=== PATIENT | female | born 1955 | race Caucasian/White ===

== ENCOUNTER 2016-09-12 11:04 | Inpatient (IN) | payer MEDICARE, MEDICAID ==
[~2016-09-12] VITALS: Ht 165.1 cm; Wt 72.6 kg
[~2016-09-12 11:04] MED LIST: CITA10TA68 PO; METF500T4 PO; OMEP20 PO; QUET200T PO
[2016-09-12 14:46] VITALS: BP 130/80
[2016-09-12] MEDS ORDERED: ZOLPIDEM TARTRATE 10 MG TABLET PO PRN (15:00)
[2016-09-12] MEDS: LORazepam 2 MG TABLET PO PRN ×2 (16:14→21:07)
[2016-09-12 16:42] VITALS: BP 121/76
[2016-09-12] MEDS ORDERED: INFLUENZA VIRUS VACCINE QVS 2016-17 (3YR+)/PF 60 MCG/0.5 ML SYRINGE IM ONE (16:45)
[2016-09-12] MEDS ORDERED: GLUCAGON,HUMAN RECOMBINANT 1 MG VIAL IM PRN (16:45)
[2016-09-12] MEDS ORDERED: PNEUMOCOCCAL VACCINE POLYVALENT 0.5 ML VIAL [PPSV23] IM ONE (16:45)
[2016-09-12 17:01] LABS: GLUCOSE,POINT OF CARE 139 MG/DL (70-110)
[2016-09-12] MEDS: MetFORMIN HCL 500 MG TABLET PO SCH (17:13)
[2016-09-12] MEDS: QUEtiapine FUMARATE 200 MG TABLET PO SCH (20:53)
[2016-09-12] MEDS: INSULIN ASPART 100 UNITS/ML SQ PRN (21:04)
[2016-09-12 21:06] LABS: GLUCOSE,POINT OF CARE 163 MG/DL (70-110)
[2016-09-12] MEDS: IBUPROFEN 600 MG TABLET PO PRN (21:08)
[2016-09-13 00:28] VITALS: BP 142/78
[2016-09-13 05:44] VITALS: BP 117/65
[2016-09-13] MEDS: IBUPROFEN 600 MG TABLET PO PRN (05:46)
[2016-09-13 06:06] LABS: GLUCOSE COMMENT 1 Received Meds; GLUCOSE,POINT OF CARE 160 MG/DL (70-110)
[2016-09-13] MEDS: LORazepam 2 MG TABLET PO PRN ×3 (06:37→21:33)
[2016-09-13] MEDS: INSULIN ASPART 100 UNITS/ML SQ PRN (06:51)
[2016-09-13] MEDS: MetFORMIN HCL 500 MG TABLET PO SCH ×2 (07:04→16:34)
[2016-09-13 08:26] VITALS: BP 102/65
[2016-09-13] MEDS ORDERED: DiphenhydrAMINE HCL 50 MG/ML VIAL IM ONE (08:45)
[2016-09-13] MEDS ORDERED: HALOPERIDOL LACTATE 5 MG/ML VIAL IM ONE (08:45)
[2016-09-13] MEDS ORDERED: LORazepam 2 MG/ML VIAL IM ONE (08:45)
[2016-09-13] MEDS: CITALOPRAM HYDROBROMIDE 10 MG TABLET PO SCH (09:29)
[2016-09-13 16:04] VITALS: BP 122/83
[2016-09-13 17:01] LABS: GLUCOSE,POINT OF CARE 165 MG/DL (70-110)
[2016-09-13] MEDS: HALOPERIDOL 5 MG TABLET PO PRN (17:50)
[2016-09-13] MEDS ORDERED: ALBUTEROL SULFATE HFA 90 MCG/PUFF 8 GM INHALER IH PRN (19:45)
[2016-09-13] MEDS ORDERED: LOPERAMIDE HCL 2 MG CAPSULE PO PRN (19:45)
[2016-09-13] MEDS ORDERED: CloNIDine HCL 0.1 MG TABLET PO PRN (19:45)
[2016-09-13] MEDS ORDERED: ONDANSETRON HCL 4 MG TABLET PO PRN (19:45)
[2016-09-13] MEDS ORDERED: PETROLATUM,WHITE 71 GM JELLY TP PRN (19:45)
[2016-09-13] MEDS ORDERED: BACITRACIN 28.4 GM OINTMENT TP PRN (19:45)
[2016-09-13] MEDS ORDERED: BENZOCAINE/MENTHOL LOZENGE MM PRN (19:45)
[2016-09-13] MEDS ORDERED: MAGNESIUM HYDROXIDE SUSPENSION 30 ML UDCUP PO PRN (19:45)
[2016-09-13] MEDS: QUEtiapine FUMARATE 200 MG TABLET PO SCH (20:15)
[2016-09-13 20:26] LABS: GLUCOSE,POINT OF CARE 157 MG/DL (70-110)
[2016-09-14 02:15] VITALS: BP 104/84
[2016-09-14] MEDS: LORazepam 2 MG TABLET PO PRN ×4 (02:20→16:00)
[2016-09-14] MEDS: MAG HYDROX/AL HYDROX/SIMETH ES 30 ML SUSPENSION UDCUP PO PRN (02:20)
[2016-09-14 03:57] VITALS: BP 120/73
[2016-09-14] MEDS: TraMADol HCL 50 MG TABLET PO PRN ×2 (04:02→12:37)
[2016-09-14] MEDS: HALOPERIDOL 5 MG TABLET PO PRN (04:35)
[2016-09-14 06:15] LABS: GLUCOSE,POINT OF CARE 140 MG/DL (70-110)
[2016-09-14] MEDS: MetFORMIN HCL 500 MG TABLET PO SCH ×2 (06:15→17:11)
[2016-09-14 08:10] LABS: HEMOGLOBIN A1C 6.1 % (4.5-6.2)
[2016-09-14 08:12] LABS: BASOPHILS # (AUTO) 0.06 K/uL (0.00-0.20); BASOPHILS % (AUTO) 0.9 % (0.0-2.0); EOSINOPHILS # (AUTO) 0.11 K/uL (0.00-0.70); EOSINOPHILS % (AUTO) 1.43 % (1.0-6.0); HEMATOCRIT 34.7 % (36-46); HEMOGLOBIN 11.8 g/dL (12.0-16.0); LYMPHOCYTES # (AUTO) 2.8 K/uL (1.0-4.8); LYMPHOCYTES % (AUTO) 37.9 % (22.0-44.0); MEAN CORPUSCULAR HEMOGLOBIN 29.7 pg (26.0-34.0); MEAN CORPUSCULAR VOLUME 87 fL (80-100); MONOCYTES # (AUTO) 0.5 K/uL (0.1-1.0); MONOCYTES % (AUTO) 6.9 % (2.0-9.0); NEUTROPHILS # (AUTO) 3.9 K/uL (1.8-7.7); NEUTROPHILS % (AUTO) 52.8 % (40.0-70.0); PLATELET COUNT (AUTO) 355 K/uL (150-450); RED BLOOD CELL COUNT(AUTO) 3.98 MIL/uL (4.00-5.20); RED CELL DISTRIBUTION WIDTH 13.9 % (11.5-14.5); WHITE BLOOD COUNT (AUTO) 7.4 K/uL (4.5-11.0)
[2016-09-14] MEDS: CITALOPRAM HYDROBROMIDE 10 MG TABLET PO SCH (08:34)
[2016-09-14 08:42] VITALS: BP 130/90
[2016-09-14] MEDS: IBUPROFEN 600 MG TABLET PO PRN (08:42)
[2016-09-14 08:44] LABS: ALANINE AMINOTRANSFERASE 21 U/L (12-78); ALBUMIN 3.3 g/dL (3.4-5.0); ANION GAP 7 mmol/L (8-16); ASPARTATE AMINOTRANSFERASE 10 U/L (15-37); BILIRUBIN,TOTAL 0.1 mg/dL (0.1-1.0); CALCIUM, TOTAL 8.4 mg/dL (8.8-10.5); CARBON DIOXIDE 27 mmol/L (22-29); CHLORIDE 103 mmol/L (98-107); CHOL/HDL RATIO 2.7 (3.9-5.7); CREATININE 0.83 mg/dL (0.60-1.30); GLOMERULAR FILTR. RATE CALC > 60 mL/min (>60); POTASSIUM 4.4 mmol/L (3.5-5.1); SODIUM SERUM 137 mmol/L (136-145); THYROID STIMULATING HORMONE 2.67 uIU/mL (0.36-3.74); UREA NITROGEN, BLOOD 21 mg/dL (7-18)
[2016-09-14 11:31] LABS: GLUCOSE,POINT OF CARE 150 MG/DL (70-110)
[2016-09-14 12:37] VITALS: BP 126/80
[2016-09-14 17:15] LABS: GLUCOSE,POINT OF CARE 108 MG/DL (70-110)
[2016-09-14] MEDS: QUEtiapine FUMARATE 200 MG TABLET PO SCH (20:19)
[2016-09-14 20:41] LABS: GLUCOSE,POINT OF CARE 149 MG/DL (70-110)
[2016-09-15] VITALS (8 sets, daily range): BP systolic 107–141; BP diastolic 61–91
[2016-09-15] MEDS: LORazepam 2 MG TABLET PO PRN ×4 (03:11→16:42)
[2016-09-15] MEDS: MAG HYDROX/AL HYDROX/SIMETH ES 30 ML SUSPENSION UDCUP PO PRN (03:11)
[2016-09-15] MEDS: TraMADol HCL 50 MG TABLET PO PRN ×2 (04:50→20:45)
[2016-09-15] MEDS: MetFORMIN HCL 500 MG TABLET PO SCH ×2 (06:32→16:26)
[2016-09-15 06:36] LABS: GLUCOSE,POINT OF CARE 124 MG/DL (70-110)
[2016-09-15] MEDS: CITALOPRAM HYDROBROMIDE 10 MG TABLET PO SCH (09:02)
[2016-09-15 16:30] LABS: GLUCOSE,POINT OF CARE 130 MG/DL (70-110)
[2016-09-15] MEDS: IBUPROFEN 600 MG TABLET PO PRN (16:42)
[2016-09-15] MEDS: QUEtiapine FUMARATE 200 MG TABLET PO SCH (20:30)
[2016-09-15 20:51] LABS: GLUCOSE,POINT OF CARE 120 MG/DL (70-110)
[2016-09-16 03:18] VITALS: BP 128/72
[2016-09-16] MEDS: LORazepam 2 MG TABLET PO PRN ×4 (03:20→16:45)
[2016-09-16] MEDS: MetFORMIN HCL 500 MG TABLET PO SCH ×2 (06:36→16:18)
[2016-09-16] MEDS ORDERED: INFLUENZA VIRUS VACCINE QVS 2016-17 (3YR+)/PF 60 MCG/0.5 ML SYRINGE IM ONE (06:45)
[2016-09-16 06:51] LABS: GLUCOSE,POINT OF CARE 153 MG/DL (70-110)
[2016-09-16] MEDS: NICOTINE 21 MG/24 HOUR PATCH TD SCH (08:34)
[2016-09-16] MEDS: CITALOPRAM HYDROBROMIDE 10 MG TABLET PO SCH (08:34)
[2016-09-16 09:40] VITALS: BP 125/78
[2016-09-16] MEDS: TraMADol HCL 50 MG TABLET PO PRN ×2 (10:14→17:40)
[2016-09-16 11:20] LABS: GLUCOSE,POINT OF CARE 124 MG/DL (70-110)
[2016-09-16] MEDS: MAG HYDROX/AL HYDROX/SIMETH ES 30 ML SUSPENSION UDCUP PO PRN (13:58)
[2016-09-16] MEDS: IBUPROFEN 600 MG TABLET PO PRN (14:13)
[2016-09-16 16:19] VITALS: BP 132/80
[2016-09-16 16:21] LABS: GLUCOSE,POINT OF CARE 99 MG/DL (70-110)
[2016-09-16 17:40] VITALS: BP 133/89
[2016-09-16 20:06] LABS: GLUCOSE,POINT OF CARE 104 MG/DL (70-110)
[2016-09-16] MEDS: QUEtiapine FUMARATE 200 MG TABLET PO SCH (20:16)
[2016-09-17 00:35] VITALS: BP 135/61
[2016-09-17] MEDS: TraMADol HCL 50 MG TABLET PO PRN ×3 (00:36→17:17)
[2016-09-17] MEDS: ACETAMINOPHEN 325 MG TABLET PO PRN (02:42)
[2016-09-17] MEDS: LORazepam 2 MG TABLET PO PRN ×3 (04:12→14:07)
[2016-09-17 05:57] LABS: GLUCOSE,POINT OF CARE 106 MG/DL (70-110)
[2016-09-17] MEDS: MetFORMIN HCL 500 MG TABLET PO SCH ×2 (06:55→17:00)
[2016-09-17] MEDS: NICOTINE 21 MG/24 HOUR PATCH TD SCH (09:16)
[2016-09-17] MEDS: CITALOPRAM HYDROBROMIDE 10 MG TABLET PO SCH (09:16)
[2016-09-17] MEDS: MAG HYDROX/AL HYDROX/SIMETH ES 30 ML SUSPENSION UDCUP PO PRN (09:44)
[2016-09-17 10:20] VITALS: BP 131/72
[2016-09-17 11:31] LABS: GLUCOSE,POINT OF CARE 126 MG/DL (70-110)
[2016-09-17] MEDS: IBUPROFEN 600 MG TABLET PO PRN (13:01)
[2016-09-17 13:02] VITALS: BP 129/68
[2016-09-17 14:14] VITALS: BP 132/63
[2016-09-17 16:02] VITALS: BP 130/82
[2016-09-17] MEDS: QUEtiapine FUMARATE 200 MG TABLET PO SCH (21:28)
[2016-09-18 01:20] VITALS: BP 113/79
[2016-09-18] MEDS: TraMADol HCL 50 MG TABLET PO PRN ×2 (01:25→16:19)
[2016-09-18] MEDS: LORazepam 2 MG TABLET PO PRN ×4 (01:26→18:53)
[2016-09-18 04:59] VITALS: BP 116/72
[2016-09-18] MEDS: MAG HYDROX/AL HYDROX/SIMETH ES 30 ML SUSPENSION UDCUP PO PRN (05:04)
[2016-09-18] MEDS: IBUPROFEN 600 MG TABLET PO PRN (05:05)
[2016-09-18 06:26] LABS: GLUCOSE,POINT OF CARE 121 MG/DL (70-110)
[2016-09-18] MEDS: MetFORMIN HCL 500 MG TABLET PO SCH ×2 (06:31→16:42)
[2016-09-18] MEDS: CITALOPRAM HYDROBROMIDE 10 MG TABLET PO SCH (08:18)
[2016-09-18] MEDS: NICOTINE 21 MG/24 HOUR PATCH TD SCH (08:19)
[2016-09-18 11:11] LABS: GLUCOSE,POINT OF CARE 102 MG/DL (70-110)
[2016-09-18 16:10] VITALS: BP 11/68
[2016-09-18 16:10] LABS: GLUCOSE,POINT OF CARE 125 MG/DL (70-110)
[2016-09-18 16:11] VITALS: BP 117/68
[2016-09-18 20:11] LABS: GLUCOSE,POINT OF CARE 115 MG/DL (70-110)
[2016-09-18] MEDS: QUEtiapine FUMARATE 200 MG TABLET PO SCH (20:32)
[2016-09-19 03:20] VITALS: BP 109/68
[2016-09-19] MEDS: IBUPROFEN 600 MG TABLET PO PRN (03:23)
[2016-09-19] MEDS: TraMADol HCL 50 MG TABLET PO PRN ×2 (04:38→12:56)
[2016-09-19] MEDS: LORazepam 2 MG TABLET PO PRN ×3 (05:06→15:58)
[2016-09-19] MEDS: MetFORMIN HCL 500 MG TABLET PO SCH ×2 (06:29→16:43)
[2016-09-19 06:32] LABS: GLUCOSE,POINT OF CARE 132 MG/DL (70-110)
[2016-09-19] MEDS: NICOTINE 21 MG/24 HOUR PATCH TD SCH ×2 (09:00→09:23)
[2016-09-19] MEDS: CITALOPRAM HYDROBROMIDE 10 MG TABLET PO SCH (09:19)
[2016-09-19] MEDS: HALOPERIDOL 5 MG TABLET PO PRN (10:48)
[2016-09-19 16:13] VITALS: BP 124/84
[2016-09-19] MEDS: QUEtiapine FUMARATE 200 MG TABLET PO SCH (20:38)
[2016-09-19 20:50] LABS: GLUCOSE,POINT OF CARE 121 MG/DL (70-110)
[2016-09-20 03:07] VITALS: BP 119/75
[2016-09-20] MEDS: ACETAMINOPHEN 325 MG TABLET PO PRN (03:10)
[2016-09-20] MEDS: LORazepam 2 MG TABLET PO PRN ×3 (03:10→15:09)
[2016-09-20 05:10] VITALS: BP 121/74
[2016-09-20] MEDS: TraMADol HCL 50 MG TABLET PO PRN (05:28)
[2016-09-20 06:26] LABS: GLUCOSE,POINT OF CARE 119 MG/DL (70-110)
[2016-09-20] MEDS: MetFORMIN HCL 500 MG TABLET PO SCH ×2 (06:33→16:50)
[2016-09-20] MEDS: CITALOPRAM HYDROBROMIDE 10 MG TABLET PO SCH (10:04)
[2016-09-20] MEDS: NICOTINE 21 MG/24 HOUR PATCH TD SCH (10:04)
[2016-09-20 11:36] LABS: GLUCOSE,POINT OF CARE 150 MG/DL (70-110)
[2016-09-20 16:20] LABS: GLUCOSE,POINT OF CARE 144 MG/DL (70-110)
[2016-09-20 16:21] VITALS: BP 126/75
[2016-09-20] MEDS: QUEtiapine FUMARATE 200 MG TABLET PO SCH (20:37)
[2016-09-21 04:55] VITALS: BP 109/68
[2016-09-21] MEDS: LORazepam 2 MG TABLET PO PRN (04:57)
[2016-09-21 06:51] LABS: GLUCOSE,POINT OF CARE 125 MG/DL (70-110)
[2016-09-21] MEDS: MetFORMIN HCL 500 MG TABLET PO SCH (06:52)
[2016-11-28] MEDS ORDERED: FERR-89 PO (11:37)
== END 2016-09-21 07:15 | disposition home or self-care (01) | DRG 885 ==
LOC: B2X 15:11
PROVIDERS: ADMIT Psychiatry & Neurology Psychiatry; ATTEND Psychiatry & Neurology Psychiatry
DX: F25.9 Schizoaffective disorder, unspecified (principal); E11.65 Type 2 diabetes mellitus with hyperglycemia; F17.200 Nicotine dependence, unspecified, uncomplicated; F22 Delusional disorders; G47.00 Insomnia, unspecified; G89.4 Chronic pain syndrome; I10 Essential (primary) hypertension; K21.9 Gastro-esophageal reflux disease without esophagitis; Z79.84 Long term (current) use of oral hypoglycemic drugs; Z71.6 Tobacco abuse counseling; Z98.890 Other specified postprocedural states; Z56.0 Unemployment, unspecified; Z88.1 Allergy status to other antibiotic agents; Z88.2 Allergy status to sulfonamides; Z79.899 Other long term (current) drug therapy; Z28.21 Immunization not carried out because of patient refusal
CPT/HCPCS: 82306; 82962; 83036; 84443; 90471; J1200; J1630; J2060

== ENCOUNTER 2016-11-09 01:56 | Inpatient (IN) | payer MEDICARE, MEDICAID ==
[~2016-11-09] VITALS: Ht 167.6 cm; Wt 72.5 kg
[~2016-11-09 01:56] MED LIST changes: -OMEP20 PO
[2016-11-09 02:56] VITALS: BP 158/78
[2016-11-09] MEDS ORDERED: ZOLPIDEM TARTRATE 10 MG TABLET PO PRN (03:00)
[2016-11-09] MEDS ORDERED: -PHARMACY VACCINE NOTE- MISC ONE ×2 (04:00)
[2016-11-09 06:38] LABS: BASOPHILS % (AUTO) 0.8 % (0.0-2.0); EOSINOPHILS % (AUTO) 2.5 % (1.0-6.0); HEMATOCRIT 35.4 % (36-46); HEMOGLOBIN 11.8 g/dL (12.0-16.0); LYMPHOCYTES # (AUTO) 2.4 K/uL (1.0-4.8); LYMPHOCYTES % (AUTO) 41.8 % (22.0-44.0); MEAN CORPUSCULAR HEMOGLOBIN 28.8 pg (26.0-34.0); MEAN CORPUSCULAR HGB CONC 33.4 G/dL (31.0-37.0); MEAN CORPUSCULAR VOLUME 86 fL (80-100); MONOCYTES # (AUTO) 0.4 K/uL (0.1-1.0); MONOCYTES % (AUTO) 6.8 % (2.0-9.0); NEUTROPHILS # (AUTO) 2.8 K/uL (1.8-7.7); NEUTROPHILS % (AUTO) 48.1 % (40.0-70.0); PLATELET COUNT (AUTO) 305 K/uL (150-450); RED BLOOD CELL COUNT(AUTO) 4.11 MIL/uL (4.00-5.20); RED CELL DISTRIBUTION WIDTH 13.9 % (11.5-14.5); WHITE BLOOD COUNT (AUTO) 5.8 K/uL (4.5-11.0)
[2016-11-09 06:44] LABS: ALANINE AMINOTRANSFERASE 15 U/L (12-78); ALBUMIN 3.2 g/dL (3.4-5.0); ANION GAP 7 mmol/L (8-16); ASPARTATE AMINOTRANSFERASE 11 U/L (15-37); BILIRUBIN,TOTAL 0.1 mg/dL (0.1-1.0); CALCIUM, TOTAL 7.9 mg/dL (8.8-10.5); CARBON DIOXIDE 28 mmol/L (22-29); CHLORIDE 106 mmol/L (98-107); CREATININE 0.92 mg/dL (0.60-1.30); GLOMERULAR FILTR. RATE CALC > 60 mL/min (>60); POTASSIUM 4.5 mmol/L (3.5-5.1); SODIUM SERUM 141 mmol/L (136-145); TOTAL PROTEIN, SERUM 6.1 g/dL (6.4-8.2); UREA NITROGEN, BLOOD 14 mg/dL (7-18)
[2016-11-09] MEDS: LORazepam 2 MG TABLET PO PRN ×3 (07:44→18:12)
[2016-11-09] MEDS: HALOPERIDOL 5 MG TABLET PO PRN ×2 (09:14→13:15)
[2016-11-09] MEDS ORDERED: IBUPROFEN 400 MG TABLET PO PRN (10:30)
[2016-11-09] MEDS ORDERED: ACETAMINOPHEN 325 MG TABLET PO PRN (10:30)
[2016-11-09] MEDS: FERROUS SULFATE 325 MG EC TABLET PO SCH ×2 (10:55→16:50)
[2016-11-09] MEDS: TraMADol HCL 50 MG TABLET PO PRN ×2 (10:55→17:18)
[2016-11-09 10:56] VITALS: BP 132/84
[2016-11-09] MEDS ORDERED: LORazepam 1 MG TABLET PO ONE ×2 (14:45→22:12)
[2016-11-09 16:14] VITALS: BP 140/80
[2016-11-09] MEDS: MetFORMIN HCL 500 MG TABLET PO SCH (16:51)
[2016-11-09 17:12] VITALS: BP 142/91
[2016-11-09] MEDS: QUEtiapine FUMARATE 200 MG TABLET PO SCH (20:21)
[2016-11-09] MEDS ORDERED: QUEtiapine FUMARATE 200 MG TABLET PO SCH (21:00)
[2016-11-10] MEDS ORDERED: -PHARMACY VACCINE NOTE- MISC ONE ×2 (02:45)
[2016-11-10 05:00] VITALS: BP 148/87
[2016-11-10] MEDS: TraMADol HCL 50 MG TABLET PO PRN ×3 (05:04→17:46)
[2016-11-10] MEDS: MetFORMIN HCL 500 MG TABLET PO SCH ×2 (07:02→17:47)
[2016-11-10] MEDS: FERROUS SULFATE 325 MG EC TABLET PO SCH ×3 (07:02→16:14)
[2016-11-10 08:00] VITALS: BP 161/96
[2016-11-10] MEDS: LORazepam 1 MG TABLET PO SCH ×2 (08:16→16:13)
[2016-11-10] MEDS: HALOPERIDOL 5 MG TABLET PO PRN ×2 (08:16→16:13)
[2016-11-10] MEDS ORDERED: CITALOPRAM HYDROBROMIDE 10 MG TABLET PO SCH ×2 (09:00)
[2016-11-10 11:04] VITALS: BP 146/87
[2016-11-10 12:04] VITALS: BP 134/78
[2016-11-10] MEDS: CARISOPRODOL 350 MG TABLET PO SCH ×2 (13:12→16:13)
[2016-11-10 17:06] VITALS: BP 165/97
[2016-11-10 17:50] VITALS: BP 150/90
[2016-11-10] MEDS: QUEtiapine FUMARATE 200 MG TABLET PO SCH (21:06)
[2016-11-10] MEDS ORDERED: CloNIDine HCL 0.1 MG TABLET PO PRN (22:45)
[2016-11-11] MEDS: AmLODIPine BESYLATE 5 MG TABLET PO SCH ×2 (00:33→08:12)
[2016-11-11 05:26] VITALS: BP 147/97
[2016-11-11] MEDS: TraMADol HCL 50 MG TABLET PO PRN ×3 (06:51→21:25)
[2016-11-11] MEDS: HALOPERIDOL 5 MG TABLET PO PRN ×2 (07:01→16:20)
[2016-11-11] MEDS: FERROUS SULFATE 325 MG EC TABLET PO SCH ×4 (07:30→16:31)
[2016-11-11] MEDS: MetFORMIN HCL 500 MG TABLET PO SCH ×2 (07:37→16:31)
[2016-11-11 08:00] VITALS: BP 150/90
[2016-11-11] MEDS: CITALOPRAM HYDROBROMIDE 20 MG TABLET PO SCH (08:12)
[2016-11-11] MEDS: CARISOPRODOL 350 MG TABLET PO SCH ×3 (08:12→16:20)
[2016-11-11 08:23] LABS: CHOL/HDL RATIO 3.1 (3.9-5.7); THYROID STIMULATING HORMONE 1.75 uIU/mL (0.36-3.74)
[2016-11-11 08:48] LABS: HEMOGLOBIN A1C 6.7 % (4.5-6.2)
[2016-11-11] MEDS ORDERED: LORazepam 1 MG TABLET PO SCH (09:00)
[2016-11-11 12:41] VITALS: BP 134/98
[2016-11-11] MEDS: ACETAMINOPHEN 325 MG TABLET PO PRN (12:41)
[2016-11-11 16:09] VITALS: BP 124/74
[2016-11-11] MEDS: QUEtiapine FUMARATE 200 MG TABLET PO SCH (20:07)
[2016-11-11 21:18] VITALS: BP 130/88
[2016-11-12 05:48] VITALS: BP 124/75
[2016-11-12] MEDS: TraMADol HCL 50 MG TABLET PO PRN ×2 (05:50→12:02)
[2016-11-12] MEDS: MetFORMIN HCL 500 MG TABLET PO SCH (06:30)
[2016-11-12] MEDS: FERROUS SULFATE 325 MG EC TABLET PO SCH ×2 (06:31→12:02)
[2016-11-12 08:00] VITALS: BP 147/80
[2016-11-12] MEDS: AmLODIPine BESYLATE 5 MG TABLET PO SCH (08:14)
[2016-11-12] MEDS: CARISOPRODOL 350 MG TABLET PO SCH ×2 (08:15→12:02)
[2016-11-12] MEDS: CITALOPRAM HYDROBROMIDE 20 MG TABLET PO SCH (08:15)
[2016-11-12] MEDS: HALOPERIDOL 5 MG TABLET PO PRN (09:03)
[2016-11-12] MEDS: ACETAMINOPHEN 325 MG TABLET PO PRN (10:55)
[2016-11-12] MEDS ORDERED: FERR-89 PO (11:16)
[2016-11-12] MEDS ORDERED: CARI350 PO (11:16)
[2016-11-12] MEDS ORDERED: AMLO-511 PO (11:16)
[2016-11-28] MEDS ORDERED: FERR-89 PO (11:37)
== END 2016-11-12 13:45 | disposition home or self-care (01) | DRG 885 ==
LOC: 3EX 02:15
PROVIDERS: ADMIT Psychiatry & Neurology Psychiatry; ATTEND Psychiatry & Neurology Psychiatry
DX: F25.1 Schizoaffective disorder, depressive type (principal); R45.851 Suicidal ideations; F17.210 Nicotine dependence, cigarettes, uncomplicated; F41.9 Anxiety disorder, unspecified; E11.9 Type 2 diabetes mellitus without complications; F10.10 Alcohol abuse, uncomplicated; G89.4 Chronic pain syndrome; I10 Essential (primary) hypertension; K21.9 Gastro-esophageal reflux disease without esophagitis; Z79.899 Other long term (current) drug therapy; Z88.2 Allergy status to sulfonamides; Z59.9 Problem related to housing and economic circumstances, unspecified; Z91.5 Personal history of self-harm; Z71.6 Tobacco abuse counseling; Z98.890 Other specified postprocedural states
CPT/HCPCS: 83036; 84443

== ENCOUNTER 2016-11-15 02:22 | Inpatient (IN) | payer MEDICARE, MEDICAID ==
[~2016-11-15] VITALS: Ht 167.6 cm; Wt 74.4 kg
[~2016-11-15 02:22] MED LIST changes: +AMLO-511 PO; +CARI350 PO; +FERS325 PO
[2016-11-15] MEDS ORDERED: ZOLPIDEM TARTRATE 10 MG TABLET PO PRN (04:00)
[2016-11-15] MEDS ORDERED: QUEtiapine FUMARATE 100 MG TABLET PO PRN (04:00)
[2016-11-15 04:38] VITALS: BP 142/68
[2016-11-15] MEDS: LORazepam 1 MG TABLET PO PRN ×3 (05:11→14:54)
[2016-11-15] MEDS: CITALOPRAM HYDROBROMIDE 20 MG TABLET PO SCH (08:56)
[2016-11-15] MEDS ORDERED: LORazepam 1 MG TABLET PO PRN (12:00)
[2016-11-15] MEDS: QUEtiapine FUMARATE 300 MG TABLET PO SCH (20:39)
[2016-11-15 20:40] VITALS: BP 145/94
[2016-11-16 05:44] VITALS: BP 122/83
[2016-11-16] MEDS: TraMADol HCL 50 MG TABLET PO PRN (05:46)
[2016-11-16] MEDS: LORazepam 1 MG TABLET PO PRN ×3 (06:48→20:08)
[2016-11-16 08:08] VITALS: BP 119/73
[2016-11-16] MEDS: CEPHALEXIN MONOHYDRATE 500 MG CAPSULE PO SCH ×3 (08:10→17:45)
[2016-11-16] MEDS: CITALOPRAM HYDROBROMIDE 20 MG TABLET PO SCH (08:10)
[2016-11-16] MEDS ORDERED: PETROLATUM,WHITE 71 GM JELLY TP PRN (09:30)
[2016-11-16] MEDS ORDERED: LOPERAMIDE HCL 2 MG CAPSULE PO PRN (09:30)
[2016-11-16] MEDS ORDERED: CloNIDine HCL 0.1 MG TABLET PO PRN (09:30)
[2016-11-16] MEDS ORDERED: BACITRACIN 28.4 GM OINTMENT TP PRN (09:30)
[2016-11-16] MEDS ORDERED: IBUPROFEN 600 MG TABLET PO PRN (09:30)
[2016-11-16] MEDS ORDERED: BENZOCAINE/MENTHOL LOZENGE MM PRN (09:30)
[2016-11-16] MEDS ORDERED: MAGNESIUM HYDROXIDE SUSPENSION 30 ML UDCUP PO PRN (09:30)
[2016-11-16] MEDS ORDERED: ALBUTEROL SULFATE HFA 90 MCG/PUFF 8 GM INHALER IH PRN (09:30)
[2016-11-16] MEDS: CARISOPRODOL 350 MG TABLET PO SCH ×2 (09:45→17:45)
[2016-11-16 10:28] VITALS: BP 122/76
[2016-11-16] MEDS: ACETAMINOPHEN 325 MG TABLET PO PRN (10:28)
[2016-11-16 16:05] VITALS: BP 121/78
[2016-11-16] MEDS: MUPIROCIN CALCIUM 2% 22 GM OINTMENT NASAL SCH (17:45)
[2016-11-16] MEDS: MetFORMIN HCL 500 MG TABLET PO SCH (17:45)
[2016-11-16] MEDS: QUEtiapine FUMARATE 300 MG TABLET PO SCH (20:10)
[2016-11-17 02:02] VITALS: BP 125/74
[2016-11-17] MEDS: TraMADol HCL 50 MG TABLET PO PRN ×3 (02:03→19:11)
[2016-11-17] MEDS: MAG HYDROX/AL HYDROX/SIMETH ES 30 ML SUSPENSION UDCUP PO PRN (02:15)
[2016-11-17] MEDS: ACETAMINOPHEN 325 MG TABLET PO PRN (04:42)
[2016-11-17] MEDS: ONDANSETRON HCL 4 MG TABLET PO PRN (05:38)
[2016-11-17] MEDS: CEPHALEXIN MONOHYDRATE 500 MG CAPSULE PO SCH ×3 (08:03→16:49)
[2016-11-17] MEDS: CITALOPRAM HYDROBROMIDE 20 MG TABLET PO SCH (08:03)
[2016-11-17] MEDS: CARISOPRODOL 350 MG TABLET PO SCH ×2 (08:03→16:48)
[2016-11-17] MEDS: LORazepam 1 MG TABLET PO PRN ×2 (08:03→12:10)
[2016-11-17] MEDS: CHOLECALCIFEROL (VIT D3) 1,000 UNITS TABLET PO SCH (08:03)
[2016-11-17] MEDS: MUPIROCIN CALCIUM 2% 22 GM OINTMENT NASAL SCH ×2 (08:03→16:49)
[2016-11-17] MEDS: MetFORMIN HCL 500 MG TABLET PO SCH ×2 (08:03→16:49)
[2016-11-17 12:10] VITALS: BP 129/78
[2016-11-17] MEDS ORDERED: CITA20TA9 PO (14:26)
[2016-11-17 16:16] VITALS: BP 134/85
[2016-11-17] MEDS: QUEtiapine FUMARATE 300 MG TABLET PO SCH (20:06)
[2016-11-18 02:30] VITALS: BP 110/68
[2016-11-18] MEDS: ACETAMINOPHEN 325 MG TABLET PO PRN (02:32)
[2016-11-18] MEDS: TROLAMINE SALICYLATE/ALOE VERA 10% 85 GM CREAM TP PRN (05:14)
[2016-11-18] MEDS: LORazepam 1 MG TABLET PO PRN ×2 (05:15→12:48)
[2016-11-18] MEDS: TraMADol HCL 50 MG TABLET PO PRN (06:04)
[2016-11-18] MEDS: MetFORMIN HCL 500 MG TABLET PO SCH ×2 (07:08→16:21)
[2016-11-18 08:03] VITALS: BP 106/79
[2016-11-18] MEDS: CEPHALEXIN MONOHYDRATE 500 MG CAPSULE PO SCH ×3 (08:55→16:19)
[2016-11-18] MEDS: MUPIROCIN CALCIUM 2% 22 GM OINTMENT NASAL SCH ×2 (08:55→16:19)
[2016-11-18] MEDS: CITALOPRAM HYDROBROMIDE 20 MG TABLET PO SCH (08:55)
[2016-11-18] MEDS: CARISOPRODOL 350 MG TABLET PO SCH ×2 (08:56→16:21)
[2016-11-18] MEDS: CHOLECALCIFEROL (VIT D3) 1,000 UNITS TABLET PO SCH (08:56)
[2016-11-18 16:50] VITALS: BP 139/64
[2016-11-18] MEDS: ONDANSETRON HCL 4 MG TABLET PO PRN (18:26)
[2016-11-18] MEDS: MAG HYDROX/AL HYDROX/SIMETH ES 30 ML SUSPENSION UDCUP PO PRN (18:26)
[2016-11-18] MEDS: QUEtiapine FUMARATE 300 MG TABLET PO SCH (20:59)
[2016-11-19] MEDS: TraMADol HCL 50 MG TABLET PO PRN ×3 (02:29→20:00)
[2016-11-19] MEDS: TROLAMINE SALICYLATE/ALOE VERA 10% 85 GM CREAM TP PRN ×2 (02:29→08:42)
[2016-11-19 02:32] VITALS: BP 102/76
[2016-11-19] MEDS: LORazepam 1 MG TABLET PO PRN ×2 (06:16→17:00)
[2016-11-19] MEDS: MetFORMIN HCL 500 MG TABLET PO SCH ×2 (06:50→17:34)
[2016-11-19] MEDS: CHOLECALCIFEROL (VIT D3) 1,000 UNITS TABLET PO SCH (08:41)
[2016-11-19] MEDS: CARISOPRODOL 350 MG TABLET PO SCH ×2 (08:41→16:19)
[2016-11-19] MEDS: CEPHALEXIN MONOHYDRATE 500 MG CAPSULE PO SCH ×3 (08:42→16:19)
[2016-11-19] MEDS: MUPIROCIN CALCIUM 2% 22 GM OINTMENT NASAL SCH ×2 (08:42→16:19)
[2016-11-19] MEDS: CITALOPRAM HYDROBROMIDE 20 MG TABLET PO SCH (08:42)
[2016-11-19 09:00] VITALS: BP 144/70
[2016-11-19 13:07] VITALS: BP 133/76
[2016-11-19 16:53] VITALS: BP 142/75
[2016-11-19 20:03] VITALS: BP 135/71
[2016-11-19] MEDS: QUEtiapine FUMARATE 300 MG TABLET PO SCH (20:22)
[2016-11-20 04:50] VITALS: BP 116/75
[2016-11-20] MEDS: TROLAMINE SALICYLATE/ALOE VERA 10% 85 GM CREAM TP PRN (04:51)
[2016-11-20] MEDS: TraMADol HCL 50 MG TABLET PO PRN ×2 (04:51→12:47)
[2016-11-20 05:52] VITALS: BP 106/75
[2016-11-20] MEDS: LORazepam 1 MG TABLET PO PRN ×2 (06:03→12:03)
[2016-11-20] MEDS: MetFORMIN HCL 500 MG TABLET PO SCH (07:22)
[2016-11-20] MEDS: CARISOPRODOL 350 MG TABLET PO SCH (08:16)
[2016-11-20] MEDS: CITALOPRAM HYDROBROMIDE 20 MG TABLET PO SCH (08:16)
[2016-11-20] MEDS: CEPHALEXIN MONOHYDRATE 500 MG CAPSULE PO SCH ×2 (08:17→12:47)
[2016-11-20] MEDS: CHOLECALCIFEROL (VIT D3) 1,000 UNITS TABLET PO SCH (08:17)
[2016-11-20] MEDS: MUPIROCIN CALCIUM 2% 22 GM OINTMENT NASAL SCH (08:22)
[2016-11-20] MEDS ORDERED: CARI350 PO (12:57)
[2016-11-20] MEDS ORDERED: CEPH500 PO (13:02)
[2016-11-20] MEDS ORDERED: VITAD1000 PO (13:03)
[2016-11-20] MEDS ORDERED: MUPI1OIN4 NS (13:04)
== END 2016-11-20 14:55 | disposition home or self-care (01) | DRG 885 ==
LOC: B2X 04:07 → EDSTATUS 04:30 → 3EX 11-16 16:59
DX: F25.1 Schizoaffective disorder, depressive type (principal); R45.851 Suicidal ideations; F15.90 Other stimulant use, unspecified, uncomplicated; F12.90 Cannabis use, unspecified, uncomplicated; I10 Essential (primary) hypertension; K21.9 Gastro-esophageal reflux disease without esophagitis; G89.29 Other chronic pain; J44.9 Chronic obstructive pulmonary disease, unspecified; E55.9 Vitamin D deficiency, unspecified; K59.00 Constipation, unspecified; F31.9 Bipolar disorder, unspecified; G47.00 Insomnia, unspecified; M19.90 Unspecified osteoarthritis, unspecified site; E11.65 Type 2 diabetes mellitus with hyperglycemia; M41.9 Scoliosis, unspecified; F17.200 Nicotine dependence, unspecified, uncomplicated; Z71.6 Tobacco abuse counseling; Z88.1 Allergy status to other antibiotic agents; Z59.0 Homelessness; Z79.899 Other long term (current) drug therapy; Z22.322 Carrier or suspected carrier of Methicillin resistant Staphylococcus aureus; Z71.51 Drug abuse counseling and surveillance of drug abuser
CPT/HCPCS: 87081; Q0162

== ENCOUNTER 2016-11-23 15:42 | Inpatient (IN) | payer MEDICARE, MEDICAID ==
[~2016-11-23] VITALS: Ht 165.1 cm; Wt 74.0 kg
[~2016-11-23 15:42] MED LIST changes: -AMLO-511 PO; +CEPH500 PO; -CITA10TA68 PO; +CITA20TA9 PO; -FERS325 PO; +MUPI1OIN4 NS; +VITAD1000 PO
[2016-11-23 16:02] LABS: GLUCOSE,POINT OF CARE 230 MG/DL (70-110)
[2016-11-23] MEDS ORDERED: TRAM50TA4 PO (16:18)
[2016-11-23] MEDS ORDERED: HYDR-3965 PO (16:18)
[2016-11-23 16:23] LABS: BASOPHILS % (AUTO) 0.6 % (0.0-2.0); EOSINOPHILS % (AUTO) 2.5 % (1.0-6.0); HEMATOCRIT 34.9 % (36-46); HEMOGLOBIN 11.6 g/dL (12.0-16.0); LYMPHOCYTES # (AUTO) 2.6 K/uL (1.0-4.8); LYMPHOCYTES % (AUTO) 39.7 % (22.0-44.0); MEAN CORPUSCULAR HEMOGLOBIN 28.6 pg (26.0-34.0); MEAN CORPUSCULAR HGB CONC 33.2 G/dL (31.0-37.0); MEAN CORPUSCULAR VOLUME 86 fL (80-100); MONOCYTES # (AUTO) 0.4 K/uL (0.1-1.0); MONOCYTES % (AUTO) 5.5 % (2.0-9.0); NEUTROPHILS # (AUTO) 3.4 K/uL (1.8-7.7); NEUTROPHILS % (AUTO) 51.7 % (40.0-70.0); PLATELET COUNT (AUTO) 288 K/uL (150-450); RED BLOOD CELL COUNT(AUTO) 4.05 MIL/uL (4.00-5.20); RED CELL DISTRIBUTION WIDTH 13.8 % (11.5-14.5); WHITE BLOOD COUNT (AUTO) 6.6 K/uL (4.5-11.0)
[2016-11-23 16:32] LABS: ANION GAP 10 mmol/L (8-16); CALCIUM, TOTAL 8.9 mg/dL (8.8-10.5); CARBON DIOXIDE 26 mmol/L (22-29); CHLORIDE 100 mmol/L (98-107); CREATININE 0.97 mg/dL (0.60-1.30); GLOMERULAR FILTR. RATE CALC 59 mL/min (>60); POTASSIUM 3.9 mmol/L (3.5-5.1); SODIUM SERUM 136 mmol/L (136-145); UREA NITROGEN, BLOOD 11 mg/dL (7-18)
[2016-11-23 16:37] LABS: ALANINE AMINOTRANSFERASE 21 U/L (12-78); ALBUMIN 3.8 g/dL (3.4-5.0); ASPARTATE AMINOTRANSFERASE 13 U/L (15-37); BILIRUBIN,TOTAL 0.1 mg/dL (0.1-1.0); TOTAL PROTEIN, SERUM 7.5 g/dL (6.4-8.2)
[2016-11-23] MEDS ORDERED: LORazepam 2 MG TABLET PO ONE (17:30)
[2016-11-23] MEDS ORDERED: ZOLPIDEM TARTRATE 10 MG TABLET PO PRN (18:00)
[2016-11-23] MEDS ORDERED: HALOPERIDOL 5 MG TABLET PO PRN (18:00)
[2016-11-23] MEDS ORDERED: KETOROLAC TROMETHAMINE 60 MG/2 ML VIAL IM ONE (18:30)
[2016-11-23 18:56] LABS: GLUCOSE,POINT OF CARE 84 MG/DL (70-110)
[2016-11-23] MEDS ORDERED: BENZOCAINE/MENTHOL LOZENGES [6 LOZENGES/PACKET] PO PRN (20:00)
[2016-11-23] MEDS ORDERED: MAGNESIUM HYDROXIDE SUSPENSION 30 ML UDCUP PO PRN (20:00)
[2016-11-23] MEDS ORDERED: CloNIDine HCL 0.1 MG TABLET PO PRN (20:00)
[2016-11-23] MEDS ORDERED: LOPERAMIDE HCL 2 MG CAPSULE PO PRN (20:00)
[2016-11-23] MEDS ORDERED: ALBUTEROL SULFATE HFA 90 MCG/PUFF 8 GM INHALER IH PRN (20:00)
[2016-11-23] MEDS ORDERED: IBUPROFEN 600 MG TABLET PO PRN (20:00)
[2016-11-23] MEDS ORDERED: PETROLATUM,WHITE 71 GM JELLY TP PRN (20:00)
[2016-11-23] MEDS ORDERED: ONDANSETRON HCL 4 MG TABLET PO PRN (20:00)
[2016-11-23] MEDS ORDERED: MAG HYDROX/AL HYDROX/SIMETH ES 30 ML SUSPENSION UDCUP PO PRN (20:00)
[2016-11-23] MEDS ORDERED: QUEtiapine FUMARATE 300 MG TABLET PO SCH (21:00)
[2016-11-23 21:04] VITALS: BP 134/73
[2016-11-24 04:20] VITALS: BP 139/87
[2016-11-24] MEDS: ACETAMINOPHEN 325 MG TABLET PO PRN (04:24)
[2016-11-24] MEDS: TROLAMINE SALICYLATE/ALOE VERA 10% 85 GM CREAM TP PRN (04:24)
[2016-11-24 04:30] VITALS: BP 139/87
[2016-11-24] MEDS: LORazepam 2 MG TABLET PO PRN ×2 (04:53→10:10)
[2016-11-24] MEDS: TraMADol HCL 50 MG TABLET PO PRN (05:27)
[2016-11-24] MEDS: MetFORMIN HCL 500 MG TABLET PO SCH ×2 (06:31→16:45)
[2016-11-24] MEDS: CITALOPRAM HYDROBROMIDE 20 MG TABLET PO SCH (10:08)
[2016-11-24] MEDS: CARISOPRODOL 350 MG TABLET PO SCH ×2 (10:10→16:46)
[2016-11-24] MEDS: CHOLECALCIFEROL (VIT D3) 1,000 UNITS TABLET PO SCH (10:10)
[2016-11-24] MEDS ORDERED: DEXTROSE 50%-WATER 25 GM/50 ML SYRINGE IVP PRN (10:30)
[2016-11-24] MEDS ORDERED: INSULIN ASPART 100 UNITS/ML SQ PRN (10:30)
[2016-11-24 16:50] VITALS: BP 129/75
[2016-11-24] MEDS: QUEtiapine FUMARATE 200 MG TABLET PO SCH (20:19)
[2016-11-25 03:29] VITALS: BP 107/70
[2016-11-25] MEDS: TROLAMINE SALICYLATE/ALOE VERA 10% 85 GM CREAM TP PRN (03:31)
[2016-11-25] MEDS: TraMADol HCL 50 MG TABLET PO PRN ×2 (03:31→09:04)
[2016-11-25 05:37] LABS: GLUCOSE,POINT OF CARE 165 MG/DL (70-110)
[2016-11-25] MEDS: ACETAMINOPHEN 325 MG TABLET PO PRN ×3 (06:06→12:29)
[2016-11-25] MEDS: MetFORMIN HCL 500 MG TABLET PO SCH ×2 (06:44→16:38)
[2016-11-25] MEDS: LORazepam 2 MG TABLET PO PRN ×2 (07:04→15:23)
[2016-11-25] MEDS: CITALOPRAM HYDROBROMIDE 20 MG TABLET PO SCH (08:22)
[2016-11-25] MEDS: CHOLECALCIFEROL (VIT D3) 1,000 UNITS TABLET PO SCH (08:22)
[2016-11-25] MEDS: CARISOPRODOL 350 MG TABLET PO SCH ×2 (08:22→16:13)
[2016-11-25 09:05] VITALS: BP 113/66
[2016-11-25 16:26] VITALS: BP 132/72
[2016-11-25] MEDS: QUEtiapine FUMARATE 200 MG TABLET PO SCH (20:31)
[2016-11-26 03:26] VITALS: BP 122/75
[2016-11-26] MEDS: TraMADol HCL 50 MG TABLET PO PRN ×2 (03:29→12:14)
[2016-11-26] MEDS: TROLAMINE SALICYLATE/ALOE VERA 10% 85 GM CREAM TP PRN (03:33)
[2016-11-26 05:37] LABS: GLUCOSE,POINT OF CARE 112 MG/DL (70-110)
[2016-11-26] MEDS: MetFORMIN HCL 500 MG TABLET PO SCH ×2 (06:31→16:29)
[2016-11-26] MEDS: FERROUS SULFATE 325 MG EC TABLET PO SCH ×2 (06:32→16:29)
[2016-11-26] MEDS: LORazepam 2 MG TABLET PO PRN ×2 (06:38→13:05)
[2016-11-26] MEDS: CHOLECALCIFEROL (VIT D3) 1,000 UNITS TABLET PO SCH (08:10)
[2016-11-26] MEDS: CARISOPRODOL 350 MG TABLET PO SCH ×2 (08:10→16:29)
[2016-11-26] MEDS: CITALOPRAM HYDROBROMIDE 20 MG TABLET PO SCH (08:10)
[2016-11-26 09:50] LABS: APPEARANCE,URINE CLEAR (CLEAR); GLUCOSE, URINE (UA) NEGATIVE (NEGATIVE); KETONES,URINE NEGATIVE (NEGATIVE); LEUKOCYTE ESTERASE ,URINE TRACE (NEGATIVE); OCCULT BLOOD,URINE NEGATIVE (NEGATIVE); PROTEIN,URINE NEGATIVE (NEGATIVE)
[2016-11-26 09:58] LABS: ADD UA MICROSCOPIC YES
[2016-11-26 10:33] LABS: RBC,URINE 0-2 /HPF (0-2); SQUAMOUS EPITHELIAL CELL,UR Rare /LPF (None Seen); WBC,URINE 0-2 /HPF (0-5)
[2016-11-26 12:14] VITALS: BP 134/88
[2016-11-26 17:41] VITALS: BP 119/79
[2016-11-26] MEDS: QUEtiapine FUMARATE 200 MG TABLET PO SCH (20:54)
[2016-11-27 05:17] LABS: GLUCOSE,POINT OF CARE 122 MG/DL (70-110)
[2016-11-27 05:35] VITALS: BP 100/70
[2016-11-27] MEDS: TraMADol HCL 50 MG TABLET PO PRN ×2 (05:37→12:10)
[2016-11-27] MEDS: TROLAMINE SALICYLATE/ALOE VERA 10% 85 GM CREAM TP PRN (05:37)
[2016-11-27] MEDS: LORazepam 2 MG TABLET PO PRN ×3 (05:37→15:34)
[2016-11-27] MEDS: MetFORMIN HCL 500 MG TABLET PO SCH ×2 (06:44→16:51)
[2016-11-27] MEDS: FERROUS SULFATE 325 MG EC TABLET PO SCH ×2 (06:44→16:51)
[2016-11-27] MEDS: CHOLECALCIFEROL (VIT D3) 1,000 UNITS TABLET PO SCH (09:29)
[2016-11-27] MEDS: CITALOPRAM HYDROBROMIDE 20 MG TABLET PO SCH (09:29)
[2016-11-27] MEDS: CARISOPRODOL 350 MG TABLET PO SCH ×2 (09:30→16:51)
[2016-11-27 11:46] LABS: GLUCOSE,POINT OF CARE 95 MG/DL (70-110)
[2016-11-27 12:10] VITALS: BP 131/77
[2016-11-27 17:12] LABS: GLUCOSE,POINT OF CARE 122 MG/DL (70-110)
[2016-11-27] MEDS ORDERED: QUET300T2 PO (18:35)
[2016-11-27 19:07] VITALS: BP 124/78
[2016-11-27] MEDS: CIPROFLOXACIN HCL 250 MG TABLET PO SCH (19:23)
[2016-11-27] MEDS: QUEtiapine FUMARATE 200 MG TABLET PO SCH (20:44)
[2016-11-28] MEDS: LORazepam 2 MG TABLET PO PRN ×3 (02:41→12:44)
[2016-11-28] MEDS: TraMADol HCL 50 MG TABLET PO PRN ×2 (02:42→10:20)
[2016-11-28] MEDS: TROLAMINE SALICYLATE/ALOE VERA 10% 85 GM CREAM TP PRN (04:49)
[2016-11-28 06:12] LABS: GLUCOSE,POINT OF CARE 107 MG/DL (70-110)
[2016-11-28] MEDS: FERROUS SULFATE 325 MG EC TABLET PO SCH (06:48)
[2016-11-28] MEDS: MetFORMIN HCL 500 MG TABLET PO SCH (06:48)
[2016-11-28] MEDS: CITALOPRAM HYDROBROMIDE 20 MG TABLET PO SCH (08:13)
[2016-11-28] MEDS: CHOLECALCIFEROL (VIT D3) 1,000 UNITS TABLET PO SCH (08:14)
[2016-11-28] MEDS: CARISOPRODOL 350 MG TABLET PO SCH (08:14)
[2016-11-28] MEDS: CIPROFLOXACIN HCL 250 MG TABLET PO SCH (08:14)
[2016-11-28 08:30] VITALS: BP 105/74
[2016-11-28] MEDS ORDERED: FERS325 PO (11:37)
[2016-11-28] MEDS ORDERED: QUET200T PO (11:37)
[2016-11-28] MEDS ORDERED: CIP250 PO (11:38)
[2016-11-28 11:52] LABS: GLUCOSE,POINT OF CARE 95 MG/DL (70-110)
== END 2016-11-28 14:05 | disposition home or self-care (01) | DRG 885 ==
LOC: EMS 15:43 → 3EX 18:22
DX: F25.1 Schizoaffective disorder, depressive type (principal); R45.851 Suicidal ideations; N39.0 Urinary tract infection, site not specified; F17.210 Nicotine dependence, cigarettes, uncomplicated; Z71.6 Tobacco abuse counseling; G89.29 Other chronic pain; G47.00 Insomnia, unspecified; E55.9 Vitamin D deficiency, unspecified; E11.65 Type 2 diabetes mellitus with hyperglycemia; D64.9 Anemia, unspecified; J44.9 Chronic obstructive pulmonary disease, unspecified; M79.7 Fibromyalgia; F19.90 Other psychoactive substance use, unspecified, uncomplicated; M41.9 Scoliosis, unspecified; M19.90 Unspecified osteoarthritis, unspecified site; K21.9 Gastro-esophageal reflux disease without esophagitis; Z79.899 Other long term (current) drug therapy; Z91.5 Personal history of self-harm; Z88.2 Allergy status to sulfonamides; Z63.8 Other specified problems related to primary support group; Z98.890 Other specified postprocedural states
CPT/HCPCS: 82962; 87081; 96372; 99285; 99406; G0480; J1885; Q0162

== ENCOUNTER 2016-12-05 14:08 | Inpatient (IN) | payer MEDICARE, MEDICAID ==
[~2016-12-05] VITALS: Ht 165.1 cm; Wt 75.7 kg
[~2016-12-05 14:08] MED LIST changes: -CEPH500 PO; +CIP250 PO; +FERS325 PO; -MUPI1OIN4 NS
[2016-12-05] MEDS ORDERED: ONDA4 PO (15:31)
[2016-12-05] MEDS ORDERED: [UNRECOGNIZED DRUG - CODE] PO (15:31)
[2016-12-05] MEDS ORDERED: HYDR-3980 PO (15:31)
[2016-12-05] MEDS ORDERED: [UNRECOGNIZED DRUG - CODE] PO (15:31)
[2016-12-05] MEDS ORDERED: TRAM50TA4 PO (15:31)
[2016-12-05] MEDS ORDERED: LORA1TAB3 PO (15:31)
[2016-12-05] MEDS ORDERED: ZOLPIDEM TARTRATE 10 MG TABLET PO PRN (15:45)
[2016-12-05] MEDS ORDERED: HALOPERIDOL 5 MG TABLET PO PRN (15:45)
[2016-12-05 15:46] LABS: GLUCOSE,POINT OF CARE 90 MG/DL (70-110)
[2016-12-05 16:05] LABS: BASOPHILS % (AUTO) 0.5 % (0.0-2.0); EOSINOPHILS % (AUTO) 1.4 % (1.0-6.0); HEMATOCRIT 34.4 % (36-46); HEMOGLOBIN 11.4 g/dL (12.0-16.0); LYMPHOCYTES # (AUTO) 4.3 K/uL (1.0-4.8); LYMPHOCYTES % (AUTO) 49.7 % (22.0-44.0); MEAN CORPUSCULAR HEMOGLOBIN 28.7 pg (26.0-34.0); MEAN CORPUSCULAR HGB CONC 33.2 G/dL (31.0-37.0); MEAN CORPUSCULAR VOLUME 87 fL (80-100); MONOCYTES # (AUTO) 0.5 K/uL (0.1-1.0); MONOCYTES % (AUTO) 5.5 % (2.0-9.0); NEUTROPHILS # (AUTO) 3.7 K/uL (1.8-7.7); NEUTROPHILS % (AUTO) 42.9 % (40.0-70.0); PLATELET COUNT (AUTO) 300 K/uL (150-450); RED BLOOD CELL COUNT(AUTO) 3.98 MIL/uL (4.00-5.20); RED CELL DISTRIBUTION WIDTH 13.9 % (11.5-14.5); WHITE BLOOD COUNT (AUTO) 8.7 K/uL (4.5-11.0)
[2016-12-05 16:18] LABS: ANION GAP 7 mmol/L (8-16); CALCIUM, TOTAL 8.5 mg/dL (8.8-10.5); CARBON DIOXIDE 27 mmol/L (22-29); CHLORIDE 100 mmol/L (98-107); CREATININE 0.86 mg/dL (0.60-1.30); GLOMERULAR FILTR. RATE CALC > 60 mL/min (>60); POTASSIUM 3.9 mmol/L (3.5-5.1); SODIUM SERUM 134 mmol/L (136-145); UREA NITROGEN, BLOOD 15 mg/dL (7-18)
[2016-12-05 16:25] LABS: ALANINE AMINOTRANSFERASE 22 U/L (12-78); ALBUMIN 3.5 g/dL (3.4-5.0); ASPARTATE AMINOTRANSFERASE 13 U/L (15-37); BILIRUBIN,TOTAL 0.3 mg/dL (0.1-1.0); TOTAL PROTEIN, SERUM 6.8 g/dL (6.4-8.2)
[2016-12-05 18:01] LABS: GLUCOSE,POINT OF CARE 118 MG/DL (70-110)
[2016-12-05] MEDS: LORazepam 2 MG TABLET PO PRN (18:02)
[2016-12-05 18:05] VITALS: BP 129/79
[2016-12-05] MEDS ORDERED: PNEUMOCOCCAL VACCINE POLYVALENT 0.5 ML VIAL [PPSV23] IM ONE (18:30)
[2016-12-05] MEDS: NICOTINE 21 MG/24 HOUR PATCH TD SCH (19:47)
[2016-12-05] MEDS: QUEtiapine FUMARATE 300 MG TABLET PO SCH (20:32)
[2016-12-06] MEDS: MetFORMIN HCL 500 MG TABLET PO SCH ×2 (06:08→16:31)
[2016-12-06 06:16] VITALS: BP 140/77
[2016-12-06] MEDS: TraMADol HCL 50 MG TABLET PO PRN ×2 (06:35→14:09)
[2016-12-06 08:22] VITALS: BP 105/70
[2016-12-06] MEDS: NICOTINE 21 MG/24 HOUR PATCH TD SCH (08:51)
[2016-12-06] MEDS: LORazepam 2 MG TABLET PO PRN ×2 (08:51→14:34)
[2016-12-06] MEDS ORDERED: ACETAMINOPHEN 325 MG TABLET PO PRN (09:00)
[2016-12-06] MEDS ORDERED: PETROLATUM,WHITE 71 GM JELLY TP PRN (09:00)
[2016-12-06] MEDS ORDERED: IBUPROFEN 600 MG TABLET PO PRN (09:00)
[2016-12-06] MEDS ORDERED: BENZOCAINE/MENTHOL LOZENGE MM PRN (09:00)
[2016-12-06] MEDS ORDERED: ONDANSETRON HCL 4 MG TABLET PO PRN (09:00)
[2016-12-06] MEDS ORDERED: CloNIDine HCL 0.1 MG TABLET PO PRN (09:00)
[2016-12-06] MEDS ORDERED: MAG HYDROX/AL HYDROX/SIMETH ES 30 ML SUSPENSION UDCUP PO PRN (09:00)
[2016-12-06] MEDS ORDERED: LOPERAMIDE HCL 2 MG CAPSULE PO PRN (09:00)
[2016-12-06] MEDS ORDERED: ALBUTEROL SULFATE HFA 90 MCG/PUFF 8 GM INHALER IH PRN (09:00)
[2016-12-06] MEDS ORDERED: MAGNESIUM HYDROXIDE SUSPENSION 30 ML UDCUP PO PRN (09:00)
[2016-12-06] MEDS ORDERED: BACITRACIN 28.4 GM OINTMENT TP PRN (09:00)
[2016-12-06] MEDS: CARISOPRODOL 350 MG TABLET PO SCH ×2 (09:12→16:31)
[2016-12-06] MEDS: CHOLECALCIFEROL (VIT D3) 1,000 UNITS TABLET PO SCH (09:12)
[2016-12-06] MEDS ORDERED: LORazepam 2 MG/ML VIAL IM ONE (14:45)
[2016-12-06] MEDS ORDERED: DiphenhydrAMINE HCL 50 MG/ML VIAL IM ONE (14:45)
[2016-12-06] MEDS ORDERED: HALOPERIDOL LACTATE 5 MG/ML VIAL IM ONE (14:45)
[2016-12-06 16:07] VITALS: BP 112/84
[2016-12-06] MEDS: QUEtiapine FUMARATE 300 MG TABLET PO SCH (20:38)
[2016-12-06] MEDS ORDERED: QUEtiapine FUMARATE 300 MG TABLET PO SCH (21:00)
[2016-12-07 06:10] VITALS: BP 122/89
[2016-12-07] MEDS: TraMADol HCL 50 MG TABLET PO PRN (06:20)
[2016-12-07] MEDS: LORazepam 2 MG TABLET PO PRN ×2 (06:20→14:40)
[2016-12-07] MEDS: MetFORMIN HCL 500 MG TABLET PO SCH ×2 (06:21→16:33)
[2016-12-07 08:23] VITALS: BP 117/68
[2016-12-07] MEDS: CHOLECALCIFEROL (VIT D3) 1,000 UNITS TABLET PO SCH (08:56)
[2016-12-07] MEDS: CARISOPRODOL 350 MG TABLET PO SCH ×2 (08:56→16:33)
[2016-12-07] MEDS: CITALOPRAM HYDROBROMIDE 20 MG TABLET PO SCH (08:56)
[2016-12-07] MEDS: NICOTINE 21 MG/24 HOUR PATCH TD SCH (08:58)
[2016-12-07] MEDS ORDERED: DiphenhydrAMINE HCL 50 MG/ML VIAL ONE (10:14)
[2016-12-07] MEDS ORDERED: LORazepam 2 MG/ML VIAL ONE (10:14)
[2016-12-07] MEDS ORDERED: HALOPERIDOL LACTATE 5 MG/ML VIAL ONE (10:14)
[2016-12-07] MEDS ORDERED: LORazepam 2 MG/ML VIAL IM ONE (10:15)
[2016-12-07] MEDS ORDERED: DiphenhydrAMINE HCL 50 MG/ML VIAL IM ONE (10:15)
[2016-12-07] MEDS ORDERED: HALOPERIDOL LACTATE 5 MG/ML VIAL IM ONE (10:15)
[2016-12-07 16:12] VITALS: BP 136/84
[2016-12-07] MEDS: QUEtiapine FUMARATE 300 MG TABLET PO SCH (20:37)
[2016-12-08] VITALS (7 sets, daily range): BP systolic 115–134; BP diastolic 65–89
[2016-12-08] MEDS: TraMADol HCL 50 MG TABLET PO PRN ×3 (05:16→20:22)
[2016-12-08] MEDS: LORazepam 2 MG TABLET PO PRN ×4 (05:16→16:50)
[2016-12-08] MEDS: MetFORMIN HCL 500 MG TABLET PO SCH ×2 (06:50→16:24)
[2016-12-08] MEDS: NICOTINE 21 MG/24 HOUR PATCH TD SCH (08:24)
[2016-12-08] MEDS: CITALOPRAM HYDROBROMIDE 20 MG TABLET PO SCH (08:24)
[2016-12-08] MEDS: CHOLECALCIFEROL (VIT D3) 1,000 UNITS TABLET PO SCH (08:24)
[2016-12-08] MEDS: CARISOPRODOL 350 MG TABLET PO SCH ×2 (08:24→16:24)
[2016-12-08] MEDS ORDERED: HydrOXYzine PAMOATE 25 MG CAPSULE PO ONE (17:30)
[2016-12-08] MEDS: ChlorproMAZINE HCL 50 MG TABLET PO PRN (17:46)
[2016-12-08] MEDS: QUEtiapine FUMARATE 300 MG TABLET PO SCH (20:22)
[2016-12-09 02:24] VITALS: BP 128/73
[2016-12-09] MEDS: TraMADol HCL 50 MG TABLET PO PRN ×3 (02:24→17:37)
[2016-12-09] MEDS: LORazepam 2 MG TABLET PO PRN ×2 (06:01→10:25)
[2016-12-09] MEDS: MetFORMIN HCL 500 MG TABLET PO SCH ×2 (06:09→16:23)
[2016-12-09] MEDS ORDERED: DiphenhydrAMINE HCL 25 MG CAPSULE PO PRN (06:45)
[2016-12-09] MEDS: ChlorproMAZINE HCL 50 MG TABLET PO PRN (07:25)
[2016-12-09 08:05] VITALS: BP 107/72
[2016-12-09] MEDS: CHOLECALCIFEROL (VIT D3) 1,000 UNITS TABLET PO SCH (08:38)
[2016-12-09] MEDS: CITALOPRAM HYDROBROMIDE 20 MG TABLET PO SCH (08:38)
[2016-12-09] MEDS: CARISOPRODOL 350 MG TABLET PO SCH ×2 (08:38→16:23)
[2016-12-09] MEDS: NICOTINE 21 MG/24 HOUR PATCH TD SCH (09:00)
[2016-12-09 10:29] VITALS: BP 114/68
[2016-12-09 16:00] VITALS: BP 115/78
[2016-12-09 17:37] VITALS: BP 117/75
[2016-12-09] MEDS ORDERED: QUEtiapine FUMARATE 200 MG TABLET PO SCH ×2 (21:00)
[2016-12-10 02:39] VITALS: BP 118/71
[2016-12-10] MEDS: LORazepam 2 MG TABLET PO PRN ×2 (03:08→10:01)
[2016-12-10 04:15] VITALS: BP 114/70
[2016-12-10] MEDS: TraMADol HCL 50 MG TABLET PO PRN (04:17)
[2016-12-10] MEDS: MetFORMIN HCL 500 MG TABLET PO SCH (06:59)
[2016-12-10 08:13] VITALS: BP 125/75
[2016-12-10] MEDS: CHOLECALCIFEROL (VIT D3) 1,000 UNITS TABLET PO SCH (08:36)
[2016-12-10] MEDS: CARISOPRODOL 350 MG TABLET PO SCH (08:36)
[2016-12-10] MEDS: CITALOPRAM HYDROBROMIDE 20 MG TABLET PO SCH (08:36)
[2016-12-10] MEDS: NICOTINE 21 MG/24 HOUR PATCH TD SCH (08:37)
[2016-12-10] MEDS ORDERED: DICLOFENAC SODIUM 1% 100 GM GEL [2GM] TP SCH (09:45)
[2016-12-10] MEDS ORDERED: QUET200T PO (12:12)
== END 2016-12-10 13:15 | disposition home or self-care (01) | DRG 885 ==
LOC: EMS 14:08 → B2X 16:07
DX: F25.0 Schizoaffective disorder, bipolar type (principal); R45.851 Suicidal ideations; E55.9 Vitamin D deficiency, unspecified; E11.65 Type 2 diabetes mellitus with hyperglycemia; M54.5 Low back pain; F17.210 Nicotine dependence, cigarettes, uncomplicated; F41.9 Anxiety disorder, unspecified; F60.3 Borderline personality disorder; G47.00 Insomnia, unspecified; J44.9 Chronic obstructive pulmonary disease, unspecified; K21.9 Gastro-esophageal reflux disease without esophagitis; M19.90 Unspecified osteoarthritis, unspecified site; M79.7 Fibromyalgia; Z87.440 Personal history of urinary (tract) infections; Z79.84 Long term (current) use of oral hypoglycemic drugs; Z79.1 Long term (current) use of non-steroidal anti-inflammatories (NSAID); Z79.891 Long term (current) use of opiate analgesic; Z79.51 Long term (current) use of inhaled steroids; Z90.721 Acquired absence of ovaries, unilateral; Z71.6 Tobacco abuse counseling; Z79.899 Other long term (current) drug therapy; Z59.9 Problem related to housing and economic circumstances, unspecified; Z98.890 Other specified postprocedural states; Z88.2 Allergy status to sulfonamides; Z28.21 Immunization not carried out because of patient refusal
CPT/HCPCS: 82962; 87081; 99285; G0480; J1200; J1630; J2060

== ENCOUNTER 2016-12-15 10:03 | Emergency (ER) | payer MEDICARE, OTHER ==
[~2016-12-15] VITALS: Ht 165.1 cm; Wt 73.0 kg
[~2016-12-15 10:03] MED LIST changes: -CARI350 PO; -CIP250 PO; -FERS325 PO
[2016-12-15] MEDS ORDERED: CLON1 PO (11:00)
[2016-12-15 11:02] LABS: GLUCOSE,POINT OF CARE 140 MG/DL (70-110)
[2016-12-15 11:50] LABS: BASOPHILS % (AUTO) 0.6 % (0.0-2.0); EOSINOPHILS % (AUTO) 1.3 % (1.0-6.0); HEMOGLOBIN 12.8 g/dL (12.0-16.0); LYMPHOCYTES # (AUTO) 2.1 K/uL (1.0-4.8); LYMPHOCYTES % (AUTO) 30.9 % (22.0-44.0); MEAN CORPUSCULAR HEMOGLOBIN 28.2 pg (26.0-34.0); MEAN CORPUSCULAR HGB CONC 32.8 G/dL (31.0-37.0); MEAN CORPUSCULAR VOLUME 86 fL (80-100); MONOCYTES # (AUTO) 0.4 K/uL (0.1-1.0); MONOCYTES % (AUTO) 5.3 % (2.0-9.0); NEUTROPHILS # (AUTO) 4.2 K/uL (1.8-7.7); NEUTROPHILS % (AUTO) 61.9 % (40.0-70.0); PLATELET COUNT (AUTO) 312 K/uL (150-450); RED BLOOD CELL COUNT(AUTO) 4.53 MIL/uL (4.00-5.20); RED CELL DISTRIBUTION WIDTH 13.7 % (11.5-14.5); WHITE BLOOD COUNT (AUTO) 6.8 K/uL (4.5-11.0)
[2016-12-15 12:13] LABS: ANION GAP 12 mmol/L (8-16); CALCIUM, TOTAL 9.1 mg/dL (8.8-10.5); CARBON DIOXIDE 26 mmol/L (22-29); CHLORIDE 101 mmol/L (98-107); CREATININE 0.97 mg/dL (0.60-1.30); GLOMERULAR FILTR. RATE CALC 59 mL/min (>60); POTASSIUM 4.1 mmol/L (3.5-5.1); SODIUM SERUM 139 mmol/L (136-145); UREA NITROGEN, BLOOD 8 mg/dL (7-18)
[2016-12-15 12:20] LABS: ALANINE AMINOTRANSFERASE 21 U/L (12-78); ALBUMIN 3.9 g/dL (3.4-5.0); ASPARTATE AMINOTRANSFERASE 15 U/L (15-37); BILIRUBIN,TOTAL 0.1 mg/dL (0.1-1.0); TOTAL PROTEIN, SERUM 7.9 g/dL (6.4-8.2)
[2016-12-15] MEDS ORDERED: HALOPERIDOL 5 MG TABLET PO ONE (12:30)
[2016-12-15] MEDS ORDERED: KETOROLAC TROMETHAMINE 60 MG/2 ML VIAL IM ONE (12:30)
[2016-12-15] MEDS ORDERED: ClonazePAM 1 MG TABLET PO ONE (12:30)
[2016-12-15 14:17] VITALS: BP 126/82
== END 2016-12-15 14:23 | disposition home or self-care (01) ==
LOC: EMS 10:05
DX: R45.851 Suicidal ideations (principal); F31.9 Bipolar disorder, unspecified; G89.29 Other chronic pain; M54.5 Low back pain; F41.9 Anxiety disorder, unspecified; F17.210 Nicotine dependence, cigarettes, uncomplicated; F32.9 Major depressive disorder, single episode, unspecified; Z88.2 Allergy status to sulfonamides
CPT/HCPCS: 36415; 80053; 80307; 82962; 85025; 96372; 99284; G0480; J1885

== ENCOUNTER 2016-12-19 20:12 | Inpatient (IN) | payer MEDICARE, MEDICAID ==
[~2016-12-19] VITALS: Ht 165.1 cm; Wt 74.3 kg
[~2016-12-19 20:12] MED LIST changes: +CLON1 PO; -METF500T4 PO; -VITAD1000 PO
[2016-12-19] MEDS ORDERED: HALOPERIDOL LACTATE 5 MG/ML VIAL IM ONE ×2 (20:30)
[2016-12-19] MEDS ORDERED: DiphenhydrAMINE HCL 50 MG/ML VIAL IM ONE ×2 (20:30)
[2016-12-19] MEDS ORDERED: LORazepam 2 MG/ML VIAL IM ONE ×2 (20:30)
[2016-12-19 22:20] LABS: BASOPHILS % (AUTO) 0.3 % (0.0-2.0); EOSINOPHILS % (AUTO) 1.6 % (1.0-6.0); HEMATOCRIT 37.2 % (36-46); LYMPHOCYTES % (AUTO) 31.7 % (22.0-44.0); MEAN CORPUSCULAR HEMOGLOBIN 27.8 pg (26.0-34.0); MEAN CORPUSCULAR HGB CONC 32.4 G/dL (31.0-37.0); MEAN CORPUSCULAR VOLUME 86 fL (80-100); MONOCYTES # (AUTO) 0.6 K/uL (0.1-1.0); MONOCYTES % (AUTO) 6.5 % (2.0-9.0); NEUTROPHILS # (AUTO) 5.7 K/uL (1.8-7.7); NEUTROPHILS % (AUTO) 59.9 % (40.0-70.0); PLATELET COUNT (AUTO) 330 K/uL (150-450); RED BLOOD CELL COUNT(AUTO) 4.32 MIL/uL (4.00-5.20); RED CELL DISTRIBUTION WIDTH 13.9 % (11.5-14.5); WHITE BLOOD COUNT (AUTO) 9.6 K/uL (4.5-11.0)
[2016-12-19 22:30] LABS: ANION GAP 12 mmol/L (8-16); CARBON DIOXIDE 24 mmol/L (22-29); CHLORIDE 105 mmol/L (98-107); CREATININE 0.89 mg/dL (0.60-1.30); GLOMERULAR FILTR. RATE CALC > 60 mL/min (>60); POTASSIUM 4.2 mmol/L (3.5-5.1); SODIUM SERUM 141 mmol/L (136-145); UREA NITROGEN, BLOOD 10 mg/dL (7-18)
[2016-12-19] MEDS ORDERED: ZOLPIDEM TARTRATE 10 MG TABLET PO PRN (22:30)
[2016-12-19] MEDS ORDERED: HALOPERIDOL 5 MG TABLET PO PRN (22:30)
[2016-12-19 22:36] LABS: ALANINE AMINOTRANSFERASE 27 U/L (12-78); ALBUMIN 3.7 g/dL (3.4-5.0); ASPARTATE AMINOTRANSFERASE 12 U/L (15-37); BILIRUBIN,TOTAL 0.2 mg/dL (0.1-1.0); TOTAL PROTEIN, SERUM 7.3 g/dL (6.4-8.2)
[2016-12-20] MEDS: LORazepam 2 MG TABLET PO PRN ×3 (00:14→20:56)
[2016-12-20 00:45] VITALS: BP 128/62
[2016-12-20] MEDS ORDERED: CloNIDine HCL 0.1 MG TABLET PO PRN (08:15)
[2016-12-20] MEDS ORDERED: BACITRACIN 28.4 GM OINTMENT TP PRN (08:15)
[2016-12-20] MEDS ORDERED: ACETAMINOPHEN 325 MG TABLET PO PRN (08:15)
[2016-12-20] MEDS ORDERED: LOPERAMIDE HCL 2 MG CAPSULE PO PRN (08:15)
[2016-12-20] MEDS ORDERED: DEXTROSE 50%-WATER 25 GM/50 ML SYRINGE IVP PRN (08:15)
[2016-12-20] MEDS ORDERED: DICLOFENAC SODIUM 1% 100 GM GEL [2GM] TP PRN (08:15)
[2016-12-20] MEDS ORDERED: ONDANSETRON HCL 4 MG TABLET PO PRN (08:15)
[2016-12-20] MEDS ORDERED: PETROLATUM,WHITE 71 GM JELLY TP PRN (08:15)
[2016-12-20] MEDS ORDERED: IBUPROFEN 600 MG TABLET PO PRN (08:15)
[2016-12-20] MEDS ORDERED: ALBUTEROL SULFATE HFA 90 MCG/PUFF 8 GM INHALER IH PRN (08:15)
[2016-12-20] MEDS ORDERED: MAGNESIUM HYDROXIDE SUSPENSION 30 ML UDCUP PO PRN (08:15)
[2016-12-20] MEDS ORDERED: BENZOCAINE/MENTHOL LOZENGE [8 LOZENGES/PACKET] MM PRN (08:30)
[2016-12-20] MEDS: DOCUSATE SODIUM 100 MG CAPSULE PO SCH (09:00)
[2016-12-20] MEDS: CHOLECALCIFEROL (VIT D3) 1,000 UNITS TABLET PO SCH (09:00)
[2016-12-20] MEDS ORDERED: CITALOPRAM HYDROBROMIDE 20 MG TABLET PO SCH (09:00)
[2016-12-20] MEDS ORDERED: ClonazePAM 1 MG TABLET PO SCH (09:00)
[2016-12-20] MEDS: CARISOPRODOL 350 MG TABLET PO SCH ×2 (09:00→16:03)
[2016-12-20] MEDS: OMEPRAZOLE 20 MG CAPSULE PO SCH (09:03)
[2016-12-20] MEDS: INSULIN ASPART 100 UNITS/ML SQ PRN ×3 (11:23→22:36)
[2016-12-20 12:08] LABS: GLUCOSE,POINT OF CARE 112 MG/DL (70-110)
[2016-12-20] MEDS: MetFORMIN HCL 500 MG TABLET PO SCH (16:53)
[2016-12-20 19:39] LABS: GLUCOSE COMMENT 1 FASTING; GLUCOSE,POINT OF CARE 180 MG/DL (70-110)
[2016-12-20] MEDS: DIVALPROEX SODIUM 500 MG DR TABLET PO SCH (20:56)
[2016-12-20] MEDS: QUEtiapine FUMARATE 200 MG TABLET PO SCH (20:56)
[2016-12-20 22:27] LABS: GLUCOSE COMMENT 1 FASTING; GLUCOSE,POINT OF CARE 183 MG/DL (70-110)
[2016-12-21] MEDS: TraMADol HCL 50 MG TABLET PO PRN (05:28)
[2016-12-21 05:32] VITALS: BP 100/69
[2016-12-21] MEDS: LORazepam 2 MG TABLET PO PRN ×3 (06:01→17:04)
[2016-12-21 06:35] LABS: BASOPHILS # (AUTO) 0.04 K/uL (0.00-0.20); BASOPHILS % (AUTO) 0.6 % (0.0-2.0); EOSINOPHILS % (AUTO) 2.64 % (1.0-6.0); HEMATOCRIT 37.5 % (36-46); HEMOGLOBIN 12.4 g/dL (12.0-16.0); LYMPHOCYTES # (AUTO) 3.8 K/uL (1.0-4.8); MEAN CORPUSCULAR HEMOGLOBIN 28.9 pg (26.0-34.0); MEAN CORPUSCULAR VOLUME 88 fL (80-100); MONOCYTES # (AUTO) 0.5 K/uL (0.1-1.0); MONOCYTES % (AUTO) 6.1 % (2.0-9.0); NEUTROPHILS # (AUTO) 3.2 K/uL (1.8-7.7); NEUTROPHILS % (AUTO) 41.6 % (40.0-70.0); PLATELET COUNT (AUTO) 315 K/uL (150-450); RED BLOOD CELL COUNT(AUTO) 4.29 MIL/uL (4.00-5.20); RED CELL DISTRIBUTION WIDTH 13.7 % (11.5-14.5); WHITE BLOOD COUNT (AUTO) 7.7 K/uL (4.5-11.0)
[2016-12-21 06:43] LABS: ALANINE AMINOTRANSFERASE 24 U/L (12-78); ALBUMIN 3.4 g/dL (3.4-5.0); ANION GAP 10 mmol/L (8-16); ASPARTATE AMINOTRANSFERASE 10 U/L (15-37); BILIRUBIN,TOTAL 0.2 mg/dL (0.1-1.0); CALCIUM, TOTAL 8.8 mg/dL (8.8-10.5); CARBON DIOXIDE 26 mmol/L (22-29); CHLORIDE 104 mmol/L (98-107); CHOL/HDL RATIO 2.6 (3.9-5.7); CREATININE 0.88 mg/dL (0.60-1.30); GLOMERULAR FILTR. RATE CALC > 60 mL/min (>60); POTASSIUM 4.3 mmol/L (3.5-5.1); SODIUM SERUM 140 mmol/L (136-145); TOTAL PROTEIN, SERUM 6.6 g/dL (6.4-8.2); UREA NITROGEN, BLOOD 20 mg/dL (7-18)
[2016-12-21] MEDS: MetFORMIN HCL 500 MG TABLET PO SCH ×2 (06:55→17:05)
[2016-12-21] MEDS: INSULIN ASPART 100 UNITS/ML SQ PRN ×2 (06:55→11:51)
[2016-12-21 07:04] LABS: GLUCOSE,POINT OF CARE 132 MG/DL (70-110)
[2016-12-21 08:04] VITALS: BP 96/67
[2016-12-21] MEDS: CARISOPRODOL 350 MG TABLET PO SCH ×2 (09:10→16:07)
[2016-12-21] MEDS: OMEPRAZOLE 20 MG CAPSULE PO SCH (09:10)
[2016-12-21] MEDS: DIVALPROEX SODIUM 500 MG DR TABLET PO SCH ×2 (09:10→20:05)
[2016-12-21] MEDS: DOCUSATE SODIUM 100 MG CAPSULE PO SCH (09:10)
[2016-12-21] MEDS: CHOLECALCIFEROL (VIT D3) 1,000 UNITS TABLET PO SCH (09:12)
[2016-12-21 13:53] LABS: GLUCOSE,POINT OF CARE 137 MG/DL (70-110)
[2016-12-21 16:12] LABS: GLUCOSE COMMENT 1 Received Meds; GLUCOSE,POINT OF CARE 97 MG/DL (70-110)
[2016-12-21 16:34] VITALS: BP 125/69
[2016-12-21] MEDS: QUEtiapine FUMARATE 200 MG TABLET PO SCH (20:05)
[2016-12-22] MEDS: MAG HYDROX/AL HYDROX/SIMETH ES 30 ML SUSPENSION UDCUP PO PRN (00:14)
[2016-12-22 04:22] VITALS: BP 109/75
[2016-12-22] MEDS: TraMADol HCL 50 MG TABLET PO PRN ×3 (04:22→19:31)
[2016-12-22 04:32] LABS: GLUCOSE,POINT OF CARE 122 MG/DL (70-110)
[2016-12-22] MEDS: LORazepam 2 MG TABLET PO PRN ×3 (05:17→12:21)
[2016-12-22] MEDS: MetFORMIN HCL 500 MG TABLET PO SCH ×2 (06:32→17:00)
[2016-12-22 08:09] VITALS: BP 99/79
[2016-12-22] MEDS: CHOLECALCIFEROL (VIT D3) 1,000 UNITS TABLET PO SCH (08:15)
[2016-12-22] MEDS: OMEPRAZOLE 20 MG CAPSULE PO SCH (08:15)
[2016-12-22] MEDS: DOCUSATE SODIUM 100 MG CAPSULE PO SCH (08:15)
[2016-12-22] MEDS: CARISOPRODOL 350 MG TABLET PO SCH ×2 (08:15→16:35)
[2016-12-22] MEDS: DIVALPROEX SODIUM 500 MG DR TABLET PO SCH ×2 (08:15→20:23)
[2016-12-22 11:47] LABS: GLUCOSE COMMENT 1 Juice/Food/D50 Given; GLUCOSE,POINT OF CARE 81 MG/DL (70-110)
[2016-12-22] MEDS: ChlorproMAZINE HCL 50 MG TABLET PO PRN (12:42)
[2016-12-22 16:42] LABS: GLUCOSE,POINT OF CARE 121 MG/DL (70-110)
[2016-12-22 19:30] VITALS: BP 121/69
[2016-12-22] MEDS: QUEtiapine FUMARATE 200 MG TABLET PO SCH (20:23)
[2016-12-22 20:29] VITALS: BP 120/79
[2016-12-23] MEDS: MAG HYDROX/AL HYDROX/SIMETH ES 30 ML SUSPENSION UDCUP PO PRN (02:46)
[2016-12-23 05:37] LABS: GLUCOSE,POINT OF CARE 113 MG/DL (70-110)
[2016-12-23] MEDS: MetFORMIN HCL 500 MG TABLET PO SCH ×2 (06:32→16:34)
[2016-12-23] MEDS: CARISOPRODOL 350 MG TABLET PO SCH ×2 (07:55→16:18)
[2016-12-23] MEDS: CHOLECALCIFEROL (VIT D3) 1,000 UNITS TABLET PO SCH (07:55)
[2016-12-23] MEDS: DOCUSATE SODIUM 100 MG CAPSULE PO SCH (07:55)
[2016-12-23] MEDS: DIVALPROEX SODIUM 500 MG DR TABLET PO SCH ×3 (07:56→21:00)
[2016-12-23] MEDS: ChlorproMAZINE HCL 50 MG TABLET PO PRN (07:56)
[2016-12-23 08:19] VITALS: BP 146/91
[2016-12-23] MEDS: OMEPRAZOLE 20 MG CAPSULE PO SCH (10:00)
[2016-12-23 11:12] LABS: GLUCOSE,POINT OF CARE 121 MG/DL (70-110)
[2016-12-23] MEDS: LORazepam 2 MG TABLET PO PRN ×2 (12:25→16:34)
[2016-12-23] MEDS: TraMADol HCL 50 MG TABLET PO PRN ×2 (12:56→19:23)
[2016-12-23 16:06] VITALS: BP 107/74
[2016-12-23 16:32] LABS: GLUCOSE,POINT OF CARE 122 MG/DL (70-110)
[2016-12-23 19:22] VITALS: BP 129/84
[2016-12-23] MEDS: QUEtiapine FUMARATE 200 MG TABLET PO SCH (21:01)
[2016-12-23 21:52] LABS: GLUCOSE,POINT OF CARE 124 MG/DL (70-110)
[2016-12-24] MEDS: LORazepam 2 MG TABLET PO PRN ×2 (05:00→10:24)
[2016-12-24] MEDS: MetFORMIN HCL 500 MG TABLET PO SCH ×2 (06:45→16:01)
[2016-12-24 07:12] LABS: GLUCOSE,POINT OF CARE 127 MG/DL (70-110)
[2016-12-24 08:00] VITALS: BP 97/76
[2016-12-24] MEDS: CHOLECALCIFEROL (VIT D3) 1,000 UNITS TABLET PO SCH (08:11)
[2016-12-24] MEDS: DIVALPROEX SODIUM 500 MG DR TABLET PO SCH ×2 (08:11→20:02)
[2016-12-24] MEDS: CARISOPRODOL 350 MG TABLET PO SCH ×2 (08:11→16:01)
[2016-12-24] MEDS: DOCUSATE SODIUM 100 MG CAPSULE PO SCH (08:11)
[2016-12-24] MEDS: OMEPRAZOLE 20 MG CAPSULE PO SCH (08:11)
[2016-12-24] MEDS: TraMADol HCL 50 MG TABLET PO PRN (09:35)
[2016-12-24] MEDS: LORazepam 1 MG TABLET PO PRN (16:40)
[2016-12-24 16:49] VITALS: BP 110/64
[2016-12-24 17:42] LABS: GLUCOSE,POINT OF CARE 127 MG/DL (70-110)
[2016-12-24] MEDS ORDERED: DICLOFENAC SODIUM 1% 100 GM GEL [2GM] TP PRN (19:15)
[2016-12-24] MEDS: QUEtiapine FUMARATE 200 MG TABLET PO SCH (20:02)
[2016-12-24 21:22] LABS: GLUCOSE,POINT OF CARE 172 MG/DL (70-110)
[2016-12-25 06:36] LABS: GLUCOSE,POINT OF CARE 123 MG/DL (70-110)
[2016-12-25] MEDS: MetFORMIN HCL 500 MG TABLET PO SCH ×2 (06:38→16:04)
[2016-12-25] MEDS: LORazepam 1 MG TABLET PO PRN ×2 (08:16→13:53)
[2016-12-25] MEDS: CHOLECALCIFEROL (VIT D3) 1,000 UNITS TABLET PO SCH (08:16)
[2016-12-25] MEDS: DIVALPROEX SODIUM 500 MG DR TABLET PO SCH ×2 (08:16→20:26)
[2016-12-25] MEDS: OMEPRAZOLE 20 MG CAPSULE PO SCH (08:16)
[2016-12-25] MEDS: DOCUSATE SODIUM 100 MG CAPSULE PO SCH (08:16)
[2016-12-25] MEDS: CARISOPRODOL 350 MG TABLET PO SCH ×2 (08:16→16:04)
[2016-12-25] MEDS: ChlorproMAZINE HCL 50 MG TABLET PO PRN ×2 (08:17→13:53)
[2016-12-25] MEDS: TraMADol HCL 50 MG TABLET PO PRN ×2 (08:18→16:37)
[2016-12-25 08:30] VITALS: BP 95/63
[2016-12-25 11:52] LABS: GLUCOSE,POINT OF CARE 100 MG/DL (70-110)
[2016-12-25 16:35] VITALS: BP 112/69
[2016-12-25 16:57] LABS: GLUCOSE,POINT OF CARE 111 MG/DL (70-110)
[2016-12-25] MEDS: QUEtiapine FUMARATE 200 MG TABLET PO SCH (20:27)
[2016-12-26 01:15] VITALS: BP 102/73
[2016-12-26] MEDS: LORazepam 1 MG TABLET PO PRN ×3 (01:19→18:41)
[2016-12-26] MEDS: TraMADol HCL 50 MG TABLET PO PRN ×3 (01:20→18:41)
[2016-12-26] MEDS: ChlorproMAZINE HCL 50 MG TABLET PO PRN (02:12)
[2016-12-26 06:32] LABS: GLUCOSE,POINT OF CARE 109 MG/DL (70-110)
[2016-12-26] MEDS: INSULIN ASPART 100 UNITS/ML SQ PRN ×2 (06:54→11:51)
[2016-12-26] MEDS: MetFORMIN HCL 500 MG TABLET PO SCH ×2 (06:55→16:51)
[2016-12-26] MEDS: DIVALPROEX SODIUM 500 MG DR TABLET PO SCH ×2 (08:57→21:29)
[2016-12-26] MEDS: OMEPRAZOLE 20 MG CAPSULE PO SCH (08:57)
[2016-12-26] MEDS: CARISOPRODOL 350 MG TABLET PO SCH ×2 (08:57→16:51)
[2016-12-26] MEDS: CHOLECALCIFEROL (VIT D3) 1,000 UNITS TABLET PO SCH (08:57)
[2016-12-26] MEDS: DOCUSATE SODIUM 100 MG CAPSULE PO SCH (09:00)
[2016-12-26 10:14] VITALS: BP 101/72
[2016-12-26 11:37] LABS: GLUCOSE,POINT OF CARE 145 MG/DL (70-110)
[2016-12-26 16:53] VITALS: BP 125/72
[2016-12-26 19:41] VITALS: BP 121/63
[2016-12-26] MEDS: QUEtiapine FUMARATE 200 MG TABLET PO SCH (21:29)
[2016-12-27] MEDS: LORazepam 1 MG TABLET PO PRN ×2 (02:13→08:21)
[2016-12-27 06:35] VITALS: BP 120/71
[2016-12-27] MEDS: TraMADol HCL 50 MG TABLET PO PRN (06:35)
[2016-12-27] MEDS: MetFORMIN HCL 500 MG TABLET PO SCH (06:36)
[2016-12-27 08:15] VITALS: BP 101/57
[2016-12-27] MEDS: DOCUSATE SODIUM 100 MG CAPSULE PO SCH (08:21)
[2016-12-27] MEDS: OMEPRAZOLE 20 MG CAPSULE PO SCH (08:21)
[2016-12-27] MEDS: CHOLECALCIFEROL (VIT D3) 1,000 UNITS TABLET PO SCH (08:21)
[2016-12-27] MEDS: CARISOPRODOL 350 MG TABLET PO SCH (08:21)
[2016-12-27] MEDS: DIVALPROEX SODIUM 500 MG DR TABLET PO SCH (08:22)
[2016-12-27] MEDS ORDERED: DIVA500T35 PO ×2 (09:31)
[2016-12-27] MEDS ORDERED: CARI350 PO (09:42)
[2016-12-27] MEDS ORDERED: OMEP20 PO (09:42)
[2016-12-27] MEDS ORDERED: METF500T4 PO (09:42)
[2016-12-27] MEDS ORDERED: VITAD1000 PO (09:42)
[2016-12-27] MEDS ORDERED: DSS100 PO (09:42)
== END 2016-12-27 14:14 | disposition home or self-care (01) | DRG 885 ==
LOC: EMS 20:15 → 3EC 22:54
PROC: [UNRECOGNIZED PROCEDURE] (principal; 2016-12-20)
DX: F25.0 Schizoaffective disorder, bipolar type (principal); R45.851 Suicidal ideations; J44.9 Chronic obstructive pulmonary disease, unspecified; M19.90 Unspecified osteoarthritis, unspecified site; E55.9 Vitamin D deficiency, unspecified; K21.9 Gastro-esophageal reflux disease without esophagitis; Z53.29 Procedure and treatment not carried out because of patient's decision for other reasons; G47.00 Insomnia, unspecified; I10 Essential (primary) hypertension; E78.5 Hyperlipidemia, unspecified; E11.65 Type 2 diabetes mellitus with hyperglycemia; M54.5 Low back pain; G89.29 Other chronic pain; M79.7 Fibromyalgia; Z88.2 Allergy status to sulfonamides; Z79.899 Other long term (current) drug therapy; Z59.9 Problem related to housing and economic circumstances, unspecified; F17.210 Nicotine dependence, cigarettes, uncomplicated; Z90.721 Acquired absence of ovaries, unilateral; Z56.0 Unemployment, unspecified; Z59.0 Homelessness
CPT/HCPCS: 82962; 87081; 96372; 99285; G0480; J1200; J1630; J2060; Q0162

== ENCOUNTER 2017-01-03 14:16 | Emergency (ER) | payer MEDICARE, OTHER ==
[~2017-01-03] VITALS: Ht 167.6 cm; Wt 76.0 kg
[~2017-01-03 14:16] MED LIST changes: +CARI350 PO; -CITA20TA9 PO; -CLON1 PO; +DIVA500T35 PO; +DSS100 PO; +METF500T4 PO; +OMEP20 PO; +VITAD1000 PO
[2017-01-03 14:32] LABS: GLUCOSE,POINT OF CARE 106 MG/DL (70-110)
[2017-01-03] MEDS: ONDANSETRON HCL 4 MG/2 ML VIAL IVP ONE (15:15)
[2017-01-03] MEDS: SODIUM CHLORIDE 0.9% 1,000 ML IV ONE (15:16)
[2017-01-03 16:09] VITALS: BP 113/75
== END 2017-01-03 16:23 | disposition home or self-care (01) ==
LOC: EMS 14:18
DX: R11.0 Nausea (principal); F25.9 Schizoaffective disorder, unspecified; F17.210 Nicotine dependence, cigarettes, uncomplicated; F41.9 Anxiety disorder, unspecified; F32.9 Major depressive disorder, single episode, unspecified; Z88.2 Allergy status to sulfonamides; Z71.6 Tobacco abuse counseling
CPT/HCPCS: 82962; 96361; 96374; 99284; 99406; J2405; J7030

== ENCOUNTER 2017-01-07 11:39 | Emergency (ER) | payer MEDICARE, OTHER ==
[~2017-01-07] VITALS: Ht 167.6 cm; Wt 75.0 kg
[~2017-01-07 11:39] MED LIST changes: -DIVA500T35 PO
[2017-01-07 11:57] LABS: GLUCOSE,POINT OF CARE 110 MG/DL (70-110)
[2017-01-07 14:12] VITALS: BP 139/89
[2017-01-07] MEDS ORDERED: KETOROLAC TROMETHAMINE 30 MG/ML VIAL IM ONE (14:30)
== END 2017-01-07 15:02 | disposition home or self-care (01) ==
LOC: EMS 11:40
DX: M79.7 Fibromyalgia (principal); F17.210 Nicotine dependence, cigarettes, uncomplicated; Z88.1 Allergy status to other antibiotic agents
CPT/HCPCS: 82962; 96372; 99283; J1885

== ENCOUNTER 2017-01-27 17:28 | Inpatient (IN) | payer MEDICARE, MEDICAID ==
[~2017-01-27] VITALS: Ht 167.6 cm; Wt 73.6 kg
[2017-01-27] MEDS ORDERED: CLON1 PO (18:18)
[2017-01-27] MEDS ORDERED: CITA20TA9 PO (18:18)
[2017-01-27] MEDS ORDERED: HYDR-305 PO (18:18)
[2017-01-27] MEDS ORDERED: KETOROLAC TROMETHAMINE 60 MG/2 ML VIAL IM ONE (19:30)
[2017-01-27 19:42] LABS: GLUCOSE,POINT OF CARE 126 MG/DL (70-110)
[2017-01-27 20:02] LABS: BASOPHILS % (AUTO) 1.1 % (0.0-2.0); EOSINOPHILS # (AUTO) 0.27 K/uL (0.00-0.70); EOSINOPHILS % (AUTO) 3.05 % (1.0-6.0); HEMOGLOBIN 11.8 g/dL (12.0-16.0); LYMPHOCYTES # (AUTO) 4.3 K/uL (1.0-4.8); LYMPHOCYTES % (AUTO) 49.1 % (22.0-44.0); MEAN CORPUSCULAR HEMOGLOBIN 29.1 pg (26.0-34.0); MEAN CORPUSCULAR HGB CONC 33.7 G/dL (31.0-37.0); MEAN CORPUSCULAR VOLUME 86 fL (80-100); MONOCYTES # (AUTO) 0.5 K/uL (0.1-1.0); MONOCYTES % (AUTO) 5.7 % (2.0-9.0); NEUTROPHILS # (AUTO) 3.6 K/uL (1.8-7.7); PLATELET COUNT (AUTO) 274 K/uL (150-450); RED BLOOD CELL COUNT(AUTO) 4.04 MIL/uL (4.00-5.20); WHITE BLOOD COUNT (AUTO) 8.8 K/uL (4.5-11.0)
[2017-01-27] MEDS ORDERED: HALOPERIDOL 5 MG TABLET PO PRN (20:15)
[2017-01-27] MEDS ORDERED: ZOLPIDEM TARTRATE 10 MG TABLET PO PRN (20:15)
[2017-01-27 20:21] LABS: ALANINE AMINOTRANSFERASE 19 U/L (12-78); ALBUMIN 3.8 g/dL (3.4-5.0); ANION GAP 9 mmol/L (8-16); ASPARTATE AMINOTRANSFERASE 10 U/L (15-37); BILIRUBIN,TOTAL 0.1 mg/dL (0.1-1.0); CALCIUM, TOTAL 8.6 mg/dL (8.8-10.5); CARBON DIOXIDE 29 mmol/L (22-29); CHLORIDE 100 mmol/L (98-107); CREATININE 1.38 mg/dL (0.60-1.30); GLOMERULAR FILTR. RATE CALC 39 mL/min (>60); POTASSIUM 3.8 mmol/L (3.5-5.1); SODIUM SERUM 138 mmol/L (136-145); TOTAL PROTEIN, SERUM 7.1 g/dL (6.4-8.2); UREA NITROGEN, BLOOD 12 mg/dL (7-18)
[2017-01-27] MEDS ORDERED: LORazepam 2 MG/ML VIAL IM ONE (20:30)
[2017-01-27] MEDS ORDERED: DiphenhydrAMINE HCL 50 MG/ML VIAL IM ONE (20:30)
[2017-01-27] MEDS ORDERED: HALOPERIDOL LACTATE 5 MG/ML VIAL IM ONE (20:30)
[2017-01-27 21:56] VITALS: BP 136/79
[2017-01-27] MEDS ORDERED: DEXTROSE 50%-WATER 25 GM/50 ML SYRINGE IVP PRN (22:00)
[2017-01-27] MEDS: LORazepam 2 MG TABLET PO PRN (22:15)
[2017-01-28] MEDS: LORazepam 2 MG TABLET PO PRN ×3 (05:47→18:35)
[2017-01-28] MEDS: MetFORMIN HCL 500 MG TABLET PO SCH ×2 (06:37→18:31)
[2017-01-28] MEDS ORDERED: PETROLATUM,WHITE 71 GM JELLY TP PRN (09:00)
[2017-01-28] MEDS ORDERED: LOPERAMIDE HCL 2 MG CAPSULE PO PRN (09:00)
[2017-01-28] MEDS ORDERED: MAGNESIUM HYDROXIDE SUSPENSION 30 ML UDCUP PO PRN (09:00)
[2017-01-28] MEDS ORDERED: ONDANSETRON HCL 4 MG TABLET PO PRN (09:00)
[2017-01-28] MEDS ORDERED: ALBUTEROL SULFATE HFA 90 MCG/PUFF 8 GM INHALER IH PRN (09:00)
[2017-01-28] MEDS: DOCUSATE SODIUM 100 MG CAPSULE PO SCH ×2 (09:00→10:01)
[2017-01-28] MEDS ORDERED: BACITRACIN 28.4 GM OINTMENT TP PRN (09:00)
[2017-01-28] MEDS ORDERED: ACETAMINOPHEN 325 MG TABLET PO PRN (09:00)
[2017-01-28] MEDS ORDERED: CloNIDine HCL 0.1 MG TABLET PO PRN (09:00)
[2017-01-28] MEDS ORDERED: BENZOCAINE/MENTHOL LOZENGE [8 LOZENGES/PACKET] MM PRN (09:30)
[2017-01-28] MEDS: CARISOPRODOL 350 MG TABLET PO SCH ×2 (10:01→17:54)
[2017-01-28] MEDS: OMEPRAZOLE 20 MG CAPSULE PO SCH (10:01)
[2017-01-28] MEDS: CHOLECALCIFEROL (VIT D3) 1,000 UNITS TABLET PO SCH (10:02)
[2017-01-28 10:59] VITALS: BP 134/76
[2017-01-28 11:42] LABS: GLUCOSE,POINT OF CARE 123 MG/DL (70-110)
[2017-01-28 11:42] LABS: GLUCOSE,POINT OF CARE 134 MG/DL (70-110)
[2017-01-28 17:09] VITALS: BP 120/71
[2017-01-28 17:18] LABS: GLUCOSE,POINT OF CARE 113 MG/DL (70-110)
[2017-01-28] MEDS: QUEtiapine FUMARATE 200 MG TABLET PO SCH (21:48)
[2017-01-28 21:57] LABS: GLUCOSE,POINT OF CARE 109 MG/DL (70-110)
[2017-01-29 05:27] LABS: GLUCOSE COMMENT 1 Received Meds; GLUCOSE,POINT OF CARE 121 MG/DL (70-110)
[2017-01-29] MEDS: INSULIN ASPART 100 UNITS/ML SQ PRN (06:39)
[2017-01-29] MEDS: MetFORMIN HCL 500 MG TABLET PO SCH ×2 (06:58→17:15)
[2017-01-29 08:30] VITALS: BP 151/98
[2017-01-29] MEDS: CHOLECALCIFEROL (VIT D3) 1,000 UNITS TABLET PO SCH (08:49)
[2017-01-29] MEDS: CARISOPRODOL 350 MG TABLET PO SCH ×2 (08:49→17:15)
[2017-01-29] MEDS: OMEPRAZOLE 20 MG CAPSULE PO SCH (08:49)
[2017-01-29] MEDS: CITALOPRAM HYDROBROMIDE 20 MG TABLET PO SCH (08:49)
[2017-01-29] MEDS: LORazepam 2 MG TABLET PO PRN ×2 (08:51→16:50)
[2017-01-29] MEDS: DOCUSATE SODIUM 100 MG CAPSULE PO SCH (09:00)
[2017-01-29] MEDS: MAG HYDROX/AL HYDROX/SIMETH ES 30 ML SUSPENSION UDCUP PO PRN (09:04)
[2017-01-29 11:32] LABS: GLUCOSE,POINT OF CARE 132 MG/DL (70-110)
[2017-01-29 15:48] VITALS: BP 127/80
[2017-01-29] MEDS: TraMADol HCL 50 MG TABLET PO PRN (15:49)
[2017-01-29 16:45] VITALS: BP 124/78
[2017-01-29 17:17] LABS: GLUCOSE,POINT OF CARE 135 MG/DL (70-110)
[2017-01-29] MEDS: QUEtiapine FUMARATE 200 MG TABLET PO SCH (21:15)
[2017-01-30 05:37] LABS: GLUCOSE,POINT OF CARE 99 MG/DL (70-110)
[2017-01-30] MEDS: TraMADol HCL 50 MG TABLET PO PRN ×2 (06:32→18:54)
[2017-01-30 06:35] VITALS: BP 127/89
[2017-01-30] MEDS: MetFORMIN HCL 500 MG TABLET PO SCH ×2 (06:40→16:54)
[2017-01-30] MEDS: FERROUS SULFATE 325 MG EC TABLET PO SCH ×2 (06:40→16:54)
[2017-01-30] MEDS: LORazepam 2 MG TABLET PO PRN ×2 (07:03→18:53)
[2017-01-30 08:41] VITALS: BP 128/71
[2017-01-30] MEDS: CITALOPRAM HYDROBROMIDE 20 MG TABLET PO SCH (09:10)
[2017-01-30] MEDS: OMEPRAZOLE 20 MG CAPSULE PO SCH (09:10)
[2017-01-30] MEDS: CARISOPRODOL 350 MG TABLET PO SCH ×2 (09:10→16:54)
[2017-01-30] MEDS: CHOLECALCIFEROL (VIT D3) 1,000 UNITS TABLET PO SCH (09:10)
[2017-01-30] MEDS: DOCUSATE SODIUM 100 MG CAPSULE PO SCH (09:11)
[2017-01-30 11:37] LABS: GLUCOSE,POINT OF CARE 127 MG/DL (70-110)
[2017-01-30] MEDS: INSULIN ASPART 100 UNITS/ML SQ PRN (11:42)
[2017-01-30] MEDS: MAG HYDROX/AL HYDROX/SIMETH ES 30 ML SUSPENSION UDCUP PO PRN (19:22)
[2017-01-30] MEDS: QUEtiapine FUMARATE 200 MG TABLET PO SCH (21:19)
[2017-01-30 22:24] VITALS: BP 124/78
[2017-01-31 05:27] LABS: GLUCOSE,POINT OF CARE 109 MG/DL (70-110)
[2017-01-31] MEDS: MetFORMIN HCL 500 MG TABLET PO SCH ×2 (06:42→16:25)
[2017-01-31] MEDS: FERROUS SULFATE 325 MG EC TABLET PO SCH ×2 (06:42→16:25)
[2017-01-31] MEDS: CITALOPRAM HYDROBROMIDE 20 MG TABLET PO SCH (08:58)
[2017-01-31] MEDS: OMEPRAZOLE 20 MG CAPSULE PO SCH (08:58)
[2017-01-31] MEDS: CARISOPRODOL 350 MG TABLET PO SCH ×2 (08:59→16:25)
[2017-01-31] MEDS: CHOLECALCIFEROL (VIT D3) 1,000 UNITS TABLET PO SCH (08:59)
[2017-01-31] MEDS: DOCUSATE SODIUM 100 MG CAPSULE PO SCH (09:00)
[2017-01-31] MEDS: LORazepam 2 MG TABLET PO PRN ×2 (09:01→14:45)
[2017-01-31 10:34] VITALS: BP 114/73
[2017-01-31] MEDS ORDERED: METHYL SALICYLATE/MENTHOL 120 GM CREAM TP PRN (11:00)
[2017-01-31] MEDS: MAG HYDROX/AL HYDROX/SIMETH ES 30 ML SUSPENSION UDCUP PO PRN (14:13)
[2017-01-31 16:30] VITALS: BP 125/83
[2017-01-31 16:31] LABS: GLUCOSE COMMENT 1 FASTING; GLUCOSE,POINT OF CARE 122 MG/DL (70-110)
[2017-01-31] MEDS: QUEtiapine FUMARATE 200 MG TABLET PO SCH (21:48)
[2017-02-01] MEDS: LORazepam 2 MG TABLET PO PRN ×2 (01:33→06:25)
[2017-02-01 05:13] VITALS: BP 123/80
[2017-02-01 05:22] LABS: GLUCOSE,POINT OF CARE 123 MG/DL (70-110)
[2017-02-01] MEDS: TraMADol HCL 50 MG TABLET PO PRN (06:03)
[2017-02-01] MEDS: MetFORMIN HCL 500 MG TABLET PO SCH (06:46)
[2017-02-01] MEDS: FERROUS SULFATE 325 MG EC TABLET PO SCH (06:46)
[2017-02-01] MEDS: CITALOPRAM HYDROBROMIDE 20 MG TABLET PO SCH (08:02)
[2017-02-01] MEDS: CARISOPRODOL 350 MG TABLET PO SCH (08:02)
[2017-02-01] MEDS: OMEPRAZOLE 20 MG CAPSULE PO SCH (08:02)
[2017-02-01] MEDS: DOCUSATE SODIUM 100 MG CAPSULE PO SCH (08:02)
[2017-02-01] MEDS: CHOLECALCIFEROL (VIT D3) 1,000 UNITS TABLET PO SCH (08:02)
[2017-02-01] MEDS: MAG HYDROX/AL HYDROX/SIMETH ES 30 ML SUSPENSION UDCUP PO PRN (08:08)
[2017-02-01 08:21] VITALS: BP 124/70
[2017-02-01] MEDS ORDERED: VITAD1000 PO (11:28)
[2017-02-01] MEDS ORDERED: DSS100 PO (11:29)
[2017-02-01] MEDS ORDERED: OMEP20 PO (11:29)
[2017-02-01] MEDS ORDERED: FERR-89 PO (11:29)
== END 2017-02-01 11:45 | disposition home or self-care (01) | DRG 885 ==
LOC: EMS 17:30 → 3EI 20:15
DX: F25.0 Schizoaffective disorder, bipolar type (principal); N17.9 Acute kidney failure, unspecified; R45.851 Suicidal ideations; I10 Essential (primary) hypertension; K21.9 Gastro-esophageal reflux disease without esophagitis; E11.65 Type 2 diabetes mellitus with hyperglycemia; E55.9 Vitamin D deficiency, unspecified; E78.5 Hyperlipidemia, unspecified; G89.29 Other chronic pain; M54.9 Dorsalgia, unspecified; G47.00 Insomnia, unspecified; J44.9 Chronic obstructive pulmonary disease, unspecified; F17.200 Nicotine dependence, unspecified, uncomplicated; D64.9 Anemia, unspecified; K59.00 Constipation, unspecified; E11.9 Type 2 diabetes mellitus without complications; F22 Delusional disorders; F41.9 Anxiety disorder, unspecified; Z59.9 Problem related to housing and economic circumstances, unspecified; Z79.899 Other long term (current) drug therapy; Z88.2 Allergy status to sulfonamides; Z91.5 Personal history of self-harm
CPT/HCPCS: 82962; 87081; 96372; 99285; G0480; J1885; Q0162

== ENCOUNTER 2017-02-08 13:47 | Inpatient (IN) | payer MEDICARE, MEDICAID ==
[~2017-02-08] VITALS: Ht 167.6 cm; Wt 74.1 kg
[~2017-02-08 13:47] MED LIST changes: +CITA20TA9 PO; +FERR-89 PO
[2017-02-08 15:40] VITALS: BP 133/75
[2017-02-08] MEDS ORDERED: ZOLPIDEM TARTRATE 10 MG TABLET PO PRN (15:45)
[2017-02-08 16:09] VITALS: BP 133/85
[2017-02-08] MEDS: LORazepam 2 MG TABLET PO PRN (16:13)
[2017-02-08] MEDS ORDERED: PNEUMOCOCCAL VACCINE POLYVALENT 0.5 ML VIAL [PPSV23] IM ONE (16:15)
[2017-02-08 16:57] LABS: GLUCOSE,POINT OF CARE 156 MG/DL (70-110)
[2017-02-08] MEDS: HALOPERIDOL 5 MG TABLET PO PRN (17:56)
[2017-02-08 20:58] VITALS: BP 107/70
[2017-02-08] MEDS ORDERED: NICOTINE POLACRILEX 2 MG LOZENGE PO PRN (22:00)
[2017-02-08] MEDS ORDERED: GLUCAGON,HUMAN RECOMBINANT 1 MG VIAL IM PRN (22:15)
[2017-02-09 05:03] VITALS: BP 127/82
[2017-02-09] MEDS: LORazepam 2 MG TABLET PO PRN ×3 (05:26→15:55)
[2017-02-09 07:02] LABS: GLUCOSE,POINT OF CARE 129 MG/DL (70-110)
[2017-02-09] MEDS ORDERED: LOPERAMIDE HCL 2 MG CAPSULE PO PRN (09:00)
[2017-02-09] MEDS ORDERED: ALBUTEROL SULFATE HFA 90 MCG/PUFF 8 GM INHALER IH PRN (09:00)
[2017-02-09] MEDS ORDERED: MAGNESIUM HYDROXIDE SUSPENSION 30 ML UDCUP PO PRN (09:00)
[2017-02-09] MEDS: OMEPRAZOLE 20 MG CAPSULE PO SCH (09:00)
[2017-02-09] MEDS ORDERED: CloNIDine HCL 0.1 MG TABLET PO PRN (09:00)
[2017-02-09] MEDS ORDERED: BENZOCAINE/MENTHOL LOZENGE MM PRN (09:00)
[2017-02-09] MEDS ORDERED: IBUPROFEN 600 MG TABLET PO PRN (09:00)
[2017-02-09] MEDS ORDERED: PETROLATUM,WHITE 71 GM JELLY TP PRN (09:00)
[2017-02-09] MEDS ORDERED: BACITRACIN 28.4 GM OINTMENT TP PRN (09:00)
[2017-02-09] MEDS ORDERED: ACETAMINOPHEN 325 MG TABLET PO PRN (09:00)
[2017-02-09] MEDS: DOCUSATE SODIUM 100 MG CAPSULE PO SCH (09:09)
[2017-02-09] MEDS: CARISOPRODOL 350 MG TABLET PO SCH ×2 (09:09→16:35)
[2017-02-09] MEDS: MULTIVITAMINS WITH MINERALS, THERAPEUTIC TABLET PO SCH (09:09)
[2017-02-09] MEDS: CHOLECALCIFEROL (VIT D3) 1,000 UNITS TABLET PO SCH (09:09)
[2017-02-09 09:40] VITALS: BP 128/68
[2017-02-09] MEDS: CITALOPRAM HYDROBROMIDE 20 MG TABLET PO SCH (10:19)
[2017-02-09 11:27] LABS: GLUCOSE,POINT OF CARE 238 MG/DL (70-110)
[2017-02-09 11:37] LABS: GLUCOSE,POINT OF CARE 147 MG/DL (70-110)
[2017-02-09] MEDS ORDERED: NICOTINE POLACRILEX 4 MG LOZENGE PO PRN (13:30)
[2017-02-09 16:07] VITALS: BP 124/85
[2017-02-09] MEDS: MetFORMIN HCL 500 MG TABLET PO SCH (16:35)
[2017-02-09 16:38] LABS: GLUCOSE,POINT OF CARE 116 MG/DL (70-110)
[2017-02-09 20:33] LABS: GLUCOSE,POINT OF CARE 127 MG/DL (70-110)
[2017-02-09] MEDS: QUEtiapine FUMARATE 200 MG TABLET PO SCH (20:41)
[2017-02-10] MEDS: MetFORMIN HCL 500 MG TABLET PO SCH ×2 (07:05→17:09)
[2017-02-10] MEDS: CHOLECALCIFEROL (VIT D3) 1,000 UNITS TABLET PO SCH (08:04)
[2017-02-10] MEDS: DOCUSATE SODIUM 100 MG CAPSULE PO SCH (08:04)
[2017-02-10] MEDS: MULTIVITAMINS WITH MINERALS, THERAPEUTIC TABLET PO SCH (08:04)
[2017-02-10] MEDS: CARISOPRODOL 350 MG TABLET PO SCH ×2 (08:05→16:15)
[2017-02-10] MEDS: CITALOPRAM HYDROBROMIDE 20 MG TABLET PO SCH (08:05)
[2017-02-10] MEDS: OMEPRAZOLE 20 MG CAPSULE PO SCH (08:05)
[2017-02-10] MEDS: LORazepam 2 MG TABLET PO PRN ×2 (08:05→16:15)
[2017-02-10 08:06] VITALS: BP 120/85
[2017-02-10] MEDS: MAG HYDROX/AL HYDROX/SIMETH ES 30 ML SUSPENSION UDCUP PO PRN (08:21)
[2017-02-10] MEDS: ONDANSETRON HCL 4 MG TABLET PO PRN (08:52)
[2017-02-10 10:42] LABS: APPEARANCE,URINE CLOUDY (CLEAR); GLUCOSE, URINE (UA) NEGATIVE (NEGATIVE); KETONES,URINE NEGATIVE (NEGATIVE); LEUKOCYTE ESTERASE ,URINE MODERATE (NEGATIVE); OCCULT BLOOD,URINE NEGATIVE (NEGATIVE); PROTEIN,URINE NEGATIVE (NEGATIVE)
[2017-02-10 10:47] LABS: ADD UA MICROSCOPIC YES
[2017-02-10 10:54] LABS: SQUAMOUS EPITHELIAL CELL,UR Many /LPF (None Seen)
[2017-02-10 10:55] LABS: RBC,URINE 0-2 /HPF (0-2)
[2017-02-10 11:28] LABS: GLUCOSE,POINT OF CARE 132 MG/DL (70-110)
[2017-02-10] MEDS ORDERED: NICOTINE POLACRILEX 4 MG LOZENGE PO PRN (16:00)
[2017-02-10] MEDS ORDERED: METHYL SALICYLATE/MENTHOL 120 GM CREAM TP PRN (17:45)
[2017-02-10 19:43] LABS: GLUCOSE,POINT OF CARE 138 MG/DL (70-110)
[2017-02-10] MEDS: QUEtiapine FUMARATE 200 MG TABLET PO SCH (20:57)
[2017-02-10] MEDS: INSULIN ASPART 100 UNITS/ML SQ PRN (21:06)
[2017-02-10 21:22] LABS: GLUCOSE,POINT OF CARE 143 MG/DL (70-110)
[2017-02-11 05:08] VITALS: BP 115/80
[2017-02-11] MEDS: LORazepam 2 MG TABLET PO PRN ×2 (05:08→14:53)
[2017-02-11] MEDS: TraMADol HCL 50 MG TABLET PO PRN (05:13)
[2017-02-11] MEDS: MAG HYDROX/AL HYDROX/SIMETH ES 30 ML SUSPENSION UDCUP PO PRN (05:55)
[2017-02-11] MEDS: MetFORMIN HCL 500 MG TABLET PO SCH ×2 (05:58→16:41)
[2017-02-11 06:37] LABS: GLUCOSE,POINT OF CARE 150 MG/DL (70-110)
[2017-02-11] MEDS: INSULIN ASPART 100 UNITS/ML SQ PRN (07:07)
[2017-02-11] MEDS: CHOLECALCIFEROL (VIT D3) 1,000 UNITS TABLET PO SCH (09:44)
[2017-02-11] MEDS: OMEPRAZOLE 20 MG CAPSULE PO SCH (09:44)
[2017-02-11] MEDS: DOCUSATE SODIUM 100 MG CAPSULE PO SCH (09:44)
[2017-02-11] MEDS: MULTIVITAMINS WITH MINERALS, THERAPEUTIC TABLET PO SCH (09:44)
[2017-02-11] MEDS: CITALOPRAM HYDROBROMIDE 20 MG TABLET PO SCH (09:45)
[2017-02-11] MEDS: CARISOPRODOL 350 MG TABLET PO SCH ×2 (09:45→16:41)
[2017-02-11 11:22] LABS: GLUCOSE,POINT OF CARE 112 MG/DL (70-110)
[2017-02-11 16:12] VITALS: BP 125/82
[2017-02-11 16:36] LABS: GLUCOSE,POINT OF CARE 160 MG/DL (70-110)
[2017-02-11 20:37] LABS: GLUCOSE,POINT OF CARE 142 MG/DL (70-110)
[2017-02-11] MEDS: QUEtiapine FUMARATE 200 MG TABLET PO SCH (20:50)
[2017-02-11] MEDS ORDERED: CIPROFLOXACIN HCL 500 MG TABLET PO SCH (22:00)
[2017-02-12 01:20] VITALS: BP 111/74
[2017-02-12] MEDS: TraMADol HCL 50 MG TABLET PO PRN ×2 (01:22→09:51)
[2017-02-12] MEDS: LORazepam 2 MG TABLET PO PRN ×3 (02:06→14:19)
[2017-02-12] MEDS: MetFORMIN HCL 500 MG TABLET PO SCH ×2 (06:53→16:36)
[2017-02-12 07:02] LABS: GLUCOSE,POINT OF CARE 125 MG/DL (70-110)
[2017-02-12] MEDS: CITALOPRAM HYDROBROMIDE 20 MG TABLET PO SCH (08:01)
[2017-02-12] MEDS: CHOLECALCIFEROL (VIT D3) 1,000 UNITS TABLET PO SCH (08:01)
[2017-02-12] MEDS: CARISOPRODOL 350 MG TABLET PO SCH ×2 (08:01→16:37)
[2017-02-12] MEDS: OMEPRAZOLE 20 MG CAPSULE PO SCH (08:01)
[2017-02-12] MEDS: MULTIVITAMINS WITH MINERALS, THERAPEUTIC TABLET PO SCH (08:01)
[2017-02-12] MEDS: DOCUSATE SODIUM 100 MG CAPSULE PO SCH (08:01)
[2017-02-12 08:06] VITALS: BP 117/81
[2017-02-12 08:24] LABS: BASOPHILS % (AUTO) 0.4 % (0.0-2.0); EOSINOPHILS % (AUTO) 2.7 % (1.0-6.0); HEMATOCRIT 35.9 % (36-46); HEMOGLOBIN 12.2 g/dL (12.0-16.0); LYMPHOCYTES % (AUTO) 39.6 % (22.0-44.0); MEAN CORPUSCULAR HEMOGLOBIN 29.5 pg (26.0-34.0); MEAN CORPUSCULAR VOLUME 87 fL (80-100); MONOCYTES # (AUTO) 0.4 K/uL (0.1-1.0); MONOCYTES % (AUTO) 5.5 % (2.0-9.0); NEUTROPHILS # (AUTO) 3.9 K/uL (1.8-7.7); NEUTROPHILS % (AUTO) 51.8 % (40.0-70.0); PLATELET COUNT (AUTO) 275 K/uL (150-450); RED BLOOD CELL COUNT(AUTO) 4.14 MIL/uL (4.00-5.20); RED CELL DISTRIBUTION WIDTH 14.1 % (11.5-14.5); WHITE BLOOD COUNT (AUTO) 7.6 K/uL (4.5-11.0)
[2017-02-12 08:38] LABS: ALANINE AMINOTRANSFERASE 19 U/L (12-78); ALBUMIN 3.4 g/dL (3.4-5.0); ANION GAP 8 mmol/L (8-16); ASPARTATE AMINOTRANSFERASE 9 U/L (15-37); BILIRUBIN,TOTAL 0.2 mg/dL (0.1-1.0); CALCIUM, TOTAL 8.8 mg/dL (8.8-10.5); CARBON DIOXIDE 28 mmol/L (22-29); CHLORIDE 103 mmol/L (98-107); CREATININE 0.87 mg/dL (0.60-1.30); GLOMERULAR FILTR. RATE CALC > 60 mL/min (>60); POTASSIUM 4.4 mmol/L (3.5-5.1); SODIUM SERUM 139 mmol/L (136-145); TOTAL PROTEIN, SERUM 6.4 g/dL (6.4-8.2); UREA NITROGEN, BLOOD 22 mg/dL (7-18)
[2017-02-12] MEDS: CIPROFLOXACIN HCL 250 MG TABLET PO SCH ×2 (09:00→16:36)
[2017-02-12] MEDS: MAG HYDROX/AL HYDROX/SIMETH ES 30 ML SUSPENSION UDCUP PO PRN (10:57)
[2017-02-12 11:17] LABS: GLUCOSE,POINT OF CARE 158 MG/DL (70-110)
[2017-02-12] MEDS: NICOTINE POLACRILEX 2 MG LOZENGE PO PRN ×2 (13:50→17:56)
[2017-02-12 16:07] VITALS: BP 117/68
[2017-02-12 16:36] LABS: GLUCOSE,POINT OF CARE 107 MG/DL (70-110)
[2017-02-12 20:27] LABS: GLUCOSE,POINT OF CARE 109 MG/DL (70-110)
[2017-02-12] MEDS: QUEtiapine FUMARATE 200 MG TABLET PO SCH (20:34)
[2017-02-13] MEDS: MAG HYDROX/AL HYDROX/SIMETH ES 30 ML SUSPENSION UDCUP PO PRN ×2 (04:00→10:43)
[2017-02-13] MEDS: MetFORMIN HCL 500 MG TABLET PO SCH ×2 (07:11→16:23)
[2017-02-13 08:25] VITALS: BP 100/72
[2017-02-13] MEDS: CARISOPRODOL 350 MG TABLET PO SCH ×2 (08:44→16:23)
[2017-02-13] MEDS: CHOLECALCIFEROL (VIT D3) 1,000 UNITS TABLET PO SCH (08:44)
[2017-02-13] MEDS: CITALOPRAM HYDROBROMIDE 20 MG TABLET PO SCH (08:44)
[2017-02-13] MEDS: OMEPRAZOLE 20 MG CAPSULE PO SCH (08:44)
[2017-02-13] MEDS: MULTIVITAMINS WITH MINERALS, THERAPEUTIC TABLET PO SCH (08:44)
[2017-02-13] MEDS: DOCUSATE SODIUM 100 MG CAPSULE PO SCH (08:44)
[2017-02-13 08:45] VITALS: BP 114/90
[2017-02-13] MEDS: LORazepam 2 MG TABLET PO PRN ×2 (08:47→12:53)
[2017-02-13] MEDS: CIPROFLOXACIN HCL 250 MG TABLET PO SCH ×2 (09:52→16:23)
[2017-02-13 11:23] LABS: GLUCOSE,POINT OF CARE 109 MG/DL (70-110)
[2017-02-13 12:54] VITALS: BP 118/84
[2017-02-13] MEDS: TraMADol HCL 50 MG TABLET PO PRN (12:54)
[2017-02-13] MEDS: HALOPERIDOL 5 MG TABLET PO PRN (13:32)
[2017-02-13] MEDS: ONDANSETRON HCL 4 MG TABLET PO PRN (14:14)
[2017-02-13] MEDS: NICOTINE POLACRILEX 2 MG LOZENGE PO PRN (14:44)
[2017-02-13 16:42] LABS: GLUCOSE,POINT OF CARE 160 MG/DL (70-110)
[2017-02-13] MEDS: QUEtiapine FUMARATE 200 MG TABLET PO SCH (20:12)
[2017-02-14 01:04] VITALS: BP 110/76
[2017-02-14] MEDS: LORazepam 2 MG TABLET PO PRN ×3 (01:06→12:51)
[2017-02-14] MEDS: TraMADol HCL 50 MG TABLET PO PRN ×2 (06:07→14:31)
[2017-02-14] MEDS: MetFORMIN HCL 500 MG TABLET PO SCH ×2 (06:08→16:34)
[2017-02-14 06:37] LABS: GLUCOSE,POINT OF CARE 130 MG/DL (70-110)
[2017-02-14 08:12] VITALS: BP 111/81
[2017-02-14] MEDS: CITALOPRAM HYDROBROMIDE 20 MG TABLET PO SCH (08:16)
[2017-02-14] MEDS: CARISOPRODOL 350 MG TABLET PO SCH ×2 (08:16→16:34)
[2017-02-14] MEDS: OMEPRAZOLE 20 MG CAPSULE PO SCH (08:16)
[2017-02-14] MEDS: MULTIVITAMINS WITH MINERALS, THERAPEUTIC TABLET PO SCH (08:16)
[2017-02-14] MEDS: DOCUSATE SODIUM 100 MG CAPSULE PO SCH (08:16)
[2017-02-14] MEDS: CHOLECALCIFEROL (VIT D3) 1,000 UNITS TABLET PO SCH (08:16)
[2017-02-14] MEDS: CIPROFLOXACIN HCL 250 MG TABLET PO SCH ×2 (08:16→16:34)
[2017-02-14] MEDS: NICOTINE POLACRILEX 2 MG LOZENGE PO PRN (08:18)
[2017-02-14 11:17] LABS: GLUCOSE,POINT OF CARE 120 MG/DL (70-110)
[2017-02-14 14:30] VITALS: BP 116/80
[2017-02-14] MEDS: HALOPERIDOL 5 MG TABLET PO PRN (14:30)
[2017-02-14 16:04] VITALS: BP 122/74
[2017-02-14 16:22] LABS: GLUCOSE,POINT OF CARE 125 MG/DL (70-110)
[2017-02-14 20:37] LABS: GLUCOSE,POINT OF CARE 115 MG/DL (70-110)
[2017-02-14] MEDS: QUEtiapine FUMARATE 200 MG TABLET PO SCH (20:44)
[2017-02-15 05:47] VITALS: BP 111/69
[2017-02-15] MEDS: NICOTINE POLACRILEX 2 MG LOZENGE PO PRN (06:53)
[2017-02-15] MEDS: LORazepam 2 MG TABLET PO PRN (06:53)
[2017-02-15] MEDS: MetFORMIN HCL 500 MG TABLET PO SCH (06:53)
[2017-02-15 07:12] LABS: GLUCOSE,POINT OF CARE 125 MG/DL (70-110)
[2017-02-15 08:10] VITALS: BP 114/70
[2017-02-15] MEDS: DOCUSATE SODIUM 100 MG CAPSULE PO SCH (08:12)
[2017-02-15] MEDS: OMEPRAZOLE 20 MG CAPSULE PO SCH (08:12)
[2017-02-15] MEDS: CARISOPRODOL 350 MG TABLET PO SCH (08:12)
[2017-02-15] MEDS: CHOLECALCIFEROL (VIT D3) 1,000 UNITS TABLET PO SCH (08:12)
[2017-02-15] MEDS: CITALOPRAM HYDROBROMIDE 20 MG TABLET PO SCH (08:12)
[2017-02-15] MEDS: MULTIVITAMINS WITH MINERALS, THERAPEUTIC TABLET PO SCH (08:12)
[2017-02-15] MEDS: TraMADol HCL 50 MG TABLET PO PRN (09:04)
[2017-02-15] MEDS: HALOPERIDOL 5 MG TABLET PO PRN (09:29)
[2017-02-15 11:17] LABS: GLUCOSE,POINT OF CARE 111 MG/DL (70-110)
== END 2017-02-15 13:35 | disposition home or self-care (01) | DRG 885 ==
LOC: B2X 15:44
PROVIDERS: ADMIT Psychiatry & Neurology Psychiatry
PROC: 3E0234Z Introduction of Serum, Toxoid and Vaccine into Muscle, Percutaneous Approach (ICD-10-PCS; principal; 2017-02-08)
DX: F25.0 Schizoaffective disorder, bipolar type (principal); R45.851 Suicidal ideations; N39.0 Urinary tract infection, site not specified; F11.90 Opioid use, unspecified, uncomplicated; E11.65 Type 2 diabetes mellitus with hyperglycemia; I10 Essential (primary) hypertension; J44.9 Chronic obstructive pulmonary disease, unspecified; G89.29 Other chronic pain; M54.5 Low back pain; K21.9 Gastro-esophageal reflux disease without esophagitis; F17.210 Nicotine dependence, cigarettes, uncomplicated; F41.9 Anxiety disorder, unspecified; Z88.2 Allergy status to sulfonamides; Z79.899 Other long term (current) drug therapy; Z79.84 Long term (current) use of oral hypoglycemic drugs; Z28.21 Immunization not carried out because of patient refusal; Z59.0 Homelessness; Z71.6 Tobacco abuse counseling; Z71.41 Alcohol abuse counseling and surveillance of alcoholic; Z72.89 Other problems related to lifestyle
CPT/HCPCS: 80307; 82962; 87081; 87086; Q0162

== ENCOUNTER 2017-04-05 16:29 | Emergency (ER) | payer MEDICARE, OTHER ==
[~2017-04-05] VITALS: Ht 165.1 cm; Wt 73.6 kg
[~2017-04-05 16:29] MED LIST changes: -CARI350 PO; -FERR-89 PO; -VITAD1000 PO
[2017-04-05 16:43] VITALS: BP 104/62
== END 2017-04-05 17:00 | disposition left against medical advice (07) ==
LOC: EMS 16:31
DX: T42.8X1A Poisoning by antiparkinsonism drugs and other central muscle-tone depressants, accidental (unintentional), initial encounter (principal); F41.9 Anxiety disorder, unspecified; F31.9 Bipolar disorder, unspecified; E11.9 Type 2 diabetes mellitus without complications; F20.9 Schizophrenia, unspecified; F17.210 Nicotine dependence, cigarettes, uncomplicated; Y92.89 Other specified places as the place of occurrence of the external cause
CPT/HCPCS: 99282; 99283

== ENCOUNTER 2017-05-21 09:33 | Emergency (ER) | payer MEDICARE, OTHER ==
[~2017-05-21] VITALS: Ht 167.6 cm; Wt 75.0 kg
[~2017-05-21 09:33] MED LIST changes: +CARI350T PO; -CITA20TA9 PO; +CITA40TA14 PO; +DIVA250T4 PO; -DSS100 PO; -OMEP20 PO
[2017-05-21 09:47] LABS: GLUCOSE,POINT OF CARE 192 MG/DL (70-110)
[2017-05-21] MEDS ORDERED: DiphenhydrAMINE HCL 50 MG/ML VIAL IM ONE (11:30)
[2017-05-21] MEDS ORDERED: KETOROLAC TROMETHAMINE 30 MG/ML VIAL IM ONE (11:30)
[2017-05-21 12:00] VITALS: BP 127/89
== END 2017-05-21 12:15 | disposition home or self-care (01) ==
LOC: EMS 09:35
DX: F14.10 Cocaine abuse, uncomplicated (principal); F15.10 Other stimulant abuse, uncomplicated; F31.9 Bipolar disorder, unspecified; F41.9 Anxiety disorder, unspecified; E11.9 Type 2 diabetes mellitus without complications; F20.9 Schizophrenia, unspecified; Z88.1 Allergy status to other antibiotic agents; Z87.891 Personal history of nicotine dependence
CPT/HCPCS: 82962; 96372; 99284; J1200; J1885; J3230

== ENCOUNTER 2017-05-22 10:06 | Inpatient (IN) | payer MEDICARE, MEDICAID ==
[~2017-05-22] VITALS: Ht 167.6 cm; Wt 74.5 kg
[2017-05-22] MEDS ORDERED: ZOLPIDEM TARTRATE 10 MG TABLET PO PRN (10:30)
[2017-05-22 10:40] VITALS: BP 103/63
[2017-05-22 11:14] VITALS: BP 99/60
[2017-05-22] MEDS: LORazepam 2 MG TABLET PO PRN ×2 (11:40→16:22)
[2017-05-22 11:43] LABS: GLUCOSE,POINT OF CARE 146 MG/DL (70-110)
[2017-05-22] MEDS: DIVALPROEX SODIUM 500 MG DR TABLET PO SCH (16:21)
[2017-05-22 16:24] VITALS: BP 110/62
[2017-05-22] MEDS ORDERED: PNEUMOCOCCAL VACCINE POLYVALENT 0.5 ML VIAL [PPSV23] IM ONE (16:30)
[2017-05-22] MEDS ORDERED: INFLUENZA VIRUS VACCINE QVS 2017-18 (3YR+)/PF 60 MCG/0.5 ML SYRINGE IM ONE (16:30)
[2017-05-22] MEDS ORDERED: ALBUTEROL SULFATE HFA 90 MCG/PUFF 8 GM INHALER IH PRN (18:00)
[2017-05-22] MEDS ORDERED: MAGNESIUM HYDROXIDE SUSPENSION 30 ML UDCUP PO PRN (18:00)
[2017-05-22] MEDS ORDERED: LOPERAMIDE HCL 2 MG CAPSULE PO PRN (18:00)
[2017-05-22] MEDS ORDERED: BACITRACIN 28.4 GM OINTMENT TP PRN (18:00)
[2017-05-22] MEDS ORDERED: IBUPROFEN 600 MG TABLET PO PRN (18:00)
[2017-05-22] MEDS ORDERED: MAG HYDROX/AL HYDROX/SIMETH ES 30 ML SUSPENSION UDCUP PO PRN (18:00)
[2017-05-22] MEDS ORDERED: PETROLATUM,WHITE 71 GM JELLY TP PRN (18:00)
[2017-05-22] MEDS ORDERED: ONDANSETRON HCL 4 MG TABLET PO PRN (18:00)
[2017-05-22] MEDS ORDERED: CloNIDine HCL 0.1 MG TABLET PO PRN (18:00)
[2017-05-22] MEDS ORDERED: BENZOCAINE/MENTHOL LOZENGE [8 LOZENGES/PACKET] MM PRN (18:00)
[2017-05-22] MEDS ORDERED: ACETAMINOPHEN 325 MG TABLET PO PRN (18:00)
[2017-05-22] MEDS: QUEtiapine FUMARATE 200 MG TABLET PO SCH (20:37)
[2017-05-23 03:15] VITALS: BP 105/76
[2017-05-23] MEDS: LORazepam 2 MG TABLET PO PRN ×2 (03:27→08:43)
[2017-05-23 08:23] LABS: BASOPHILS % (AUTO) 0.5 % (0.0-2.0); EOSINOPHILS % (AUTO) 2.5 % (1.0-6.0); HEMATOCRIT 34.3 % (36-46); HEMOGLOBIN 11.6 g/dL (12.0-16.0); LYMPHOCYTES # (AUTO) 2.3 K/uL (1.0-4.8); LYMPHOCYTES % (AUTO) 42.7 % (22.0-44.0); MEAN CORPUSCULAR HEMOGLOBIN 29.9 pg (26.0-34.0); MEAN CORPUSCULAR HGB CONC 33.9 G/dL (31.0-37.0); MEAN CORPUSCULAR VOLUME 88 fL (80-100); MONOCYTES # (AUTO) 0.3 K/uL (0.1-1.0); MONOCYTES % (AUTO) 5.9 % (2.0-9.0); NEUTROPHILS # (AUTO) 2.6 K/uL (1.8-7.7); NEUTROPHILS % (AUTO) 48.4 % (40.0-70.0); PLATELET COUNT (AUTO) 274 K/uL (150-450); RED BLOOD CELL COUNT(AUTO) 3.89 MIL/uL (4.00-5.20); WHITE BLOOD COUNT (AUTO) 5.3 K/uL (4.5-11.0)
[2017-05-23] MEDS: OMEPRAZOLE 20 MG CAPSULE PO SCH (08:32)
[2017-05-23] MEDS: DOCUSATE SODIUM 100 MG CAPSULE PO SCH (08:32)
[2017-05-23] MEDS: CITALOPRAM HYDROBROMIDE 20 MG TABLET PO SCH (08:32)
[2017-05-23] MEDS: DIVALPROEX SODIUM 500 MG DR TABLET PO SCH ×2 (08:32→16:25)
[2017-05-23 08:42] VITALS: BP 103/78
[2017-05-23] MEDS: TraMADol HCL 50 MG TABLET PO PRN (08:44)
[2017-05-23] MEDS: HALOPERIDOL 5 MG TABLET PO PRN ×2 (08:44→16:25)
[2017-05-23 08:56] LABS: HEMOGLOBIN A1C 7.2 % (4.5-6.2)
[2017-05-23 08:59] LABS: APPEARANCE,URINE TURBID (CLEAR); GLUCOSE, URINE (UA) NEGATIVE (NEGATIVE); KETONES,URINE TRACE mg/dL (NEGATIVE); LEUKOCYTE ESTERASE ,URINE SMALL (NEGATIVE); OCCULT BLOOD,URINE NEGATIVE (NEGATIVE); PROTEIN,URINE TRACE (NEGATIVE)
[2017-05-23] MEDS ORDERED: METHYL SALICYLATE/MENTHOL 120 GM CREAM TP PRN (09:00)
[2017-05-23] MEDS ORDERED: GLUCAGON,HUMAN RECOMBINANT 1 MG VIAL IM PRN (09:00)
[2017-05-23 09:06] LABS: ALANINE AMINOTRANSFERASE 15 U/L (12-78); ALBUMIN 3.2 g/dL (3.4-5.0); ANION GAP 6 mmol/L (8-16); ASPARTATE AMINOTRANSFERASE 9 U/L (15-37); BILIRUBIN,TOTAL 0.2 mg/dL (0.1-1.0); CALCIUM, TOTAL 8.7 mg/dL (8.8-10.5); CARBON DIOXIDE 29 mmol/L (22-29); CHLORIDE 105 mmol/L (98-107); CHOL/HDL RATIO 3.2 (3.9-5.7); CREATININE 0.91 mg/dL (0.60-1.30); GLOMERULAR FILTR. RATE CALC > 60 mL/min (>60); POTASSIUM 4.3 mmol/L (3.5-5.1); SODIUM SERUM 140 mmol/L (136-145); TOTAL PROTEIN, SERUM 6.9 g/dL (6.4-8.2); UREA NITROGEN, BLOOD 20 mg/dL (7-18); VALPROIC ACID 39 mcg/mL (50-100)
[2017-05-23 09:41] LABS: ADD UA MICROSCOPIC YES
[2017-05-23 09:42] LABS: RBC,URINE None Seen /HPF (0-2); TRANSITIONAL EPI CELLS,URINE Rare /LPF (None Seen)
[2017-05-23] MEDS: CHOLECALCIFEROL (VIT D3) 1,000 UNITS TABLET PO SCH (09:49)
[2017-05-23] MEDS: CARISOPRODOL 350 MG TABLET PO SCH ×2 (09:49→16:30)
[2017-05-23] MEDS: NICOTINE POLACRILEX 4 MG LOZENGE PO PRN (12:34)
[2017-05-23 12:35] VITALS: BP 100/74
[2017-05-23] MEDS: LORazepam 1 MG TABLET PO PRN (16:26)
[2017-05-23] MEDS: MetFORMIN HCL 500 MG TABLET PO SCH (16:36)
[2017-05-23] MEDS: QUEtiapine FUMARATE 200 MG TABLET PO SCH (20:34)
[2017-05-23] MEDS: NITROFURANTOIN/NITROFURAN MAC 100 MG CAPSULE [MACROBID] PO SCH (20:36)
[2017-05-23 23:52] LABS: GLUCOSE,POINT OF CARE 110 MG/DL (70-110)
[2017-05-23 23:52] LABS: GLUCOSE,POINT OF CARE 109 MG/DL (70-110)
[2017-05-24 06:07] LABS: GLUCOSE,POINT OF CARE 118 MG/DL (70-110)
[2017-05-24] MEDS: LEVOTHYROXINE SODIUM 50 MCG TABLET PO SCH (06:09)
[2017-05-24] MEDS: MetFORMIN HCL 500 MG TABLET PO SCH ×2 (06:09→16:22)
[2017-05-24 06:10] VITALS: BP 110/72
[2017-05-24] MEDS: TraMADol HCL 50 MG TABLET PO PRN ×2 (06:10→12:31)
[2017-05-24] MEDS: LORazepam 1 MG TABLET PO PRN ×3 (06:10→17:55)
[2017-05-24 08:34] VITALS: BP 108/77
[2017-05-24] MEDS: NITROFURANTOIN/NITROFURAN MAC 100 MG CAPSULE [MACROBID] PO SCH ×2 (08:50→16:11)
[2017-05-24] MEDS: CITALOPRAM HYDROBROMIDE 20 MG TABLET PO SCH (08:50)
[2017-05-24] MEDS: CHOLECALCIFEROL (VIT D3) 1,000 UNITS TABLET PO SCH (08:51)
[2017-05-24] MEDS: DOCUSATE SODIUM 100 MG CAPSULE PO SCH (08:51)
[2017-05-24] MEDS: CARISOPRODOL 350 MG TABLET PO SCH ×2 (08:51→16:11)
[2017-05-24] MEDS: OMEPRAZOLE 20 MG CAPSULE PO SCH (08:51)
[2017-05-24] MEDS: DIVALPROEX SODIUM 500 MG DR TABLET PO SCH ×2 (08:51→16:11)
[2017-05-24 08:57] LABS: AMYLASE 36 U/L (25-115)
[2017-05-24 12:17] LABS: GLUCOSE,POINT OF CARE 93 MG/DL (70-110)
[2017-05-24 16:16] VITALS: BP 109/73
[2017-05-24 16:27] LABS: GLUCOSE,POINT OF CARE 108 MG/DL (70-110)
[2017-05-24] MEDS: QUEtiapine FUMARATE 200 MG TABLET PO SCH (20:09)
[2017-05-24 20:33] LABS: GLUCOSE,POINT OF CARE 113 MG/DL (70-110)
[2017-05-24] MEDS: LACTULOSE 20 GM/30 ML SOLUTION UDCUP PO SCH (23:55)
[2017-05-25 05:27] VITALS: BP 110/63
[2017-05-25] MEDS: LEVOTHYROXINE SODIUM 50 MCG TABLET PO SCH (06:15)
[2017-05-25] MEDS: LORazepam 1 MG TABLET PO PRN (06:15)
[2017-05-25] MEDS: MetFORMIN HCL 500 MG TABLET PO SCH ×2 (06:51→17:07)
[2017-05-25] MEDS: INSULIN ASPART 100 UNITS/ML SQ PRN ×2 (06:52→17:08)
[2017-05-25 06:58] LABS: GLUCOSE,POINT OF CARE 162 MG/DL (70-110)
[2017-05-25 08:13] LABS: HEPATITIS Bs ANTIGEN SCREEN P Negative (Negative)
[2017-05-25 08:20] VITALS: BP 104/74
[2017-05-25] MEDS: LACTULOSE 20 GM/30 ML SOLUTION UDCUP PO SCH ×2 (09:49→16:19)
[2017-05-25] MEDS: OMEPRAZOLE 20 MG CAPSULE PO SCH (09:50)
[2017-05-25] MEDS: DIVALPROEX SODIUM 500 MG DR TABLET PO SCH ×2 (09:50→16:15)
[2017-05-25] MEDS: NITROFURANTOIN/NITROFURAN MAC 100 MG CAPSULE [MACROBID] PO SCH ×2 (09:50→16:15)
[2017-05-25] MEDS: DOCUSATE SODIUM 100 MG CAPSULE PO SCH (09:50)
[2017-05-25] MEDS: CITALOPRAM HYDROBROMIDE 20 MG TABLET PO SCH (09:50)
[2017-05-25] MEDS: CARISOPRODOL 350 MG TABLET PO SCH ×2 (09:58→16:15)
[2017-05-25] MEDS: CHOLECALCIFEROL (VIT D3) 1,000 UNITS TABLET PO SCH (09:58)
[2017-05-25 11:37] LABS: GLUCOSE,POINT OF CARE 160 MG/DL (70-110)
[2017-05-25] MEDS: PHENAZOPYRIDINE HCL 100 MG TABLET PO SCH (16:15)
[2017-05-25] MEDS: QUEtiapine FUMARATE 200 MG TABLET PO SCH (20:06)
[2017-05-25 21:03] LABS: GLUCOSE,POINT OF CARE 157 MG/DL (70-110)
[2017-05-25 21:07] LABS: GLUCOSE,POINT OF CARE 123 MG/DL (70-110)
[2017-05-26] MEDS: LACTULOSE 20 GM/30 ML SOLUTION UDCUP PO SCH ×4 (00:23→23:52)
[2017-05-26] MEDS: LEVOTHYROXINE SODIUM 50 MCG TABLET PO SCH (06:39)
[2017-05-26] MEDS: MetFORMIN HCL 500 MG TABLET PO SCH ×2 (06:39→16:22)
[2017-05-26] MEDS: TraMADol HCL 50 MG TABLET PO PRN ×2 (06:53→16:39)
[2017-05-26 08:17] VITALS: BP 98/63
[2017-05-26] MEDS: CHOLECALCIFEROL (VIT D3) 1,000 UNITS TABLET PO SCH (08:50)
[2017-05-26] MEDS: CARISOPRODOL 350 MG TABLET PO SCH ×2 (08:51→16:23)
[2017-05-26] MEDS: DIVALPROEX SODIUM 500 MG DR TABLET PO SCH ×2 (08:51→16:23)
[2017-05-26] MEDS: CITALOPRAM HYDROBROMIDE 20 MG TABLET PO SCH (08:51)
[2017-05-26] MEDS: DOCUSATE SODIUM 100 MG CAPSULE PO SCH (08:51)
[2017-05-26] MEDS: NITROFURANTOIN/NITROFURAN MAC 100 MG CAPSULE [MACROBID] PO SCH ×2 (08:51→16:23)
[2017-05-26] MEDS: OMEPRAZOLE 20 MG CAPSULE PO SCH (08:51)
[2017-05-26] MEDS: PHENAZOPYRIDINE HCL 100 MG TABLET PO SCH ×2 (08:52→16:22)
[2017-05-26] MEDS: LORazepam 1 MG TABLET PO PRN ×3 (08:57→23:51)
[2017-05-26 09:43] LABS: GLUCOSE COMMENT 1 Received Meds; GLUCOSE,POINT OF CARE 141 MG/DL (70-110)
[2017-05-26 12:27] LABS: GLUCOSE,POINT OF CARE 135 MG/DL (70-110)
[2017-05-26 16:27] VITALS: BP 122/73
[2017-05-26 17:07] LABS: GLUCOSE,POINT OF CARE 127 MG/DL (70-110)
[2017-05-26] MEDS: QUEtiapine FUMARATE 200 MG TABLET PO SCH (20:16)
[2017-05-27 06:15] VITALS: BP 108/70
[2017-05-27 06:33] LABS: GLUCOSE COMMENT 1 Received Meds; GLUCOSE,POINT OF CARE 114 MG/DL (70-110)
[2017-05-27] MEDS: LEVOTHYROXINE SODIUM 50 MCG TABLET PO SCH (06:42)
[2017-05-27] MEDS: MetFORMIN HCL 500 MG TABLET PO SCH ×2 (06:42→16:49)
[2017-05-27] MEDS: LACTULOSE 20 GM/30 ML SOLUTION UDCUP PO SCH ×3 (08:00→23:56)
[2017-05-27 08:05] LABS: BILIRUBIN,TOTAL 0.3 mg/dL (0.1-1.0); TOTAL PROTEIN, SERUM 6.6 g/dL (6.4-8.2)
[2017-05-27 08:21] LABS: BILIRUBIN,DIRECT 0.1 mg/dL (0.00-0.20)
[2017-05-27] MEDS: CARISOPRODOL 350 MG TABLET PO SCH ×2 (08:38→16:49)
[2017-05-27] MEDS: DIVALPROEX SODIUM 500 MG DR TABLET PO SCH ×2 (08:38→16:49)
[2017-05-27] MEDS: OMEPRAZOLE 20 MG CAPSULE PO SCH (08:38)
[2017-05-27] MEDS: CHOLECALCIFEROL (VIT D3) 1,000 UNITS TABLET PO SCH (08:38)
[2017-05-27] MEDS: DOCUSATE SODIUM 100 MG CAPSULE PO SCH (08:38)
[2017-05-27] MEDS: NITROFURANTOIN/NITROFURAN MAC 100 MG CAPSULE [MACROBID] PO SCH ×2 (08:38→16:49)
[2017-05-27] MEDS: PHENAZOPYRIDINE HCL 100 MG TABLET PO SCH ×2 (08:39→16:49)
[2017-05-27] MEDS: CITALOPRAM HYDROBROMIDE 20 MG TABLET PO SCH (08:39)
[2017-05-27] MEDS ORDERED: KETOROLAC TROMETHAMINE 30 MG/ML VIAL IM ONE (10:45)
[2017-05-27] MEDS: TraMADol HCL 50 MG TABLET PO PRN (11:00)
[2017-05-27] MEDS: LORazepam 1 MG TABLET PO PRN ×2 (11:28→16:49)
[2017-05-27 12:13] LABS: GLUCOSE,POINT OF CARE 119 MG/DL (70-110)
[2017-05-27 16:32] VITALS: BP 112/75
[2017-05-27 16:37] LABS: GLUCOSE,POINT OF CARE 149 MG/DL (70-110)
[2017-05-27] MEDS: QUEtiapine FUMARATE 200 MG TABLET PO SCH (20:56)
[2017-05-27 21:12] LABS: GLUCOSE,POINT OF CARE 131 MG/DL (70-110)
[2017-05-28] MEDS: TraMADol HCL 50 MG TABLET PO PRN ×2 (06:15→16:15)
[2017-05-28 06:33] LABS: GLUCOSE,POINT OF CARE 115 MG/DL (70-110)
[2017-05-28] MEDS: MetFORMIN HCL 500 MG TABLET PO SCH ×2 (06:36→16:56)
[2017-05-28] MEDS: LEVOTHYROXINE SODIUM 50 MCG TABLET PO SCH (06:36)
[2017-05-28] MEDS: CITALOPRAM HYDROBROMIDE 20 MG TABLET PO SCH (08:35)
[2017-05-28] MEDS: LORazepam 1 MG TABLET PO PRN ×3 (08:35→16:56)
[2017-05-28] MEDS: DIVALPROEX SODIUM 500 MG DR TABLET PO SCH ×2 (08:35→16:09)
[2017-05-28] MEDS: OMEPRAZOLE 20 MG CAPSULE PO SCH (08:35)
[2017-05-28] MEDS: PHENAZOPYRIDINE HCL 100 MG TABLET PO SCH (08:35)
[2017-05-28] MEDS: CARISOPRODOL 350 MG TABLET PO SCH ×2 (08:35→16:18)
[2017-05-28] MEDS: CHOLECALCIFEROL (VIT D3) 1,000 UNITS TABLET PO SCH (08:35)
[2017-05-28] MEDS: DOCUSATE SODIUM 100 MG CAPSULE PO SCH (08:36)
[2017-05-28] MEDS: LACTULOSE 20 GM/30 ML SOLUTION UDCUP PO SCH ×3 (08:36→23:53)
[2017-05-28 08:37] VITALS: BP 109/65
[2017-05-28] MEDS: NITROFURANTOIN/NITROFURAN MAC 100 MG CAPSULE [MACROBID] PO SCH ×2 (08:47→17:23)
[2017-05-28 12:08] LABS: GLUCOSE,POINT OF CARE 154 MG/DL (70-110)
[2017-05-28] MEDS: HALOPERIDOL 5 MG TABLET PO PRN ×2 (12:29→16:56)
[2017-05-28] MEDS: NICOTINE POLACRILEX 4 MG LOZENGE PO PRN (15:08)
[2017-05-28 16:13] VITALS: BP 110/78
[2017-05-28 16:28] VITALS: BP 110/78
[2017-05-28 17:15] VITALS: BP 112/76
[2017-05-28 17:27] LABS: GLUCOSE,POINT OF CARE 99 MG/DL (70-110)
[2017-05-28] MEDS: QUEtiapine FUMARATE 200 MG TABLET PO SCH (20:52)
[2017-05-29] MEDS: MetFORMIN HCL 500 MG TABLET PO SCH ×2 (06:37→16:44)
[2017-05-29] MEDS: LEVOTHYROXINE SODIUM 50 MCG TABLET PO SCH (06:38)
[2017-05-29 06:46] VITALS: BP 108/73
[2017-05-29 07:59] LABS: GLUCOSE,POINT OF CARE 107 MG/DL (70-110)
[2017-05-29] MEDS: CHOLECALCIFEROL (VIT D3) 1,000 UNITS TABLET PO SCH (08:14)
[2017-05-29] MEDS: LACTULOSE 20 GM/30 ML SOLUTION UDCUP PO SCH ×2 (08:14→16:43)
[2017-05-29] MEDS: OMEPRAZOLE 20 MG CAPSULE PO SCH (08:14)
[2017-05-29] MEDS: DOCUSATE SODIUM 100 MG CAPSULE PO SCH (08:14)
[2017-05-29] MEDS: CARISOPRODOL 350 MG TABLET PO SCH ×2 (08:14→16:44)
[2017-05-29] MEDS: CITALOPRAM HYDROBROMIDE 20 MG TABLET PO SCH (08:14)
[2017-05-29] MEDS: DIVALPROEX SODIUM 500 MG DR TABLET PO SCH ×2 (08:14→16:44)
[2017-05-29] MEDS: NITROFURANTOIN/NITROFURAN MAC 100 MG CAPSULE [MACROBID] PO SCH ×2 (08:17→16:44)
[2017-05-29 08:26] VITALS: BP 107/70
[2017-05-29] MEDS: LORazepam 1 MG TABLET PO PRN ×2 (08:45→13:49)
[2017-05-29] MEDS: HALOPERIDOL 5 MG TABLET PO PRN ×2 (08:45→14:10)
[2017-05-29 12:20] LABS: HEPATITIS C AB CONFIRM REFLEX? YES; HEPATITIS C AB CONFIRMATION Reactive (Non Reactive); HEPATITIS C AB SCREEN 8.8 s/co ratio (0.0-0.9)
[2017-05-29 12:20] LABS: HEPATITIS C AB CONFIRM REFLEX? YES; HEPATITIS C AB CONFIRMATION Reactive (Non Reactive); HEPATITIS C AB SCREEN 9.5 s/co ratio (0.0-0.9)
[2017-05-29 13:20] LABS: GLUCOSE,POINT OF CARE 104 MG/DL (70-110)
[2017-05-29] MEDS ORDERED: DSS100 PO (13:26)
[2017-05-29] MEDS ORDERED: VITAD1000 PO (13:26)
[2017-05-29] MEDS ORDERED: LEVO50 PO (13:26)
[2017-05-29] MEDS ORDERED: MACR100 PO (13:27)
[2017-05-29] MEDS: NICOTINE POLACRILEX 4 MG LOZENGE PO PRN (14:50)
[2017-05-29] MEDS: TraMADol HCL 50 MG TABLET PO PRN (14:51)
[2017-05-29 14:54] VITALS: BP 108/69
[2017-05-29 16:38] VITALS: BP 120/62
[2017-05-29] MEDS: QUEtiapine FUMARATE 200 MG TABLET PO SCH (20:27)
[2017-05-30] MEDS: LACTULOSE 20 GM/30 ML SOLUTION UDCUP PO SCH ×2 (00:08→08:18)
[2017-05-30] MEDS: MetFORMIN HCL 500 MG TABLET PO SCH (06:37)
[2017-05-30] MEDS: LEVOTHYROXINE SODIUM 50 MCG TABLET PO SCH (06:37)
[2017-05-30 06:53] VITALS: BP 123/75
[2017-05-30] MEDS: CARISOPRODOL 350 MG TABLET PO SCH (08:17)
[2017-05-30] MEDS: DOCUSATE SODIUM 100 MG CAPSULE PO SCH (08:17)
[2017-05-30] MEDS: DIVALPROEX SODIUM 500 MG DR TABLET PO SCH (08:17)
[2017-05-30] MEDS: CITALOPRAM HYDROBROMIDE 20 MG TABLET PO SCH (08:17)
[2017-05-30] MEDS: OMEPRAZOLE 20 MG CAPSULE PO SCH (08:18)
[2017-05-30] MEDS: CHOLECALCIFEROL (VIT D3) 1,000 UNITS TABLET PO SCH (08:18)
[2017-05-30] MEDS: NITROFURANTOIN/NITROFURAN MAC 100 MG CAPSULE [MACROBID] PO SCH (08:21)
[2017-05-30] MEDS: HALOPERIDOL 5 MG TABLET PO PRN (08:24)
[2017-05-30] MEDS: LORazepam 1 MG TABLET PO PRN (08:24)
[2017-05-30] MEDS: NICOTINE POLACRILEX 4 MG LOZENGE PO PRN (08:51)
[2017-05-30 08:59] LABS: GLUCOSE,POINT OF CARE 107 MG/DL (70-110)
[2017-05-30 09:06] VITALS: BP 117/68
[2017-05-30] MEDS: TraMADol HCL 50 MG TABLET PO PRN (09:06)
[2017-05-30 09:11] LABS: GLUCOSE,POINT OF CARE 123 MG/DL (70-110)
[2017-06-02 10:17] LABS: HEPATITIS C RNA QNT HCV Not Detected IU/mL
[2017-06-03 07:06] LABS: HEPATITIS C RNA QNT HCV Not Detected IU/mL
== END 2017-05-30 10:00 | disposition home or self-care (01) | DRG 885 ==
LOC: B3A 10:27 → EDSTATUS 10:31
DX: F25.0 Schizoaffective disorder, bipolar type (principal); R45.851 Suicidal ideations; E11.65 Type 2 diabetes mellitus with hyperglycemia; N39.0 Urinary tract infection, site not specified; E03.9 Hypothyroidism, unspecified; E55.9 Vitamin D deficiency, unspecified; F12.90 Cannabis use, unspecified, uncomplicated; F14.10 Cocaine abuse, uncomplicated; F15.10 Other stimulant abuse, uncomplicated; G47.00 Insomnia, unspecified; G89.29 Other chronic pain; I10 Essential (primary) hypertension; J44.9 Chronic obstructive pulmonary disease, unspecified; K21.9 Gastro-esophageal reflux disease without esophagitis; Z79.899 Other long term (current) drug therapy; Z91.5 Personal history of self-harm; M54.5 Low back pain; Z28.21 Immunization not carried out because of patient refusal; Z88.2 Allergy status to sulfonamides; Z71.51 Drug abuse counseling and surveillance of drug abuser; Z63.9 Problem related to primary support group, unspecified; Z56.0 Unemployment, unspecified; F17.200 Nicotine dependence, unspecified, uncomplicated; B19.20 Unspecified viral hepatitis C without hepatic coma
CPT/HCPCS: 80074; 82962; 83036; 84439; 84443; 86706; 86707; 86709; 86803; 86804; 87081; 87086; 87340; 87350; 87522; 87902; J1885; Q0162

== ENCOUNTER 2017-06-23 14:11 | Emergency (ER) | payer MEDICARE, OTHER ==
[~2017-06-23] VITALS: Ht 162.6 cm; Wt 64.0 kg
[~2017-06-23 14:11] MED LIST changes: -CARI350T PO; +DSS100 PO; +LEVO50 PO; +MACR100 PO; +VITAD1000 PO
[2017-06-23] MEDS ORDERED: DiphenhydrAMINE HCL 50 MG/ML VIAL IM ONE (14:30)
[2017-06-23] MEDS ORDERED: HALOPERIDOL LACTATE 5 MG/ML VIAL IM ONE (14:30)
[2017-06-23 14:31] VITALS: BP 128/86
[2017-06-23] MEDS ORDERED: ACETAMINOPHEN 500 MG TABLET PO ONE (15:00)
[2017-06-23] MEDS ORDERED: HALOPERIDOL 5 MG TABLET PO ONE (15:00)
[2017-06-23] MEDS ORDERED: DiphenhydrAMINE HCL 25 MG CAPSULE PO ONE (15:00)
[2017-06-23] MEDS ORDERED: DIVA500T35 PO (15:02)
== END 2017-06-23 15:17 | disposition home or self-care (01) ==
LOC: EMS 14:13
DX: F20.9 Schizophrenia, unspecified (principal); F31.9 Bipolar disorder, unspecified; F41.9 Anxiety disorder, unspecified; E11.9 Type 2 diabetes mellitus without complications; Z76.5 Malingerer [conscious simulation]; Z88.2 Allergy status to sulfonamides; Z87.891 Personal history of nicotine dependence
CPT/HCPCS: 99284; J1200; J1630

== ENCOUNTER 2017-06-25 20:37 | Inpatient (IN) | payer MEDICARE, MEDICAID ==
[~2017-06-25] VITALS: Ht 165.1 cm; Wt 68.9 kg
[~2017-06-25 20:37] MED LIST changes: -DIVA250T4 PO; +DIVA500T35 PO; -MACR100 PO
[2017-06-26] MEDS ORDERED: LORazepam 1 MG TABLET PO ONE (01:00)
[2017-06-26 01:33] LABS: BASOPHILS % (AUTO) 0.6 % (0.0-2.0); EOSINOPHILS % (AUTO) 1.6 % (1.0-6.0); HEMATOCRIT 36.3 % (36-46); HEMOGLOBIN 12.4 g/dL (12.0-16.0); LYMPHOCYTES % (AUTO) 44.2 % (22.0-44.0); MEAN CORPUSCULAR HEMOGLOBIN 29.4 pg (26.0-34.0); MEAN CORPUSCULAR HGB CONC 34.2 G/dL (31.0-37.0); MEAN CORPUSCULAR VOLUME 86 fL (80-100); MONOCYTES # (AUTO) 0.6 K/uL (0.1-1.0); MONOCYTES % (AUTO) 6.9 % (2.0-9.0); NEUTROPHILS # (AUTO) 4.2 K/uL (1.8-7.7); NEUTROPHILS % (AUTO) 46.7 % (40.0-70.0); PLATELET COUNT (AUTO) 286 K/uL (150-450); RED BLOOD CELL COUNT(AUTO) 4.23 MIL/uL (4.00-5.20); RED CELL DISTRIBUTION WIDTH 13.8 % (11.5-14.5)
[2017-06-26 01:41] LABS: ANION GAP 9 mmol/L (8-16); CALCIUM, TOTAL 9.2 mg/dL (8.8-10.5); CARBON DIOXIDE 26 mmol/L (22-29); CHLORIDE 101 mmol/L (98-107); CREATININE 0.91 mg/dL (0.60-1.30); GLOMERULAR FILTR. RATE CALC > 60 mL/min (>60); POTASSIUM 3.4 mmol/L (3.5-5.1); SODIUM SERUM 136 mmol/L (136-145); UREA NITROGEN, BLOOD 21 mg/dL (7-18)
[2017-06-26 01:47] LABS: ALANINE AMINOTRANSFERASE 24 U/L (12-78); ASPARTATE AMINOTRANSFERASE 16 U/L (15-37); BILIRUBIN,TOTAL 0.5 mg/dL (0.1-1.0); TOTAL PROTEIN, SERUM 7.4 g/dL (6.4-8.2)
[2017-06-26 04:23] VITALS: BP 139/89
[2017-06-26] MEDS ORDERED: POTASSIUM CHLORIDE 20 MEQ ER TABLET PO ONE (04:30)
[2017-06-26] MEDS ORDERED: INFLUENZA VIRUS VACCINE QVS 2017-18 (3YR+)/PF 60 MCG/0.5 ML SYRINGE IM ONE (04:30)
[2017-06-26] MEDS ORDERED: PNEUMOCOCCAL VACCINE POLYVALENT 0.5 ML VIAL [PPSV23] IM ONE (04:30)
[2017-06-26] MEDS ORDERED: ZOLPIDEM TARTRATE 10 MG TABLET PO PRN (04:30)
[2017-06-26 06:53] LABS: GLUCOSE,POINT OF CARE 134 MG/DL (70-110)
[2017-06-26] MEDS ORDERED: PETROLATUM,WHITE 71 GM JELLY TP PRN (07:15)
[2017-06-26] MEDS ORDERED: IBUPROFEN 600 MG TABLET PO PRN (07:15)
[2017-06-26] MEDS ORDERED: MAG HYDROX/AL HYDROX/SIMETH ES 30 ML SUSPENSION UDCUP PO PRN (07:15)
[2017-06-26] MEDS ORDERED: BACITRACIN 28.4 GM OINTMENT TP PRN (07:15)
[2017-06-26] MEDS ORDERED: ONDANSETRON HCL 4 MG TABLET PO PRN (07:15)
[2017-06-26] MEDS ORDERED: LOPERAMIDE HCL 2 MG CAPSULE PO PRN (07:15)
[2017-06-26] MEDS ORDERED: CloNIDine HCL 0.1 MG TABLET PO PRN (07:15)
[2017-06-26] MEDS ORDERED: BENZOCAINE/MENTHOL LOZENGE MM PRN (07:15)
[2017-06-26] MEDS ORDERED: ALBUTEROL SULFATE HFA 90 MCG/PUFF 8 GM INHALER IH PRN (07:15)
[2017-06-26 08:18] VITALS: BP 118/68
[2017-06-26] MEDS: OMEPRAZOLE 20 MG CAPSULE PO SCH (09:04)
[2017-06-26] MEDS: LORazepam 2 MG TABLET PO PRN (09:04)
[2017-06-26] MEDS: DOCUSATE SODIUM 100 MG CAPSULE PO SCH (09:04)
[2017-06-26] MEDS: CHOLECALCIFEROL (VIT D3) 1,000 UNITS TABLET PO SCH (09:04)
[2017-06-26] MEDS: MetFORMIN HCL 500 MG TABLET PO SCH (16:23)
[2017-06-26] MEDS: DIVALPROEX SODIUM 500 MG DR TABLET PO SCH (20:30)
[2017-06-26] MEDS: QUEtiapine FUMARATE 200 MG TABLET PO SCH (20:31)
[2017-06-27] MEDS: LEVOTHYROXINE SODIUM 50 MCG TABLET PO SCH (06:03)
[2017-06-27 06:18] LABS: GLUCOSE,POINT OF CARE 143 MG/DL (70-110)
[2017-06-27] MEDS: MetFORMIN HCL 500 MG TABLET PO SCH ×2 (06:49→16:46)
[2017-06-27 08:10] VITALS: BP 103/61
[2017-06-27 08:57] LABS: APPEARANCE,URINE CLEAR (CLEAR); GLUCOSE, URINE (UA) NEGATIVE (NEGATIVE); KETONES,URINE NEGATIVE (NEGATIVE); LEUKOCYTE ESTERASE ,URINE NEGATIVE (NEGATIVE); OCCULT BLOOD,URINE NEGATIVE (NEGATIVE); PH,URINE 7.5 (5.0-8.0); PROTEIN,URINE TRACE (NEGATIVE)
[2017-06-27] MEDS: LORazepam 2 MG TABLET PO PRN ×4 (09:03→17:12)
[2017-06-27] MEDS: OMEPRAZOLE 20 MG CAPSULE PO SCH (09:03)
[2017-06-27] MEDS: CITALOPRAM HYDROBROMIDE 20 MG TABLET PO SCH (09:03)
[2017-06-27] MEDS: CHOLECALCIFEROL (VIT D3) 1,000 UNITS TABLET PO SCH (09:03)
[2017-06-27] MEDS: DIVALPROEX SODIUM 500 MG DR TABLET PO SCH ×2 (09:03→20:46)
[2017-06-27] MEDS: DOCUSATE SODIUM 100 MG CAPSULE PO SCH (09:03)
[2017-06-27 09:08] LABS: RBC,URINE None Seen /HPF (0-2); SQUAMOUS EPITHELIAL CELL,UR Rare /LPF (None Seen); TRIPLE PHOSPHATE CRYSTAL,UR Moderate /LPF (None Seen); WBC,URINE None Seen /HPF (0-5)
[2017-06-27] MEDS: LIDOCAINE HCL 5% TRANSDERMAL PATCH TD SCH (12:15)
[2017-06-27] MEDS: TraMADol HCL 50 MG TABLET PO PRN (12:34)
[2017-06-27] MEDS: HALOPERIDOL 5 MG TABLET PO PRN (12:35)
[2017-06-27 12:38] VITALS: BP 118/69
[2017-06-27] MEDS: ACETAMINOPHEN 325 MG TABLET PO PRN (16:46)
[2017-06-27] MEDS: QUEtiapine FUMARATE 200 MG TABLET PO SCH (20:46)
[2017-06-27] MEDS ORDERED: -LIDODERM PATCH NOTE- MISC SCH ×2 (21:00)
[2017-06-28] MEDS: LEVOTHYROXINE SODIUM 50 MCG TABLET PO SCH (06:30)
[2017-06-28] MEDS: MetFORMIN HCL 500 MG TABLET PO SCH ×2 (07:00→16:58)
[2017-06-28 08:26] VITALS: BP 100/70
[2017-06-28] MEDS: DIVALPROEX SODIUM 500 MG DR TABLET PO SCH ×2 (08:54→20:47)
[2017-06-28] MEDS: CITALOPRAM HYDROBROMIDE 20 MG TABLET PO SCH (08:54)
[2017-06-28] MEDS: OMEPRAZOLE 20 MG CAPSULE PO SCH (08:54)
[2017-06-28] MEDS: CHOLECALCIFEROL (VIT D3) 1,000 UNITS TABLET PO SCH (08:54)
[2017-06-28] MEDS: LORazepam 2 MG TABLET PO PRN (08:54)
[2017-06-28] MEDS: DOCUSATE SODIUM 100 MG CAPSULE PO SCH (08:54)
[2017-06-28] MEDS: LIDOCAINE HCL 5% TRANSDERMAL PATCH TD SCH ×2 (08:55→10:21)
[2017-06-28] MEDS: QUEtiapine FUMARATE 200 MG TABLET PO SCH (20:47)
[2017-06-29] MEDS: TraMADol HCL 50 MG TABLET PO PRN (06:17)
[2017-06-29] MEDS: LEVOTHYROXINE SODIUM 50 MCG TABLET PO SCH (06:30)
[2017-06-29] MEDS: MetFORMIN HCL 500 MG TABLET PO SCH ×2 (07:00→16:40)
[2017-06-29 08:50] LABS: ALANINE AMINOTRANSFERASE 20 U/L (12-78); ALBUMIN 3.4 g/dL (3.4-5.0); ANION GAP 10 mmol/L (8-16); ASPARTATE AMINOTRANSFERASE 8 U/L (15-37); BILIRUBIN,TOTAL 0.3 mg/dL (0.1-1.0); CALCIUM, TOTAL 8.8 mg/dL (8.8-10.5); CARBON DIOXIDE 25 mmol/L (22-29); CHLORIDE 103 mmol/L (98-107); CHOL/HDL RATIO 3.1 (3.9-5.7); CREATININE 0.81 mg/dL (0.60-1.30); GLOMERULAR FILTR. RATE CALC > 60 mL/min (>60); POTASSIUM 4.2 mmol/L (3.5-5.1); SODIUM SERUM 138 mmol/L (136-145); TOTAL PROTEIN, SERUM 7.1 g/dL (6.4-8.2); UREA NITROGEN, BLOOD 26 mg/dL (7-18)
[2017-06-29 08:54] VITALS: BP 108/64
[2017-06-29] MEDS: LIDOCAINE HCL 5% TRANSDERMAL PATCH TD SCH (09:00)
[2017-06-29] MEDS: OMEPRAZOLE 20 MG CAPSULE PO SCH (09:40)
[2017-06-29] MEDS: DOCUSATE SODIUM 100 MG CAPSULE PO SCH (09:40)
[2017-06-29] MEDS: CHOLECALCIFEROL (VIT D3) 1,000 UNITS TABLET PO SCH (09:41)
[2017-06-29] MEDS: DIVALPROEX SODIUM 500 MG DR TABLET PO SCH ×2 (09:41→20:17)
[2017-06-29] MEDS: CITALOPRAM HYDROBROMIDE 20 MG TABLET PO SCH (09:41)
[2017-06-29] MEDS: NICOTINE POLACRILEX 2 MG LOZENGE PO PRN (12:05)
[2017-06-29 12:14] LABS: GLUCOSE,POINT OF CARE 144 MG/DL (70-110)
[2017-06-29 16:41] VITALS: BP 134/68
[2017-06-29] MEDS: CARISOPRODOL 350 MG TABLET PO SCH (16:41)
[2017-06-29] MEDS: QUEtiapine FUMARATE 200 MG TABLET PO SCH (20:17)
[2017-06-30] MEDS: LEVOTHYROXINE SODIUM 50 MCG TABLET PO SCH (06:25)
[2017-06-30] MEDS: MetFORMIN HCL 500 MG TABLET PO SCH ×2 (06:25→16:34)
[2017-06-30] MEDS: LORazepam 2 MG TABLET PO PRN ×2 (07:05→07:17)
[2017-06-30 07:15] VITALS: BP 109/75
[2017-06-30 07:43] LABS: GLUCOSE,POINT OF CARE 117 MG/DL (70-110)
[2017-06-30 08:51] VITALS: BP 111/73
[2017-06-30] MEDS: DOCUSATE SODIUM 100 MG CAPSULE PO SCH (10:09)
[2017-06-30] MEDS: NICOTINE POLACRILEX 2 MG LOZENGE PO PRN (10:10)
[2017-06-30] MEDS: DIVALPROEX SODIUM 500 MG DR TABLET PO SCH ×2 (10:10→20:51)
[2017-06-30] MEDS: OMEPRAZOLE 20 MG CAPSULE PO SCH (10:10)
[2017-06-30] MEDS: CHOLECALCIFEROL (VIT D3) 1,000 UNITS TABLET PO SCH (10:10)
[2017-06-30] MEDS: CITALOPRAM HYDROBROMIDE 20 MG TABLET PO SCH (10:10)
[2017-06-30] MEDS: CARISOPRODOL 350 MG TABLET PO SCH ×2 (10:10→16:34)
[2017-06-30 16:14] VITALS: BP 109/67
[2017-06-30] MEDS: QUEtiapine FUMARATE 200 MG TABLET PO SCH (20:51)
[2017-07-01 05:07] VITALS: BP 114/78
[2017-07-01] MEDS: ACETAMINOPHEN 325 MG TABLET PO PRN (05:18)
[2017-07-01 07:04] LABS: GLUCOSE,POINT OF CARE 122 MG/DL (70-110)
[2017-07-01] MEDS: LEVOTHYROXINE SODIUM 50 MCG TABLET PO SCH (07:07)
[2017-07-01] MEDS: LORazepam 2 MG TABLET PO PRN ×2 (07:07→11:04)
[2017-07-01] MEDS: MetFORMIN HCL 500 MG TABLET PO SCH ×2 (07:07→16:34)
[2017-07-01] MEDS: CARISOPRODOL 350 MG TABLET PO SCH ×2 (08:36→16:34)
[2017-07-01] MEDS: DIVALPROEX SODIUM 500 MG DR TABLET PO SCH ×2 (08:37→20:27)
[2017-07-01] MEDS: CHOLECALCIFEROL (VIT D3) 1,000 UNITS TABLET PO SCH (08:37)
[2017-07-01] MEDS: NICOTINE POLACRILEX 2 MG LOZENGE PO PRN (08:37)
[2017-07-01] MEDS: OMEPRAZOLE 20 MG CAPSULE PO SCH (08:37)
[2017-07-01] MEDS: DOCUSATE SODIUM 100 MG CAPSULE PO SCH (08:37)
[2017-07-01] MEDS: CITALOPRAM HYDROBROMIDE 20 MG TABLET PO SCH (08:37)
[2017-07-01] MEDS ORDERED: TraMADol HCL 50 MG TABLET PO PRN (09:00)
[2017-07-01 09:59] VITALS: BP 119/76
[2017-07-01] MEDS ORDERED: KETOROLAC TROMETHAMINE 30 MG/ML VIAL IM ONE (10:45)
[2017-07-01] MEDS: HALOPERIDOL 5 MG TABLET PO PRN (11:04)
[2017-07-01 16:30] VITALS: BP 138/73
[2017-07-01] MEDS: QUEtiapine FUMARATE 200 MG TABLET PO SCH (20:27)
[2017-07-02 06:27] LABS: GLUCOSE,POINT OF CARE 112 MG/DL (70-110)
[2017-07-02] MEDS: ACETAMINOPHEN 325 MG TABLET PO PRN (06:27)
[2017-07-02 06:33] VITALS: BP 103/66
[2017-07-02] MEDS: LEVOTHYROXINE SODIUM 50 MCG TABLET PO SCH (06:48)
[2017-07-02] MEDS: MetFORMIN HCL 500 MG TABLET PO SCH ×2 (06:48→16:32)
[2017-07-02 08:29] VITALS: BP 124/71
[2017-07-02] MEDS: NICOTINE POLACRILEX 2 MG LOZENGE PO PRN (08:50)
[2017-07-02] MEDS: CITALOPRAM HYDROBROMIDE 20 MG TABLET PO SCH (08:50)
[2017-07-02] MEDS: OMEPRAZOLE 20 MG CAPSULE PO SCH (08:51)
[2017-07-02] MEDS: CARISOPRODOL 350 MG TABLET PO SCH ×2 (08:51→16:33)
[2017-07-02] MEDS: DIVALPROEX SODIUM 500 MG DR TABLET PO SCH ×2 (08:51→20:40)
[2017-07-02] MEDS: CHOLECALCIFEROL (VIT D3) 1,000 UNITS TABLET PO SCH (08:51)
[2017-07-02] MEDS: DOCUSATE SODIUM 100 MG CAPSULE PO SCH (08:51)
[2017-07-02 16:18] VITALS: BP 99/65
[2017-07-02] MEDS: LORazepam 2 MG TABLET PO PRN (18:15)
[2017-07-02] MEDS: HALOPERIDOL 5 MG TABLET PO PRN (18:16)
[2017-07-02] MEDS: QUEtiapine FUMARATE 200 MG TABLET PO SCH (20:40)
[2017-07-03 06:17] LABS: GLUCOSE,POINT OF CARE 132 MG/DL (70-110)
[2017-07-03 06:19] VITALS: BP 105/60
[2017-07-03] MEDS: MetFORMIN HCL 500 MG TABLET PO SCH ×2 (06:27→16:37)
[2017-07-03] MEDS: LEVOTHYROXINE SODIUM 50 MCG TABLET PO SCH (06:28)
[2017-07-03] MEDS: LORazepam 2 MG TABLET PO PRN ×2 (06:49→14:40)
[2017-07-03] MEDS: DIVALPROEX SODIUM 500 MG DR TABLET PO SCH ×2 (09:03→20:46)
[2017-07-03] MEDS: DOCUSATE SODIUM 100 MG CAPSULE PO SCH (09:03)
[2017-07-03] MEDS: CHOLECALCIFEROL (VIT D3) 1,000 UNITS TABLET PO SCH (09:03)
[2017-07-03] MEDS: HALOPERIDOL 5 MG TABLET PO PRN ×2 (09:04→14:40)
[2017-07-03] MEDS: CITALOPRAM HYDROBROMIDE 20 MG TABLET PO SCH (09:04)
[2017-07-03] MEDS: CARISOPRODOL 350 MG TABLET PO SCH ×2 (09:04→16:37)
[2017-07-03] MEDS: OMEPRAZOLE 20 MG CAPSULE PO SCH (09:04)
[2017-07-03] MEDS: NICOTINE POLACRILEX 2 MG LOZENGE PO PRN (09:06)
[2017-07-03 09:22] VITALS: BP 107/64
[2017-07-03 17:17] LABS: GLUCOSE,POINT OF CARE 145 MG/DL (70-110)
[2017-07-03 17:30] VITALS: BP 99/64
[2017-07-03] MEDS: QUEtiapine FUMARATE 200 MG TABLET PO SCH (20:46)
[2017-07-04 06:23] LABS: GLUCOSE,POINT OF CARE 132 MG/DL (70-110)
[2017-07-04 06:26] VITALS: BP 115/62
[2017-07-04] MEDS: MetFORMIN HCL 500 MG TABLET PO SCH ×2 (06:33→16:59)
[2017-07-04] MEDS: LEVOTHYROXINE SODIUM 50 MCG TABLET PO SCH (06:33)
[2017-07-04] MEDS: LORazepam 2 MG TABLET PO PRN ×2 (07:49→13:40)
[2017-07-04] MEDS: NICOTINE POLACRILEX 2 MG LOZENGE PO PRN ×2 (07:50→14:23)
[2017-07-04] MEDS: DOCUSATE SODIUM 100 MG CAPSULE PO SCH (08:06)
[2017-07-04] MEDS: DIVALPROEX SODIUM 500 MG DR TABLET PO SCH ×2 (08:06→20:33)
[2017-07-04] MEDS: OMEPRAZOLE 20 MG CAPSULE PO SCH (08:07)
[2017-07-04] MEDS: CARISOPRODOL 350 MG TABLET PO SCH ×2 (08:07→16:30)
[2017-07-04] MEDS: CHOLECALCIFEROL (VIT D3) 1,000 UNITS TABLET PO SCH (08:07)
[2017-07-04] MEDS: CITALOPRAM HYDROBROMIDE 20 MG TABLET PO SCH (08:07)
[2017-07-04 08:22] VITALS: BP 113/68
[2017-07-04 08:26] LABS: BASOPHILS # (AUTO) 0.03 K/uL (0.00-0.20); BASOPHILS % (AUTO) 0.4 % (0.0-2.0); EOSINOPHILS # (AUTO) 0.17 K/uL (0.00-0.70); EOSINOPHILS % (AUTO) 2.59 % (1.0-6.0); HEMATOCRIT 39.3 % (36-46); HEMOGLOBIN 12.6 g/dL (12.0-16.0); LYMPHOCYTES # (AUTO) 2.6 K/uL (1.0-4.8); LYMPHOCYTES % (AUTO) 39.3 % (22.0-44.0); MEAN CORPUSCULAR HEMOGLOBIN 28.5 pg (26.0-34.0); MEAN CORPUSCULAR VOLUME 89 fL (80-100); MONOCYTES # (AUTO) 0.4 K/uL (0.1-1.0); MONOCYTES % (AUTO) 5.4 % (2.0-9.0); NEUTROPHILS # (AUTO) 3.5 K/uL (1.8-7.7); NEUTROPHILS % (AUTO) 52.3 % (40.0-70.0); PLATELET COUNT (AUTO) 290 K/uL (150-450); RED BLOOD CELL COUNT(AUTO) 4.42 MIL/uL (4.00-5.20); RED CELL DISTRIBUTION WIDTH 13.4 % (11.5-14.5); WHITE BLOOD COUNT (AUTO) 6.7 K/uL (4.5-11.0)
[2017-07-04] MEDS: HALOPERIDOL 5 MG TABLET PO PRN (08:49)
[2017-07-04 08:51] LABS: ANION GAP 7 mmol/L (8-16); CALCIUM, TOTAL 8.9 mg/dL (8.8-10.5); CARBON DIOXIDE 27 mmol/L (22-29); CHLORIDE 101 mmol/L (98-107); CREATININE 0.89 mg/dL (0.60-1.30); GLOMERULAR FILTR. RATE CALC > 60 mL/min (>60); PHOSPHORUS 3.2 mg/dL (2.5-4.9); POTASSIUM 4.7 mmol/L (3.5-5.1); SODIUM SERUM 135 mmol/L (136-145); UREA NITROGEN, BLOOD 25 mg/dL (7-18)
[2017-07-04] MEDS: TraMADol HCL 50 MG TABLET PO PRN (08:59)
[2017-07-04] MEDS ORDERED: CARI350 PO (13:14)
[2017-07-04] MEDS: MAGNESIUM HYDROXIDE SUSPENSION 30 ML UDCUP PO PRN (13:39)
[2017-07-04 16:00] VITALS: BP 110/80
[2017-07-04 17:12] LABS: GLUCOSE,POINT OF CARE 125 MG/DL (70-110)
[2017-07-04] MEDS: QUEtiapine FUMARATE 200 MG TABLET PO SCH (20:33)
[2017-07-05] MEDS: MetFORMIN HCL 500 MG TABLET PO SCH (06:57)
[2017-07-05] MEDS: LEVOTHYROXINE SODIUM 50 MCG TABLET PO SCH (06:57)
[2017-07-05] MEDS: MAGNESIUM HYDROXIDE SUSPENSION 30 ML UDCUP PO PRN (06:59)
[2017-07-05 07:03] LABS: GLUCOSE,POINT OF CARE 125 MG/DL (70-110)
[2017-07-05 07:20] VITALS: BP 115/85
[2017-07-05 08:15] VITALS: BP 112/68
[2017-07-05] MEDS: OMEPRAZOLE 20 MG CAPSULE PO SCH (08:30)
[2017-07-05] MEDS: CARISOPRODOL 350 MG TABLET PO SCH (08:31)
[2017-07-05] MEDS: DOCUSATE SODIUM 100 MG CAPSULE PO SCH (08:31)
[2017-07-05] MEDS: DIVALPROEX SODIUM 500 MG DR TABLET PO SCH (08:31)
[2017-07-05] MEDS: LORazepam 2 MG TABLET PO PRN (08:31)
[2017-07-05] MEDS: CHOLECALCIFEROL (VIT D3) 1,000 UNITS TABLET PO SCH (08:31)
[2017-07-05] MEDS: CITALOPRAM HYDROBROMIDE 20 MG TABLET PO SCH (08:31)
[2017-07-05] MEDS: NICOTINE POLACRILEX 2 MG LOZENGE PO PRN (08:33)
[2017-07-05 09:44] VITALS: BP 120/73
[2017-07-05] MEDS: TraMADol HCL 50 MG TABLET PO PRN (09:44)
== END 2017-07-05 10:05 | disposition home or self-care (01) | DRG 885 ==
LOC: EMS 21:00 → B2X 06-26 03:01 → B2S 06-26 04:29
PROC: 3E0234Z Introduction of Serum, Toxoid and Vaccine into Muscle, Percutaneous Approach (ICD-10-PCS; principal; 2017-06-26)
PROC: 3E0234Z Introduction of Serum, Toxoid and Vaccine into Muscle, Percutaneous Approach (ICD-10-PCS; 2017-06-26)
DX: F25.0 Schizoaffective disorder, bipolar type (principal); E11.65 Type 2 diabetes mellitus with hyperglycemia; E11.40 Type 2 diabetes mellitus with diabetic neuropathy, unspecified; R45.851 Suicidal ideations; F14.20 Cocaine dependence, uncomplicated; Z91.19 Patient's noncompliance with other medical treatment and regimen; E03.9 Hypothyroidism, unspecified; E87.6 Hypokalemia; F17.200 Nicotine dependence, unspecified, uncomplicated; Z71.6 Tobacco abuse counseling; G47.00 Insomnia, unspecified; G89.29 Other chronic pain; I10 Essential (primary) hypertension; J44.9 Chronic obstructive pulmonary disease, unspecified; K21.9 Gastro-esophageal reflux disease without esophagitis; M79.7 Fibromyalgia; Z79.899 Other long term (current) drug therapy; Z91.5 Personal history of self-harm; Z88.2 Allergy status to sulfonamides; M54.5 Low back pain; Z23 Encounter for immunization
CPT/HCPCS: 82962; 83735; 84100; 87081; 99285; G0480; J1885

== ENCOUNTER 2017-07-15 11:15 | Emergency (ER) | payer MEDICARE, OTHER ==
[~2017-07-15] VITALS: Ht 165.1 cm; Wt 81.8 kg
[~2017-07-15 11:15] MED LIST changes: +CARI350 PO
[2017-07-15 11:18] VITALS: BP 142/85
[2017-07-15 11:27] LABS: GLUCOSE,POINT OF CARE 110 MG/DL (70-110)
[2017-07-15] MEDS ORDERED: METOCLOPRAMIDE HCL 10 MG TABLET PO ONE (12:00)
[2017-07-15 12:08] LABS: BASOPHILS % (AUTO) 0.8 % (0.0-2.0); EOSINOPHILS % (AUTO) 2.2 % (1.0-6.0); HEMATOCRIT 31.9 % (36-46); HEMOGLOBIN 10.9 g/dL (12.0-16.0); LYMPHOCYTES # (AUTO) 2.3 K/uL (1.0-4.8); LYMPHOCYTES % (AUTO) 39.3 % (22.0-44.0); MEAN CORPUSCULAR HEMOGLOBIN 30.1 pg (26.0-34.0); MEAN CORPUSCULAR HGB CONC 34.3 G/dL (31.0-37.0); MEAN CORPUSCULAR VOLUME 88 fL (80-100); MONOCYTES # (AUTO) 0.4 K/uL (0.1-1.0); MONOCYTES % (AUTO) 6.6 % (2.0-9.0); NEUTROPHILS % (AUTO) 51.1 % (40.0-70.0); PLATELET COUNT (AUTO) 312 K/uL (150-450); RED BLOOD CELL COUNT(AUTO) 3.63 MIL/uL (4.00-5.20); RED CELL DISTRIBUTION WIDTH 14.2 % (11.5-14.5); WHITE BLOOD COUNT (AUTO) 5.8 K/uL (4.5-11.0)
[2017-07-15] MEDS ORDERED: DiphenhydrAMINE HCL 50 MG CAPSULE PO ONE (12:15)
[2017-07-15] MEDS ORDERED: LORazepam 2 MG TABLET PO ONE (12:15)
[2017-07-15] MEDS ORDERED: HALOPERIDOL 5 MG TABLET PO ONE (12:15)
[2017-07-15 12:17] LABS: ANION GAP 8 mmol/L (8-16); CALCIUM, TOTAL 8.4 mg/dL (8.8-10.5); CARBON DIOXIDE 27 mmol/L (22-29); CHLORIDE 104 mmol/L (98-107); CREATININE 0.92 mg/dL (0.60-1.30); GLOMERULAR FILTR. RATE CALC > 60 mL/min (>60); SODIUM SERUM 139 mmol/L (136-145); UREA NITROGEN, BLOOD 18 mg/dL (7-18)
[2017-07-15 12:25] LABS: ALANINE AMINOTRANSFERASE 30 U/L (12-78); ALBUMIN 3.3 g/dL (3.4-5.0); ASPARTATE AMINOTRANSFERASE 14 U/L (15-37); BILIRUBIN,TOTAL 0.1 mg/dL (0.1-1.0); TOTAL PROTEIN, SERUM 6.5 g/dL (6.4-8.2)
[2017-07-15] MEDS ORDERED: KETOROLAC TROMETHAMINE 60 MG/2 ML VIAL IM ONE (13:30)
[2017-07-15] MEDS ORDERED: DONNATAL/LIDOCAINE/MAALOX 55 ML BOTTLE PO ONE (13:45)
== END 2017-07-15 14:01 | disposition home or self-care (01) ==
LOC: EMS 11:18
DX: F20.9 Schizophrenia, unspecified (principal); E11.9 Type 2 diabetes mellitus without complications; F31.9 Bipolar disorder, unspecified; Z88.1 Allergy status to other antibiotic agents; Z87.891 Personal history of nicotine dependence
CPT/HCPCS: 82962; 96372; 99284; G0480; J1885

== ENCOUNTER 2017-07-19 11:08 | Emergency (ER) | payer MEDICARE, OTHER ==
[~2017-07-19] VITALS: Ht 165.1 cm; Wt 72.7 kg
[2017-07-19 11:48] LABS: BASOPHILS % (AUTO) 0.3 % (0.0-2.0); EOSINOPHILS % (AUTO) 1.7 % (1.0-6.0); HEMATOCRIT 32.7 % (36-46); HEMOGLOBIN 11.2 g/dL (12.0-16.0); LYMPHOCYTES # (AUTO) 2.4 K/uL (1.0-4.8); LYMPHOCYTES % (AUTO) 30.1 % (22.0-44.0); MEAN CORPUSCULAR HEMOGLOBIN 29.9 pg (26.0-34.0); MEAN CORPUSCULAR HGB CONC 34.3 G/dL (31.0-37.0); MEAN CORPUSCULAR VOLUME 87 fL (80-100); MONOCYTES # (AUTO) 0.5 K/uL (0.1-1.0); MONOCYTES % (AUTO) 5.8 % (2.0-9.0); NEUTROPHILS % (AUTO) 62.1 % (40.0-70.0); PLATELET COUNT (AUTO) 321 K/uL (150-450); RED BLOOD CELL COUNT(AUTO) 3.75 MIL/uL (4.00-5.20)
[2017-07-19 12:02] LABS: ANION GAP 9 mmol/L (8-16); CALCIUM, TOTAL 8.7 mg/dL (8.8-10.5); CARBON DIOXIDE 26 mmol/L (22-29); CHLORIDE 101 mmol/L (98-107); CREATININE 0.81 mg/dL (0.60-1.30); GLOMERULAR FILTR. RATE CALC > 60 mL/min (>60); POTASSIUM 4.4 mmol/L (3.5-5.1); SODIUM SERUM 136 mmol/L (136-145); UREA NITROGEN, BLOOD 19 mg/dL (7-18)
[2017-07-19 12:07] LABS: ALANINE AMINOTRANSFERASE 31 U/L (12-78); ALBUMIN 3.5 g/dL (3.4-5.0); ASPARTATE AMINOTRANSFERASE 16 U/L (15-37); BILIRUBIN,TOTAL 0.1 mg/dL (0.1-1.0)
[2017-07-19 12:16] VITALS: BP 141/114
[2017-07-19 12:49] LABS: VALPROIC ACID < 3 mcg/mL (50-100)
[2017-07-19] MEDS ORDERED: LORazepam 1 MG TABLET PO ONE (14:00)
[2017-07-19] MEDS ORDERED: HALOPERIDOL 5 MG TABLET PO ONE (14:00)
[2017-07-19] MEDS ORDERED: KETOROLAC TROMETHAMINE 30 MG/ML VIAL IM ONE (14:45)
== END 2017-07-19 15:28 | disposition home or self-care (01) ==
LOC: EMS 11:09
DX: F41.9 Anxiety disorder, unspecified (principal); F20.9 Schizophrenia, unspecified; F31.9 Bipolar disorder, unspecified; E11.9 Type 2 diabetes mellitus without complications; Z76.0 Encounter for issue of repeat prescription; Z87.891 Personal history of nicotine dependence; Z88.2 Allergy status to sulfonamides
CPT/HCPCS: 36415; 80053; 80164; 80307; 85025; 96372; 99284; G0480; J1885

== ENCOUNTER 2017-08-01 10:01 | Emergency (ER) | payer MEDICARE, OTHER ==
[~2017-08-01] VITALS: Ht 165.1 cm; Wt 75.5 kg
[2017-08-01] MEDS ORDERED: ONDA4 PO (10:05)
[2017-08-01] MEDS ORDERED: HYDR-309 PO (10:05)
[2017-08-01 10:13] LABS: GLUCOSE,POINT OF CARE 111 MG/DL (70-110)
[2017-08-01] MEDS ORDERED: ASPIRIN 81 MG CHEWABLE TABLET PO ONE (10:15)
[2017-08-01 10:43] LABS: BASOPHILS % (AUTO) 0.7 % (0.0-2.0); EOSINOPHILS % (AUTO) 1.8 % (1.0-6.0); HEMATOCRIT 33.7 % (36-46); HEMOGLOBIN 11.5 g/dL (12.0-16.0); LYMPHOCYTES # (AUTO) 3.2 K/uL (1.0-4.8); MEAN CORPUSCULAR HEMOGLOBIN 30.1 pg (26.0-34.0); MEAN CORPUSCULAR HGB CONC 34.1 G/dL (31.0-37.0); MEAN CORPUSCULAR VOLUME 88 fL (80-100); MONOCYTES # (AUTO) 0.4 K/uL (0.1-1.0); MONOCYTES % (AUTO) 5.2 % (2.0-9.0); NEUTROPHILS # (AUTO) 3.8 K/uL (1.8-7.7); NEUTROPHILS % (AUTO) 50.3 % (40.0-70.0); PLATELET COUNT (AUTO) 293 K/uL (150-450); RED BLOOD CELL COUNT(AUTO) 3.82 MIL/uL (4.00-5.20); RED CELL DISTRIBUTION WIDTH 14.1 % (11.5-14.5); WHITE BLOOD COUNT (AUTO) 7.5 K/uL (4.5-11.0)
[2017-08-01] MEDS ORDERED: DONNATAL/LIDOCAINE/MAALOX 55 ML BOTTLE PO ONE (10:45)
[2017-08-01] MEDS ORDERED: ONDANSETRON HCL 4 MG/2 ML VIAL IVP ONE (10:45)
[2017-08-01 10:57] LABS: ANION GAP 12 mmol/L (8-16); CALCIUM, TOTAL 9.2 mg/dL (8.8-10.5); CARBON DIOXIDE 27 mmol/L (22-29); CHLORIDE 99 mmol/L (98-107); CREATININE 0.97 mg/dL (0.60-1.30); GLOMERULAR FILTR. RATE CALC 59 mL/min (>60); POTASSIUM 4.3 mmol/L (3.5-5.1); SODIUM SERUM 138 mmol/L (136-145); UREA NITROGEN, BLOOD 17 mg/dL (7-18)
[2017-08-01] MEDS ORDERED: LORazepam 1 MG TABLET PO ONE (11:00)
[2017-08-01 11:17] LABS: B-TYPE NATRIURETIC PEPTIDE 13 pg/mL (0-100)
[2017-08-01 11:21] LABS: ALANINE AMINOTRANSFERASE 18 U/L (12-78); ALBUMIN 3.5 g/dL (3.4-5.0); ASPARTATE AMINOTRANSFERASE 12 U/L (15-37); BILIRUBIN,TOTAL 0.2 mg/dL (0.1-1.0); CREATINE KINASE MB 2.2 ng/mL (0-5); CREATINE KINASE, TOTAL 120 U/L (26-192); TOTAL PROTEIN, SERUM 7.2 g/dL (6.4-8.2)
[2017-08-01 11:44] LABS: GLUCOSE, URINE (UA) NEGATIVE (NEGATIVE); KETONES,URINE TRACE mg/dL (NEGATIVE); LEUKOCYTE ESTERASE ,URINE NEGATIVE (NEGATIVE); OCCULT BLOOD,URINE NEGATIVE (NEGATIVE); PH,URINE 7.5 (5.0-8.0); PROTEIN,URINE NEGATIVE (NEGATIVE)
[2017-08-01 11:45] LABS: ADD UA MICROSCOPIC NO; APPEARANCE,URINE CLEAR (CLEAR)
[2017-08-01 12:29] VITALS: BP 101/65
== END 2017-08-01 12:30 | disposition home or self-care (01) ==
LOC: EMS 10:03
DX: K21.9 Gastro-esophageal reflux disease without esophagitis (principal); R07.9 Chest pain, unspecified; F14.10 Cocaine abuse, uncomplicated; Z88.2 Allergy status to sulfonamides; Z87.891 Personal history of nicotine dependence
CPT/HCPCS: 36415; 71010; 80053; 81003; 82550; 82553; 82962; 83690; 83880; 84484; 85025; 93005; 96374; 99285; 99406; J2405

== ENCOUNTER 2017-08-02 11:24 | Inpatient (IN) | payer MEDICARE, MEDICAID ==
[~2017-08-02] VITALS: Ht 165.1 cm; Wt 76.2 kg
[~2017-08-02 11:24] MED LIST changes: -CITA40TA14 PO; +HYDR-309 PO; +ONDA4 PO
[2017-08-02 11:50] LABS: BASOPHILS # (AUTO) 0.05 K/uL (0.00-0.20); BASOPHILS % (AUTO) 0.5 % (0.0-2.0); EOSINOPHILS # (AUTO) 0.17 K/uL (0.00-0.70); EOSINOPHILS % (AUTO) 1.81 % (1.0-6.0); HEMATOCRIT 35.6 % (36-46); HEMOGLOBIN 11.7 g/dL (12.0-16.0); LYMPHOCYTES # (AUTO) 2.8 K/uL (1.0-4.8); LYMPHOCYTES % (AUTO) 29.4 % (22.0-44.0); MEAN CORPUSCULAR HEMOGLOBIN 29.6 pg (26.0-34.0); MEAN CORPUSCULAR VOLUME 90 fL (80-100); MONOCYTES # (AUTO) 0.5 K/uL (0.1-1.0); MONOCYTES % (AUTO) 5.1 % (2.0-9.0); NEUTROPHILS # (AUTO) 5.9 K/uL (1.8-7.7); NEUTROPHILS % (AUTO) 63.2 % (40.0-70.0); PLATELET COUNT (AUTO) 298 K/uL (150-450); RED BLOOD CELL COUNT(AUTO) 3.97 MIL/uL (4.00-5.20); RED CELL DISTRIBUTION WIDTH 14.5 % (11.5-14.5); WHITE BLOOD COUNT (AUTO) 9.4 K/uL (4.5-11.0)
[2017-08-02 12:06] LABS: GLUCOSE, URINE (UA) NEGATIVE (NEGATIVE); KETONES,URINE TRACE mg/dL (NEGATIVE); LEUKOCYTE ESTERASE ,URINE NEGATIVE (NEGATIVE); OCCULT BLOOD,URINE NEGATIVE (NEGATIVE); PROTEIN,URINE NEGATIVE (NEGATIVE)
[2017-08-02 12:07] LABS: ANION GAP 8 mmol/L (8-16); CARBON DIOXIDE 29 mmol/L (22-29); CHLORIDE 100 mmol/L (98-107); CREATININE 1.09 mg/dL (0.60-1.30); GLOMERULAR FILTR. RATE CALC 51 mL/min (>60); POTASSIUM 4.5 mmol/L (3.5-5.1); SODIUM SERUM 137 mmol/L (136-145); UREA NITROGEN, BLOOD 17 mg/dL (7-18)
[2017-08-02 12:10] LABS: ADD UA MICROSCOPIC NO; APPEARANCE,URINE HAZY (CLEAR)
[2017-08-02 12:13] LABS: ALANINE AMINOTRANSFERASE 19 U/L (12-78); ALBUMIN 3.7 g/dL (3.4-5.0); ASPARTATE AMINOTRANSFERASE 18 U/L (15-37); BILIRUBIN,TOTAL 0.1 mg/dL (0.1-1.0); TOTAL PROTEIN, SERUM 7.4 g/dL (6.4-8.2); VALPROIC ACID 42 mcg/mL (50-100)
[2017-08-02 12:38] LABS: THYROID STIMULATING HORMONE 3.09 uIU/mL (0.36-3.74)
[2017-08-02] MEDS ORDERED: LORazepam 2 MG TABLET PO ONE (14:15)
[2017-08-02] MEDS ORDERED: HALOPERIDOL 5 MG TABLET PO ONE (14:30)
[2017-08-02] MEDS ORDERED: ZOLPIDEM TARTRATE 10 MG TABLET PO PRN (14:45)
[2017-08-02] MEDS ORDERED: HALOPERIDOL 5 MG TABLET PO PRN (14:45)
[2017-08-02 18:07] VITALS: BP 146/84
[2017-08-02] MEDS ORDERED: INFLUENZA VIRUS VACCINE QVS 2017-18 (3YR+)/PF 60 MCG/0.5 ML SYRINGE IM ONE (18:30)
[2017-08-02] MEDS ORDERED: PNEUMOCOCCAL VACCINE POLYVALENT 0.5 ML VIAL [PPSV23] IM ONE (18:30)
[2017-08-02 20:27] LABS: GLUCOSE,POINT OF CARE 120 MG/DL (70-110)
[2017-08-02] MEDS: QUEtiapine FUMARATE 200 MG TABLET PO SCH (20:34)
[2017-08-02] MEDS: DIVALPROEX SODIUM 500 MG DR TABLET PO SCH (20:34)
[2017-08-03 06:25] VITALS: BP 110/63
[2017-08-03] MEDS ORDERED: CloNIDine HCL 0.1 MG TABLET PO PRN (08:00)
[2017-08-03] MEDS ORDERED: ALBUTEROL SULFATE HFA 90 MCG/PUFF 8 GM INHALER IH PRN (08:00)
[2017-08-03] MEDS ORDERED: TraMADol HCL 50 MG TABLET PO PRN (08:00)
[2017-08-03] MEDS ORDERED: BACITRACIN 28.4 GM OINTMENT TP PRN (08:00)
[2017-08-03] MEDS ORDERED: IBUPROFEN 600 MG TABLET PO PRN (08:00)
[2017-08-03] MEDS ORDERED: LOPERAMIDE HCL 2 MG CAPSULE PO PRN (08:00)
[2017-08-03] MEDS ORDERED: BENZOCAINE/MENTHOL LOZENGE MM PRN (08:00)
[2017-08-03] MEDS ORDERED: DEXTROSE 50%-WATER 25 GM/50 ML SYRINGE IVP PRN (08:00)
[2017-08-03] MEDS ORDERED: INSULIN ASPART 100 UNITS/ML SQ PRN (08:00)
[2017-08-03] MEDS ORDERED: PETROLATUM,WHITE 71 GM JELLY TP PRN (08:00)
[2017-08-03] MEDS ORDERED: MAGNESIUM HYDROXIDE SUSPENSION 30 ML UDCUP PO PRN (08:00)
[2017-08-03] MEDS ORDERED: ONDANSETRON HCL 4 MG TABLET PO PRN (08:00)
[2017-08-03] MEDS: OMEPRAZOLE 20 MG CAPSULE PO SCH (08:55)
[2017-08-03] MEDS: CHOLECALCIFEROL (VIT D3) 1,000 UNITS TABLET PO SCH (08:56)
[2017-08-03] MEDS: CARISOPRODOL 350 MG TABLET PO SCH ×2 (08:56→16:58)
[2017-08-03] MEDS: DIVALPROEX SODIUM 500 MG DR TABLET PO SCH ×2 (08:56→20:30)
[2017-08-03] MEDS: DOCUSATE SODIUM 100 MG CAPSULE PO SCH (08:57)
[2017-08-03] MEDS ORDERED: CITALOPRAM HYDROBROMIDE 20 MG TABLET PO SCH (09:00)
[2017-08-03] MEDS: LORazepam 2 MG TABLET PO PRN ×2 (09:01→14:30)
[2017-08-03 10:06] VITALS: BP 116/75
[2017-08-03 11:23] LABS: GLUCOSE,POINT OF CARE 106 MG/DL (70-110)
[2017-08-03] MEDS: MetFORMIN HCL 500 MG TABLET PO SCH (16:58)
[2017-08-03 17:37] LABS: GLUCOSE,POINT OF CARE 157 MG/DL (70-110)
[2017-08-03] MEDS: QUEtiapine FUMARATE 200 MG TABLET PO SCH (20:30)
[2017-08-03 21:07] LABS: GLUCOSE,POINT OF CARE 110 MG/DL (70-110)
[2017-08-04] MEDS: ACETAMINOPHEN 325 MG TABLET PO PRN (06:32)
[2017-08-04] MEDS: LEVOTHYROXINE SODIUM 25 MCG TABLET PO SCH (06:32)
[2017-08-04 06:47] LABS: GLUCOSE COMMENT 1 Received Meds; GLUCOSE,POINT OF CARE 115 MG/DL (70-110)
[2017-08-04] MEDS: LORazepam 2 MG TABLET PO PRN ×2 (06:47→12:55)
[2017-08-04] MEDS: MetFORMIN HCL 500 MG TABLET PO SCH ×2 (06:59→17:10)
[2017-08-04 08:45] VITALS: BP_SYST 130; BP_SYST 133; BP_DIAS 63; BP_DIAS 82
[2017-08-04] MEDS: CARISOPRODOL 350 MG TABLET PO SCH ×2 (09:11→17:10)
[2017-08-04] MEDS: DIVALPROEX SODIUM 500 MG DR TABLET PO SCH ×2 (09:11→20:35)
[2017-08-04] MEDS: DOCUSATE SODIUM 100 MG CAPSULE PO SCH (09:11)
[2017-08-04] MEDS: CHOLECALCIFEROL (VIT D3) 1,000 UNITS TABLET PO SCH (09:11)
[2017-08-04] MEDS: OMEPRAZOLE 20 MG CAPSULE PO SCH (09:11)
[2017-08-04 11:52] LABS: GLUCOSE,POINT OF CARE 101 MG/DL (70-110)
[2017-08-04] MEDS: NICOTINE POLACRILEX 2 MG LOZENGE PO PRN (14:01)
[2017-08-04 16:12] VITALS: BP 126/75
[2017-08-04 17:52] LABS: GLUCOSE,POINT OF CARE 136 MG/DL (70-110)
[2017-08-04] MEDS: QUEtiapine FUMARATE 200 MG TABLET PO SCH (20:35)
[2017-08-04] MEDS: MAG HYDROX/AL HYDROX/SIMETH ES 30 ML SUSPENSION UDCUP PO PRN (20:43)
[2017-08-04 21:07] LABS: GLUCOSE,POINT OF CARE 119 MG/DL (70-110)
[2017-08-05] MEDS: LORazepam 2 MG TABLET PO PRN ×2 (00:50→05:05)
[2017-08-05 00:57] VITALS: BP 116/70
[2017-08-05 04:21] VITALS: BP 121/76
[2017-08-05] MEDS: NICOTINE POLACRILEX 2 MG LOZENGE PO PRN (05:06)
[2017-08-05] MEDS ORDERED: GLUCAGON,HUMAN RECOMBINANT 1 MG VIAL IM PRN (05:30)
[2017-08-05] MEDS ORDERED: INSULIN ASPART 100 UNITS/ML SQ PRN (05:30)
[2017-08-05 06:14] LABS: GLUCOSE,POINT OF CARE 120 MG/DL (70-110)
[2017-08-05] MEDS: LEVOTHYROXINE SODIUM 25 MCG TABLET PO SCH (06:52)
[2017-08-05] MEDS: MetFORMIN HCL 500 MG TABLET PO SCH ×2 (06:52→16:57)
[2017-08-05] MEDS: DOCUSATE SODIUM 100 MG CAPSULE PO SCH (09:54)
[2017-08-05] MEDS: CHOLECALCIFEROL (VIT D3) 1,000 UNITS TABLET PO SCH (09:54)
[2017-08-05] MEDS: CARISOPRODOL 350 MG TABLET PO SCH ×2 (09:54→16:57)
[2017-08-05] MEDS: OMEPRAZOLE 20 MG CAPSULE PO SCH (09:54)
[2017-08-05] MEDS: DIVALPROEX SODIUM 500 MG DR TABLET PO SCH ×2 (09:54→20:37)
[2017-08-05 10:15] VITALS: BP 110/77
[2017-08-05] MEDS ORDERED: KETOROLAC TROMETHAMINE 30 MG/ML VIAL IM ONE (10:15)
[2017-08-05 11:27] LABS: GLUCOSE,POINT OF CARE 98 MG/DL (70-110)
[2017-08-05 16:56] VITALS: BP 113/62
[2017-08-05 17:03] LABS: GLUCOSE,POINT OF CARE 132 MG/DL (70-110)
[2017-08-05] MEDS: QUEtiapine FUMARATE 200 MG TABLET PO SCH (20:37)
[2017-08-05 20:38] LABS: GLUCOSE,POINT OF CARE 132 MG/DL (70-110)
[2017-08-06 02:57] VITALS: BP 107/82
[2017-08-06] MEDS: LORazepam 2 MG TABLET PO PRN ×3 (02:58→14:14)
[2017-08-06] MEDS: ACETAMINOPHEN 325 MG TABLET PO PRN (03:08)
[2017-08-06 06:13] LABS: GLUCOSE,POINT OF CARE 124 MG/DL (70-110)
[2017-08-06] MEDS: MetFORMIN HCL 500 MG TABLET PO SCH ×2 (06:56→16:36)
[2017-08-06] MEDS: LEVOTHYROXINE SODIUM 25 MCG TABLET PO SCH (06:56)
[2017-08-06 08:00] VITALS: BP 110/69
[2017-08-06] MEDS: DOCUSATE SODIUM 100 MG CAPSULE PO SCH (08:09)
[2017-08-06] MEDS: CHOLECALCIFEROL (VIT D3) 1,000 UNITS TABLET PO SCH (08:09)
[2017-08-06] MEDS: DIVALPROEX SODIUM 500 MG DR TABLET PO SCH ×2 (08:09→20:34)
[2017-08-06] MEDS: OMEPRAZOLE 20 MG CAPSULE PO SCH (08:10)
[2017-08-06] MEDS: CARISOPRODOL 350 MG TABLET PO SCH ×2 (08:10→16:36)
[2017-08-06] MEDS: NICOTINE POLACRILEX 2 MG LOZENGE PO PRN ×3 (09:47→17:02)
[2017-08-06] MEDS ORDERED: TraMADol HCL 50 MG TABLET PO PRN (10:15)
[2017-08-06 11:12] LABS: GLUCOSE,POINT OF CARE 142 MG/DL (70-110)
[2017-08-06 16:09] VITALS: BP 135/80
[2017-08-06 16:23] LABS: GLUCOSE,POINT OF CARE 130 MG/DL (70-110)
[2017-08-06 20:32] LABS: GLUCOSE,POINT OF CARE 119 MG/DL (70-110)
[2017-08-06] MEDS: QUEtiapine FUMARATE 200 MG TABLET PO SCH (20:34)
[2017-08-07 01:38] VITALS: BP 146/71
[2017-08-07] MEDS: LORazepam 2 MG TABLET PO PRN ×3 (01:40→13:47)
[2017-08-07] MEDS: NICOTINE POLACRILEX 2 MG LOZENGE PO PRN ×4 (01:40→14:55)
[2017-08-07 06:49] LABS: GLUCOSE,POINT OF CARE 139 MG/DL (70-110)
[2017-08-07 06:52] VITALS: BP 138/70
[2017-08-07] MEDS: LEVOTHYROXINE SODIUM 25 MCG TABLET PO SCH (06:53)
[2017-08-07] MEDS: MetFORMIN HCL 500 MG TABLET PO SCH ×2 (07:03→16:41)
[2017-08-07] MEDS: CARISOPRODOL 350 MG TABLET PO SCH ×2 (08:08→16:41)
[2017-08-07] MEDS: DOCUSATE SODIUM 100 MG CAPSULE PO SCH (08:08)
[2017-08-07] MEDS: DIVALPROEX SODIUM 500 MG DR TABLET PO SCH ×2 (08:09→20:37)
[2017-08-07] MEDS: CHOLECALCIFEROL (VIT D3) 1,000 UNITS TABLET PO SCH (08:09)
[2017-08-07] MEDS: OMEPRAZOLE 20 MG CAPSULE PO SCH (08:09)
[2017-08-07 08:28] VITALS: BP 124/91
[2017-08-07] MEDS ORDERED: KETOROLAC TROMETHAMINE 30 MG/ML VIAL IM ONE (10:45)
[2017-08-07] MEDS ORDERED: KETOROLAC TROMETHAMINE 10 MG TABLET PO PRN (10:45)
[2017-08-07 11:12] LABS: GLUCOSE,POINT OF CARE 97 MG/DL (70-110)
[2017-08-07 16:09] VITALS: BP 129/79
[2017-08-07 16:48] LABS: GLUCOSE,POINT OF CARE 110 MG/DL (70-110)
[2017-08-07] MEDS: MAG HYDROX/AL HYDROX/SIMETH ES 30 ML SUSPENSION UDCUP PO PRN (16:58)
[2017-08-07 20:17] LABS: GLUCOSE,POINT OF CARE 95 MG/DL (70-110)
[2017-08-07] MEDS: QUEtiapine FUMARATE 200 MG TABLET PO SCH (20:37)
[2017-08-08] MEDS: NICOTINE POLACRILEX 2 MG LOZENGE PO PRN ×3 (06:27→15:53)
[2017-08-08] MEDS: LEVOTHYROXINE SODIUM 25 MCG TABLET PO SCH (06:44)
[2017-08-08] MEDS: MetFORMIN HCL 500 MG TABLET PO SCH ×2 (06:44→17:03)
[2017-08-08] MEDS: CARISOPRODOL 350 MG TABLET PO SCH ×2 (08:11→16:06)
[2017-08-08] MEDS: DOCUSATE SODIUM 100 MG CAPSULE PO SCH (08:11)
[2017-08-08] MEDS: OMEPRAZOLE 20 MG CAPSULE PO SCH (08:11)
[2017-08-08] MEDS: CHOLECALCIFEROL (VIT D3) 1,000 UNITS TABLET PO SCH (08:11)
[2017-08-08] MEDS: DIVALPROEX SODIUM 500 MG DR TABLET PO SCH ×2 (08:11→20:22)
[2017-08-08] MEDS: LORazepam 2 MG TABLET PO PRN ×3 (08:12→17:59)
[2017-08-08 08:16] VITALS: BP_SYST 101; BP_SYST 120; BP_DIAS 78
[2017-08-08 11:17] LABS: GLUCOSE,POINT OF CARE 137 MG/DL (70-110)
[2017-08-08] MEDS: KETOROLAC TROMETHAMINE 10 MG TABLET PO SCH ×2 (12:14→17:56)
[2017-08-08 16:08] VITALS: BP 134/80
[2017-08-08 16:52] LABS: GLUCOSE,POINT OF CARE 151 MG/DL (70-110)
[2017-08-08] MEDS: QUEtiapine FUMARATE 200 MG TABLET PO SCH (20:22)
[2017-08-08 20:52] LABS: GLUCOSE,POINT OF CARE 118 MG/DL (70-110)
[2017-08-09] MEDS: KETOROLAC TROMETHAMINE 10 MG TABLET PO SCH ×2 (00:09→05:26)
[2017-08-09] MEDS ORDERED: LEVO50 PO (00:16)
[2017-08-09] MEDS ORDERED: CARI350 PO (00:16)
[2017-08-09] MEDS ORDERED: DSS100 PO (00:16)
[2017-08-09] MEDS ORDERED: OMEP20 PO (00:16)
[2017-08-09] MEDS ORDERED: VITAD1000 PO (00:16)
[2017-08-09] MEDS ORDERED: METF500T PO (00:16)
[2017-08-09] MEDS ORDERED: KETO10TA2 PO (00:16)
[2017-08-09] MEDS ORDERED: DIVA500T35 PO ×2 (00:26)
[2017-08-09 00:53] VITALS: BP 118/72
[2017-08-09 05:20] VITALS: BP 128/80
[2017-08-09] MEDS: LEVOTHYROXINE SODIUM 25 MCG TABLET PO SCH (06:30)
[2017-08-09] MEDS: MetFORMIN HCL 500 MG TABLET PO SCH (06:44)
== END 2017-08-09 08:05 | disposition home or self-care (01) | DRG 885 ==
LOC: EMS 11:26 → B2X 15:27
DX: F25.0 Schizoaffective disorder, bipolar type (principal); E11.65 Type 2 diabetes mellitus with hyperglycemia; R45.851 Suicidal ideations; F14.20 Cocaine dependence, uncomplicated; Z91.19 Patient's noncompliance with other medical treatment and regimen; Z59.0 Homelessness; E03.9 Hypothyroidism, unspecified; F41.9 Anxiety disorder, unspecified; G47.00 Insomnia, unspecified; G89.29 Other chronic pain; I10 Essential (primary) hypertension; J44.9 Chronic obstructive pulmonary disease, unspecified; K21.9 Gastro-esophageal reflux disease without esophagitis; M19.90 Unspecified osteoarthritis, unspecified site; M79.7 Fibromyalgia; F17.210 Nicotine dependence, cigarettes, uncomplicated; F15.90 Other stimulant use, unspecified, uncomplicated; Z71.6 Tobacco abuse counseling; Z88.2 Allergy status to sulfonamides; Z79.899 Other long term (current) drug therapy
CPT/HCPCS: 82962; 83036; 84443; 87081; 99285; G0480; J1885

== ENCOUNTER 2017-08-14 16:55 | Inpatient (IN) | payer MEDICAID, MEDICARE ==
[~2017-08-14] VITALS: Ht 167.6 cm; Wt 78.5 kg
[~2017-08-14 16:55] MED LIST changes: -HYDR-309 PO; +KETO10TA2 PO; +OMEP20 PO; -ONDA4 PO
[2017-08-14 20:03] VITALS: BP 130/69
[2017-08-14] MEDS: LORazepam 2 MG TABLET PO PRN (20:31)
[2017-08-14 20:56] VITALS: BP 120/75
[2017-08-14] MEDS ORDERED: INSULIN ASPART 100 UNITS/ML SQ PRN (21:30)
[2017-08-14] MEDS ORDERED: GLUCAGON,HUMAN RECOMBINANT 1 MG VIAL IM PRN (21:30)
[2017-08-14 21:32] LABS: GLUCOMETER DEV NAME(LOC) BV3S 2; GLUCOSE,POINT OF CARE 106 MG/DL (70-110)
[2017-08-15 04:19] VITALS: BP 118/78
[2017-08-15] MEDS: LEVOTHYROXINE SODIUM 50 MCG TABLET PO SCH (06:44)
[2017-08-15] MEDS: MetFORMIN HCL 500 MG TABLET PO SCH ×2 (07:07→16:25)
[2017-08-15] MEDS: CHOLECALCIFEROL (VIT D3) 1,000 UNITS TABLET PO SCH (08:05)
[2017-08-15] MEDS: OMEPRAZOLE 20 MG CAPSULE PO SCH (08:05)
[2017-08-15] MEDS: DOCUSATE SODIUM 100 MG CAPSULE PO SCH (08:05)
[2017-08-15] MEDS: DIVALPROEX SODIUM 500 MG DR TABLET PO SCH ×2 (08:56→20:10)
[2017-08-15 09:03] LABS: BASOPHILS % (AUTO) 0.5 % (0.0-2.0); EOSINOPHILS % (AUTO) 2.5 % (1.0-6.0); HEMATOCRIT 32.2 % (36-46); HEMOGLOBIN 11.1 g/dL (12.0-16.0); LYMPHOCYTES # (AUTO) 2.3 K/uL (1.0-4.8); LYMPHOCYTES % (AUTO) 41.6 % (22.0-44.0); MEAN CORPUSCULAR HEMOGLOBIN 30.4 pg (26.0-34.0); MEAN CORPUSCULAR HGB CONC 34.4 G/dL (31.0-37.0); MEAN CORPUSCULAR VOLUME 88 fL (80-100); MONOCYTES # (AUTO) 0.4 K/uL (0.1-1.0); MONOCYTES % (AUTO) 7.3 % (2.0-9.0); NEUTROPHILS # (AUTO) 2.6 K/uL (1.8-7.7); NEUTROPHILS % (AUTO) 48.1 % (40.0-70.0); PLATELET COUNT (AUTO) 252 K/uL (150-450); RED BLOOD CELL COUNT(AUTO) 3.64 MIL/uL (4.00-5.20); RED CELL DISTRIBUTION WIDTH 13.7 % (11.5-14.5)
[2017-08-15 09:09] LABS: HEMOGLOBIN A1C 6.6 % (4.5-6.2)
[2017-08-15] MEDS ORDERED: NICOTINE POLACRILEX 2 MG LOZENGE PO PRN (09:30)
[2017-08-15] MEDS ORDERED: NICOTINE POLACRILEX 4 MG LOZENGE PO PRN (09:45)
[2017-08-15] MEDS: CITALOPRAM HYDROBROMIDE 20 MG TABLET PO SCH (10:04)
[2017-08-15 10:43] LABS: AMPHET/METH SCREEN,URINE NEGATIVE (NEGATIVE); BARBITURATE SCREEN, URINE NEGATIVE (NEGATIVE); BENZODIAZEPINES SCREEN,URINE NEGATIVE (NEGATIVE); CANNABINOID SCREEN,URINE POSITIVE (NEGATIVE); COCAINE SCREEN,URINE NEGATIVE (NEGATIVE); METHADONE SCREEN, URINE NEGATIVE (NEGATIVE); OPIATE SCREEN,URINE POSITIVE (NEGATIVE)
[2017-08-15 10:45] LABS: PHENCYCLIDINE SCREEN,URINE NEGATIVE (NEGATIVE)
[2017-08-15 10:53] LABS: APPEARANCE,URINE CLEAR (CLEAR); BILIRUBIN,URINE NEGATIVE (NEGATIVE); GLUCOSE, URINE (UA) NEGATIVE (NEGATIVE); KETONES,URINE NEGATIVE (NEGATIVE); LEUKOCYTE ESTERASE ,URINE NEGATIVE (NEGATIVE); NITRATE,URINE NEGATIVE (NEGATIVE); OCCULT BLOOD,URINE NEGATIVE (NEGATIVE); PROTEIN,URINE NEGATIVE (NEGATIVE); UROBILINOGEN,URINE 0.2 mg/dL (<=1.0)
[2017-08-15 12:07] LABS: GLUCOMETER DEV NAME(LOC) BV3S 2; GLUCOSE,POINT OF CARE 132 MG/DL (70-110)
[2017-08-15 12:12] LABS: ALANINE AMINOTRANSFERASE 19 U/L (12-78); ALKALINE PHOSPHATASE 89 U/L (46-116); ANION GAP 2 mmol/L (8-16); ASPARTATE AMINOTRANSFERASE 11 U/L (15-37); BILIRUBIN,TOTAL 0.2 mg/dL (0.1-1.0); CALCIUM, TOTAL 8.1 mg/dL (8.8-10.5); CARBON DIOXIDE 31 mmol/L (22-29); CHLORIDE 105 mmol/L (98-107); CHOL/HDL RATIO 2.6 (3.9-5.7); CHOLESTEROL 162 mg/dL (131-200); FREE T4 (FREE THYROXINE) 0.67 ng/dL (0.76-1.46); GLOMERULAR FILTR. RATE CALC > 60 mL/min (>60); GLUCOSE,RANDOM 112 mg/dL (70-110); HDL CHOLESTEROL 62 mg/dL (40-60); LDL CHOL (CALC.) 90 mg/dL (0-130); POTASSIUM 4.2 mmol/L (3.5-5.1); SODIUM SERUM 138 mmol/L (136-145); THYROID STIMULATING HORMONE 2.35 uIU/mL (0.36-3.74); TOTAL PROTEIN, SERUM 6.3 g/dL (6.4-8.2); TRIGLYCERIDES 51 mg/dL (15-150); UREA NITROGEN, BLOOD 16 mg/dL (7-18)
[2017-08-15] MEDS: LORazepam 2 MG TABLET PO PRN ×2 (14:13→20:19)
[2017-08-15 16:14] VITALS: BP 132/64
[2017-08-15 20:03] LABS: GLUCOMETER DEV NAME(LOC) BV3S 2; GLUCOSE,POINT OF CARE 112 MG/DL (70-110)
[2017-08-15] MEDS: QUEtiapine FUMARATE 200 MG TABLET PO SCH (20:09)
[2017-08-15] MEDS: ZOLPIDEM TARTRATE 10 MG TABLET PO PRN (20:19)
[2017-08-15] MEDS ORDERED: ALBUTEROL SULFATE HFA 90 MCG/PUFF 8 GM INHALER IH PRN (21:00)
[2017-08-15] MEDS ORDERED: ONDANSETRON HCL 4 MG TABLET PO PRN (21:00)
[2017-08-15] MEDS ORDERED: MAGNESIUM HYDROXIDE SUSPENSION 30 ML UDCUP PO PRN (21:00)
[2017-08-15] MEDS ORDERED: BACITRACIN 28.4 GM OINTMENT TP PRN (21:00)
[2017-08-15] MEDS ORDERED: CloNIDine HCL 0.1 MG TABLET PO PRN (21:00)
[2017-08-15] MEDS ORDERED: ACETAMINOPHEN 325 MG TABLET PO PRN (21:00)
[2017-08-15] MEDS ORDERED: BENZOCAINE/MENTHOL LOZENGE MM PRN (21:00)
[2017-08-15] MEDS: METHYL SALICYLATE/MENTHOL 120 GM CREAM TP SCH (21:00)
[2017-08-15] MEDS ORDERED: LOPERAMIDE HCL 2 MG CAPSULE PO PRN (21:00)
[2017-08-15] MEDS ORDERED: MAG HYDROX/AL HYDROX/SIMETH ES 30 ML SUSPENSION UDCUP PO PRN (21:00)
[2017-08-15] MEDS ORDERED: PETROLATUM,WHITE 71 GM JELLY TP PRN (21:00)
[2017-08-15] MEDS: TraMADol HCL 50 MG TABLET PO PRN (21:19)
[2017-08-16] MEDS: MetFORMIN HCL 500 MG TABLET PO SCH ×2 (06:22→16:56)
[2017-08-16] MEDS: LEVOTHYROXINE SODIUM 50 MCG TABLET PO SCH (06:22)
[2017-08-16 06:51] VITALS: BP 128/66
[2017-08-16] MEDS: TraMADol HCL 50 MG TABLET PO PRN (06:54)
[2017-08-16] MEDS: DOCUSATE SODIUM 100 MG CAPSULE PO SCH (08:59)
[2017-08-16] MEDS: METHYL SALICYLATE/MENTHOL 120 GM CREAM TP SCH ×4 (09:00→21:18)
[2017-08-16] MEDS: OMEPRAZOLE 20 MG CAPSULE PO SCH (09:00)
[2017-08-16] MEDS ORDERED: OMEPRAZOLE 20 MG CAPSULE PO SCH (09:00)
[2017-08-16] MEDS: DIVALPROEX SODIUM 500 MG DR TABLET PO SCH ×2 (09:00→20:11)
[2017-08-16] MEDS ORDERED: DOCUSATE SODIUM 100 MG CAPSULE PO SCH (09:00)
[2017-08-16] MEDS: CITALOPRAM HYDROBROMIDE 20 MG TABLET PO SCH (09:00)
[2017-08-16] MEDS: CHOLECALCIFEROL (VIT D3) 1,000 UNITS TABLET PO SCH (09:00)
[2017-08-16 10:28] VITALS: BP 121/77
[2017-08-16] MEDS: LORazepam 2 MG TABLET PO PRN (12:44)
[2017-08-16] MEDS: HALOPERIDOL 5 MG TABLET PO PRN (12:53)
[2017-08-16 16:46] VITALS: BP 124/83
[2017-08-16 16:53] LABS: GLUCOMETER DEV NAME(LOC) BV3S 2; GLUCOSE,POINT OF CARE 155 MG/DL (70-110)
[2017-08-16] MEDS: CARISOPRODOL 350 MG TABLET PO SCH (16:56)
[2017-08-16] MEDS: QUEtiapine FUMARATE 200 MG TABLET PO SCH (20:11)
[2017-08-17 05:30] VITALS: BP 121/86
[2017-08-17] MEDS: LEVOTHYROXINE SODIUM 50 MCG TABLET PO SCH (06:18)
[2017-08-17] MEDS: LORazepam 2 MG TABLET PO PRN ×3 (06:18→16:21)
[2017-08-17] MEDS: MetFORMIN HCL 500 MG TABLET PO SCH ×2 (06:19→16:21)
[2017-08-17] MEDS: TraMADol HCL 50 MG TABLET PO PRN (07:02)
[2017-08-17] MEDS: DOCUSATE SODIUM 100 MG CAPSULE PO SCH (08:22)
[2017-08-17] MEDS: CITALOPRAM HYDROBROMIDE 20 MG TABLET PO SCH (08:22)
[2017-08-17] MEDS: CHOLECALCIFEROL (VIT D3) 1,000 UNITS TABLET PO SCH (08:22)
[2017-08-17] MEDS: OMEPRAZOLE 20 MG CAPSULE PO SCH (08:22)
[2017-08-17] MEDS: HALOPERIDOL 5 MG TABLET PO PRN ×2 (08:22→16:21)
[2017-08-17] MEDS: DIVALPROEX SODIUM 500 MG DR TABLET PO SCH ×2 (08:22→20:21)
[2017-08-17] MEDS: CARISOPRODOL 350 MG TABLET PO SCH ×2 (08:27→16:21)
[2017-08-17 08:41] VITALS: BP 119/60
[2017-08-17 09:22] LABS: HEMATOCRIT 39.3 % (36-46); HEMOGLOBIN 12.9 g/dL (12.0-16.0); MEAN CORPUSCULAR HEMOGLOBIN 29.2 pg (26.0-34.0); MEAN CORPUSCULAR HGB CONC 32.7 G/dL (31.0-37.0); MEAN CORPUSCULAR VOLUME 89 fL (80-100); PLATELET COUNT (AUTO) 300 K/uL (150-450); RED CELL DISTRIBUTION WIDTH 13.5 % (11.5-14.5)
[2017-08-17 09:36] LABS: CALCIUM, TOTAL 9.2 mg/dL (8.8-10.5); CHOL/HDL RATIO 2.9 (3.9-5.7); CREATININE 0.97 mg/dL (0.60-1.30); MAGNESIUM 1.3 mg/dL (1.80-2.40); PHOSPHORUS 4.1 mg/dL (2.5-4.9); POTASSIUM 4.6 mmol/L (3.5-5.1); THYROID STIMULATING HORMONE 0.82 uIU/mL (0.36-3.74)
[2017-08-17 10:27] LABS: BAND NEUTROPHILS % (MANUAL) 3 % (1-5); EOSINOPHILS % (MANUAL) 2 % (1-6); LYMPHOCYTES % (MANUAL) 31 % (22-44); MONOCYTES % (MANUAL) 1 % (2-9); SEGMENTED NEUTROPHILS % 63 % (40-70)
[2017-08-17] MEDS: METHYL SALICYLATE/MENTHOL 120 GM CREAM TP SCH ×4 (10:32→20:21)
[2017-08-17 16:32] LABS: GLUCOMETER DEV NAME(LOC) BV3S 2; GLUCOSE,POINT OF CARE 123 MG/DL (70-110)
[2017-08-17] MEDS: QUEtiapine FUMARATE 200 MG TABLET PO SCH (20:21)
[2017-08-18 01:58] VITALS: BP 119/78
[2017-08-18] MEDS: TraMADol HCL 50 MG TABLET PO PRN ×3 (02:04→16:29)
[2017-08-18] MEDS: LORazepam 2 MG TABLET PO PRN ×3 (02:04→16:30)
[2017-08-18] MEDS: LEVOTHYROXINE SODIUM 50 MCG TABLET PO SCH (06:31)
[2017-08-18] MEDS: MetFORMIN HCL 500 MG TABLET PO SCH ×2 (06:32→16:29)
[2017-08-18 06:42] LABS: GLUCOMETER DEV NAME(LOC) BV3S 2; GLUCOSE,POINT OF CARE 105 MG/DL (70-110)
[2017-08-18] MEDS: DOCUSATE SODIUM 100 MG CAPSULE PO SCH (08:08)
[2017-08-18] MEDS: CARISOPRODOL 350 MG TABLET PO SCH ×2 (08:08→16:30)
[2017-08-18] MEDS: DIVALPROEX SODIUM 500 MG DR TABLET PO SCH ×2 (08:08→20:10)
[2017-08-18] MEDS: MAGNESIUM OXIDE 400 MG TABLET PO SCH ×2 (08:09→16:30)
[2017-08-18] MEDS: CITALOPRAM HYDROBROMIDE 20 MG TABLET PO SCH (08:09)
[2017-08-18] MEDS: METHYL SALICYLATE/MENTHOL 120 GM CREAM TP SCH ×4 (08:09→20:15)
[2017-08-18] MEDS: CHOLECALCIFEROL (VIT D3) 1,000 UNITS TABLET PO SCH (08:09)
[2017-08-18] MEDS: OMEPRAZOLE 20 MG CAPSULE PO SCH (08:09)
[2017-08-18] MEDS: HALOPERIDOL 5 MG TABLET PO PRN (16:30)
[2017-08-18 16:53] LABS: GLUCOMETER DEV NAME(LOC) BV3S 2; GLUCOSE,POINT OF CARE 146 MG/DL (70-110)
[2017-08-18 17:56] VITALS: BP 112/76
[2017-08-18] MEDS: QUEtiapine FUMARATE 200 MG TABLET PO SCH (20:10)
[2017-08-18] MEDS: ZOLPIDEM TARTRATE 10 MG TABLET PO PRN (20:10)
[2017-08-19] MEDS: LEVOTHYROXINE SODIUM 50 MCG TABLET PO SCH (06:13)
[2017-08-19] MEDS: MetFORMIN HCL 500 MG TABLET PO SCH ×2 (06:14→16:45)
[2017-08-19] MEDS: TraMADol HCL 50 MG TABLET PO PRN ×3 (06:25→20:50)
[2017-08-19 06:47] LABS: GLUCOMETER DEV NAME(LOC) BV3S 2; GLUCOSE,POINT OF CARE 118 MG/DL (70-110)
[2017-08-19] MEDS: MAGNESIUM OXIDE 400 MG TABLET PO SCH ×2 (08:12→16:44)
[2017-08-19] MEDS: CHOLECALCIFEROL (VIT D3) 1,000 UNITS TABLET PO SCH (08:12)
[2017-08-19] MEDS: CITALOPRAM HYDROBROMIDE 20 MG TABLET PO SCH (08:12)
[2017-08-19] MEDS: HALOPERIDOL 5 MG TABLET PO PRN ×2 (08:12→16:44)
[2017-08-19] MEDS: CARISOPRODOL 350 MG TABLET PO SCH ×2 (08:13→16:45)
[2017-08-19] MEDS: METHYL SALICYLATE/MENTHOL 120 GM CREAM TP SCH ×4 (08:13→20:06)
[2017-08-19] MEDS: DOCUSATE SODIUM 100 MG CAPSULE PO SCH (08:13)
[2017-08-19] MEDS: OMEPRAZOLE 20 MG CAPSULE PO SCH (08:13)
[2017-08-19] MEDS: LORazepam 2 MG TABLET PO PRN ×2 (08:13→16:45)
[2017-08-19] MEDS: DIVALPROEX SODIUM 500 MG DR TABLET PO SCH ×2 (08:13→20:06)
[2017-08-19 08:56] VITALS: BP 100/65
[2017-08-19 16:26] VITALS: BP 126/80
[2017-08-19 16:58] LABS: GLUCOMETER DEV NAME(LOC) BV3S 2; GLUCOSE,POINT OF CARE 141 MG/DL (70-110)
[2017-08-19] MEDS: QUEtiapine FUMARATE 200 MG TABLET PO SCH (20:06)
[2017-08-20] MEDS: LORazepam 2 MG TABLET PO PRN ×2 (00:11→16:19)
[2017-08-20] MEDS: TraMADol HCL 50 MG TABLET PO PRN (00:12)
[2017-08-20 01:10] VITALS: BP 119/67
[2017-08-20] MEDS: LEVOTHYROXINE SODIUM 50 MCG TABLET PO SCH (06:48)
[2017-08-20] MEDS: MetFORMIN HCL 500 MG TABLET PO SCH ×2 (07:06→17:02)
[2017-08-20] MEDS: DOCUSATE SODIUM 100 MG CAPSULE PO SCH (10:15)
[2017-08-20] MEDS: OMEPRAZOLE 20 MG CAPSULE PO SCH (10:15)
[2017-08-20] MEDS: CHOLECALCIFEROL (VIT D3) 1,000 UNITS TABLET PO SCH (10:15)
[2017-08-20] MEDS: DIVALPROEX SODIUM 500 MG DR TABLET PO SCH ×2 (10:15→21:17)
[2017-08-20] MEDS: CITALOPRAM HYDROBROMIDE 20 MG TABLET PO SCH (10:15)
[2017-08-20] MEDS: MAGNESIUM OXIDE 400 MG TABLET PO SCH ×2 (10:15→17:02)
[2017-08-20] MEDS: CARISOPRODOL 350 MG TABLET PO SCH ×2 (10:16→17:02)
[2017-08-20] MEDS: METHYL SALICYLATE/MENTHOL 120 GM CREAM TP SCH ×4 (10:23→21:17)
[2017-08-20 10:24] VITALS: BP 112/74
[2017-08-20] MEDS ORDERED: KETOROLAC TROMETHAMINE 30 MG/ML VIAL IM ONE (12:00)
[2017-08-20 16:00] VITALS: BP 104/68
[2017-08-20] MEDS: HALOPERIDOL 5 MG TABLET PO PRN (16:19)
[2017-08-20 16:47] LABS: GLUCOMETER DEV NAME(LOC) BV3S 2; GLUCOSE,POINT OF CARE 132 MG/DL (70-110)
[2017-08-20] MEDS: QUEtiapine FUMARATE 200 MG TABLET PO SCH (21:17)
[2017-08-21] MEDS: LEVOTHYROXINE SODIUM 50 MCG TABLET PO SCH (06:06)
[2017-08-21] MEDS: HALOPERIDOL 5 MG TABLET PO PRN ×2 (06:22→10:41)
[2017-08-21] MEDS: LORazepam 2 MG TABLET PO PRN ×2 (06:22→10:41)
[2017-08-21] MEDS: MetFORMIN HCL 500 MG TABLET PO SCH (06:43)
[2017-08-21 06:52] VITALS: BP 124/72
[2017-08-21] MEDS: CHOLECALCIFEROL (VIT D3) 1,000 UNITS TABLET PO SCH (07:55)
[2017-08-21] MEDS: CITALOPRAM HYDROBROMIDE 20 MG TABLET PO SCH (07:55)
[2017-08-21] MEDS: TraMADol HCL 50 MG TABLET PO PRN (07:55)
[2017-08-21] MEDS: DIVALPROEX SODIUM 500 MG DR TABLET PO SCH (07:55)
[2017-08-21] MEDS: MAGNESIUM OXIDE 400 MG TABLET PO SCH (07:55)
[2017-08-21] MEDS: CARISOPRODOL 350 MG TABLET PO SCH (07:55)
[2017-08-21] MEDS: DOCUSATE SODIUM 100 MG CAPSULE PO SCH (07:55)
[2017-08-21] MEDS: OMEPRAZOLE 20 MG CAPSULE PO SCH (07:55)
[2017-08-21 08:27] LABS: MAGNESIUM 1.7 mg/dL (1.80-2.40)
[2017-08-21 08:33] VITALS: BP 123/78
[2017-08-21] MEDS: METHYL SALICYLATE/MENTHOL 120 GM CREAM TP SCH ×2 (08:33→12:26)
[2017-08-21] MEDS ORDERED: NICOTINE POLACRILEX 4 MG LOZENGE PO PRN (09:30)
[2017-08-21] MEDS ORDERED: CITA20TA9 PO ×2 (12:14→12:20)
[2017-08-22 00:33] LABS: GLUCOMETER DEV NAME(LOC) BV3S 2; GLUCOSE,POINT OF CARE 116 MG/DL (70-110)
== END 2017-08-21 17:46 | disposition home or self-care (01) | DRG 885 ==
LOC: B3A 19:05
DX: F25.0 Schizoaffective disorder, bipolar type (principal); R45.851 Suicidal ideations; E11.65 Type 2 diabetes mellitus with hyperglycemia; F14.20 Cocaine dependence, uncomplicated; F19.20 Other psychoactive substance dependence, uncomplicated; E83.42 Hypomagnesemia; I10 Essential (primary) hypertension; J44.9 Chronic obstructive pulmonary disease, unspecified; E03.9 Hypothyroidism, unspecified; K21.9 Gastro-esophageal reflux disease without esophagitis; G47.00 Insomnia, unspecified; M79.7 Fibromyalgia; K59.00 Constipation, unspecified; F10.10 Alcohol abuse, uncomplicated; M54.5 Low back pain; F12.90 Cannabis use, unspecified, uncomplicated; F17.210 Nicotine dependence, cigarettes, uncomplicated; B19.20 Unspecified viral hepatitis C without hepatic coma; Z79.899 Other long term (current) drug therapy; Z88.2 Allergy status to sulfonamides
CPT/HCPCS: 80307; 82652; 82962; 83036; 83735; 84100; 84439; 84443; 85007; 87081; J1885; J3535

== ENCOUNTER 2017-10-04 15:35 | Inpatient (IN) | payer MEDICARE ==
[~2017-10-04] VITALS: Ht 165.1 cm; Wt 77.5 kg
[~2017-10-04 15:35] MED LIST changes: -CARI350 PO; +CITA20TA9 PO; -DSS100 PO; -KETO10TA2 PO; -OMEP20 PO; -VITAD1000 PO
[2017-10-04 17:38] LABS: GLUCOSE,POINT OF CARE 120 MG/DL (70-110)
[2017-10-04 17:58] LABS: ANION GAP 8 mmol/L (8-16); CALCIUM, TOTAL 8.8 mg/dL (8.8-10.5); CARBON DIOXIDE 27 mmol/L (22-29); CHLORIDE 103 mmol/L (98-107); CREATININE 0.82 mg/dL (0.60-1.30); GLOMERULAR FILTR. RATE CALC > 60 mL/min (>60); GLUCOSE,RANDOM 122 mg/dL (70-110); POTASSIUM 4.6 mmol/L (3.5-5.1); SODIUM SERUM 138 mmol/L (136-145); UREA NITROGEN, BLOOD 24 mg/dL (7-18)
[2017-10-04 18:04] LABS: ALANINE AMINOTRANSFERASE 19 U/L (12-78); ALBUMIN 3.1 g/dL (3.4-5.0); ALKALINE PHOSPHATASE 109 U/L (46-116); ASPARTATE AMINOTRANSFERASE 12 U/L (15-37); TOTAL PROTEIN, SERUM 6.3 g/dL (6.4-8.2)
[2017-10-04 18:25] LABS: BILIRUBIN,TOTAL 0.1 mg/dL (0.1-1.0)
[2017-10-04 18:28] LABS: BASOPHILS % (AUTO) 0.9 % (0.0-2.0); EOSINOPHILS % (AUTO) 1.8 % (1.0-6.0); HEMATOCRIT 34.5 % (36-46); HEMOGLOBIN 11.6 g/dL (12.0-16.0); LYMPHOCYTES # (AUTO) 3.3 K/uL (1.0-4.8); LYMPHOCYTES % (AUTO) 44.1 % (22.0-44.0); MEAN CORPUSCULAR HEMOGLOBIN 28.9 pg (26.0-34.0); MEAN CORPUSCULAR HGB CONC 33.6 G/dL (31.0-37.0); MEAN CORPUSCULAR VOLUME 86 fL (80-100); MONOCYTES # (AUTO) 0.6 K/uL (0.1-1.0); MONOCYTES % (AUTO) 7.9 % (2.0-9.0); NEUTROPHILS # (AUTO) 3.4 K/uL (1.8-7.7); NEUTROPHILS % (AUTO) 45.3 % (40.0-70.0); PLATELET COUNT (AUTO) 234 K/uL (150-450)
[2017-10-04 18:55] LABS: AMPHET/METH SCREEN,URINE NEGATIVE (NEGATIVE); BARBITURATE SCREEN, URINE NEGATIVE (NEGATIVE); BENZODIAZEPINES SCREEN,URINE NEGATIVE (NEGATIVE); CANNABINOID SCREEN,URINE NEGATIVE (NEGATIVE); COCAINE SCREEN,URINE NEGATIVE (NEGATIVE); METHADONE SCREEN, URINE NEGATIVE (NEGATIVE); OPIATE SCREEN,URINE NEGATIVE (NEGATIVE)
[2017-10-04 18:57] LABS: PHENCYCLIDINE SCREEN,URINE NEGATIVE (NEGATIVE)
[2017-10-04] MEDS ORDERED: DiphenhydrAMINE HCL 25 MG CAPSULE PO ONE (19:30)
[2017-10-04] MEDS ORDERED: LORazepam 2 MG TABLET PO ONE (19:30)
[2017-10-04] MEDS ORDERED: HALOPERIDOL 5 MG TABLET PO ONE (19:30)
[2017-10-04] MEDS ORDERED: HALOPERIDOL 5 MG TABLET PO PRN (20:00)
[2017-10-04] MEDS ORDERED: ZOLPIDEM TARTRATE 10 MG TABLET PO PRN (20:00)
[2017-10-04 21:25] VITALS: BP 103/66
[2017-10-04 21:37] LABS: GLUCOMETER DEV NAME(LOC) BV2S; GLUCOSE,POINT OF CARE 127 MG/DL (70-110)
[2017-10-04] MEDS ORDERED: INFLUENZA VIRUS VACCINE QVS 2017-18 (3YR+)/PF 60 MCG/0.5 ML SYRINGE IM ONE (21:45)
[2017-10-04] MEDS ORDERED: ALBUTEROL SULFATE HFA 90 MCG/PUFF 8 GM INHALER IH PRN (22:00)
[2017-10-04] MEDS ORDERED: GLUCAGON,HUMAN RECOMBINANT 1 MG VIAL IM PRN (22:15)
[2017-10-04] MEDS ORDERED: CloNIDine HCL 0.1 MG TABLET PO PRN (22:15)
[2017-10-05] MEDS: LEVOTHYROXINE SODIUM 50 MCG TABLET PO SCH (06:20)
[2017-10-05] MEDS: OMEPRAZOLE 20 MG CAPSULE PO SCH (06:20)
[2017-10-05] MEDS: MetFORMIN HCL 500 MG TABLET PO SCH ×2 (06:20→16:36)
[2017-10-05 06:34] LABS: GLUCOMETER DEV NAME(LOC) BV2S; GLUCOSE,POINT OF CARE 116 MG/DL (70-110)
[2017-10-05 06:37] VITALS: BP 124/76
[2017-10-05 08:25] VITALS: BP 127/76
[2017-10-05] MEDS: DOCUSATE SODIUM 100 MG CAPSULE PO SCH (08:26)
[2017-10-05] MEDS: LORazepam 2 MG TABLET PO PRN ×2 (08:29→14:09)
[2017-10-05 08:42] LABS: CHOL/HDL RATIO 2.9 (3.9-5.7)
[2017-10-05] MEDS: CARISOPRODOL 350 MG TABLET PO SCH ×2 (09:07→16:36)
[2017-10-05 11:12] LABS: GLUCOMETER DEV NAME(LOC) BV2S; GLUCOSE,POINT OF CARE 107 MG/DL (70-110)
[2017-10-05 16:15] VITALS: BP 148/87
[2017-10-05 16:23] LABS: GLUCOMETER DEV NAME(LOC) BV2S; GLUCOSE,POINT OF CARE 143 MG/DL (70-110)
[2017-10-05 20:33] LABS: GLUCOMETER DEV NAME(LOC) BV2S; GLUCOSE,POINT OF CARE 135 MG/DL (70-110)
[2017-10-05] MEDS: DIVALPROEX SODIUM 500 MG DR TABLET PO SCH (20:34)
[2017-10-05] MEDS: QUEtiapine FUMARATE 200 MG TABLET PO SCH (20:34)
[2017-10-06 00:29] VITALS: BP 95/60
[2017-10-06 05:46] VITALS: BP 100/68
[2017-10-06] MEDS: TraMADol HCL 50 MG TABLET PO PRN ×2 (06:27→22:39)
[2017-10-06 06:28] LABS: GLUCOMETER DEV NAME(LOC) BV2S; GLUCOSE,POINT OF CARE 135 MG/DL (70-110)
[2017-10-06] MEDS: MetFORMIN HCL 500 MG TABLET PO SCH ×2 (06:28→16:43)
[2017-10-06] MEDS: OMEPRAZOLE 20 MG CAPSULE PO SCH (06:28)
[2017-10-06] MEDS: LEVOTHYROXINE SODIUM 50 MCG TABLET PO SCH (06:28)
[2017-10-06] MEDS: LORazepam 2 MG TABLET PO PRN ×3 (06:28→19:21)
[2017-10-06] MEDS: CITALOPRAM HYDROBROMIDE 20 MG TABLET PO SCH (08:24)
[2017-10-06] MEDS: CARISOPRODOL 350 MG TABLET PO SCH ×2 (08:24→16:43)
[2017-10-06] MEDS: DOCUSATE SODIUM 100 MG CAPSULE PO SCH (08:24)
[2017-10-06] MEDS: DIVALPROEX SODIUM 500 MG DR TABLET PO SCH ×2 (08:24→20:19)
[2017-10-06 11:13] LABS: GLUCOMETER DEV NAME(LOC) BV2S; GLUCOSE,POINT OF CARE 99 MG/DL (70-110)
[2017-10-06 16:12] VITALS: BP 105/65
[2017-10-06 16:53] LABS: GLUCOMETER DEV NAME(LOC) BV2S; GLUCOSE,POINT OF CARE 137 MG/DL (70-110)
[2017-10-06] MEDS: MAGNESIUM HYDROXIDE SUSPENSION 30 ML UDCUP PO PRN (19:21)
[2017-10-06] MEDS: QUEtiapine FUMARATE 200 MG TABLET PO SCH (20:20)
[2017-10-06] MEDS: ONDANSETRON HCL 4 MG TABLET PO PRN (21:15)
[2017-10-06 22:39] VITALS: BP 103/67
[2017-10-07 02:07] LABS: GLUCOMETER DEV NAME(LOC) BV2S; GLUCOSE,POINT OF CARE 111 MG/DL (70-110)
[2017-10-07] MEDS: LEVOTHYROXINE SODIUM 50 MCG TABLET PO SCH (06:16)
[2017-10-07] MEDS: OMEPRAZOLE 20 MG CAPSULE PO SCH (06:16)
[2017-10-07 06:23] LABS: GLUCOMETER DEV NAME(LOC) BV2S; GLUCOSE,POINT OF CARE 133 MG/DL (70-110)
[2017-10-07] MEDS: MetFORMIN HCL 500 MG TABLET PO SCH ×2 (06:27→16:36)
[2017-10-07 07:15] VITALS: BP 105/65
[2017-10-07 09:05] VITALS: BP 111/61
[2017-10-07] MEDS: DIVALPROEX SODIUM 500 MG DR TABLET PO SCH ×2 (09:09→20:40)
[2017-10-07] MEDS: DOCUSATE SODIUM 100 MG CAPSULE PO SCH (09:09)
[2017-10-07] MEDS: CARISOPRODOL 350 MG TABLET PO SCH ×2 (09:09→16:36)
[2017-10-07] MEDS: CITALOPRAM HYDROBROMIDE 20 MG TABLET PO SCH (09:11)
[2017-10-07] MEDS: LORazepam 2 MG TABLET PO PRN ×2 (09:18→22:13)
[2017-10-07 11:08] LABS: GLUCOMETER DEV NAME(LOC) BV2S; GLUCOSE,POINT OF CARE 94 MG/DL (70-110)
[2017-10-07 13:37] VITALS: BP 112/64
[2017-10-07] MEDS: TraMADol HCL 50 MG TABLET PO PRN ×2 (13:37→22:26)
[2017-10-07 16:06] VITALS: BP 108/75
[2017-10-07 17:58] LABS: GLUCOMETER DEV NAME(LOC) BV2S; GLUCOSE,POINT OF CARE 131 MG/DL (70-110)
[2017-10-07 20:28] LABS: GLUCOMETER DEV NAME(LOC) BV2S; GLUCOSE,POINT OF CARE 130 MG/DL (70-110)
[2017-10-07] MEDS: QUEtiapine FUMARATE 200 MG TABLET PO SCH (20:40)
[2017-10-07 22:11] VITALS: BP 115/73
[2017-10-08 04:34] VITALS: BP 109/63
[2017-10-08] MEDS: ONDANSETRON HCL 4 MG TABLET PO PRN (04:39)
[2017-10-08] MEDS: LORazepam 2 MG TABLET PO PRN ×3 (04:39→19:03)
[2017-10-08] MEDS: OMEPRAZOLE 20 MG CAPSULE PO SCH (06:14)
[2017-10-08] MEDS: LEVOTHYROXINE SODIUM 50 MCG TABLET PO SCH (06:15)
[2017-10-08 06:32] LABS: GLUCOMETER DEV NAME(LOC) BV2S; GLUCOSE,POINT OF CARE 111 MG/DL (70-110)
[2017-10-08] MEDS: MetFORMIN HCL 500 MG TABLET PO SCH ×2 (07:21→16:44)
[2017-10-08 08:55] VITALS: BP 113/73
[2017-10-08] MEDS: CARISOPRODOL 350 MG TABLET PO SCH ×2 (08:59→16:44)
[2017-10-08] MEDS: CITALOPRAM HYDROBROMIDE 20 MG TABLET PO SCH (08:59)
[2017-10-08] MEDS: DOCUSATE SODIUM 100 MG CAPSULE PO SCH (08:59)
[2017-10-08] MEDS: DIVALPROEX SODIUM 500 MG DR TABLET PO SCH ×2 (08:59→20:35)
[2017-10-08 11:12] LABS: GLUCOMETER DEV NAME(LOC) BV2S; GLUCOSE,POINT OF CARE 122 MG/DL (70-110)
[2017-10-08 16:12] VITALS: BP 105/73
[2017-10-08 16:23] LABS: GLUCOMETER DEV NAME(LOC) BV2S; GLUCOSE,POINT OF CARE 155 MG/DL (70-110)
[2017-10-08 19:03] VITALS: BP 119/82
[2017-10-08] MEDS: QUEtiapine FUMARATE 200 MG TABLET PO SCH (20:36)
[2017-10-08 20:38] LABS: GLUCOMETER DEV NAME(LOC) BV2S; GLUCOSE,POINT OF CARE 115 MG/DL (70-110)
[2017-10-09 00:26] VITALS: BP 119/71
[2017-10-09] MEDS: LORazepam 2 MG TABLET PO PRN (00:39)
[2017-10-09 06:23] LABS: GLUCOMETER DEV NAME(LOC) BV2S; GLUCOSE,POINT OF CARE 112 MG/DL (70-110)
[2017-10-09] MEDS: MetFORMIN HCL 500 MG TABLET PO SCH ×2 (07:11→17:32)
[2017-10-09] MEDS: LEVOTHYROXINE SODIUM 50 MCG TABLET PO SCH (07:11)
[2017-10-09] MEDS: OMEPRAZOLE 20 MG CAPSULE PO SCH (07:11)
[2017-10-09] MEDS: CITALOPRAM HYDROBROMIDE 20 MG TABLET PO SCH (08:56)
[2017-10-09] MEDS: DIVALPROEX SODIUM 500 MG DR TABLET PO SCH ×2 (08:56→20:43)
[2017-10-09] MEDS: CARISOPRODOL 350 MG TABLET PO SCH ×2 (08:56→17:32)
[2017-10-09] MEDS: DOCUSATE SODIUM 100 MG CAPSULE PO SCH (08:57)
[2017-10-09 11:12] LABS: GLUCOMETER DEV NAME(LOC) BV2S; GLUCOSE,POINT OF CARE 110 MG/DL (70-110)
[2017-10-09 16:13] VITALS: BP 106/62
[2017-10-09 17:18] LABS: GLUCOMETER DEV NAME(LOC) BV2S; GLUCOSE,POINT OF CARE 108 MG/DL (70-110)
[2017-10-09] MEDS: QUEtiapine FUMARATE 200 MG TABLET PO SCH (20:43)
[2017-10-09 21:48] LABS: GLUCOMETER DEV NAME(LOC) BV2S; GLUCOSE,POINT OF CARE 102 MG/DL (70-110)
[2017-10-10 06:19] VITALS: BP 106/63
[2017-10-10 06:30] LABS: GLUCOMETER DEV NAME(LOC) BV2S; GLUCOSE,POINT OF CARE 116 MG/DL (70-110)
[2017-10-10] MEDS: MetFORMIN HCL 500 MG TABLET PO SCH ×2 (07:03→16:34)
[2017-10-10] MEDS: LEVOTHYROXINE SODIUM 50 MCG TABLET PO SCH (07:03)
[2017-10-10] MEDS: OMEPRAZOLE 20 MG CAPSULE PO SCH (07:03)
[2017-10-10 09:05] VITALS: BP 110/73
[2017-10-10] MEDS: DOCUSATE SODIUM 100 MG CAPSULE PO SCH (09:07)
[2017-10-10] MEDS: CITALOPRAM HYDROBROMIDE 20 MG TABLET PO SCH (09:07)
[2017-10-10] MEDS: DIVALPROEX SODIUM 500 MG DR TABLET PO SCH ×2 (09:07→20:35)
[2017-10-10] MEDS: CARISOPRODOL 350 MG TABLET PO SCH ×2 (09:07→16:34)
[2017-10-10 11:07] LABS: GLUCOMETER DEV NAME(LOC) BV2S; GLUCOSE,POINT OF CARE 120 MG/DL (70-110)
[2017-10-10 16:07] VITALS: BP 104/64
[2017-10-10 16:23] LABS: GLUCOMETER DEV NAME(LOC) BV2S; GLUCOSE,POINT OF CARE 131 MG/DL (70-110)
[2017-10-10] MEDS: LORazepam 2 MG TABLET PO PRN (19:01)
[2017-10-10 19:06] VITALS: BP 132/81
[2017-10-10 20:33] LABS: GLUCOMETER DEV NAME(LOC) BV2S; GLUCOSE,POINT OF CARE 153 MG/DL (70-110)
[2017-10-10] MEDS: QUEtiapine FUMARATE 200 MG TABLET PO SCH (20:35)
[2017-10-11] MEDS: OMEPRAZOLE 20 MG CAPSULE PO SCH (06:07)
[2017-10-11] MEDS: LEVOTHYROXINE SODIUM 50 MCG TABLET PO SCH (06:07)
[2017-10-11] MEDS: MetFORMIN HCL 500 MG TABLET PO SCH ×2 (07:10→17:10)
[2017-10-11 07:13] LABS: GLUCOMETER DEV NAME(LOC) BV2S; GLUCOSE,POINT OF CARE 162 MG/DL (70-110)
[2017-10-11 08:55] VITALS: BP 113/75
[2017-10-11] MEDS: CITALOPRAM HYDROBROMIDE 20 MG TABLET PO SCH (08:58)
[2017-10-11] MEDS: DOCUSATE SODIUM 100 MG CAPSULE PO SCH (08:58)
[2017-10-11] MEDS: DIVALPROEX SODIUM 500 MG DR TABLET PO SCH ×2 (08:58→20:15)
[2017-10-11] MEDS: CARISOPRODOL 350 MG TABLET PO SCH ×2 (08:58→16:16)
[2017-10-11 11:12] LABS: GLUCOMETER DEV NAME(LOC) BV2S; GLUCOSE,POINT OF CARE 81 MG/DL (70-110)
[2017-10-11] MEDS: MAGNESIUM HYDROXIDE SUSPENSION 30 ML UDCUP PO PRN (13:06)
[2017-10-11] MEDS: LORazepam 2 MG TABLET PO PRN (13:06)
[2017-10-11 16:58] LABS: GLUCOMETER DEV NAME(LOC) BV2S; GLUCOSE,POINT OF CARE 133 MG/DL (70-110)
[2017-10-11 17:19] VITALS: BP 110/67
[2017-10-11] MEDS: QUEtiapine FUMARATE 200 MG TABLET PO SCH (20:18)
[2017-10-11 21:07] LABS: GLUCOMETER DEV NAME(LOC) BV2S; GLUCOSE,POINT OF CARE 106 MG/DL (70-110)
[2017-10-12 01:44] VITALS: BP 115/74
[2017-10-12] MEDS: LORazepam 2 MG TABLET PO PRN ×2 (02:49→10:39)
[2017-10-12] MEDS: OMEPRAZOLE 20 MG CAPSULE PO SCH (06:35)
[2017-10-12] MEDS: LEVOTHYROXINE SODIUM 50 MCG TABLET PO SCH (06:35)
[2017-10-12] MEDS: TraMADol HCL 50 MG TABLET PO PRN (06:46)
[2017-10-12] MEDS: INSULIN ASPART 100 UNITS/ML SQ PRN (06:51)
[2017-10-12 07:07] LABS: GLUCOMETER DEV NAME(LOC) BV2S; GLUCOSE,POINT OF CARE 153 MG/DL (70-110)
[2017-10-12] MEDS: MetFORMIN HCL 500 MG TABLET PO SCH ×2 (07:10→16:59)
[2017-10-12 08:14] VITALS: BP 108/74
[2017-10-12] MEDS: DIVALPROEX SODIUM 500 MG DR TABLET PO SCH ×2 (08:27→20:28)
[2017-10-12] MEDS: DOCUSATE SODIUM 100 MG CAPSULE PO SCH (08:27)
[2017-10-12] MEDS: MULTIVITAMINS WITH IRON TABLET PO SCH (08:27)
[2017-10-12] MEDS: CARISOPRODOL 350 MG TABLET PO SCH ×2 (08:27→16:59)
[2017-10-12] MEDS: CITALOPRAM HYDROBROMIDE 20 MG TABLET PO SCH (08:28)
[2017-10-12 11:37] LABS: GLUCOMETER DEV NAME(LOC) BV2S; GLUCOSE,POINT OF CARE 131 MG/DL (70-110)
[2017-10-12 16:16] VITALS: BP 101/61
[2017-10-12 17:33] LABS: GLUCOMETER DEV NAME(LOC) BV2S; GLUCOSE,POINT OF CARE 131 MG/DL (70-110)
[2017-10-12] MEDS: QUEtiapine FUMARATE 200 MG TABLET PO SCH (20:29)
[2017-10-12 20:47] LABS: GLUCOMETER DEV NAME(LOC) BV2S; GLUCOSE,POINT OF CARE 121 MG/DL (70-110)
[2017-10-13] MEDS: LEVOTHYROXINE SODIUM 50 MCG TABLET PO SCH (06:40)
[2017-10-13] MEDS: OMEPRAZOLE 20 MG CAPSULE PO SCH (06:40)
[2017-10-13] MEDS: MetFORMIN HCL 500 MG TABLET PO SCH ×2 (06:40→16:45)
[2017-10-13 06:47] VITALS: BP 117/82
[2017-10-13 06:48] LABS: GLUCOMETER DEV NAME(LOC) BV2S; GLUCOSE,POINT OF CARE 121 MG/DL (70-110)
[2017-10-13 08:20] VITALS: BP 125/79
[2017-10-13] MEDS: MULTIVITAMINS WITH IRON TABLET PO SCH (08:22)
[2017-10-13] MEDS: CITALOPRAM HYDROBROMIDE 20 MG TABLET PO SCH (08:22)
[2017-10-13] MEDS: CARISOPRODOL 350 MG TABLET PO SCH ×2 (08:22→16:48)
[2017-10-13] MEDS: DIVALPROEX SODIUM 500 MG DR TABLET PO SCH ×2 (08:22→20:22)
[2017-10-13] MEDS: DOCUSATE SODIUM 100 MG CAPSULE PO SCH (08:22)
[2017-10-13] MEDS: MAGNESIUM HYDROXIDE SUSPENSION 30 ML UDCUP PO PRN (08:33)
[2017-10-13] MEDS: LORazepam 2 MG TABLET PO PRN ×2 (08:34→18:44)
[2017-10-13 11:23] LABS: GLUCOMETER DEV NAME(LOC) BV2S; GLUCOSE,POINT OF CARE 113 MG/DL (70-110)
[2017-10-13 16:18] VITALS: BP 114/81
[2017-10-13] MEDS: INSULIN ASPART 100 UNITS/ML SQ PRN (17:05)
[2017-10-13 17:13] LABS: GLUCOMETER DEV NAME(LOC) BV2S; GLUCOSE,POINT OF CARE 156 MG/DL (70-110)
[2017-10-13] MEDS: QUEtiapine FUMARATE 200 MG TABLET PO SCH (20:22)
[2017-10-13 20:58] LABS: GLUCOMETER DEV NAME(LOC) BV2S; GLUCOSE,POINT OF CARE 132 MG/DL (70-110)
[2017-10-14 02:00] VITALS: BP 108/74
[2017-10-14 06:22] LABS: GLUCOMETER DEV NAME(LOC) BV2S; GLUCOSE,POINT OF CARE 119 MG/DL (70-110)
[2017-10-14] MEDS: LEVOTHYROXINE SODIUM 50 MCG TABLET PO SCH ×2 (06:30→07:09)
[2017-10-14] MEDS: OMEPRAZOLE 20 MG CAPSULE PO SCH ×2 (06:30→07:08)
[2017-10-14] MEDS: MetFORMIN HCL 500 MG TABLET PO SCH (07:06)
[2017-10-14] MEDS: DIVALPROEX SODIUM 500 MG DR TABLET PO SCH (08:06)
[2017-10-14] MEDS: DOCUSATE SODIUM 100 MG CAPSULE PO SCH (08:06)
[2017-10-14] MEDS: CITALOPRAM HYDROBROMIDE 20 MG TABLET PO SCH (08:07)
[2017-10-14] MEDS: CARISOPRODOL 350 MG TABLET PO SCH (08:07)
[2017-10-14] MEDS: MULTIVITAMINS WITH IRON TABLET PO SCH (08:07)
[2017-10-14] MEDS: LORazepam 2 MG TABLET PO PRN (08:08)
[2017-10-14 08:11] VITALS: BP 100/53
[2017-10-14] MEDS: TraMADol HCL 50 MG TABLET PO PRN (09:02)
[2017-10-14] MEDS ORDERED: DIVA500T35 PO (10:49)
[2017-10-14] MEDS ORDERED: DOCU100C33 PO (10:51)
[2017-10-14] MEDS ORDERED: OMEP20 PO (10:51)
== END 2017-10-14 11:25 | disposition home or self-care (01) | DRG 885 ==
LOC: EMS 15:37 → B2X 20:22
PROVIDERS: ADMIT Psychiatry & Neurology Psychiatry
DX: F25.0 Schizoaffective disorder, bipolar type (principal); E11.65 Type 2 diabetes mellitus with hyperglycemia; R45.851 Suicidal ideations; B18.2 Chronic viral hepatitis C; E03.9 Hypothyroidism, unspecified; E55.9 Vitamin D deficiency, unspecified; F41.0 Panic disorder [episodic paroxysmal anxiety]; G47.00 Insomnia, unspecified; G89.29 Other chronic pain; I10 Essential (primary) hypertension; J44.9 Chronic obstructive pulmonary disease, unspecified; K21.9 Gastro-esophageal reflux disease without esophagitis; M19.90 Unspecified osteoarthritis, unspecified site; M79.7 Fibromyalgia; M54.5 Low back pain; F19.90 Other psychoactive substance use, unspecified, uncomplicated; Z59.0 Homelessness; Z79.899 Other long term (current) drug therapy; Z87.891 Personal history of nicotine dependence; Z88.2 Allergy status to sulfonamides; Z79.84 Long term (current) use of oral hypoglycemic drugs
CPT/HCPCS: 82962; 90471; 99285; G0480; Q0162

== ENCOUNTER 2017-10-18 10:12 | Inpatient (IN) | payer MEDICARE ==
[~2017-10-18] VITALS: Ht 167.6 cm; Wt 75.7 kg
[~2017-10-18 10:12] MED LIST changes: +DOCU100C33 PO; +OMEP20 PO
[2017-10-18 10:23] LABS: GLUCOSE,POINT OF CARE 122 MG/DL (70-110)
[2017-10-18 11:21] LABS: BASOPHILS % (AUTO) 0.8 % (0.0-2.0); HEMATOCRIT 34.7 % (36-46); HEMOGLOBIN 11.7 g/dL (12.0-16.0); LYMPHOCYTES # (AUTO) 2.6 K/uL (1.0-4.8); LYMPHOCYTES % (AUTO) 40.6 % (22.0-44.0); MEAN CORPUSCULAR HEMOGLOBIN 29.1 pg (26.0-34.0); MEAN CORPUSCULAR HGB CONC 33.7 G/dL (31.0-37.0); MEAN CORPUSCULAR VOLUME 86 fL (80-100); MONOCYTES # (AUTO) 0.4 K/uL (0.1-1.0); MONOCYTES % (AUTO) 6.7 % (2.0-9.0); NEUTROPHILS # (AUTO) 3.1 K/uL (1.8-7.7); NEUTROPHILS % (AUTO) 48.9 % (40.0-70.0); PLATELET COUNT (AUTO) 232 K/uL (150-450); RED BLOOD CELL COUNT(AUTO) 4.02 MIL/uL (4.00-5.20); RED CELL DISTRIBUTION WIDTH 14.1 % (11.5-14.5)
[2017-10-18 11:22] LABS: AMPHET/METH SCREEN,URINE NEGATIVE (NEGATIVE); BARBITURATE SCREEN, URINE NEGATIVE (NEGATIVE); BENZODIAZEPINES SCREEN,URINE NEGATIVE (NEGATIVE); CANNABINOID SCREEN,URINE NEGATIVE (NEGATIVE); COCAINE SCREEN,URINE POSITIVE (NEGATIVE); METHADONE SCREEN, URINE NEGATIVE (NEGATIVE); OPIATE SCREEN,URINE NEGATIVE (NEGATIVE)
[2017-10-18 11:26] LABS: PHENCYCLIDINE SCREEN,URINE NEGATIVE (NEGATIVE)
[2017-10-18 11:34] LABS: ANION GAP 9 mmol/L (8-16); CALCIUM, TOTAL 8.6 mg/dL (8.8-10.5); CARBON DIOXIDE 27 mmol/L (22-29); CHLORIDE 103 mmol/L (98-107); CREATININE 0.89 mg/dL (0.60-1.30); GLOMERULAR FILTR. RATE CALC > 60 mL/min (>60); GLUCOSE,RANDOM 94 mg/dL (70-110); POTASSIUM 4.5 mmol/L (3.5-5.1); SODIUM SERUM 139 mmol/L (136-145); UREA NITROGEN, BLOOD 22 mg/dL (7-18)
[2017-10-18 11:39] LABS: ALANINE AMINOTRANSFERASE 21 U/L (12-78); ALBUMIN 3.1 g/dL (3.4-5.0); ALKALINE PHOSPHATASE 107 U/L (46-116); ASPARTATE AMINOTRANSFERASE 14 U/L (15-37); BILIRUBIN,TOTAL 0.2 mg/dL (0.1-1.0); TOTAL PROTEIN, SERUM 6.7 g/dL (6.4-8.2)
[2017-10-18] MEDS ORDERED: DiphenhydrAMINE HCL 50 MG/ML VIAL IM ONE (13:15)
[2017-10-18] MEDS ORDERED: LORazepam 2 MG/ML VIAL IM ONE (13:15)
[2017-10-18] MEDS ORDERED: HALOPERIDOL LACTATE 5 MG/ML VIAL IM ONE (13:15)
[2017-10-18] MEDS ORDERED: ZOLPIDEM TARTRATE 10 MG TABLET PO PRN (13:30)
[2017-10-18 16:13] LABS: GLUCOMETER DEV NAME(LOC) BV2S; GLUCOSE,POINT OF CARE 112 MG/DL (70-110)
[2017-10-18 16:20] VITALS: BP 124/85
[2017-10-18] MEDS ORDERED: GLUCAGON,HUMAN RECOMBINANT 1 MG VIAL IM PRN (17:15)
[2017-10-18] MEDS: QUEtiapine FUMARATE 200 MG TABLET PO SCH (20:36)
[2017-10-18] MEDS: DIVALPROEX SODIUM 500 MG DR TABLET PO SCH (20:36)
[2017-10-18 20:52] LABS: GLUCOMETER DEV NAME(LOC) BV2S; GLUCOSE,POINT OF CARE 126 MG/DL (70-110)
[2017-10-19] MEDS: OMEPRAZOLE 20 MG CAPSULE PO SCH (06:41)
[2017-10-19] MEDS: MetFORMIN HCL 500 MG TABLET PO SCH ×2 (06:41→16:40)
[2017-10-19] MEDS: LORazepam 2 MG TABLET PO PRN ×2 (06:41→12:08)
[2017-10-19] MEDS: LEVOTHYROXINE SODIUM 50 MCG TABLET PO SCH (06:41)
[2017-10-19 06:58] LABS: GLUCOMETER DEV NAME(LOC) BV2S; GLUCOSE,POINT OF CARE 103 MG/DL (70-110)
[2017-10-19] MEDS ORDERED: BENZOCAINE/MENTHOL LOZENGE MM PRN (08:00)
[2017-10-19] MEDS ORDERED: IBUPROFEN 600 MG TABLET PO PRN (08:00)
[2017-10-19] MEDS ORDERED: MAG HYDROX/AL HYDROX/SIMETH ES 30 ML SUSPENSION UDCUP PO PRN (08:00)
[2017-10-19] MEDS ORDERED: ONDANSETRON HCL 4 MG TABLET PO PRN (08:00)
[2017-10-19] MEDS ORDERED: MAGNESIUM HYDROXIDE SUSPENSION 30 ML UDCUP PO PRN (08:00)
[2017-10-19] MEDS ORDERED: ALBUTEROL SULFATE HFA 90 MCG/PUFF 8 GM INHALER IH PRN (08:00)
[2017-10-19] MEDS ORDERED: BACITRACIN 28.4 GM OINTMENT TP PRN (08:00)
[2017-10-19] MEDS ORDERED: LOPERAMIDE HCL 2 MG CAPSULE PO PRN (08:00)
[2017-10-19] MEDS ORDERED: CloNIDine HCL 0.1 MG TABLET PO PRN (08:00)
[2017-10-19] MEDS ORDERED: ACETAMINOPHEN 325 MG TABLET PO PRN (08:00)
[2017-10-19] MEDS ORDERED: PETROLATUM,WHITE 71 GM JELLY TP PRN (08:00)
[2017-10-19 08:30] VITALS: BP 100/60
[2017-10-19 09:05] VITALS: BP 111/75
[2017-10-19] MEDS: CARISOPRODOL 350 MG TABLET PO SCH ×2 (09:06→16:40)
[2017-10-19] MEDS: CITALOPRAM HYDROBROMIDE 20 MG TABLET PO SCH (09:06)
[2017-10-19] MEDS: DOCUSATE SODIUM 100 MG CAPSULE PO SCH (09:06)
[2017-10-19] MEDS: DIVALPROEX SODIUM 500 MG DR TABLET PO SCH ×2 (09:06→20:37)
[2017-10-19 11:12] LABS: GLUCOMETER DEV NAME(LOC) BV2S; GLUCOSE,POINT OF CARE 158 MG/DL (70-110)
[2017-10-19 16:15] VITALS: BP 101/62
[2017-10-19 17:23] LABS: GLUCOMETER DEV NAME(LOC) BV2S; GLUCOSE,POINT OF CARE 110 MG/DL (70-110)
[2017-10-19] MEDS: QUEtiapine FUMARATE 200 MG TABLET PO SCH (20:37)
[2017-10-19 20:38] LABS: GLUCOMETER DEV NAME(LOC) BV2S; GLUCOSE,POINT OF CARE 120 MG/DL (70-110)
[2017-10-20 01:13] VITALS: BP 106/66
[2017-10-20 06:33] LABS: GLUCOMETER DEV NAME(LOC) BV2S; GLUCOSE,POINT OF CARE 98 MG/DL (70-110)
[2017-10-20] MEDS: LEVOTHYROXINE SODIUM 50 MCG TABLET PO SCH (06:44)
[2017-10-20] MEDS: MetFORMIN HCL 500 MG TABLET PO SCH ×2 (06:44→16:50)
[2017-10-20] MEDS: OMEPRAZOLE 20 MG CAPSULE PO SCH (06:44)
[2017-10-20] MEDS: DOCUSATE SODIUM 100 MG CAPSULE PO SCH (08:26)
[2017-10-20] MEDS: CITALOPRAM HYDROBROMIDE 20 MG TABLET PO SCH (08:27)
[2017-10-20] MEDS: CARISOPRODOL 350 MG TABLET PO SCH ×2 (08:27→16:04)
[2017-10-20] MEDS: DIVALPROEX SODIUM 500 MG DR TABLET PO SCH ×2 (08:27→20:38)
[2017-10-20 08:39] LABS: BASOPHILS % (AUTO) 0.7 % (0.0-2.0); EOSINOPHILS % (AUTO) 4.1 % (1.0-6.0); HEMATOCRIT 35.9 % (36-46); HEMOGLOBIN 12.2 g/dL (12.0-16.0); LYMPHOCYTES # (AUTO) 2.3 K/uL (1.0-4.8); LYMPHOCYTES % (AUTO) 49.9 % (22.0-44.0); MEAN CORPUSCULAR VOLUME 85 fL (80-100); MONOCYTES # (AUTO) 0.3 K/uL (0.1-1.0); MONOCYTES % (AUTO) 6.2 % (2.0-9.0); NEUTROPHILS # (AUTO) 1.8 K/uL (1.8-7.7); NEUTROPHILS % (AUTO) 39.1 % (40.0-70.0); PLATELET COUNT (AUTO) 238 K/uL (150-450); RED BLOOD CELL COUNT(AUTO) 4.21 MIL/uL (4.00-5.20)
[2017-10-20 08:54] LABS: ALANINE AMINOTRANSFERASE 19 U/L (12-78); ALBUMIN 3.1 g/dL (3.4-5.0); ALKALINE PHOSPHATASE 84 U/L (46-116); ANION GAP 7 mmol/L (8-16); ASPARTATE AMINOTRANSFERASE 10 U/L (15-37); BILIRUBIN,TOTAL 0.1 mg/dL (0.1-1.0); CALCIUM, TOTAL 8.9 mg/dL (8.8-10.5); CARBON DIOXIDE 29 mmol/L (22-29); CHLORIDE 103 mmol/L (98-107); CHOL/HDL RATIO 2.5 (3.9-5.7); CHOLESTEROL 178 mg/dL (131-200); CREATININE 0.72 mg/dL (0.60-1.30); FREE T4 (FREE THYROXINE) 0.66 ng/dL (0.76-1.46); GLOMERULAR FILTR. RATE CALC > 60 mL/min (>60); GLUCOSE,RANDOM 104 mg/dL (70-110); HDL CHOLESTEROL 71 mg/dL (40-60); LDL CHOL (CALC.) 98 mg/dL (0-130); POTASSIUM 4.5 mmol/L (3.5-5.1); SODIUM SERUM 139 mmol/L (136-145); THYROID STIMULATING HORMONE 2.06 uIU/mL (0.36-3.74); TOTAL PROTEIN, SERUM 6.7 g/dL (6.4-8.2); TRIGLYCERIDES 43 mg/dL (15-150); UREA NITROGEN, BLOOD 23 mg/dL (7-18)
[2017-10-20 09:08] LABS: HEMOGLOBIN A1C 6.8 % (4.5-6.2)
[2017-10-20] MEDS: LORazepam 2 MG TABLET PO PRN ×2 (11:05→16:04)
[2017-10-20 11:12] LABS: GLUCOMETER DEV NAME(LOC) BV2S; GLUCOSE,POINT OF CARE 102 MG/DL (70-110)
[2017-10-20 16:00] VITALS: BP 122/77
[2017-10-20] MEDS: MUPIROCIN CALCIUM 2% 22 GM OINTMENT NASAL SCH (16:50)
[2017-10-20] MEDS: QUEtiapine FUMARATE 200 MG TABLET PO SCH (20:38)
[2017-10-20 21:23] LABS: GLUCOMETER DEV NAME(LOC) BV2S; GLUCOSE,POINT OF CARE 142 MG/DL (70-110)
[2017-10-20 21:23] LABS: GLUCOMETER DEV NAME(LOC) BV2S; GLUCOSE,POINT OF CARE 106 MG/DL (70-110)
[2017-10-21 04:29] VITALS: BP 110/74
[2017-10-21] MEDS: LORazepam 2 MG TABLET PO PRN ×3 (05:02→17:26)
[2017-10-21] MEDS: MetFORMIN HCL 500 MG TABLET PO SCH ×2 (06:17→16:34)
[2017-10-21] MEDS: OMEPRAZOLE 20 MG CAPSULE PO SCH (06:17)
[2017-10-21] MEDS: LEVOTHYROXINE SODIUM 50 MCG TABLET PO SCH (06:17)
[2017-10-21 06:18] LABS: GLUCOMETER DEV NAME(LOC) BV2S; GLUCOSE,POINT OF CARE 130 MG/DL (70-110)
[2017-10-21] MEDS: CITALOPRAM HYDROBROMIDE 20 MG TABLET PO SCH (08:07)
[2017-10-21] MEDS: DOCUSATE SODIUM 100 MG CAPSULE PO SCH (08:07)
[2017-10-21] MEDS: DIVALPROEX SODIUM 500 MG DR TABLET PO SCH ×2 (08:07→20:32)
[2017-10-21] MEDS: CARISOPRODOL 350 MG TABLET PO SCH ×2 (08:07→16:34)
[2017-10-21] MEDS: MUPIROCIN CALCIUM 2% 22 GM OINTMENT NASAL SCH ×2 (08:08→16:34)
[2017-10-21 08:30] VITALS: BP 133/90
[2017-10-21] MEDS: HALOPERIDOL 5 MG TABLET PO PRN ×2 (09:03→15:01)
[2017-10-21 11:07] LABS: GLUCOMETER DEV NAME(LOC) BV2S; GLUCOSE,POINT OF CARE 124 MG/DL (70-110)
[2017-10-21 13:53] VITALS: BP 118/80
[2017-10-21 16:11] VITALS: BP 103/60
[2017-10-21 16:33] LABS: GLUCOMETER DEV NAME(LOC) BV2S; GLUCOSE,POINT OF CARE 141 MG/DL (70-110)
[2017-10-21 20:17] LABS: GLUCOMETER DEV NAME(LOC) BV2S; GLUCOSE,POINT OF CARE 119 MG/DL (70-110)
[2017-10-21] MEDS: QUEtiapine FUMARATE 200 MG TABLET PO SCH (20:31)
[2017-10-22 01:04] VITALS: BP 117/68
[2017-10-22] MEDS: LORazepam 2 MG TABLET PO PRN ×3 (01:09→12:09)
[2017-10-22 06:34] LABS: GLUCOMETER DEV NAME(LOC) BV2S; GLUCOSE,POINT OF CARE 144 MG/DL (70-110)
[2017-10-22] MEDS: LEVOTHYROXINE SODIUM 50 MCG TABLET PO SCH (06:34)
[2017-10-22] MEDS: OMEPRAZOLE 20 MG CAPSULE PO SCH (06:34)
[2017-10-22] MEDS: INSULIN ASPART 100 UNITS/ML SQ PRN (06:36)
[2017-10-22] MEDS: MetFORMIN HCL 500 MG TABLET PO SCH ×2 (07:07→16:32)
[2017-10-22 07:21] VITALS: BP 138/85
[2017-10-22 08:03] VITALS: BP 141/87
[2017-10-22] MEDS: DIVALPROEX SODIUM 500 MG DR TABLET PO SCH ×2 (08:05→20:33)
[2017-10-22] MEDS: MUPIROCIN CALCIUM 2% 22 GM OINTMENT NASAL SCH ×2 (08:06→16:32)
[2017-10-22] MEDS: CITALOPRAM HYDROBROMIDE 20 MG TABLET PO SCH (08:06)
[2017-10-22] MEDS: DOCUSATE SODIUM 100 MG CAPSULE PO SCH (08:06)
[2017-10-22] MEDS: CARISOPRODOL 350 MG TABLET PO SCH ×2 (08:06→16:32)
[2017-10-22] MEDS: HALOPERIDOL 5 MG TABLET PO PRN (10:54)
[2017-10-22 11:12] LABS: GLUCOMETER DEV NAME(LOC) BV2S; GLUCOSE,POINT OF CARE 111 MG/DL (70-110)
[2017-10-22 14:31] VITALS: BP 118/78
[2017-10-22] MEDS: TraMADol HCL 50 MG TABLET PO PRN (14:31)
[2017-10-22 16:04] VITALS: BP 117/68
[2017-10-22 20:32] LABS: GLUCOMETER DEV NAME(LOC) BV2S; GLUCOSE,POINT OF CARE 155 MG/DL (70-110)
[2017-10-22] MEDS: QUEtiapine FUMARATE 200 MG TABLET PO SCH (20:33)
[2017-10-23 06:22] LABS: GLUCOMETER DEV NAME(LOC) BV2S; GLUCOSE,POINT OF CARE 130 MG/DL (70-110)
[2017-10-23] MEDS: OMEPRAZOLE 20 MG CAPSULE PO SCH (06:44)
[2017-10-23] MEDS: MetFORMIN HCL 500 MG TABLET PO SCH ×2 (06:44→16:32)
[2017-10-23] MEDS: LEVOTHYROXINE SODIUM 50 MCG TABLET PO SCH (06:44)
[2017-10-23] MEDS: LORazepam 2 MG TABLET PO PRN ×2 (06:55→14:38)
[2017-10-23 07:00] VITALS: BP 104/57
[2017-10-23] MEDS: DOCUSATE SODIUM 100 MG CAPSULE PO SCH (08:17)
[2017-10-23] MEDS: DIVALPROEX SODIUM 500 MG DR TABLET PO SCH ×2 (08:17→20:31)
[2017-10-23] MEDS: MUPIROCIN CALCIUM 2% 22 GM OINTMENT NASAL SCH ×2 (08:17→16:32)
[2017-10-23] MEDS: CARISOPRODOL 350 MG TABLET PO SCH ×2 (08:17→16:32)
[2017-10-23] MEDS: CITALOPRAM HYDROBROMIDE 20 MG TABLET PO SCH (08:17)
[2017-10-23 08:55] VITALS: BP 107/72
[2017-10-23 10:11] VITALS: BP 114/70
[2017-10-23] MEDS: TraMADol HCL 50 MG TABLET PO PRN (10:11)
[2017-10-23 15:12] LABS: GLUCOMETER DEV NAME(LOC) BV2S; GLUCOSE,POINT OF CARE 105 MG/DL (70-110)
[2017-10-23 16:05] VITALS: BP 127/75
[2017-10-23 16:32] LABS: GLUCOMETER DEV NAME(LOC) BV2S; GLUCOSE,POINT OF CARE 119 MG/DL (70-110)
[2017-10-23] MEDS: HALOPERIDOL 5 MG TABLET PO PRN (16:49)
[2017-10-23 20:22] LABS: GLUCOMETER DEV NAME(LOC) BV2S; GLUCOSE,POINT OF CARE 149 MG/DL (70-110)
[2017-10-23] MEDS: QUEtiapine FUMARATE 200 MG TABLET PO SCH (20:31)
[2017-10-24 06:22] VITALS: BP 106/70
[2017-10-24 06:32] LABS: GLUCOMETER DEV NAME(LOC) BV2S; GLUCOSE,POINT OF CARE 130 MG/DL (70-110)
[2017-10-24] MEDS: TraMADol HCL 50 MG TABLET PO PRN (06:38)
[2017-10-24] MEDS: OMEPRAZOLE 20 MG CAPSULE PO SCH (06:38)
[2017-10-24] MEDS: MetFORMIN HCL 500 MG TABLET PO SCH ×2 (06:38→16:36)
[2017-10-24] MEDS: LEVOTHYROXINE SODIUM 50 MCG TABLET PO SCH (06:38)
[2017-10-24] MEDS: LORazepam 2 MG TABLET PO PRN ×2 (06:48→13:47)
[2017-10-24] MEDS: CITALOPRAM HYDROBROMIDE 20 MG TABLET PO SCH (09:07)
[2017-10-24] MEDS: DOCUSATE SODIUM 100 MG CAPSULE PO SCH (09:07)
[2017-10-24] MEDS: DIVALPROEX SODIUM 500 MG DR TABLET PO SCH ×2 (09:07→20:29)
[2017-10-24] MEDS: CARISOPRODOL 350 MG TABLET PO SCH ×2 (09:07→16:36)
[2017-10-24] MEDS: MUPIROCIN CALCIUM 2% 22 GM OINTMENT NASAL SCH ×2 (09:08→16:36)
[2017-10-24 09:22] VITALS: BP 117/72
[2017-10-24 11:07] LABS: GLUCOMETER DEV NAME(LOC) BV2S; GLUCOSE,POINT OF CARE 121 MG/DL (70-110)
[2017-10-24] MEDS: HALOPERIDOL 5 MG TABLET PO PRN (15:07)
[2017-10-24 16:07] VITALS: BP 109/73
[2017-10-24 16:27] LABS: GLUCOMETER DEV NAME(LOC) BV2S; GLUCOSE,POINT OF CARE 139 MG/DL (70-110)
[2017-10-24 20:22] LABS: GLUCOMETER DEV NAME(LOC) BV2S; GLUCOSE,POINT OF CARE 114 MG/DL (70-110)
[2017-10-24] MEDS: QUEtiapine FUMARATE 200 MG TABLET PO SCH (20:29)
[2017-10-25 05:02] VITALS: BP 112/72
[2017-10-25] MEDS: LORazepam 2 MG TABLET PO PRN ×3 (05:13→18:59)
[2017-10-25] MEDS: LEVOTHYROXINE SODIUM 50 MCG TABLET PO SCH (06:59)
[2017-10-25] MEDS: OMEPRAZOLE 20 MG CAPSULE PO SCH (07:00)
[2017-10-25] MEDS: MetFORMIN HCL 500 MG TABLET PO SCH ×2 (07:19→16:41)
[2017-10-25 08:20] VITALS: BP 110/71
[2017-10-25] MEDS: DIVALPROEX SODIUM 500 MG DR TABLET PO SCH ×2 (08:22→20:45)
[2017-10-25] MEDS: CARISOPRODOL 350 MG TABLET PO SCH ×2 (08:22→16:41)
[2017-10-25] MEDS: CITALOPRAM HYDROBROMIDE 20 MG TABLET PO SCH (08:22)
[2017-10-25] MEDS: MUPIROCIN CALCIUM 2% 22 GM OINTMENT NASAL SCH ×2 (08:22→16:41)
[2017-10-25] MEDS: DOCUSATE SODIUM 100 MG CAPSULE PO SCH (08:22)
[2017-10-25] MEDS: HALOPERIDOL 5 MG TABLET PO PRN ×2 (08:57→16:03)
[2017-10-25 11:17] LABS: GLUCOMETER DEV NAME(LOC) BV2S; GLUCOSE,POINT OF CARE 138 MG/DL (70-110)
[2017-10-25 16:21] LABS: GLUCOMETER DEV NAME(LOC) BV2S; GLUCOSE,POINT OF CARE 103 MG/DL (70-110)
[2017-10-25 16:25] VITALS: BP 104/67
[2017-10-25 19:00] VITALS: BP 111/79
[2017-10-25 20:27] LABS: GLUCOMETER DEV NAME(LOC) BV2S; GLUCOSE,POINT OF CARE 115 MG/DL (70-110)
[2017-10-25] MEDS: QUEtiapine FUMARATE 200 MG TABLET PO SCH (20:45)
[2017-10-26] MEDS: LEVOTHYROXINE SODIUM 50 MCG TABLET PO SCH (06:40)
[2017-10-26] MEDS: LORazepam 2 MG TABLET PO PRN ×2 (06:40→14:06)
[2017-10-26] MEDS: MetFORMIN HCL 500 MG TABLET PO SCH ×2 (06:41→17:05)
[2017-10-26] MEDS: OMEPRAZOLE 20 MG CAPSULE PO SCH (06:41)
[2017-10-26 06:47] LABS: GLUCOMETER DEV NAME(LOC) BV2S; GLUCOSE,POINT OF CARE 120 MG/DL (70-110)
[2017-10-26] MEDS: CITALOPRAM HYDROBROMIDE 20 MG TABLET PO SCH (08:13)
[2017-10-26] MEDS: DIVALPROEX SODIUM 500 MG DR TABLET PO SCH ×2 (08:13→20:49)
[2017-10-26] MEDS: DOCUSATE SODIUM 100 MG CAPSULE PO SCH (08:13)
[2017-10-26] MEDS: CARISOPRODOL 350 MG TABLET PO SCH ×2 (08:13→17:05)
[2017-10-26 08:28] VITALS: BP 104/63
[2017-10-26] MEDS: HALOPERIDOL 5 MG TABLET PO PRN ×2 (08:36→14:58)
[2017-10-26] MEDS: INSULIN ASPART 100 UNITS/ML SQ PRN (11:07)
[2017-10-26 16:09] VITALS: BP 122/86
[2017-10-26 16:10] LABS: GLUCOMETER DEV NAME(LOC) BV2S; GLUCOSE,POINT OF CARE 178 MG/DL (70-110)
[2017-10-26 16:21] LABS: GLUCOMETER DEV NAME(LOC) BV2S; GLUCOSE,POINT OF CARE 125 MG/DL (70-110)
[2017-10-26] MEDS: QUEtiapine FUMARATE 200 MG TABLET PO SCH (20:48)
[2017-10-26 21:07] LABS: GLUCOMETER DEV NAME(LOC) BV2S; GLUCOSE,POINT OF CARE 128 MG/DL (70-110)
[2017-10-27 01:13] VITALS: BP 111/80
[2017-10-27 06:13] LABS: GLUCOMETER DEV NAME(LOC) BV2S; GLUCOSE,POINT OF CARE 118 MG/DL (70-110)
[2017-10-27] MEDS: MetFORMIN HCL 500 MG TABLET PO SCH (06:52)
[2017-10-27] MEDS: LEVOTHYROXINE SODIUM 50 MCG TABLET PO SCH (06:52)
[2017-10-27] MEDS: OMEPRAZOLE 20 MG CAPSULE PO SCH (06:52)
[2017-10-27 08:15] VITALS: BP 112/68
[2017-10-27] MEDS: CARISOPRODOL 350 MG TABLET PO SCH (08:17)
[2017-10-27] MEDS: DIVALPROEX SODIUM 500 MG DR TABLET PO SCH (08:17)
[2017-10-27] MEDS: DOCUSATE SODIUM 100 MG CAPSULE PO SCH (08:17)
[2017-10-27] MEDS: CITALOPRAM HYDROBROMIDE 20 MG TABLET PO SCH (08:17)
[2017-10-27] MEDS: LORazepam 2 MG TABLET PO PRN (08:22)
[2017-10-27] MEDS: HALOPERIDOL 5 MG TABLET PO PRN (09:23)
[2017-10-27 11:12] LABS: GLUCOMETER DEV NAME(LOC) BV2S; GLUCOSE,POINT OF CARE 156 MG/DL (70-110)
[2017-10-27] MEDS ORDERED: NICOTINE POLACRILEX 4 MG LOZENGE PO PRN (11:15)
[2017-10-27] MEDS ORDERED: DSS100 PO (14:18)
[2017-10-27] MEDS ORDERED: DIVA500T35 PO (14:18)
[2017-10-27] MEDS ORDERED: LEVO50 PO (14:18)
[2017-10-27] MEDS ORDERED: CITA20TA9 PO (14:18)
[2017-10-27] MEDS ORDERED: OMEP20 PO (14:18)
[2017-10-27] MEDS ORDERED: METF500T4 PO (14:18)
[2017-10-27] MEDS ORDERED: QUET200T PO (14:18)
== END 2017-10-27 14:50 | disposition home or self-care (01) | DRG 885 ==
LOC: EMS 10:14 → B2X 13:56
DX: F25.0 Schizoaffective disorder, bipolar type (principal); R45.851 Suicidal ideations; E11.65 Type 2 diabetes mellitus with hyperglycemia; B18.2 Chronic viral hepatitis C; E03.9 Hypothyroidism, unspecified; E55.9 Vitamin D deficiency, unspecified; F14.10 Cocaine abuse, uncomplicated; F41.9 Anxiety disorder, unspecified; G47.00 Insomnia, unspecified; G89.29 Other chronic pain; I10 Essential (primary) hypertension; J44.9 Chronic obstructive pulmonary disease, unspecified; K21.9 Gastro-esophageal reflux disease without esophagitis; M79.7 Fibromyalgia; Z59.0 Homelessness; Z87.891 Personal history of nicotine dependence; Z91.14 Patient's other noncompliance with medication regimen
CPT/HCPCS: 82962; 83036; 84439; 84443; 87081; 96372; 99285; G0480; J1200; J1630; J2060

== ENCOUNTER 2017-10-31 01:14 | Inpatient (IN) | payer MEDICARE ==
[~2017-10-31] VITALS: Ht 167.6 cm; Wt 73.4 kg
[~2017-10-31 01:14] MED LIST changes: -DOCU100C33 PO; +DSS100 PO
[2017-10-31] MEDS ORDERED: ONDA4TAB10 PO (02:07)
[2017-10-31 02:12] LABS: GLUCOSE,POINT OF CARE 124 MG/DL (70-110)
[2017-10-31 02:27] LABS: AMPHET/METH SCREEN,URINE POSITIVE (NEGATIVE); BARBITURATE SCREEN, URINE NEGATIVE (NEGATIVE); BENZODIAZEPINES SCREEN,URINE NEGATIVE (NEGATIVE); CANNABINOID SCREEN,URINE NEGATIVE (NEGATIVE); COCAINE SCREEN,URINE POSITIVE (NEGATIVE); METHADONE SCREEN, URINE NEGATIVE (NEGATIVE); OPIATE SCREEN,URINE NEGATIVE (NEGATIVE)
[2017-10-31 02:29] LABS: PHENCYCLIDINE SCREEN,URINE NEGATIVE (NEGATIVE)
[2017-10-31] MEDS ORDERED: HALOPERIDOL LACTATE 5 MG/ML VIAL IM ONE (02:30)
[2017-10-31] MEDS ORDERED: ZOLPIDEM TARTRATE 10 MG TABLET PO PRN (02:30)
[2017-10-31] MEDS ORDERED: LORazepam 2 MG/ML VIAL IM ONE (02:30)
[2017-10-31] MEDS ORDERED: DiphenhydrAMINE HCL 50 MG/ML VIAL IM ONE (02:30)
[2017-10-31 02:50] LABS: BASOPHILS % (AUTO) 1.2 % (0.0-2.0); EOSINOPHILS % (AUTO) 1.2 % (1.0-6.0); HEMATOCRIT 36.7 % (36-46); HEMOGLOBIN 12.7 g/dL (12.0-16.0); LYMPHOCYTES % (AUTO) 40.6 % (22.0-44.0); MEAN CORPUSCULAR HEMOGLOBIN 28.8 pg (26.0-34.0); MEAN CORPUSCULAR HGB CONC 34.5 G/dL (31.0-37.0); MEAN CORPUSCULAR VOLUME 84 fL (80-100); MONOCYTES # (AUTO) 0.9 K/uL (0.1-1.0); MONOCYTES % (AUTO) 9.4 % (2.0-9.0); NEUTROPHILS # (AUTO) 4.7 K/uL (1.8-7.7); NEUTROPHILS % (AUTO) 47.6 % (40.0-70.0); PLATELET COUNT (AUTO) 280 K/uL (150-450); RED BLOOD CELL COUNT(AUTO) 4.39 MIL/uL (4.00-5.20); RED CELL DISTRIBUTION WIDTH 14.3 % (11.5-14.5)
[2017-10-31 02:59] LABS: ANION GAP 14 mmol/L (8-16); CALCIUM, TOTAL 9.2 mg/dL (8.8-10.5); CARBON DIOXIDE 21 mmol/L (22-29); CHLORIDE 103 mmol/L (98-107); CREATININE 0.87 mg/dL (0.60-1.30); GLOMERULAR FILTR. RATE CALC > 60 mL/min (>60); GLUCOSE,RANDOM 115 mg/dL (70-110); POTASSIUM 3.7 mmol/L (3.5-5.1); SODIUM SERUM 138 mmol/L (136-145); UREA NITROGEN, BLOOD 25 mg/dL (7-18)
[2017-10-31 03:05] LABS: ALANINE AMINOTRANSFERASE 22 U/L (12-78); ALBUMIN 3.7 g/dL (3.4-5.0); ALKALINE PHOSPHATASE 98 U/L (46-116); ASPARTATE AMINOTRANSFERASE 16 U/L (15-37); BILIRUBIN,TOTAL 0.4 mg/dL (0.1-1.0); TOTAL PROTEIN, SERUM 7.4 g/dL (6.4-8.2)
[2017-10-31 03:08] LABS: APPEARANCE,URINE CLOUDY (CLEAR); GLUCOSE, URINE (UA) NEGATIVE (NEGATIVE); KETONES,URINE 15 mg/dL (NEGATIVE); LEUKOCYTE ESTERASE ,URINE LARGE (NEGATIVE); NITRATE,URINE NEGATIVE (NEGATIVE); OCCULT BLOOD,URINE TRACE (NEGATIVE); PROTEIN,URINE NEGATIVE (NEGATIVE)
[2017-10-31 03:09] LABS: BILIRUBIN,URINE PRELIM. POSITIVE (NEGATIVE)
[2017-10-31] MEDS ORDERED: KETOROLAC TROMETHAMINE 60 MG/2 ML VIAL IM ONE (03:15)
[2017-10-31 04:00] VITALS: BP 114/72
[2017-10-31 04:03] LABS: BACTERIA,URINE Few /HPF (None Seen); SQUAMOUS EPITHELIAL CELL,UR Few /LPF (None Seen)
[2017-10-31] MEDS: LORazepam 2 MG TABLET PO PRN ×3 (04:07→16:11)
[2017-10-31] MEDS ORDERED: PNEUMOCOCCAL VACCINE POLYVALENT 0.5 ML VIAL [PPSV23] IM ONE (05:00)
[2017-10-31] MEDS: HALOPERIDOL 5 MG TABLET PO PRN ×2 (05:29→11:14)
[2017-10-31] MEDS ORDERED: MAG HYDROX/AL HYDROX/SIMETH ES 30 ML SUSPENSION UDCUP PO PRN (06:15)
[2017-10-31] MEDS ORDERED: TraMADol HCL 50 MG TABLET PO PRN (06:15)
[2017-10-31] MEDS ORDERED: CloNIDine HCL 0.1 MG TABLET PO PRN (06:15)
[2017-10-31] MEDS ORDERED: DEXTROSE 50%-WATER 25 GM/50 ML SYRINGE IVP PRN (06:15)
[2017-10-31] MEDS ORDERED: PETROLATUM,WHITE 71 GM JELLY TP PRN (06:15)
[2017-10-31] MEDS ORDERED: INSULIN ASPART 100 UNITS/ML SQ PRN ×2 (06:15→06:45)
[2017-10-31] MEDS ORDERED: NICOTINE POLACRILEX 2 MG LOZENGE PO PRN (06:15)
[2017-10-31] MEDS ORDERED: ALBUTEROL SULFATE HFA 90 MCG/PUFF 8 GM INHALER IH PRN (06:15)
[2017-10-31] MEDS ORDERED: IBUPROFEN 600 MG TABLET PO PRN (06:15)
[2017-10-31] MEDS ORDERED: LOPERAMIDE HCL 2 MG CAPSULE PO PRN (06:15)
[2017-10-31] MEDS ORDERED: ACETAMINOPHEN 325 MG TABLET PO PRN (06:15)
[2017-10-31] MEDS ORDERED: BACITRACIN 28.4 GM OINTMENT TP PRN (06:15)
[2017-10-31] MEDS ORDERED: BENZOCAINE/MENTHOL LOZENGE MM PRN (06:15)
[2017-10-31] MEDS ORDERED: ONDANSETRON HCL 4 MG TABLET PO PRN (06:15)
[2017-10-31] MEDS ORDERED: MAGNESIUM HYDROXIDE SUSPENSION 30 ML UDCUP PO PRN (06:15)
[2017-10-31] MEDS ORDERED: GLUCAGON,HUMAN RECOMBINANT 1 MG VIAL IM PRN (06:45)
[2017-10-31 06:52] LABS: GLUCOMETER DEV NAME(LOC) BV2N3; GLUCOSE,POINT OF CARE 154 MG/DL (70-110)
[2017-10-31] MEDS: LEVOTHYROXINE SODIUM 50 MCG TABLET PO SCH (06:59)
[2017-10-31] MEDS: MetFORMIN HCL 500 MG TABLET PO SCH ×2 (07:00→17:00)
[2017-10-31] MEDS: NITROFURANTOIN/NITROFURAN MAC 100 MG CAPSULE [MACROBID] PO SCH ×2 (08:09→17:00)
[2017-10-31] MEDS: DOCUSATE SODIUM 100 MG CAPSULE PO SCH (08:10)
[2017-10-31] MEDS: OMEPRAZOLE 20 MG CAPSULE PO SCH (08:10)
[2017-10-31] MEDS: CARISOPRODOL 350 MG TABLET PO SCH ×2 (08:10→16:11)
[2017-10-31 08:14] VITALS: BP 113/86
[2017-10-31] MEDS: CITALOPRAM HYDROBROMIDE 20 MG TABLET PO SCH (11:14)
[2017-10-31] MEDS: DIVALPROEX SODIUM 500 MG DR TABLET PO SCH ×3 (11:14→20:35)
[2017-10-31 16:07] LABS: GLUCOMETER DEV NAME(LOC) BV2N3; GLUCOSE,POINT OF CARE 140 MG/DL (70-110)
[2017-10-31 16:20] VITALS: BP 111/69
[2017-10-31] MEDS: QUEtiapine FUMARATE 200 MG TABLET PO SCH (20:33)
[2017-11-01] MEDS: MetFORMIN HCL 500 MG TABLET PO SCH ×2 (06:29→16:26)
[2017-11-01] MEDS: LEVOTHYROXINE SODIUM 50 MCG TABLET PO SCH (06:29)
[2017-11-01] MEDS: LORazepam 2 MG TABLET PO PRN ×3 (06:29→16:26)
[2017-11-01 06:33] LABS: GLUCOMETER DEV NAME(LOC) BV2N3; GLUCOSE,POINT OF CARE 121 MG/DL (70-110)
[2017-11-01 08:25] VITALS: BP_SYST 108; BP_SYST 120; BP_DIAS 75; BP_DIAS 77
[2017-11-01] MEDS: DIVALPROEX SODIUM 500 MG DR TABLET PO SCH ×3 (09:01→20:31)
[2017-11-01] MEDS: NITROFURANTOIN/NITROFURAN MAC 100 MG CAPSULE [MACROBID] PO SCH ×2 (09:01→16:03)
[2017-11-01] MEDS: DOCUSATE SODIUM 100 MG CAPSULE PO SCH (09:01)
[2017-11-01] MEDS: CITALOPRAM HYDROBROMIDE 20 MG TABLET PO SCH (09:01)
[2017-11-01] MEDS: OMEPRAZOLE 20 MG CAPSULE PO SCH (09:01)
[2017-11-01] MEDS: CARISOPRODOL 350 MG TABLET PO SCH ×2 (09:01→16:03)
[2017-11-01 10:57] LABS: GLUCOMETER DEV NAME(LOC) BV2N3; GLUCOSE,POINT OF CARE 129 MG/DL (70-110)
[2017-11-01] MEDS: HALOPERIDOL 5 MG TABLET PO PRN (12:34)
[2017-11-01] MEDS: NICOTINE POLACRILEX 2 MG LOZENGE PO PRN (13:16)
[2017-11-01 14:06] VITALS: BP 116/74
[2017-11-01 16:01] VITALS: BP 126/74
[2017-11-01 16:37] LABS: GLUCOMETER DEV NAME(LOC) BV2N3; GLUCOSE,POINT OF CARE 182 MG/DL (70-110)
[2017-11-01] MEDS: QUEtiapine FUMARATE 200 MG TABLET PO SCH (20:31)
[2017-11-01] MEDS: ACYCLOVIR 200 MG CAPSULE PO SCH (21:37)
[2017-11-01] MEDS: ACYCLOVIR 5% 5 GM OINTMENT TP SCH (22:15)
[2017-11-02] MEDS: ACYCLOVIR 5% 5 GM OINTMENT TP SCH ×5 (06:31→22:19)
[2017-11-02] MEDS: MetFORMIN HCL 500 MG TABLET PO SCH ×2 (06:31→16:36)
[2017-11-02] MEDS: LEVOTHYROXINE SODIUM 50 MCG TABLET PO SCH (06:31)
[2017-11-02] MEDS: LORazepam 2 MG TABLET PO PRN ×3 (06:32→17:54)
[2017-11-02 06:38] LABS: GLUCOMETER DEV NAME(LOC) BV2N3; GLUCOSE,POINT OF CARE 116 MG/DL (70-110)
[2017-11-02] MEDS: CITALOPRAM HYDROBROMIDE 20 MG TABLET PO SCH (07:57)
[2017-11-02] MEDS: OMEPRAZOLE 20 MG CAPSULE PO SCH (07:57)
[2017-11-02] MEDS: ACYCLOVIR 200 MG CAPSULE PO SCH ×3 (07:58→16:36)
[2017-11-02] MEDS: CARISOPRODOL 350 MG TABLET PO SCH ×2 (07:58→16:36)
[2017-11-02] MEDS: DIVALPROEX SODIUM 500 MG DR TABLET PO SCH ×3 (07:58→21:05)
[2017-11-02] MEDS: DOCUSATE SODIUM 100 MG CAPSULE PO SCH (07:58)
[2017-11-02] MEDS: NITROFURANTOIN/NITROFURAN MAC 100 MG CAPSULE [MACROBID] PO SCH ×2 (07:59→16:36)
[2017-11-02 08:12] VITALS: BP 109/67
[2017-11-02 11:12] LABS: GLUCOMETER DEV NAME(LOC) BV2N3; GLUCOSE,POINT OF CARE 135 MG/DL (70-110)
[2017-11-02] MEDS: NICOTINE POLACRILEX 2 MG LOZENGE PO PRN ×2 (12:17→16:38)
[2017-11-02] MEDS: HALOPERIDOL 5 MG TABLET PO PRN (12:26)
[2017-11-02 16:00] VITALS: BP 118/83
[2017-11-02 16:57] LABS: GLUCOMETER DEV NAME(LOC) BV2N3; GLUCOSE,POINT OF CARE 158 MG/DL (70-110)
[2017-11-02] MEDS: QUEtiapine FUMARATE 200 MG TABLET PO SCH (21:06)
[2017-11-03] MEDS: ACYCLOVIR 5% 5 GM OINTMENT TP SCH ×5 (06:13→22:03)
[2017-11-03] MEDS: LEVOTHYROXINE SODIUM 50 MCG TABLET PO SCH (06:46)
[2017-11-03] MEDS: MetFORMIN HCL 500 MG TABLET PO SCH ×2 (06:46→16:34)
[2017-11-03] MEDS: LORazepam 2 MG TABLET PO PRN ×3 (06:52→16:34)
[2017-11-03 06:57] LABS: GLUCOMETER DEV NAME(LOC) BV2N3; GLUCOSE,POINT OF CARE 105 MG/DL (70-110)
[2017-11-03 08:06] VITALS: BP 108/60
[2017-11-03] MEDS: CITALOPRAM HYDROBROMIDE 20 MG TABLET PO SCH (08:29)
[2017-11-03] MEDS: DIVALPROEX SODIUM 500 MG DR TABLET PO SCH ×3 (08:29→20:28)
[2017-11-03] MEDS: DOCUSATE SODIUM 100 MG CAPSULE PO SCH (08:29)
[2017-11-03] MEDS: CARISOPRODOL 350 MG TABLET PO SCH ×2 (08:30→16:12)
[2017-11-03] MEDS: OMEPRAZOLE 20 MG CAPSULE PO SCH (08:31)
[2017-11-03] MEDS: ACYCLOVIR 200 MG CAPSULE PO SCH ×3 (08:31→16:17)
[2017-11-03] MEDS: KETOROLAC TROMETHAMINE 30 MG/ML VIAL IM SCH (10:19)
[2017-11-03 10:43] LABS: GLUCOMETER DEV NAME(LOC) BV2N3; GLUCOSE,POINT OF CARE 133 MG/DL (70-110)
[2017-11-03] MEDS: NICOTINE POLACRILEX 2 MG LOZENGE PO PRN ×2 (10:52→16:18)
[2017-11-03 16:08] VITALS: BP 102/65
[2017-11-03 16:37] LABS: GLUCOMETER DEV NAME(LOC) BV2N3; GLUCOSE,POINT OF CARE 133 MG/DL (70-110)
[2017-11-03] MEDS: HALOPERIDOL 5 MG TABLET PO PRN (17:52)
[2017-11-03] MEDS: QUEtiapine FUMARATE 200 MG TABLET PO SCH (20:28)
[2017-11-04] MEDS: ACYCLOVIR 5% 5 GM OINTMENT TP SCH ×2 (06:15→11:39)
[2017-11-04] MEDS: MetFORMIN HCL 500 MG TABLET PO SCH (06:34)
[2017-11-04] MEDS: LEVOTHYROXINE SODIUM 50 MCG TABLET PO SCH (06:34)
[2017-11-04 08:34] VITALS: BP 120/70
[2017-11-04] MEDS: DIVALPROEX SODIUM 500 MG DR TABLET PO SCH (08:58)
[2017-11-04] MEDS: ACYCLOVIR 200 MG CAPSULE PO SCH (08:58)
[2017-11-04] MEDS: DOCUSATE SODIUM 100 MG CAPSULE PO SCH (08:58)
[2017-11-04] MEDS: OMEPRAZOLE 20 MG CAPSULE PO SCH (08:58)
[2017-11-04] MEDS: CARISOPRODOL 350 MG TABLET PO SCH (08:58)
[2017-11-04] MEDS: CITALOPRAM HYDROBROMIDE 20 MG TABLET PO SCH (08:58)
[2017-11-04] MEDS: LORazepam 2 MG TABLET PO PRN (10:11)
[2017-11-04] MEDS: HALOPERIDOL 5 MG TABLET PO PRN (10:11)
[2017-11-04] MEDS ORDERED: ACYC200C PO (10:44)
[2017-11-04] MEDS ORDERED: CARI350 PO (10:45)
[2017-11-04 11:32] LABS: GLUCOMETER DEV NAME(LOC) BV2N3; GLUCOSE,POINT OF CARE 101 MG/DL (70-110)
[2017-11-04] MEDS: KETOROLAC TROMETHAMINE 30 MG/ML VIAL IM SCH (11:38)
== END 2017-11-04 11:50 | disposition home or self-care (01) | DRG 885 ==
LOC: EMS 01:16 → B2S 02:37
DX: F25.0 Schizoaffective disorder, bipolar type (principal); R45.851 Suicidal ideations; F15.20 Other stimulant dependence, uncomplicated; Z59.0 Homelessness; Z91.14 Patient's other noncompliance with medication regimen; E11.65 Type 2 diabetes mellitus with hyperglycemia; N39.0 Urinary tract infection, site not specified; F41.9 Anxiety disorder, unspecified; G47.00 Insomnia, unspecified; G89.29 Other chronic pain; J44.9 Chronic obstructive pulmonary disease, unspecified; K21.9 Gastro-esophageal reflux disease without esophagitis; I10 Essential (primary) hypertension; M54.9 Dorsalgia, unspecified; Z79.899 Other long term (current) drug therapy; F17.200 Nicotine dependence, unspecified, uncomplicated; F14.10 Cocaine abuse, uncomplicated; E55.9 Vitamin D deficiency, unspecified; E03.9 Hypothyroidism, unspecified; B19.20 Unspecified viral hepatitis C without hepatic coma
CPT/HCPCS: 82962; 84443; 87081; 87086; 96372; 99285; G0480; J1200; J1630; J1885; J2060

== ENCOUNTER 2017-12-01 10:56 | Inpatient (IN) | payer MEDICARE ==
[~2017-12-01] VITALS: Ht 167.6 cm; Wt 78.1 kg
[~2017-12-01 10:56] MED LIST changes: +ACYC200C PO; +CARI350 PO; -DSS100 PO
[2017-12-01 11:13] LABS: GLUCOSE,POINT OF CARE 142 MG/DL (70-110)
[2017-12-01 11:52] LABS: BASOPHILS % (AUTO) 0.7 % (0.0-2.0); EOSINOPHILS % (AUTO) 1.7 % (1.0-6.0); HEMATOCRIT 34.1 % (36-46); HEMOGLOBIN 11.5 g/dL (12.0-16.0); LYMPHOCYTES # (AUTO) 2.5 K/uL (1.0-4.8); LYMPHOCYTES % (AUTO) 35.8 % (22.0-44.0); MEAN CORPUSCULAR HEMOGLOBIN 29.1 pg (26.0-34.0); MEAN CORPUSCULAR HGB CONC 33.9 G/dL (31.0-37.0); MEAN CORPUSCULAR VOLUME 86 fL (80-100); MONOCYTES # (AUTO) 0.5 K/uL (0.1-1.0); MONOCYTES % (AUTO) 6.5 % (2.0-9.0); NEUTROPHILS # (AUTO) 3.8 K/uL (1.8-7.7); NEUTROPHILS % (AUTO) 55.3 % (40.0-70.0); PLATELET COUNT (AUTO) 293 K/uL (150-450); RED BLOOD CELL COUNT(AUTO) 3.96 MIL/uL (4.00-5.20); RED CELL DISTRIBUTION WIDTH 14.5 % (11.5-14.5)
[2017-12-01 12:15] LABS: ANION GAP 11 mmol/L (8-16); CARBON DIOXIDE 25 mmol/L (22-29); CHLORIDE 104 mmol/L (98-107); CREATININE 0.92 mg/dL (0.60-1.30); GLUCOSE,RANDOM 122 mg/dL (70-110); POTASSIUM 4.2 mmol/L (3.5-5.1); SODIUM SERUM 140 mmol/L (136-145); UREA NITROGEN, BLOOD 20 mg/dL (7-18)
[2017-12-01 12:16] LABS: CALCIUM, TOTAL 8.9 mg/dL (8.8-10.5); GLOMERULAR FILTR. RATE CALC > 60 mL/min (>60)
[2017-12-01 12:21] LABS: ALANINE AMINOTRANSFERASE 22 U/L (12-78); ALBUMIN 3.5 g/dL (3.4-5.0); ALKALINE PHOSPHATASE 99 U/L (46-116); ASPARTATE AMINOTRANSFERASE 15 U/L (15-37); BILIRUBIN,TOTAL 0.1 mg/dL (0.1-1.0); TOTAL PROTEIN, SERUM 7.3 g/dL (6.4-8.2)
[2017-12-01] MEDS ORDERED: KETOROLAC TROMETHAMINE 60 MG/2 ML VIAL IM ONE (12:30)
[2017-12-01 12:31] LABS: AMPHET/METH SCREEN,URINE POSITIVE (NEGATIVE); BARBITURATE SCREEN, URINE NEGATIVE (NEGATIVE); BENZODIAZEPINES SCREEN,URINE NEGATIVE (NEGATIVE); CANNABINOID SCREEN,URINE NEGATIVE (NEGATIVE); COCAINE SCREEN,URINE POSITIVE (NEGATIVE); METHADONE SCREEN, URINE NEGATIVE (NEGATIVE); OPIATE SCREEN,URINE NEGATIVE (NEGATIVE)
[2017-12-01 12:37] LABS: PHENCYCLIDINE SCREEN,URINE NEGATIVE (NEGATIVE)
[2017-12-01] MEDS ORDERED: ZOLPIDEM TARTRATE 10 MG TABLET PO PRN (14:45)
[2017-12-01] MEDS: LORazepam 2 MG TABLET PO PRN (14:55)
[2017-12-01] MEDS: HALOPERIDOL 5 MG TABLET PO PRN (14:55)
[2017-12-01 15:15] LABS: CHOL/HDL RATIO 2.6 (3.9-5.7); CHOLESTEROL 188 mg/dL (131-200); FREE T4 (FREE THYROXINE) 0.87 ng/dL (0.76-1.46); HDL CHOLESTEROL 72 mg/dL (40-60); LDL CHOL (CALC.) 104 mg/dL (0-130); THYROID STIMULATING HORMONE 1.81 uIU/mL (0.36-3.74); TRIGLYCERIDES 58 mg/dL (15-150)
[2017-12-01 21:13] LABS: VALPROIC ACID 3 mcg/mL (50-100)
[2017-12-02] MEDS: LORazepam 2 MG TABLET PO PRN ×2 (07:51→19:01)
[2017-12-02] MEDS: HALOPERIDOL 5 MG TABLET PO PRN (07:51)
[2017-12-02] MEDS: KETOROLAC TROMETHAMINE 30 MG/ML VIAL IM SCH (11:15)
[2017-12-02 12:58] VITALS: BP 133/67
[2017-12-02] MEDS ORDERED: MAGNESIUM HYDROXIDE SUSPENSION 30 ML UDCUP PO PRN (13:15)
[2017-12-02] MEDS ORDERED: LOPERAMIDE HCL 2 MG CAPSULE PO PRN (13:15)
[2017-12-02] MEDS ORDERED: BACITRACIN 28.4 GM OINTMENT TP PRN (13:15)
[2017-12-02] MEDS ORDERED: CloNIDine HCL 0.1 MG TABLET PO PRN (13:15)
[2017-12-02] MEDS ORDERED: ALBUTEROL SULFATE HFA 90 MCG/PUFF 8 GM INHALER IH PRN (13:15)
[2017-12-02] MEDS ORDERED: BENZOCAINE/MENTHOL LOZENGE MM PRN (13:15)
[2017-12-02] MEDS ORDERED: PETROLATUM,WHITE 71 GM JELLY TP PRN (13:15)
[2017-12-02] MEDS ORDERED: IBUPROFEN 600 MG TABLET PO PRN (13:15)
[2017-12-02] MEDS ORDERED: ONDANSETRON HCL 4 MG TABLET PO PRN (13:15)
[2017-12-02 16:28] VITALS: BP 113/67
[2017-12-02] MEDS ORDERED: INSULIN LISPRO 100 UNITS/ML SQ PRN (23:00)
[2017-12-02] MEDS ORDERED: GLUCAGON,HUMAN RECOMBINANT 1 MG VIAL IM PRN (23:00)
[2017-12-03] MEDS ORDERED: PNEUMOCOCCAL VACCINE POLYVALENT 0.5 ML VIAL [PPSV23] IM ONE (01:00)
[2017-12-03] MEDS: HALOPERIDOL 5 MG TABLET PO PRN (04:10)
[2017-12-03] MEDS: LORazepam 2 MG TABLET PO PRN ×2 (04:10→16:46)
[2017-12-03 04:11] VITALS: BP 118/65
[2017-12-03 06:07] LABS: GLUCOMETER DEV NAME(LOC) BV2S; GLUCOSE,POINT OF CARE 134 MG/DL (70-110)
[2017-12-03] MEDS: MetFORMIN HCL 500 MG TABLET PO SCH ×2 (06:26→17:10)
[2017-12-03 08:45] VITALS: BP 110/70
[2017-12-03] MEDS: DOCUSATE SODIUM 100 MG CAPSULE PO SCH (09:22)
[2017-12-03] MEDS: OMEPRAZOLE 20 MG CAPSULE PO SCH (09:22)
[2017-12-03] MEDS ORDERED: DiphenhydrAMINE HCL 50 MG/ML VIAL IM ONE ×2 (10:00→18:15)
[2017-12-03] MEDS: CITALOPRAM HYDROBROMIDE 20 MG TABLET PO SCH (10:08)
[2017-12-03] MEDS: KETOROLAC TROMETHAMINE 30 MG/ML VIAL IM SCH (10:08)
[2017-12-03 16:15] VITALS: BP 113/60
[2017-12-03 16:53] LABS: GLUCOMETER DEV NAME(LOC) BV2S; GLUCOSE,POINT OF CARE 110 MG/DL (70-110)
[2017-12-03] MEDS: DIVALPROEX SODIUM 500 MG DR TABLET PO SCH ×2 (17:10→21:37)
[2017-12-03 18:56] VITALS: BP 111/70
[2017-12-03] MEDS ORDERED: QUEtiapine FUMARATE 200 MG TABLET PO SCH (21:00)
[2017-12-03] MEDS: QUEtiapine FUMARATE 200 MG TABLET PO SCH (21:37)
[2017-12-04 01:41] VITALS: BP 119/68
[2017-12-04 06:11] VITALS: BP 118/72
[2017-12-04 06:28] LABS: GLUCOMETER DEV NAME(LOC) BV2S; GLUCOSE,POINT OF CARE 113 MG/DL (70-110)
[2017-12-04] MEDS: MetFORMIN HCL 500 MG TABLET PO SCH ×2 (07:16→16:22)
[2017-12-04 08:00] VITALS: BP 114/66
[2017-12-04] MEDS: OMEPRAZOLE 20 MG CAPSULE PO SCH (09:56)
[2017-12-04] MEDS: CITALOPRAM HYDROBROMIDE 20 MG TABLET PO SCH (09:56)
[2017-12-04] MEDS: KETOROLAC TROMETHAMINE 30 MG/ML VIAL IM SCH (09:57)
[2017-12-04] MEDS: DOCUSATE SODIUM 100 MG CAPSULE PO SCH (09:57)
[2017-12-04] MEDS: DIVALPROEX SODIUM 500 MG DR TABLET PO SCH ×3 (09:57→20:40)
[2017-12-04] MEDS: LORazepam 2 MG TABLET PO PRN ×2 (10:31→16:22)
[2017-12-04] MEDS: MAG HYDROX/AL HYDROX/SIMETH ES 30 ML SUSPENSION UDCUP PO PRN (10:31)
[2017-12-04 16:30] VITALS: BP 130/84
[2017-12-04 16:58] LABS: GLUCOMETER DEV NAME(LOC) BV2S; GLUCOSE,POINT OF CARE 111 MG/DL (70-110)
[2017-12-04] MEDS: QUEtiapine FUMARATE 200 MG TABLET PO SCH (20:40)
[2017-12-05 06:24] VITALS: BP 127/78
[2017-12-05 06:32] LABS: GLUCOMETER DEV NAME(LOC) BV2S; GLUCOSE,POINT OF CARE 105 MG/DL (70-110)
[2017-12-05] MEDS: MetFORMIN HCL 500 MG TABLET PO SCH ×2 (06:35→16:27)
[2017-12-05] MEDS: LORazepam 2 MG TABLET PO PRN ×2 (07:19→15:57)
[2017-12-05 08:19] VITALS: BP 101/61
[2017-12-05 09:55] VITALS: BP 128/70
[2017-12-05] MEDS: DOCUSATE SODIUM 100 MG CAPSULE PO SCH (09:58)
[2017-12-05] MEDS: DIVALPROEX SODIUM 500 MG DR TABLET PO SCH ×3 (09:58→20:41)
[2017-12-05] MEDS: OMEPRAZOLE 20 MG CAPSULE PO SCH (09:58)
[2017-12-05] MEDS: KETOROLAC TROMETHAMINE 30 MG/ML VIAL IM SCH (09:58)
[2017-12-05] MEDS: CITALOPRAM HYDROBROMIDE 20 MG TABLET PO SCH (09:58)
[2017-12-05] MEDS: NICOTINE POLACRILEX 4 MG LOZENGE PO PRN (11:56)
[2017-12-05 16:07] VITALS: BP 133/62
[2017-12-05] MEDS: ACETAMINOPHEN 325 MG TABLET PO PRN (16:27)
[2017-12-05 16:32] LABS: GLUCOMETER DEV NAME(LOC) BV2S; GLUCOSE,POINT OF CARE 149 MG/DL (70-110)
[2017-12-05] MEDS: QUEtiapine FUMARATE 200 MG TABLET PO SCH (20:41)
[2017-12-06] MEDS: LORazepam 2 MG TABLET PO PRN ×3 (02:35→14:18)
[2017-12-06 03:35] VITALS: BP 103/68
[2017-12-06 06:28] LABS: GLUCOMETER DEV NAME(LOC) BV2S; GLUCOSE,POINT OF CARE 151 MG/DL (70-110)
[2017-12-06] MEDS: MetFORMIN HCL 500 MG TABLET PO SCH ×2 (06:57→17:00)
[2017-12-06 08:27] VITALS: BP 143/77
[2017-12-06] MEDS: OMEPRAZOLE 20 MG CAPSULE PO SCH (08:37)
[2017-12-06] MEDS: KETOROLAC TROMETHAMINE 30 MG/ML VIAL IM SCH (08:38)
[2017-12-06] MEDS: DOCUSATE SODIUM 100 MG CAPSULE PO SCH (08:38)
[2017-12-06] MEDS: DIVALPROEX SODIUM 500 MG DR TABLET PO SCH ×3 (08:38→20:39)
[2017-12-06] MEDS: CITALOPRAM HYDROBROMIDE 20 MG TABLET PO SCH (08:38)
[2017-12-06] MEDS: NICOTINE POLACRILEX 4 MG LOZENGE PO PRN ×2 (11:53→17:01)
[2017-12-06] MEDS: HALOPERIDOL 5 MG TABLET PO PRN (14:18)
[2017-12-06 16:31] VITALS: BP 113/69
[2017-12-06 16:47] LABS: GLUCOMETER DEV NAME(LOC) BV2S; GLUCOSE,POINT OF CARE 108 MG/DL (70-110)
[2017-12-06] MEDS: CARISOPRODOL 350 MG TABLET PO SCH (17:00)
[2017-12-06] MEDS: QUEtiapine FUMARATE 200 MG TABLET PO SCH (20:39)
[2017-12-07 00:45] VITALS: BP 130/81
[2017-12-07] MEDS: LORazepam 2 MG TABLET PO PRN ×4 (00:52→18:27)
[2017-12-07 06:22] LABS: GLUCOMETER DEV NAME(LOC) BV2S; GLUCOSE,POINT OF CARE 135 MG/DL (70-110)
[2017-12-07] MEDS: MetFORMIN HCL 500 MG TABLET PO SCH ×2 (06:58→16:47)
[2017-12-07] MEDS: KETOROLAC TROMETHAMINE 30 MG/ML VIAL IM SCH (08:22)
[2017-12-07 08:31] VITALS: BP 104/62
[2017-12-07] MEDS: OMEPRAZOLE 20 MG CAPSULE PO SCH (09:29)
[2017-12-07] MEDS: DOCUSATE SODIUM 100 MG CAPSULE PO SCH (09:29)
[2017-12-07] MEDS: CITALOPRAM HYDROBROMIDE 20 MG TABLET PO SCH (09:29)
[2017-12-07] MEDS: DIVALPROEX SODIUM 500 MG DR TABLET PO SCH ×3 (09:29→20:17)
[2017-12-07] MEDS: CARISOPRODOL 350 MG TABLET PO SCH ×2 (09:29→16:48)
[2017-12-07 09:30] VITALS: BP 122/80
[2017-12-07] MEDS: NICOTINE POLACRILEX 4 MG LOZENGE PO PRN ×2 (12:01→16:34)
[2017-12-07] MEDS: MAG HYDROX/AL HYDROX/SIMETH ES 30 ML SUSPENSION UDCUP PO PRN (12:01)
[2017-12-07] MEDS: HALOPERIDOL 5 MG TABLET PO PRN ×2 (12:57→18:27)
[2017-12-07 16:15] VITALS: BP 106/60
[2017-12-07 16:57] LABS: GLUCOMETER DEV NAME(LOC) BV2S; GLUCOSE,POINT OF CARE 167 MG/DL (70-110)
[2017-12-07] MEDS: QUEtiapine FUMARATE 200 MG TABLET PO SCH (20:18)
[2017-12-08 05:58] LABS: GLUCOMETER DEV NAME(LOC) BV2S; GLUCOSE,POINT OF CARE 113 MG/DL (70-110)
[2017-12-08] MEDS: MetFORMIN HCL 500 MG TABLET PO SCH ×2 (06:42→17:01)
[2017-12-08 08:37] VITALS: BP 109/68
[2017-12-08] MEDS: DOCUSATE SODIUM 100 MG CAPSULE PO SCH (08:53)
[2017-12-08] MEDS: DIVALPROEX SODIUM 500 MG DR TABLET PO SCH ×3 (08:53→20:47)
[2017-12-08] MEDS: OMEPRAZOLE 20 MG CAPSULE PO SCH (08:53)
[2017-12-08] MEDS: CARISOPRODOL 350 MG TABLET PO SCH ×2 (08:54→17:01)
[2017-12-08] MEDS: LORazepam 2 MG TABLET PO PRN ×2 (08:54→13:24)
[2017-12-08] MEDS: CITALOPRAM HYDROBROMIDE 20 MG TABLET PO SCH (08:54)
[2017-12-08] MEDS: NICOTINE POLACRILEX 4 MG LOZENGE PO PRN ×2 (11:41→17:25)
[2017-12-08 11:50] VITALS: BP 118/72
[2017-12-08] MEDS: ACETAMINOPHEN 325 MG TABLET PO PRN (11:50)
[2017-12-08] MEDS: HALOPERIDOL 5 MG TABLET PO PRN (13:24)
[2017-12-08 16:27] VITALS: BP 122/72
[2017-12-08 17:12] LABS: GLUCOMETER DEV NAME(LOC) BV2S; GLUCOSE,POINT OF CARE 110 MG/DL (70-110)
[2017-12-08] MEDS: QUEtiapine FUMARATE 200 MG TABLET PO SCH (20:47)
[2017-12-09 05:35] VITALS: BP 121/75
[2017-12-09] MEDS: HALOPERIDOL 5 MG TABLET PO PRN ×3 (05:37→16:17)
[2017-12-09] MEDS: LORazepam 2 MG TABLET PO PRN ×3 (05:37→16:16)
[2017-12-09 05:51] LABS: GLUCOMETER DEV NAME(LOC) BV2S; GLUCOSE,POINT OF CARE 114 MG/DL (70-110)
[2017-12-09] MEDS: MetFORMIN HCL 500 MG TABLET PO SCH ×2 (06:44→16:17)
[2017-12-09 08:31] VITALS: BP 105/60
[2017-12-09] MEDS: CARISOPRODOL 350 MG TABLET PO SCH ×2 (09:41→16:17)
[2017-12-09] MEDS: CITALOPRAM HYDROBROMIDE 20 MG TABLET PO SCH (09:41)
[2017-12-09] MEDS: DIVALPROEX SODIUM 500 MG DR TABLET PO SCH ×3 (09:42→20:30)
[2017-12-09] MEDS: OMEPRAZOLE 20 MG CAPSULE PO SCH (09:42)
[2017-12-09] MEDS: DOCUSATE SODIUM 100 MG CAPSULE PO SCH (09:42)
[2017-12-09 16:09] VITALS: BP 114/66
[2017-12-09 16:32] LABS: GLUCOMETER DEV NAME(LOC) BV2S; GLUCOSE,POINT OF CARE 146 MG/DL (70-110)
[2017-12-09] MEDS: NICOTINE POLACRILEX 4 MG LOZENGE PO PRN (16:51)
[2017-12-09] MEDS ORDERED: BENZOCAINE/MENTHOL LOZENGE MM PRN (18:15)
[2017-12-09] MEDS: QUEtiapine FUMARATE 200 MG TABLET PO SCH (20:31)
[2017-12-10 06:18] LABS: GLUCOMETER DEV NAME(LOC) BV2S; GLUCOSE,POINT OF CARE 102 MG/DL (70-110)
[2017-12-10] MEDS: MetFORMIN HCL 500 MG TABLET PO SCH ×2 (06:33→16:59)
[2017-12-10] MEDS: OMEPRAZOLE 20 MG CAPSULE PO SCH (08:02)
[2017-12-10] MEDS: CITALOPRAM HYDROBROMIDE 20 MG TABLET PO SCH (08:02)
[2017-12-10] MEDS: CARISOPRODOL 350 MG TABLET PO SCH ×2 (08:03→16:59)
[2017-12-10] MEDS: LORazepam 2 MG TABLET PO PRN ×2 (08:03→16:28)
[2017-12-10] MEDS: DOCUSATE SODIUM 100 MG CAPSULE PO SCH (08:03)
[2017-12-10] MEDS: DIVALPROEX SODIUM 500 MG DR TABLET PO SCH ×3 (08:03→20:43)
[2017-12-10] MEDS: NICOTINE POLACRILEX 4 MG LOZENGE PO PRN (08:04)
[2017-12-10] MEDS: HALOPERIDOL 5 MG TABLET PO PRN ×2 (08:04→16:28)
[2017-12-10 08:33] VITALS: BP 118/74
[2017-12-10 16:20] VITALS: BP 113/63
[2017-12-10 16:53] LABS: GLUCOMETER DEV NAME(LOC) BV2S; GLUCOSE,POINT OF CARE 159 MG/DL (70-110)
[2017-12-10] MEDS: QUEtiapine FUMARATE 200 MG TABLET PO SCH (20:43)
[2017-12-11 01:32] VITALS: BP 133/77
[2017-12-11] MEDS: HALOPERIDOL 5 MG TABLET PO PRN ×3 (01:35→11:02)
[2017-12-11] MEDS: LORazepam 2 MG TABLET PO PRN ×3 (01:35→11:02)
[2017-12-11] MEDS: MetFORMIN HCL 500 MG TABLET PO SCH ×2 (06:25→16:53)
[2017-12-11 06:45] VITALS: BP 107/70
[2017-12-11 08:00] VITALS: BP 129/72
[2017-12-11] MEDS: CITALOPRAM HYDROBROMIDE 20 MG TABLET PO SCH (08:25)
[2017-12-11] MEDS: NICOTINE POLACRILEX 4 MG LOZENGE PO PRN ×3 (08:25→16:58)
[2017-12-11] MEDS: DIVALPROEX SODIUM 500 MG DR TABLET PO SCH ×2 (08:25→16:04)
[2017-12-11] MEDS: DOCUSATE SODIUM 100 MG CAPSULE PO SCH (08:25)
[2017-12-11] MEDS: CARISOPRODOL 350 MG TABLET PO SCH ×2 (08:25→16:04)
[2017-12-11] MEDS: OMEPRAZOLE 20 MG CAPSULE PO SCH (08:25)
[2017-12-11 10:08] VITALS: BP 122/74
[2017-12-11] MEDS: ACETAMINOPHEN 325 MG TABLET PO PRN (10:08)
[2017-12-11] MEDS ORDERED: QUET200T PO (10:48)
[2017-12-11] MEDS ORDERED: DSS100 PO (10:48)
[2017-12-11] MEDS ORDERED: ALBU8HFA IH (10:48)
[2017-12-11] MEDS ORDERED: TraMADol HCL 50 MG TABLET PO PRN (11:30)
[2017-12-11] MEDS ORDERED: CITA20TA17 PO (15:06)
[2017-12-11] MEDS ORDERED: QUET200T29 PO (15:06)
[2017-12-11] MEDS ORDERED: DIVA500T35 PO (15:06)
[2017-12-11 16:14] VITALS: BP 128/71
[2017-12-11 16:58] LABS: GLUCOMETER DEV NAME(LOC) BV2S; GLUCOSE,POINT OF CARE 125 MG/DL (70-110)
== END 2017-12-11 17:40 | disposition home or self-care (01) | DRG 885 ==
LOC: EMS 10:59 → AHU 12-02 10:32 → B2X 12-02 10:32
DX: F25.9 Schizoaffective disorder, unspecified (principal); E11.41 Type 2 diabetes mellitus with diabetic mononeuropathy; R45.851 Suicidal ideations; E11.65 Type 2 diabetes mellitus with hyperglycemia; F14.10 Cocaine abuse, uncomplicated; F12.90 Cannabis use, unspecified, uncomplicated; F10.10 Alcohol abuse, uncomplicated; E55.9 Vitamin D deficiency, unspecified; F15.10 Other stimulant abuse, uncomplicated; F17.200 Nicotine dependence, unspecified, uncomplicated; F41.9 Anxiety disorder, unspecified; I10 Essential (primary) hypertension; J44.9 Chronic obstructive pulmonary disease, unspecified; K21.9 Gastro-esophageal reflux disease without esophagitis; M79.7 Fibromyalgia; F32.9 Major depressive disorder, single episode, unspecified; Z59.0 Homelessness; Z28.21 Immunization not carried out because of patient refusal
CPT/HCPCS: 82962; 84439; 84443; 87081; 96372; 99285; G0480; J1200; J1885; J3230

== ENCOUNTER 2017-12-19 23:03 | Emergency (ER) | payer MEDICARE ==
[~2017-12-19] VITALS: Ht 167.6 cm; Wt 72.7 kg
[~2017-12-19 23:03] MED LIST changes: -ACYC200C PO; +CITA20TA17 PO; +DSS100 PO; -LEVO50 PO; +QUET200T29 PO
[2017-12-19 23:27] LABS: GLUCOSE,POINT OF CARE 125 MG/DL (70-110)
[2017-12-19 23:48] LABS: BASOPHILS % (AUTO) 0.8 % (0.0-2.0); EOSINOPHILS % (AUTO) 1.6 % (1.0-6.0); HEMATOCRIT 32.1 % (36-46); HEMOGLOBIN 10.9 g/dL (12.0-16.0); LYMPHOCYTES # (AUTO) 2.8 K/uL (1.0-4.8); LYMPHOCYTES % (AUTO) 44.2 % (22.0-44.0); MEAN CORPUSCULAR HEMOGLOBIN 29.3 pg (26.0-34.0); MEAN CORPUSCULAR HGB CONC 33.8 G/dL (31.0-37.0); MEAN CORPUSCULAR VOLUME 87 fL (80-100); MONOCYTES # (AUTO) 0.7 K/uL (0.1-1.0); MONOCYTES % (AUTO) 11.1 % (2.0-9.0); NEUTROPHILS # (AUTO) 2.7 K/uL (1.8-7.7); NEUTROPHILS % (AUTO) 42.3 % (40.0-70.0); PLATELET COUNT (AUTO) 241 K/uL (150-450); RED CELL DISTRIBUTION WIDTH 14.8 % (11.5-14.5)
[2017-12-20] MEDS ORDERED: PB/HYOSCY/ATR/SCOP/LIDO/MAALOX 55 ML BOTTLE PO ONE
[2017-12-20 00:04] LABS: CALCIUM, TOTAL 8.6 mg/dL (8.8-10.5); CREATININE 0.97 mg/dL (0.60-1.30); POTASSIUM 3.8 mmol/L (3.5-5.1)
[2017-12-20 00:10] LABS: ALBUMIN 3.2 g/dL (3.4-5.0); BILIRUBIN,TOTAL 0.1 mg/dL (0.1-1.0); TOTAL PROTEIN, SERUM 6.5 g/dL (6.4-8.2)
[2017-12-20] MEDS ORDERED: KETOROLAC TROMETHAMINE 60 MG/2 ML VIAL IM ONE (00:30)
[2017-12-20 02:05] VITALS: BP 123/76
[2017-12-20] MEDS ORDERED: CLON1 PO (11:42)
== END 2017-12-20 02:19 | disposition home or self-care (01) ==
LOC: EMS 23:06
DX: R10.13 Epigastric pain (principal); F14.90 Cocaine use, unspecified, uncomplicated; K21.9 Gastro-esophageal reflux disease without esophagitis; Z88.2 Allergy status to sulfonamides; Z88.8 Allergy status to other drugs, medicaments and biological substances
CPT/HCPCS: 36415; 80053; 82962; 83690; 84484; 85025; 93005; 96372; 99285; J1885

== ENCOUNTER 2017-12-20 11:25 | Inpatient (IN) | payer MEDICARE ==
[~2017-12-20] VITALS: Ht 167.6 cm; Wt 75.7 kg
[~2017-12-20 11:25] MED LIST changes: -CARI350 PO; +CITA-106 PO; -CITA20TA17 PO; -CITA20TA9 PO; -METF500T4 PO; +METF500T6 PO; -OMEP20 PO; -QUET200T29 PO
[2017-12-20 11:38] LABS: GLUCOSE,POINT OF CARE 205 MG/DL (70-110)
[2017-12-20] MEDS ORDERED: CLON1 PO (11:42)
[2017-12-20 12:17] LABS: BASOPHILS % (AUTO) 1.1 % (0.0-2.0); EOSINOPHILS % (AUTO) 0.9 % (1.0-6.0); HEMATOCRIT 35.4 % (36-46); HEMOGLOBIN 11.9 g/dL (12.0-16.0); LYMPHOCYTES # (AUTO) 1.8 K/uL (1.0-4.8); LYMPHOCYTES % (AUTO) 33.6 % (22.0-44.0); MEAN CORPUSCULAR HEMOGLOBIN 29.3 pg (26.0-34.0); MEAN CORPUSCULAR HGB CONC 33.7 G/dL (31.0-37.0); MEAN CORPUSCULAR VOLUME 87 fL (80-100); MONOCYTES # (AUTO) 0.5 K/uL (0.1-1.0); MONOCYTES % (AUTO) 8.4 % (2.0-9.0); PLATELET COUNT (AUTO) 258 K/uL (150-450); RED BLOOD CELL COUNT(AUTO) 4.07 MIL/uL (4.00-5.20); RED CELL DISTRIBUTION WIDTH 15.1 % (11.5-14.5)
[2017-12-20 12:25] LABS: AMPHET/METH SCREEN,URINE POSITIVE (NEGATIVE); BARBITURATE SCREEN, URINE POSITIVE (NEGATIVE); BENZODIAZEPINES SCREEN,URINE NEGATIVE (NEGATIVE); CANNABINOID SCREEN,URINE POSITIVE (NEGATIVE); COCAINE SCREEN,URINE POSITIVE (NEGATIVE); METHADONE SCREEN, URINE NEGATIVE (NEGATIVE); OPIATE SCREEN,URINE NEGATIVE (NEGATIVE); PHENCYCLIDINE SCREEN,URINE NEGATIVE (NEGATIVE)
[2017-12-20 12:31] LABS: ANION GAP 9 mmol/L (8-16); CALCIUM, TOTAL 8.7 mg/dL (8.8-10.5); CARBON DIOXIDE 25 mmol/L (22-29); CHLORIDE 103 mmol/L (98-107); CREATININE 1.03 mg/dL (0.60-1.30); GLOMERULAR FILTR. RATE CALC 55 mL/min (>60); GLUCOSE,RANDOM 139 mg/dL (70-110); POTASSIUM 4.1 mmol/L (3.5-5.1); SODIUM SERUM 137 mmol/L (136-145); UREA NITROGEN, BLOOD 20 mg/dL (7-18)
[2017-12-20 12:43] LABS: ALANINE AMINOTRANSFERASE 26 U/L (12-78); ALBUMIN 3.7 g/dL (3.4-5.0); ALKALINE PHOSPHATASE 102 U/L (46-116); ASPARTATE AMINOTRANSFERASE 21 U/L (15-37); BILIRUBIN,TOTAL 0.1 mg/dL (0.1-1.0); TOTAL PROTEIN, SERUM 7.1 g/dL (6.4-8.2); VALPROIC ACID 9 mcg/mL (50-100)
[2017-12-20] MEDS ORDERED: DiphenhydrAMINE HCL 50 MG/ML VIAL IM ONE (13:15)
[2017-12-20] MEDS ORDERED: LORazepam 2 MG/ML VIAL IM ONE (13:15)
[2017-12-20] MEDS ORDERED: HALOPERIDOL LACTATE 5 MG/ML VIAL IM ONE (13:15)
[2017-12-20] MEDS ORDERED: LORazepam 2 MG TABLET PO PRN (14:00)
[2017-12-20] MEDS ORDERED: ZOLPIDEM TARTRATE 10 MG TABLET PO PRN (14:00)
[2017-12-20] MEDS: DIVALPROEX SODIUM 500 MG DR TABLET PO SCH ×3 (15:41→20:24)
[2017-12-20 17:12] VITALS: BP 128/82
[2017-12-20] MEDS ORDERED: PNEUMOCOCCAL VACCINE POLYVALENT 0.5 ML VIAL [PPSV23] IM ONE (17:15)
[2017-12-20] MEDS ORDERED: QUEtiapine FUMARATE 200 MG TABLET PO SCH (21:00)
[2017-12-21] MEDS ORDERED: ONDANSETRON HCL 4 MG TABLET PO PRN (06:15)
[2017-12-21] MEDS ORDERED: INSULIN LISPRO 100 UNITS/ML SQ PRN (06:15)
[2017-12-21] MEDS ORDERED: MAGNESIUM HYDROXIDE SUSPENSION 30 ML UDCUP PO PRN (06:15)
[2017-12-21] MEDS ORDERED: BACITRACIN 28.4 GM OINTMENT TP PRN (06:15)
[2017-12-21] MEDS ORDERED: PETROLATUM,WHITE 71 GM JELLY TP PRN (06:15)
[2017-12-21] MEDS ORDERED: ALBUTEROL SULFATE HFA 90 MCG/PUFF 8 GM INHALER IH PRN (06:15)
[2017-12-21] MEDS ORDERED: ACETAMINOPHEN 325 MG TABLET PO PRN (06:15)
[2017-12-21] MEDS ORDERED: IBUPROFEN 600 MG TABLET PO PRN (06:15)
[2017-12-21] MEDS ORDERED: LOPERAMIDE HCL 2 MG CAPSULE PO PRN (06:15)
[2017-12-21] MEDS ORDERED: BENZOCAINE/MENTHOL LOZENGE MM PRN (06:15)
[2017-12-21] MEDS ORDERED: DEXTROSE 50%-WATER 25 GM/50 ML SYRINGE IVP PRN (06:15)
[2017-12-21] MEDS ORDERED: CloNIDine HCL 0.1 MG TABLET PO PRN (06:15)
[2017-12-21] MEDS: MetFORMIN HCL 500 MG TABLET PO SCH ×3 (06:40→21:18)
[2017-12-21] MEDS: HALOPERIDOL 5 MG TABLET PO PRN (06:40)
[2017-12-21 06:41] VITALS: BP 126/68
[2017-12-21 06:52] LABS: GLUCOMETER DEV NAME(LOC) 3EI B; GLUCOSE,POINT OF CARE 121 MG/DL (70-110)
[2017-12-21] MEDS: CITALOPRAM HYDROBROMIDE 20 MG TABLET PO SCH (08:50)
[2017-12-21] MEDS: OMEPRAZOLE 20 MG CAPSULE PO SCH (08:51)
[2017-12-21] MEDS: DIVALPROEX SODIUM 500 MG DR TABLET PO SCH ×2 (08:51→21:17)
[2017-12-21] MEDS: DOCUSATE SODIUM 100 MG CAPSULE PO SCH (08:51)
[2017-12-21 11:08] LABS: GLUCOMETER DEV NAME(LOC) 3EX 1; GLUCOSE,POINT OF CARE 111 MG/DL (70-110)
[2017-12-21 16:02] LABS: GLUCOMETER DEV NAME(LOC) 3EX 1; GLUCOSE,POINT OF CARE 110 MG/DL (70-110)
[2017-12-21] MEDS: MAG HYDROX/AL HYDROX/SIMETH ES 30 ML SUSPENSION UDCUP PO PRN (16:08)
[2017-12-21] MEDS: HydrOXYzine PAMOATE 25 MG CAPSULE PO PRN (17:15)
[2017-12-21 19:06] VITALS: BP 132/82
[2017-12-21] MEDS: QUEtiapine FUMARATE 200 MG TABLET PO SCH (21:17)
[2017-12-21 21:22] LABS: GLUCOMETER DEV NAME(LOC) 3EX 1; GLUCOSE,POINT OF CARE 124 MG/DL (70-110)
[2017-12-22 05:33] LABS: GLUCOMETER DEV NAME(LOC) 3EI B; GLUCOSE,POINT OF CARE 107 MG/DL (70-110)
[2017-12-22] MEDS: MetFORMIN HCL 500 MG TABLET PO SCH ×2 (06:39→16:46)
[2017-12-22] MEDS: HydrOXYzine PAMOATE 25 MG CAPSULE PO PRN ×3 (06:39→16:18)
[2017-12-22] MEDS: CITALOPRAM HYDROBROMIDE 20 MG TABLET PO SCH (08:40)
[2017-12-22] MEDS: DIVALPROEX SODIUM 500 MG DR TABLET PO SCH ×2 (08:40→20:43)
[2017-12-22] MEDS: OMEPRAZOLE 20 MG CAPSULE PO SCH (08:40)
[2017-12-22] MEDS: DOCUSATE SODIUM 100 MG CAPSULE PO SCH (08:40)
[2017-12-22] MEDS: HALOPERIDOL 5 MG TABLET PO PRN ×2 (09:32→14:45)
[2017-12-22 10:02] VITALS: BP 121/55
[2017-12-22 11:22] LABS: GLUCOMETER DEV NAME(LOC) 3EX 1; GLUCOSE,POINT OF CARE 105 MG/DL (70-110)
[2017-12-22] MEDS ORDERED: DiphenhydrAMINE HCL 50 MG/ML VIAL IM ONE (12:30)
[2017-12-22 16:19] VITALS: BP 140/72
[2017-12-22 16:22] LABS: GLUCOMETER DEV NAME(LOC) 3EX 1; GLUCOSE,POINT OF CARE 173 MG/DL (70-110)
[2017-12-22] MEDS: QUEtiapine FUMARATE 200 MG TABLET PO SCH (20:43)
[2017-12-22 20:47] LABS: GLUCOMETER DEV NAME(LOC) 3EX 1; GLUCOSE,POINT OF CARE 103 MG/DL (70-110)
[2017-12-23 05:42] LABS: GLUCOMETER DEV NAME(LOC) 3EI B; GLUCOSE,POINT OF CARE 111 MG/DL (70-110)
[2017-12-23] MEDS: MetFORMIN HCL 500 MG TABLET PO SCH ×2 (06:46→16:49)
[2017-12-23 08:10] VITALS: BP 157/67
[2017-12-23] MEDS: CITALOPRAM HYDROBROMIDE 20 MG TABLET PO SCH (08:13)
[2017-12-23] MEDS: OMEPRAZOLE 20 MG CAPSULE PO SCH (08:13)
[2017-12-23] MEDS: DOCUSATE SODIUM 100 MG CAPSULE PO SCH (08:13)
[2017-12-23] MEDS: DIVALPROEX SODIUM 500 MG DR TABLET PO SCH ×2 (08:14→20:46)
[2017-12-23] MEDS: HALOPERIDOL 5 MG TABLET PO PRN (08:15)
[2017-12-23] MEDS: MAG HYDROX/AL HYDROX/SIMETH ES 30 ML SUSPENSION UDCUP PO PRN (08:16)
[2017-12-23] MEDS: HydrOXYzine PAMOATE 25 MG CAPSULE PO PRN (08:23)
[2017-12-23 12:53] VITALS: BP 136/84
[2017-12-23] MEDS: TraMADol HCL 50 MG TABLET PO PRN (12:53)
[2017-12-23] MEDS: CARISOPRODOL 350 MG TABLET PO SCH (16:05)
[2017-12-23 16:12] LABS: GLUCOMETER DEV NAME(LOC) 3EX 1; GLUCOSE,POINT OF CARE 126 MG/DL (70-110)
[2017-12-23 18:54] VITALS: BP 136/92
[2017-12-23] MEDS: QUEtiapine FUMARATE 200 MG TABLET PO SCH (20:46)
[2017-12-23 20:57] LABS: GLUCOMETER DEV NAME(LOC) 3EX 1; GLUCOSE,POINT OF CARE 118 MG/DL (70-110)
[2017-12-24 05:52] LABS: GLUCOMETER DEV NAME(LOC) 3EI B; GLUCOSE,POINT OF CARE 109 MG/DL (70-110)
[2017-12-24] MEDS: MetFORMIN HCL 500 MG TABLET PO SCH ×2 (07:08→17:29)
[2017-12-24] MEDS: CITALOPRAM HYDROBROMIDE 20 MG TABLET PO SCH (08:37)
[2017-12-24] MEDS: DIVALPROEX SODIUM 500 MG DR TABLET PO SCH ×2 (08:39→20:33)
[2017-12-24] MEDS: HydrOXYzine PAMOATE 25 MG CAPSULE PO PRN ×2 (08:39→13:04)
[2017-12-24] MEDS: OMEPRAZOLE 20 MG CAPSULE PO SCH (08:39)
[2017-12-24] MEDS: DOCUSATE SODIUM 100 MG CAPSULE PO SCH (08:39)
[2017-12-24] MEDS: CARISOPRODOL 350 MG TABLET PO SCH ×2 (08:42→16:00)
[2017-12-24 09:36] VITALS: BP 110/68
[2017-12-24 11:43] LABS: GLUCOMETER DEV NAME(LOC) 3EX 1; GLUCOSE,POINT OF CARE 112 MG/DL (70-110)
[2017-12-24 13:03] VITALS: BP 116/74
[2017-12-24] MEDS: TraMADol HCL 50 MG TABLET PO PRN ×2 (13:03→22:10)
[2017-12-24 16:01] VITALS: BP 129/87
[2017-12-24 16:02] LABS: GLUCOMETER DEV NAME(LOC) 3EX 1; GLUCOSE,POINT OF CARE 194 MG/DL (70-110)
[2017-12-24] MEDS: MAG HYDROX/AL HYDROX/SIMETH ES 30 ML SUSPENSION UDCUP PO PRN (19:05)
[2017-12-24] MEDS: QUEtiapine FUMARATE 200 MG TABLET PO SCH (20:33)
[2017-12-24 20:43] LABS: GLUCOMETER DEV NAME(LOC) 3EX 1; GLUCOSE,POINT OF CARE 111 MG/DL (70-110)
[2017-12-24 22:10] VITALS: BP 116/74
[2017-12-25 00:30] VITALS: BP 118/67
[2017-12-25 06:08] LABS: GLUCOMETER DEV NAME(LOC) 3EX 1; GLUCOSE,POINT OF CARE 102 MG/DL (70-110)
[2017-12-25] MEDS: MetFORMIN HCL 500 MG TABLET PO SCH ×2 (06:35→16:18)
[2017-12-25] MEDS: HALOPERIDOL 5 MG TABLET PO PRN (08:34)
[2017-12-25] MEDS: CARISOPRODOL 350 MG TABLET PO SCH ×2 (08:35→16:19)
[2017-12-25] MEDS: CITALOPRAM HYDROBROMIDE 20 MG TABLET PO SCH (08:35)
[2017-12-25] MEDS: DOCUSATE SODIUM 100 MG CAPSULE PO SCH (08:35)
[2017-12-25] MEDS: DIVALPROEX SODIUM 500 MG DR TABLET PO SCH ×2 (08:35→21:24)
[2017-12-25] MEDS: OMEPRAZOLE 20 MG CAPSULE PO SCH (08:35)
[2017-12-25 09:31] VITALS: BP 128/75
[2017-12-25] MEDS: TraMADol HCL 50 MG TABLET PO PRN ×2 (09:31→18:03)
[2017-12-25 11:12] LABS: GLUCOMETER DEV NAME(LOC) 3EX 1; GLUCOSE,POINT OF CARE 86 MG/DL (70-110)
[2017-12-25 16:27] LABS: GLUCOMETER DEV NAME(LOC) 3EX 1; GLUCOSE,POINT OF CARE 115 MG/DL (70-110)
[2017-12-25 16:37] VITALS: BP 114/68
[2017-12-25 18:03] VITALS: BP 112/69
[2017-12-25 19:03] VITALS: BP 124/75
[2017-12-25] MEDS: QUEtiapine FUMARATE 200 MG TABLET PO SCH (21:24)
[2017-12-25 21:32] LABS: GLUCOMETER DEV NAME(LOC) 3EX 1; GLUCOSE,POINT OF CARE 104 MG/DL (70-110)
[2017-12-26 05:28] LABS: GLUCOMETER DEV NAME(LOC) 3EI B; GLUCOSE,POINT OF CARE 112 MG/DL (70-110)
[2017-12-26] MEDS: MetFORMIN HCL 500 MG TABLET PO SCH (07:19)
[2017-12-26] MEDS: OMEPRAZOLE 20 MG CAPSULE PO SCH (08:22)
[2017-12-26] MEDS: CITALOPRAM HYDROBROMIDE 20 MG TABLET PO SCH (08:22)
[2017-12-26] MEDS: CARISOPRODOL 350 MG TABLET PO SCH (08:22)
[2017-12-26] MEDS: DIVALPROEX SODIUM 500 MG DR TABLET PO SCH (08:23)
[2017-12-26] MEDS: DOCUSATE SODIUM 100 MG CAPSULE PO SCH (08:23)
[2017-12-26 09:16] VITALS: BP 118/71
[2017-12-26] MEDS ORDERED: CITA20TA17 PO (10:57)
[2017-12-26] MEDS ORDERED: QUET200T29 PO (10:57)
[2017-12-26] MEDS ORDERED: DIVA500T35 PO ×3 (10:57→11:26)
[2017-12-26 11:20] VITALS: BP 119/65
[2017-12-26] MEDS ORDERED: OMEP20 PO (11:25)
[2017-12-26] MEDS: TraMADol HCL 50 MG TABLET PO PRN (11:28)
[2017-12-26 11:53] LABS: GLUCOMETER DEV NAME(LOC) 3EX 1; GLUCOSE,POINT OF CARE 133 MG/DL (70-110)
[2017-12-26] MEDS ORDERED: CARI350 PO (11:55)
[2017-12-26 12:30] VITALS: BP 120/62
== END 2017-12-26 14:56 | disposition home or self-care (01) | DRG 885 ==
LOC: EMS 11:26 → 3EX 15:59
DX: F25.0 Schizoaffective disorder, bipolar type (principal); E11.65 Type 2 diabetes mellitus with hyperglycemia; F14.20 Cocaine dependence, uncomplicated; F15.20 Other stimulant dependence, uncomplicated; Z59.0 Homelessness; R45.851 Suicidal ideations; E03.9 Hypothyroidism, unspecified; I10 Essential (primary) hypertension; F41.9 Anxiety disorder, unspecified; J44.9 Chronic obstructive pulmonary disease, unspecified; M79.7 Fibromyalgia; K21.9 Gastro-esophageal reflux disease without esophagitis; M54.5 Low back pain; R07.9 Chest pain, unspecified; F12.20 Cannabis dependence, uncomplicated; F17.200 Nicotine dependence, unspecified, uncomplicated; Z79.899 Other long term (current) drug therapy; Z79.84 Long term (current) use of oral hypoglycemic drugs; Z88.2 Allergy status to sulfonamides; Z71.6 Tobacco abuse counseling; Z71.41 Alcohol abuse counseling and surveillance of alcoholic; Z71.51 Drug abuse counseling and surveillance of drug abuser
CPT/HCPCS: 87081; 93005; 96372; 99285; G0480; J1200; J1630; J2060; J3230; Q0162

== ENCOUNTER 2018-01-14 20:07 | Inpatient (IN) | payer MEDICARE ==
[~2018-01-14] VITALS: Ht 165.1 cm; Wt 77.6 kg
[~2018-01-14 20:07] MED LIST changes: +CARI350 PO; +CITA20TA17 PO; +OMEP20 PO; +QUET200T29 PO
[2018-01-14 21:15] LABS: EOSINOPHILS % (AUTO) 2.2 % (1.0-6.0); HEMATOCRIT 36.5 % (36-46); HEMOGLOBIN 12.4 g/dL (12.0-16.0); LYMPHOCYTES # (AUTO) 3.9 K/uL (1.0-4.8); LYMPHOCYTES % (AUTO) 46.5 % (22.0-44.0); MEAN CORPUSCULAR HEMOGLOBIN 29.4 pg (26.0-34.0); MEAN CORPUSCULAR HGB CONC 33.8 G/dL (31.0-37.0); MEAN CORPUSCULAR VOLUME 87 fL (80-100); MONOCYTES # (AUTO) 0.6 K/uL (0.1-1.0); MONOCYTES % (AUTO) 6.6 % (2.0-9.0); NEUTROPHILS # (AUTO) 3.6 K/uL (1.8-7.7); NEUTROPHILS % (AUTO) 43.7 % (40.0-70.0); PLATELET COUNT (AUTO) 305 K/uL (150-450); RED BLOOD CELL COUNT(AUTO) 4.21 MIL/uL (4.00-5.20); RED CELL DISTRIBUTION WIDTH 14.4 % (11.5-14.5)
[2018-01-14 21:25] LABS: AMPHET/METH SCREEN,URINE POSITIVE (NEGATIVE); BARBITURATE SCREEN, URINE NEGATIVE (NEGATIVE); BENZODIAZEPINES SCREEN,URINE NEGATIVE (NEGATIVE); CANNABINOID SCREEN,URINE NEGATIVE (NEGATIVE); COCAINE SCREEN,URINE NEGATIVE (NEGATIVE); METHADONE SCREEN, URINE NEGATIVE (NEGATIVE); OPIATE SCREEN,URINE NEGATIVE (NEGATIVE)
[2018-01-14 21:26] LABS: ANION GAP 9 mmol/L (8-16); CALCIUM, TOTAL 8.6 mg/dL (8.8-10.5); CARBON DIOXIDE 27 mmol/L (22-29); CHLORIDE 101 mmol/L (98-107); CREATININE 0.99 mg/dL (0.60-1.30); GLOMERULAR FILTR. RATE CALC 57 mL/min (>60); GLUCOSE,RANDOM 101 mg/dL (70-110); POTASSIUM 4.2 mmol/L (3.5-5.1); SODIUM SERUM 137 mmol/L (136-145); UREA NITROGEN, BLOOD 15 mg/dL (7-18)
[2018-01-14 21:27] LABS: PHENCYCLIDINE SCREEN,URINE NEGATIVE (NEGATIVE)
[2018-01-14] MEDS ORDERED: HALOPERIDOL 5 MG TABLET PO PRN (21:30)
[2018-01-14] MEDS ORDERED: ZOLPIDEM TARTRATE 10 MG TABLET PO PRN (21:30)
[2018-01-14 21:33] LABS: ALANINE AMINOTRANSFERASE 20 U/L (12-78); ALBUMIN 3.9 g/dL (3.4-5.0); ALKALINE PHOSPHATASE 104 U/L (46-116); ASPARTATE AMINOTRANSFERASE 13 U/L (15-37); BILIRUBIN,TOTAL 0.2 mg/dL (0.1-1.0); TOTAL PROTEIN, SERUM 7.9 g/dL (6.4-8.2)
[2018-01-14] MEDS ORDERED: DiphenhydrAMINE HCL 50 MG/ML VIAL IM ONE (22:00)
[2018-01-14] MEDS ORDERED: LORazepam 2 MG/ML VIAL IM ONE (22:00)
[2018-01-14] MEDS ORDERED: HALOPERIDOL LACTATE 5 MG/ML VIAL IM ONE (22:00)
[2018-01-14] MEDS ORDERED: KETOROLAC TROMETHAMINE 30 MG/ML VIAL IM ONE (22:15)
[2018-01-15 00:11] VITALS: BP 96/61
[2018-01-15] MEDS ORDERED: PNEUMOCOCCAL VACCINE POLYVALENT 0.5 ML VIAL [PPSV23] IM ONE (03:30)
[2018-01-15 06:22] LABS: GLUCOMETER DEV NAME(LOC) BV2N3; GLUCOSE,POINT OF CARE 111 MG/DL (70-110)
[2018-01-15] MEDS ORDERED: MAGNESIUM HYDROXIDE SUSPENSION 30 ML UDCUP PO PRN (08:45)
[2018-01-15] MEDS ORDERED: BENZOCAINE/MENTHOL LOZENGE MM PRN (08:45)
[2018-01-15] MEDS ORDERED: ONDANSETRON HCL 4 MG TABLET PO PRN (08:45)
[2018-01-15] MEDS ORDERED: BACITRACIN 28.4 GM OINTMENT TP PRN (08:45)
[2018-01-15] MEDS ORDERED: IBUPROFEN 600 MG TABLET PO PRN (08:45)
[2018-01-15] MEDS ORDERED: PETROLATUM,WHITE 71 GM JELLY TP PRN (08:45)
[2018-01-15] MEDS ORDERED: ALBUTEROL SULFATE HFA 90 MCG/PUFF 8 GM INHALER IH PRN (08:45)
[2018-01-15] MEDS ORDERED: CloNIDine HCL 0.1 MG TABLET PO PRN (08:45)
[2018-01-15] MEDS ORDERED: LOPERAMIDE HCL 2 MG CAPSULE PO PRN (08:45)
[2018-01-15] MEDS ORDERED: TraMADol HCL 50 MG TABLET PO PRN (09:00)
[2018-01-15] MEDS: DOCUSATE SODIUM 100 MG CAPSULE PO SCH (09:11)
[2018-01-15] MEDS: OMEPRAZOLE 20 MG CAPSULE PO SCH (09:11)
[2018-01-15 09:19] VITALS: BP 107/58
[2018-01-15] MEDS ORDERED: INSULIN LISPRO 100 UNITS/ML SQ PRN (14:15)
[2018-01-15] MEDS ORDERED: GLUCAGON,HUMAN RECOMBINANT 1 MG VIAL IM PRN (14:15)
[2018-01-15 16:33] LABS: GLUCOMETER DEV NAME(LOC) BV2N3; GLUCOSE,POINT OF CARE 121 MG/DL (70-110)
[2018-01-15] MEDS: MetFORMIN HCL 500 MG TABLET PO SCH (16:43)
[2018-01-15 17:14] VITALS: BP 116/62
[2018-01-15 20:28] LABS: GLUCOMETER DEV NAME(LOC) BV2N3; GLUCOSE,POINT OF CARE 144 MG/DL (70-110)
[2018-01-15] MEDS: DIVALPROEX SODIUM 500 MG DR TABLET PO SCH (20:40)
[2018-01-15] MEDS: QUEtiapine FUMARATE 200 MG TABLET PO SCH (20:41)
[2018-01-16 06:24] LABS: GLUCOMETER DEV NAME(LOC) BV2N3; GLUCOSE,POINT OF CARE 118 MG/DL (70-110)
[2018-01-16] MEDS: MetFORMIN HCL 500 MG TABLET PO SCH ×2 (06:40→16:40)
[2018-01-16] MEDS: OMEPRAZOLE 20 MG CAPSULE PO SCH (09:37)
[2018-01-16] MEDS: DOCUSATE SODIUM 100 MG CAPSULE PO SCH (09:37)
[2018-01-16] MEDS: CITALOPRAM HYDROBROMIDE 20 MG TABLET PO SCH (09:37)
[2018-01-16] MEDS: DIVALPROEX SODIUM 500 MG DR TABLET PO SCH ×2 (09:37→20:31)
[2018-01-16 09:42] VITALS: BP 102/69
[2018-01-16 10:06] VITALS: BP 120/75
[2018-01-16] MEDS: ACETAMINOPHEN 325 MG TABLET PO PRN (10:06)
[2018-01-16] MEDS: LORazepam 2 MG TABLET PO PRN (10:06)
[2018-01-16 11:07] LABS: GLUCOMETER DEV NAME(LOC) BV2N3; GLUCOSE,POINT OF CARE 125 MG/DL (70-110)
[2018-01-16 16:28] LABS: GLUCOMETER DEV NAME(LOC) BV2N3; GLUCOSE,POINT OF CARE 100 MG/DL (70-110)
[2018-01-16 16:31] VITALS: BP 102/60
[2018-01-16] MEDS: MAG HYDROX/AL HYDROX/SIMETH ES 30 ML SUSPENSION UDCUP PO PRN (16:44)
[2018-01-16 20:17] LABS: GLUCOMETER DEV NAME(LOC) BV2N3; GLUCOSE,POINT OF CARE 98 MG/DL (70-110)
[2018-01-16] MEDS: QUEtiapine FUMARATE 200 MG TABLET PO SCH (20:32)
[2018-01-17 06:18] LABS: GLUCOMETER DEV NAME(LOC) BV2N3; GLUCOSE,POINT OF CARE 103 MG/DL (70-110)
[2018-01-17] MEDS: MetFORMIN HCL 500 MG TABLET PO SCH ×2 (06:30→16:11)
[2018-01-17] MEDS: LORazepam 2 MG TABLET PO PRN ×2 (06:30→12:37)
[2018-01-17 08:35] VITALS: BP 106/75
[2018-01-17] MEDS: OMEPRAZOLE 20 MG CAPSULE PO SCH (09:34)
[2018-01-17] MEDS: CITALOPRAM HYDROBROMIDE 20 MG TABLET PO SCH (09:34)
[2018-01-17] MEDS: DIVALPROEX SODIUM 500 MG DR TABLET PO SCH ×2 (09:34→20:24)
[2018-01-17] MEDS: DOCUSATE SODIUM 100 MG CAPSULE PO SCH (09:34)
[2018-01-17 11:27] LABS: GLUCOMETER DEV NAME(LOC) BV2N3; GLUCOSE,POINT OF CARE 123 MG/DL (70-110)
[2018-01-17 12:37] VITALS: BP 116/73
[2018-01-17] MEDS: MAG HYDROX/AL HYDROX/SIMETH ES 30 ML SUSPENSION UDCUP PO PRN (13:05)
[2018-01-17] MEDS: NICOTINE POLACRILEX 4 MG LOZENGE PO PRN (13:05)
[2018-01-17] MEDS: CARISOPRODOL 350 MG TABLET PO SCH (16:11)
[2018-01-17 16:17] VITALS: BP 105/70
[2018-01-17 16:18] LABS: GLUCOMETER DEV NAME(LOC) BV2N3; GLUCOSE,POINT OF CARE 102 MG/DL (70-110)
[2018-01-17] MEDS: QUEtiapine FUMARATE 200 MG TABLET PO SCH (20:24)
[2018-01-17 20:33] LABS: GLUCOMETER DEV NAME(LOC) BV2N3; GLUCOSE,POINT OF CARE 107 MG/DL (70-110)
[2018-01-18 01:45] VITALS: BP 110/60
[2018-01-18] MEDS: LORazepam 2 MG TABLET PO PRN (06:27)
[2018-01-18] MEDS: MetFORMIN HCL 500 MG TABLET PO SCH ×2 (06:27→16:56)
[2018-01-18 06:38] LABS: GLUCOMETER DEV NAME(LOC) BV2N3; GLUCOSE,POINT OF CARE 112 MG/DL (70-110)
[2018-01-18 08:22] VITALS: BP 103/61
[2018-01-18] MEDS: DOCUSATE SODIUM 100 MG CAPSULE PO SCH (08:28)
[2018-01-18] MEDS: CITALOPRAM HYDROBROMIDE 20 MG TABLET PO SCH (08:28)
[2018-01-18] MEDS: CARISOPRODOL 350 MG TABLET PO SCH ×2 (08:28→16:29)
[2018-01-18] MEDS: DIVALPROEX SODIUM 500 MG DR TABLET PO SCH ×2 (08:28→20:35)
[2018-01-18] MEDS: OMEPRAZOLE 20 MG CAPSULE PO SCH (08:28)
[2018-01-18 11:02] LABS: GLUCOMETER DEV NAME(LOC) BV2N3; GLUCOSE,POINT OF CARE 151 MG/DL (70-110)
[2018-01-18 16:10] VITALS: BP 108/67
[2018-01-18 17:08] LABS: GLUCOMETER DEV NAME(LOC) BV2N3; GLUCOSE,POINT OF CARE 98 MG/DL (70-110)
[2018-01-18] MEDS: QUEtiapine FUMARATE 200 MG TABLET PO SCH (20:35)
[2018-01-18 21:03] LABS: GLUCOMETER DEV NAME(LOC) BV2N3; GLUCOSE,POINT OF CARE 100 MG/DL (70-110)
[2018-01-19 02:45] VITALS: BP 100/70
[2018-01-19 05:58] LABS: GLUCOMETER DEV NAME(LOC) BV2N3; GLUCOSE,POINT OF CARE 111 MG/DL (70-110)
[2018-01-19] MEDS: MetFORMIN HCL 500 MG TABLET PO SCH ×2 (06:51→16:40)
[2018-01-19] MEDS: LORazepam 2 MG TABLET PO PRN ×3 (07:10→18:43)
[2018-01-19 08:34] VITALS: BP 108/77
[2018-01-19] MEDS: DIVALPROEX SODIUM 500 MG DR TABLET PO SCH ×2 (08:57→20:39)
[2018-01-19] MEDS: OMEPRAZOLE 20 MG CAPSULE PO SCH (08:57)
[2018-01-19] MEDS: DOCUSATE SODIUM 100 MG CAPSULE PO SCH (08:57)
[2018-01-19] MEDS: CARISOPRODOL 350 MG TABLET PO SCH ×2 (08:57→16:16)
[2018-01-19] MEDS: CITALOPRAM HYDROBROMIDE 20 MG TABLET PO SCH (08:58)
[2018-01-19 09:57] VITALS: BP 110/68
[2018-01-19] MEDS: ACETAMINOPHEN 325 MG TABLET PO PRN (09:57)
[2018-01-19] MEDS: NICOTINE POLACRILEX 4 MG LOZENGE PO PRN ×3 (09:58→18:45)
[2018-01-19 11:18] LABS: GLUCOMETER DEV NAME(LOC) BV2N3; GLUCOSE,POINT OF CARE 101 MG/DL (70-110)
[2018-01-19 16:10] VITALS: BP 110/67
[2018-01-19 17:48] LABS: GLUCOMETER DEV NAME(LOC) BV2N3; GLUCOSE,POINT OF CARE 141 MG/DL (70-110)
[2018-01-19 18:40] VITALS: BP 114/82
[2018-01-19] MEDS: QUEtiapine FUMARATE 200 MG TABLET PO SCH (20:39)
[2018-01-19 20:53] LABS: GLUCOMETER DEV NAME(LOC) BV2N3; GLUCOSE,POINT OF CARE 96 MG/DL (70-110)
[2018-01-20 00:22] VITALS: BP 121/70
[2018-01-20] MEDS: MetFORMIN HCL 500 MG TABLET PO SCH ×2 (06:36→16:12)
[2018-01-20 06:43] LABS: GLUCOMETER DEV NAME(LOC) BV2N3; GLUCOSE,POINT OF CARE 99 MG/DL (70-110)
[2018-01-20 08:15] VITALS: BP 101/67
[2018-01-20] MEDS: CITALOPRAM HYDROBROMIDE 20 MG TABLET PO SCH (09:32)
[2018-01-20] MEDS: CARISOPRODOL 350 MG TABLET PO SCH ×2 (09:32→16:13)
[2018-01-20] MEDS: OMEPRAZOLE 20 MG CAPSULE PO SCH (09:32)
[2018-01-20] MEDS: DIVALPROEX SODIUM 500 MG DR TABLET PO SCH ×2 (09:32→20:29)
[2018-01-20] MEDS: DOCUSATE SODIUM 100 MG CAPSULE PO SCH (09:33)
[2018-01-20 11:13] LABS: GLUCOMETER DEV NAME(LOC) BV2N3; GLUCOSE,POINT OF CARE 98 MG/DL (70-110)
[2018-01-20] MEDS: NICOTINE POLACRILEX 4 MG LOZENGE PO PRN ×2 (12:33→16:13)
[2018-01-20 13:32] VITALS: BP 111/72
[2018-01-20] MEDS: LORazepam 2 MG TABLET PO PRN (13:32)
[2018-01-20] MEDS ORDERED: KETOROLAC TROMETHAMINE 30 MG/ML VIAL IM ONE (16:00)
[2018-01-20 16:23] VITALS: BP 113/81
[2018-01-20 16:33] LABS: GLUCOMETER DEV NAME(LOC) BV2N3; GLUCOSE,POINT OF CARE 149 MG/DL (70-110)
[2018-01-20] MEDS: QUEtiapine FUMARATE 200 MG TABLET PO SCH (20:29)
[2018-01-20 21:12] LABS: GLUCOMETER DEV NAME(LOC) BV2N3; GLUCOSE,POINT OF CARE 110 MG/DL (70-110)
[2018-01-21 06:10] LABS: GLUCOMETER DEV NAME(LOC) BV2N3; GLUCOSE,POINT OF CARE 91 MG/DL (70-110)
[2018-01-21] MEDS: MetFORMIN HCL 500 MG TABLET PO SCH ×2 (06:57→16:07)
[2018-01-21 08:34] VITALS: BP 121/75
[2018-01-21] MEDS: DIVALPROEX SODIUM 500 MG DR TABLET PO SCH ×2 (08:35→20:20)
[2018-01-21] MEDS: OMEPRAZOLE 20 MG CAPSULE PO SCH (08:35)
[2018-01-21] MEDS: DOCUSATE SODIUM 100 MG CAPSULE PO SCH (08:35)
[2018-01-21] MEDS: CARISOPRODOL 350 MG TABLET PO SCH ×2 (08:35→16:08)
[2018-01-21] MEDS: CITALOPRAM HYDROBROMIDE 20 MG TABLET PO SCH (08:35)
[2018-01-21] MEDS: KETOROLAC TROMETHAMINE 30 MG/ML VIAL IM SCH (10:00)
[2018-01-21 11:07] LABS: GLUCOMETER DEV NAME(LOC) BV2N3; GLUCOSE,POINT OF CARE 94 MG/DL (70-110)
[2018-01-21] MEDS: LORazepam 2 MG TABLET PO PRN (13:04)
[2018-01-21 16:07] VITALS: BP 119/73
[2018-01-21] MEDS: NICOTINE POLACRILEX 4 MG LOZENGE PO PRN ×2 (16:08→18:21)
[2018-01-21 16:18] LABS: GLUCOMETER DEV NAME(LOC) BV2N3; GLUCOSE,POINT OF CARE 127 MG/DL (70-110)
[2018-01-21] MEDS: QUEtiapine FUMARATE 200 MG TABLET PO SCH (20:20)
[2018-01-21 21:25] LABS: GLUCOMETER DEV NAME(LOC) BV2N3; GLUCOSE,POINT OF CARE 105 MG/DL (70-110)
[2018-01-22 06:17] LABS: GLUCOMETER DEV NAME(LOC) BV2N3; GLUCOSE,POINT OF CARE 101 MG/DL (70-110)
[2018-01-22] MEDS: MetFORMIN HCL 500 MG TABLET PO SCH ×2 (07:03→16:43)
[2018-01-22 07:20] VITALS: BP 118/71
[2018-01-22 08:00] VITALS: BP 116/64
[2018-01-22] MEDS: CITALOPRAM HYDROBROMIDE 20 MG TABLET PO SCH (08:32)
[2018-01-22] MEDS: OMEPRAZOLE 20 MG CAPSULE PO SCH (08:32)
[2018-01-22] MEDS: DOCUSATE SODIUM 100 MG CAPSULE PO SCH (08:32)
[2018-01-22] MEDS: CARISOPRODOL 350 MG TABLET PO SCH ×2 (08:32→16:43)
[2018-01-22] MEDS: DIVALPROEX SODIUM 500 MG DR TABLET PO SCH ×2 (08:33→20:47)
[2018-01-22] MEDS: KETOROLAC TROMETHAMINE 30 MG/ML VIAL IM SCH (09:24)
[2018-01-22 11:33] LABS: GLUCOMETER DEV NAME(LOC) BV2N3; GLUCOSE,POINT OF CARE 112 MG/DL (70-110)
[2018-01-22] MEDS: LORazepam 2 MG TABLET PO PRN ×2 (13:35→19:09)
[2018-01-22] MEDS: NICOTINE POLACRILEX 4 MG LOZENGE PO PRN ×2 (14:36→19:09)
[2018-01-22 16:08] VITALS: BP 125/75
[2018-01-22 16:33] LABS: GLUCOMETER DEV NAME(LOC) BV2N3; GLUCOSE,POINT OF CARE 100 MG/DL (70-110)
[2018-01-22 20:37] LABS: GLUCOMETER DEV NAME(LOC) BV2N3; GLUCOSE,POINT OF CARE 127 MG/DL (70-110)
[2018-01-22] MEDS: QUEtiapine FUMARATE 200 MG TABLET PO SCH (20:48)
[2018-01-23 05:53] VITALS: BP 126/72
[2018-01-23 06:23] LABS: GLUCOMETER DEV NAME(LOC) BV2N3; GLUCOSE,POINT OF CARE 110 MG/DL (70-110)
[2018-01-23] MEDS: MetFORMIN HCL 500 MG TABLET PO SCH (06:40)
[2018-01-23] MEDS: DOCUSATE SODIUM 100 MG CAPSULE PO SCH (08:35)
[2018-01-23] MEDS: CARISOPRODOL 350 MG TABLET PO SCH (08:35)
[2018-01-23] MEDS: OMEPRAZOLE 20 MG CAPSULE PO SCH (08:35)
[2018-01-23] MEDS: CITALOPRAM HYDROBROMIDE 20 MG TABLET PO SCH (08:35)
[2018-01-23] MEDS: DIVALPROEX SODIUM 500 MG DR TABLET PO SCH (08:35)
[2018-01-23] MEDS: KETOROLAC TROMETHAMINE 30 MG/ML VIAL IM SCH (09:44)
[2018-01-23] MEDS ORDERED: DIVA250T4 PO ×2 (10:36→10:37)
[2018-01-23] MEDS ORDERED: DOCU100C33 PO (10:39)
[2018-01-23] MEDS ORDERED: CITA20TA17 PO (10:45)
[2018-01-23] MEDS ORDERED: DIVA500T35 PO ×2 (10:45)
[2018-01-23] MEDS ORDERED: QUET200T29 PO (10:45)
[2018-01-23 10:52] VITALS: BP 117/68
[2018-01-23] MEDS: LORazepam 2 MG TABLET PO PRN (10:52)
[2018-01-23] MEDS ORDERED: QUET400T PO (10:55)
[2018-01-23 11:18] LABS: GLUCOMETER DEV NAME(LOC) BV2N3; GLUCOSE,POINT OF CARE 98 MG/DL (70-110)
== END 2018-01-23 13:35 | disposition home or self-care (01) | DRG 885 ==
LOC: EMS 20:09 → B2X 21:35
DX: F25.0 Schizoaffective disorder, bipolar type (principal); R45.851 Suicidal ideations; F15.20 Other stimulant dependence, uncomplicated; K21.9 Gastro-esophageal reflux disease without esophagitis; J44.9 Chronic obstructive pulmonary disease, unspecified; I10 Essential (primary) hypertension; G89.29 Other chronic pain; M79.7 Fibromyalgia; F17.200 Nicotine dependence, unspecified, uncomplicated; M54.9 Dorsalgia, unspecified; E11.9 Type 2 diabetes mellitus without complications; R45.87 Impulsiveness; F41.9 Anxiety disorder, unspecified; E11.65 Type 2 diabetes mellitus with hyperglycemia; F14.90 Cocaine use, unspecified, uncomplicated; Z59.0 Homelessness; Z88.2 Allergy status to sulfonamides; Z79.899 Other long term (current) drug therapy; Z91.5 Personal history of self-harm; Z28.21 Immunization not carried out because of patient refusal; Z71.89 Other specified counseling; Z71.6 Tobacco abuse counseling
CPT/HCPCS: 87081; 96372; 99285; G0480; J1200; J1630; J1885; J2060

== ENCOUNTER 2018-01-30 14:40 | Emergency (ER) | payer MEDICARE ==
[~2018-01-30] VITALS: Ht 165.1 cm; Wt 79.1 kg
[~2018-01-30 14:40] MED LIST changes: -CITA-106 PO; -DSS100 PO; -OMEP20 PO; -QUET200T PO
[2018-01-30 14:43] VITALS: BP 118/68
[2018-01-30] MEDS ORDERED: ONDA4 PO (14:45)
[2018-01-30 14:53] LABS: GLUCOSE,POINT OF CARE 141 MG/DL (70-110)
[2018-01-30] MEDS ORDERED: PB/HYOSCY/ATR/SCOP/LIDO/MAALOX 55 ML BOTTLE PO ONE (15:00)
== END 2018-01-30 15:11 | disposition home or self-care (01) ==
LOC: EMS 14:42
DX: K21.9 Gastro-esophageal reflux disease without esophagitis (principal); F25.9 Schizoaffective disorder, unspecified; F31.9 Bipolar disorder, unspecified; F41.9 Anxiety disorder, unspecified; E11.9 Type 2 diabetes mellitus without complications; F14.90 Cocaine use, unspecified, uncomplicated; Z76.0 Encounter for issue of repeat prescription; Z59.0 Homelessness; Z88.2 Allergy status to sulfonamides
CPT/HCPCS: 99283

== ENCOUNTER 2018-02-21 16:21 | Emergency (ER) | payer MEDICARE, MEDICAID ==
[~2018-02-21] VITALS: Ht 165.1 cm; Wt 70.5 kg
[~2018-02-21 16:21] MED LIST changes: +DIVA-78 PO; -DIVA500T35 PO; +ONDA4 PO
[2018-02-21] MEDS ORDERED: ONDANSETRON HCL 4 MG TABLET PO ONE (19:15)
[2018-02-21] MEDS ORDERED: PB/HYOSCY/ATR/SCOP/LIDO/MAALOX 55 ML BOTTLE PO ONE (19:15)
[2018-02-21 20:08] VITALS: BP 125/72
== END 2018-02-21 20:24 | disposition home or self-care (01) ==
LOC: EMS 16:23
DX: F41.9 Anxiety disorder, unspecified (principal); K21.9 Gastro-esophageal reflux disease without esophagitis; E11.9 Type 2 diabetes mellitus without complications; Z76.0 Encounter for issue of repeat prescription; Z88.1 Allergy status to other antibiotic agents
CPT/HCPCS: 99284; Q0162

== ENCOUNTER 2018-02-23 18:09 | Inpatient (IN) | payer MEDICARE, MEDICAID ==
[~2018-02-23] VITALS: Ht 166.4 cm; Wt 74.2 kg
[2018-02-23 18:35] LABS: GLUCOSE,POINT OF CARE 153 MG/DL (70-110)
[2018-02-23 18:37] LABS: BASOPHILS % (AUTO) 1.1 % (0.0-2.0); EOSINOPHILS % (AUTO) 2.1 % (1.0-6.0); HEMATOCRIT 34.3 % (36-46); HEMOGLOBIN 11.7 g/dL (12.0-16.0); LYMPHOCYTES # (AUTO) 3.1 K/uL (1.0-4.8); LYMPHOCYTES % (AUTO) 48.4 % (22.0-44.0); MEAN CORPUSCULAR HEMOGLOBIN 29.2 pg (26.0-34.0); MEAN CORPUSCULAR HGB CONC 34.1 G/dL (31.0-37.0); MEAN CORPUSCULAR VOLUME 86 fL (80-100); MONOCYTES # (AUTO) 0.5 K/uL (0.1-1.0); MONOCYTES % (AUTO) 7.3 % (2.0-9.0); NEUTROPHILS # (AUTO) 2.7 K/uL (1.8-7.7); NEUTROPHILS % (AUTO) 41.1 % (40.0-70.0); PLATELET COUNT (AUTO) 289 K/uL (150-450); RED CELL DISTRIBUTION WIDTH 13.8 % (11.5-14.5)
[2018-02-23 18:49] LABS: ANION GAP 11 mmol/L (8-16); CALCIUM, TOTAL 9.1 mg/dL (8.8-10.5); CARBON DIOXIDE 26 mmol/L (22-29); CHLORIDE 104 mmol/L (98-107); CREATININE 1.13 mg/dL (0.60-1.30); GLOMERULAR FILTR. RATE CALC 49 mL/min (>60); GLUCOSE,RANDOM 149 mg/dL (70-110); POTASSIUM 3.2 mmol/L (3.5-5.1); SODIUM SERUM 141 mmol/L (136-145); UREA NITROGEN, BLOOD 18 mg/dL (7-18)
[2018-02-23 18:54] LABS: ALANINE AMINOTRANSFERASE 36 U/L (12-78); ALBUMIN 3.8 g/dL (3.4-5.0); ALKALINE PHOSPHATASE 97 U/L (46-116); ASPARTATE AMINOTRANSFERASE 25 U/L (15-37); BILIRUBIN,TOTAL 0.3 mg/dL (0.1-1.0); TOTAL PROTEIN, SERUM 7.5 g/dL (6.4-8.2)
[2018-02-23] MEDS ORDERED: KETOROLAC TROMETHAMINE 60 MG/2 ML VIAL IM ONE (19:30)
[2018-02-23] MEDS ORDERED: LORazepam 2 MG/ML VIAL IM ONE (19:30)
[2018-02-23 19:42] LABS: VALPROIC ACID 17 mcg/mL (50-100)
[2018-02-23] MEDS ORDERED: DIVALPROEX SODIUM 250 MG DR TABLET PO ONE (20:15)
[2018-02-23] MEDS ORDERED: QUEtiapine FUMARATE 200 MG TABLET PO ONE (20:15)
[2018-02-23] MEDS ORDERED: DiphenhydrAMINE HCL 25 MG CAPSULE PO ONE (20:15)
[2018-02-23] MEDS ORDERED: HALOPERIDOL 5 MG TABLET PO PRN (20:30)
[2018-02-23] MEDS ORDERED: ZOLPIDEM TARTRATE 10 MG TABLET PO PRN (20:30)
[2018-02-23 22:15] VITALS: BP 96/54
[2018-02-23 22:18] LABS: GLUCOMETER DEV NAME(LOC) BV2N3; GLUCOSE,POINT OF CARE 170 MG/DL (70-110)
[2018-02-23] MEDS ORDERED: DOCUSATE SODIUM 100 MG CAPSULE PO PRN (22:30)
[2018-02-23] MEDS ORDERED: ACETAMINOPHEN 325 MG TABLET PO PRN (22:30)
[2018-02-23] MEDS ORDERED: PETROLATUM,WHITE 71 GM JELLY TP PRN (22:30)
[2018-02-23] MEDS ORDERED: LOPERAMIDE HCL 2 MG CAPSULE PO PRN (22:30)
[2018-02-23] MEDS ORDERED: ONDANSETRON HCL 4 MG TABLET PO PRN (22:30)
[2018-02-23] MEDS ORDERED: CloNIDine HCL 0.1 MG TABLET PO PRN (22:30)
[2018-02-23] MEDS ORDERED: ALBUTEROL SULFATE HFA 90 MCG/PUFF 8 GM INHALER IH PRN (22:30)
[2018-02-23] MEDS ORDERED: MAGNESIUM HYDROXIDE SUSPENSION 30 ML UDCUP PO PRN (22:30)
[2018-02-23] MEDS ORDERED: GLUCAGON,HUMAN RECOMBINANT 1 MG VIAL IM PRN (22:45)
[2018-02-23] MEDS ORDERED: INSULIN LISPRO 100 UNITS/ML SQ PRN (22:45)
[2018-02-23] MEDS ORDERED: PNEUMOCOCCAL VACCINE POLYVALENT 0.5 ML VIAL [PPSV23] IM ONE (23:00)
[2018-02-24] MEDS ORDERED: POTASSIUM CHLORIDE 20 MEQ ER TABLET PO ONE (06:00)
[2018-02-24 06:47] VITALS: BP 122/69
[2018-02-24] MEDS: LORazepam 2 MG TABLET PO PRN ×2 (06:48→17:29)
[2018-02-24] MEDS: MetFORMIN HCL 500 MG TABLET PO SCH ×2 (06:48→16:36)
[2018-02-24 06:50] LABS: GLUCOMETER DEV NAME(LOC) BV2N3; GLUCOSE,POINT OF CARE 127 MG/DL (70-110)
[2018-02-24 08:31] VITALS: BP 110/70
[2018-02-24 08:32] LABS: HEMOGLOBIN A1C 6.8 % (4.5-6.2)
[2018-02-24 08:47] LABS: CHOL/HDL RATIO 2.2 (3.9-5.7); THYROID STIMULATING HORMONE 1.14 uIU/mL (0.36-3.74)
[2018-02-24] MEDS: OMEPRAZOLE 20 MG CAPSULE PO SCH (08:58)
[2018-02-24] MEDS: DOCUSATE SODIUM 100 MG CAPSULE PO SCH (08:58)
[2018-02-24] MEDS ORDERED: NICOTINE 14 MG/24 HOUR PATCH TD SCH (09:00)
[2018-02-24 11:09] LABS: GLUCOMETER DEV NAME(LOC) BV2N3; GLUCOSE,POINT OF CARE 100 MG/DL (70-110)
[2018-02-24] MEDS: CITALOPRAM HYDROBROMIDE 20 MG TABLET PO SCH (12:04)
[2018-02-24] MEDS: DIVALPROEX SODIUM 500 MG DR TABLET PO SCH (12:05)
[2018-02-24 16:34] LABS: GLUCOMETER DEV NAME(LOC) BV2N3; GLUCOSE,POINT OF CARE 127 MG/DL (70-110)
[2018-02-24] MEDS: IBUPROFEN 400 MG TABLET PO PRN (17:01)
[2018-02-24 17:02] VITALS: BP 121/73
[2018-02-24 20:39] LABS: GLUCOMETER DEV NAME(LOC) BV2N3; GLUCOSE,POINT OF CARE 133 MG/DL (70-110)
[2018-02-24] MEDS: QUEtiapine FUMARATE 200 MG TABLET PO SCH (20:40)
[2018-02-25 06:29] LABS: GLUCOMETER DEV NAME(LOC) BV2N3; GLUCOSE,POINT OF CARE 122 MG/DL (70-110)
[2018-02-25] MEDS: MetFORMIN HCL 500 MG TABLET PO SCH ×3 (07:00→16:48)
[2018-02-25 08:41] VITALS: BP 124/83
[2018-02-25] MEDS: CITALOPRAM HYDROBROMIDE 20 MG TABLET PO SCH (09:29)
[2018-02-25] MEDS: OMEPRAZOLE 20 MG CAPSULE PO SCH (09:29)
[2018-02-25] MEDS: DIVALPROEX SODIUM 500 MG DR TABLET PO SCH (09:29)
[2018-02-25] MEDS: DOCUSATE SODIUM 100 MG CAPSULE PO SCH (09:29)
[2018-02-25 10:22] VITALS: BP 118/78
[2018-02-25] MEDS: LORazepam 2 MG TABLET PO PRN (10:22)
[2018-02-25] MEDS: IBUPROFEN 400 MG TABLET PO PRN (10:22)
[2018-02-25 11:44] LABS: GLUCOMETER DEV NAME(LOC) BV2N3; GLUCOSE,POINT OF CARE 137 MG/DL (70-110)
[2018-02-25 16:17] VITALS: BP 117/69
[2018-02-25 16:28] LABS: GLUCOMETER DEV NAME(LOC) BV2N3; GLUCOSE,POINT OF CARE 123 MG/DL (70-110)
[2018-02-25] MEDS: CARISOPRODOL 350 MG TABLET PO SCH (18:05)
[2018-02-25] MEDS: QUEtiapine FUMARATE 200 MG TABLET PO SCH (20:44)
[2018-02-25 20:48] LABS: GLUCOMETER DEV NAME(LOC) BV2N3; GLUCOSE,POINT OF CARE 118 MG/DL (70-110)
[2018-02-26 06:51] VITALS: BP 131/78
[2018-02-26 06:59] LABS: GLUCOMETER DEV NAME(LOC) BV2N3; GLUCOSE,POINT OF CARE 120 MG/DL (70-110)
[2018-02-26] MEDS: MetFORMIN HCL 500 MG TABLET PO SCH ×2 (07:10→16:28)
[2018-02-26] MEDS: DIVALPROEX SODIUM 500 MG DR TABLET PO SCH (09:04)
[2018-02-26] MEDS: CITALOPRAM HYDROBROMIDE 20 MG TABLET PO SCH (09:06)
[2018-02-26] MEDS: DOCUSATE SODIUM 100 MG CAPSULE PO SCH (09:07)
[2018-02-26] MEDS: OMEPRAZOLE 20 MG CAPSULE PO SCH (09:07)
[2018-02-26] MEDS: CARISOPRODOL 350 MG TABLET PO SCH ×2 (09:07→16:28)
[2018-02-26 11:08] LABS: GLUCOMETER DEV NAME(LOC) BV2N3; GLUCOSE,POINT OF CARE 134 MG/DL (70-110)
[2018-02-26] MEDS: MAG HYDROX/AL HYDROX/SIMETH ES 30 ML SUSPENSION UDCUP PO PRN (14:35)
[2018-02-26 16:08] VITALS: BP 119/66
[2018-02-26 16:24] LABS: GLUCOMETER DEV NAME(LOC) BV2N3; GLUCOSE,POINT OF CARE 119 MG/DL (70-110)
[2018-02-26] MEDS: QUEtiapine FUMARATE 200 MG TABLET PO SCH (20:52)
[2018-02-26] MEDS: TraMADol HCL 50 MG TABLET PO PRN (20:58)
[2018-02-26 21:14] LABS: GLUCOMETER DEV NAME(LOC) BV2N3; GLUCOSE,POINT OF CARE 111 MG/DL (70-110)
[2018-02-27 02:25] VITALS: BP 122/63
[2018-02-27 06:09] LABS: GLUCOMETER DEV NAME(LOC) BV2N3; GLUCOSE,POINT OF CARE 114 MG/DL (70-110)
[2018-02-27] MEDS: MetFORMIN HCL 500 MG TABLET PO SCH ×2 (07:12→16:52)
[2018-02-27 08:22] VITALS: BP 108/67
[2018-02-27] MEDS: CARISOPRODOL 350 MG TABLET PO SCH ×2 (09:20→16:52)
[2018-02-27] MEDS: OMEPRAZOLE 20 MG CAPSULE PO SCH (09:20)
[2018-02-27] MEDS: CITALOPRAM HYDROBROMIDE 20 MG TABLET PO SCH (09:20)
[2018-02-27] MEDS: DOCUSATE SODIUM 100 MG CAPSULE PO SCH (09:20)
[2018-02-27] MEDS: DIVALPROEX SODIUM 500 MG DR TABLET PO SCH ×2 (09:20→20:40)
[2018-02-27 10:52] VITALS: BP 111/76
[2018-02-27] MEDS: TraMADol HCL 50 MG TABLET PO PRN (10:52)
[2018-02-27 11:03] LABS: GLUCOMETER DEV NAME(LOC) BV2N3; GLUCOSE,POINT OF CARE 94 MG/DL (70-110)
[2018-02-27 16:33] LABS: GLUCOMETER DEV NAME(LOC) BV2N3; GLUCOSE,POINT OF CARE 108 MG/DL (70-110)
[2018-02-27 17:11] VITALS: BP 120/72
[2018-02-27] MEDS: QUEtiapine FUMARATE 200 MG TABLET PO SCH (20:39)
[2018-02-28 01:13] VITALS: BP 102/60
[2018-02-28] MEDS: MetFORMIN HCL 500 MG TABLET PO SCH ×2 (07:16→16:40)
[2018-02-28] MEDS: CITALOPRAM HYDROBROMIDE 20 MG TABLET PO SCH (08:28)
[2018-02-28] MEDS: OMEPRAZOLE 20 MG CAPSULE PO SCH (08:28)
[2018-02-28] MEDS: DIVALPROEX SODIUM 500 MG DR TABLET PO SCH ×2 (08:28→20:52)
[2018-02-28] MEDS: CARISOPRODOL 350 MG TABLET PO SCH ×2 (08:28→16:40)
[2018-02-28] MEDS: DOCUSATE SODIUM 100 MG CAPSULE PO SCH (08:28)
[2018-02-28] MEDS: LORazepam 2 MG TABLET PO PRN (16:12)
[2018-02-28 16:25] VITALS: BP 116/74
[2018-02-28 16:29] LABS: GLUCOMETER DEV NAME(LOC) BV2N3; GLUCOSE,POINT OF CARE 102 MG/DL (70-110)
[2018-02-28] MEDS: QUEtiapine FUMARATE 200 MG TABLET PO SCH (20:52)
[2018-03-01 02:00] VITALS: BP 114/70
[2018-03-01] MEDS: MetFORMIN HCL 500 MG TABLET PO SCH ×2 (07:01→16:33)
[2018-03-01 08:25] VITALS: BP 117/69
[2018-03-01] MEDS: DOCUSATE SODIUM 100 MG CAPSULE PO SCH (08:26)
[2018-03-01] MEDS: CARISOPRODOL 350 MG TABLET PO SCH ×2 (08:26→16:33)
[2018-03-01] MEDS: DIVALPROEX SODIUM 500 MG DR TABLET PO SCH ×2 (08:26→20:23)
[2018-03-01] MEDS: CITALOPRAM HYDROBROMIDE 20 MG TABLET PO SCH (08:27)
[2018-03-01] MEDS: OMEPRAZOLE 20 MG CAPSULE PO SCH (08:27)
[2018-03-01] MEDS: LORazepam 2 MG TABLET PO PRN ×2 (12:40→17:10)
[2018-03-01] MEDS: MAG HYDROX/AL HYDROX/SIMETH ES 30 ML SUSPENSION UDCUP PO PRN (13:56)
[2018-03-01 16:12] VITALS: BP 118/76
[2018-03-01] MEDS: NICOTINE POLACRILEX 2 MG LOZENGE PO PRN (17:10)
[2018-03-01 18:59] LABS: GLUCOMETER DEV NAME(LOC) BV2N3; GLUCOSE,POINT OF CARE 92 MG/DL (70-110)
[2018-03-01] MEDS: QUEtiapine FUMARATE 200 MG TABLET PO SCH (20:23)
[2018-03-02 06:15] VITALS: BP 114/70
[2018-03-02 06:19] LABS: GLUCOMETER DEV NAME(LOC) BV2N3; GLUCOSE,POINT OF CARE 120 MG/DL (70-110)
[2018-03-02] MEDS: MetFORMIN HCL 500 MG TABLET PO SCH ×2 (06:42→16:17)
[2018-03-02] MEDS: DIVALPROEX SODIUM 500 MG DR TABLET PO SCH ×2 (08:25→20:45)
[2018-03-02] MEDS: CARISOPRODOL 350 MG TABLET PO SCH ×2 (08:25→16:17)
[2018-03-02] MEDS: DOCUSATE SODIUM 100 MG CAPSULE PO SCH (08:25)
[2018-03-02] MEDS: CITALOPRAM HYDROBROMIDE 20 MG TABLET PO SCH (08:25)
[2018-03-02] MEDS: OMEPRAZOLE 20 MG CAPSULE PO SCH (08:25)
[2018-03-02 08:26] VITALS: BP 102/60
[2018-03-02 16:48] LABS: GLUCOMETER DEV NAME(LOC) BV2N3; GLUCOSE,POINT OF CARE 102 MG/DL (70-110)
[2018-03-02 16:55] VITALS: BP 109/66
[2018-03-02] MEDS: LORazepam 2 MG TABLET PO PRN (17:00)
[2018-03-02] MEDS: NICOTINE POLACRILEX 2 MG LOZENGE PO PRN (17:19)
[2018-03-02] MEDS: QUEtiapine FUMARATE 200 MG TABLET PO SCH (20:43)
[2018-03-03] MEDS: MetFORMIN HCL 500 MG TABLET PO SCH (06:54)
[2018-03-03 08:40] VITALS: BP 107/60
[2018-03-03] MEDS: CARISOPRODOL 350 MG TABLET PO SCH (08:47)
[2018-03-03] MEDS: DOCUSATE SODIUM 100 MG CAPSULE PO SCH (08:47)
[2018-03-03] MEDS: DIVALPROEX SODIUM 500 MG DR TABLET PO SCH (08:47)
[2018-03-03] MEDS: OMEPRAZOLE 20 MG CAPSULE PO SCH (08:47)
[2018-03-03] MEDS: CITALOPRAM HYDROBROMIDE 20 MG TABLET PO SCH (08:47)
[2018-03-03] MEDS ORDERED: DIVA500T52 PO (09:18)
[2018-03-03] MEDS ORDERED: CARI350 PO (09:19)
[2018-03-03] MEDS ORDERED: OMEP20 PO (09:20)
[2018-03-03] MEDS: NICOTINE POLACRILEX 2 MG LOZENGE PO PRN (09:48)
[2018-03-03] MEDS: MAG HYDROX/AL HYDROX/SIMETH ES 30 ML SUSPENSION UDCUP PO PRN (09:48)
== END 2018-03-03 13:20 | disposition home or self-care (01) | DRG 885 ==
LOC: EMS 18:10 → B2X 20:30
DX: F25.0 Schizoaffective disorder, bipolar type (principal); R45.851 Suicidal ideations; Z59.0 Homelessness; M54.9 Dorsalgia, unspecified; R51 Headache; F41.9 Anxiety disorder, unspecified; K21.9 Gastro-esophageal reflux disease without esophagitis; E11.9 Type 2 diabetes mellitus without complications; I10 Essential (primary) hypertension; F15.10 Other stimulant abuse, uncomplicated; G89.29 Other chronic pain; F17.200 Nicotine dependence, unspecified, uncomplicated; D64.9 Anemia, unspecified; J44.9 Chronic obstructive pulmonary disease, unspecified; Z71.6 Tobacco abuse counseling; E87.6 Hypokalemia; F14.90 Cocaine use, unspecified, uncomplicated; M79.7 Fibromyalgia; Z79.899 Other long term (current) drug therapy; Z91.19 Patient's noncompliance with other medical treatment and regimen; Z91.5 Personal history of self-harm; Z63.9 Problem related to primary support group, unspecified; Z79.4 Long term (current) use of insulin; Z88.2 Allergy status to sulfonamides
CPT/HCPCS: 83036; 84132; 84443; 96372; 99285; G0480; J1885; J2060

== ENCOUNTER 2018-03-05 20:38 | Inpatient (IN) | payer MEDICARE, MEDICAID ==
[~2018-03-05] VITALS: Ht 180.3 cm; Wt 73.2 kg
[~2018-03-05 20:38] MED LIST changes: +DIVA500T52 PO; +OMEP20 PO; -ONDA4 PO
[2018-03-05 21:28] LABS: GLUCOSE,POINT OF CARE 132 MG/DL (70-110)
[2018-03-05 21:59] LABS: BASOPHILS % (AUTO) 1.5 % (0.0-2.0); EOSINOPHILS % (AUTO) 1.2 % (1.0-6.0); HEMATOCRIT 33.5 % (36-46); HEMOGLOBIN 11.6 g/dL (12.0-16.0); LYMPHOCYTES # (AUTO) 4.8 K/uL (1.0-4.8); LYMPHOCYTES % (AUTO) 50.6 % (22.0-44.0); MEAN CORPUSCULAR HEMOGLOBIN 29.7 pg (26.0-34.0); MEAN CORPUSCULAR HGB CONC 34.8 G/dL (31.0-37.0); MEAN CORPUSCULAR VOLUME 85 fL (80-100); MONOCYTES # (AUTO) 0.9 K/uL (0.1-1.0); NEUTROPHILS # (AUTO) 3.6 K/uL (1.8-7.7); NEUTROPHILS % (AUTO) 37.7 % (40.0-70.0); PLATELET COUNT (AUTO) 281 K/uL (150-450); RED BLOOD CELL COUNT(AUTO) 3.92 MIL/uL (4.00-5.20); RED CELL DISTRIBUTION WIDTH 13.5 % (11.5-14.5)
[2018-03-05 22:20] LABS: ANION GAP 10 mmol/L (8-16); CARBON DIOXIDE 26 mmol/L (22-29); CHLORIDE 101 mmol/L (98-107); CREATININE 0.94 mg/dL (0.60-1.30); GLOMERULAR FILTR. RATE CALC > 60 mL/min (>60); GLUCOSE,RANDOM 123 mg/dL (70-110); POTASSIUM 3.4 mmol/L (3.5-5.1); SODIUM SERUM 137 mmol/L (136-145); UREA NITROGEN, BLOOD 27 mg/dL (7-18)
[2018-03-05 22:26] LABS: ALANINE AMINOTRANSFERASE 28 U/L (12-78); ALBUMIN 3.6 g/dL (3.4-5.0); ALKALINE PHOSPHATASE 99 U/L (46-116); ASPARTATE AMINOTRANSFERASE 34 U/L (15-37); BILIRUBIN,TOTAL 0.3 mg/dL (0.1-1.0); TOTAL PROTEIN, SERUM 7.3 g/dL (6.4-8.2)
[2018-03-06] MEDS ORDERED: HALOPERIDOL LACTATE 5 MG/ML VIAL IM ONE (00:30)
[2018-03-06] MEDS ORDERED: DiphenhydrAMINE HCL 50 MG/ML VIAL IM ONE (00:30)
[2018-03-06] MEDS ORDERED: LORazepam 2 MG/ML VIAL IM ONE (00:30)
[2018-03-06] MEDS ORDERED: ZOLPIDEM TARTRATE 10 MG TABLET PO PRN (00:45)
[2018-03-06] MEDS ORDERED: HALOPERIDOL 5 MG TABLET PO PRN (00:45)
[2018-03-06 01:05] LABS: CHOL/HDL RATIO 2.4 (3.9-5.7); CHOLESTEROL 177 mg/dL (131-200); HDL CHOLESTEROL 74 mg/dL (40-60); LDL CHOL (CALC.) 92 mg/dL (0-130); TRIGLYCERIDES 53 mg/dL (15-150); VALPROIC ACID 38 mcg/mL (50-100)
[2018-03-06] MEDS ORDERED: KETOROLAC TROMETHAMINE 60 MG/2 ML VIAL IM ONE (02:00)
[2018-03-06] MEDS ORDERED: KETOROLAC TROMETHAMINE 30 MG/ML VIAL IM ONE (02:00)
[2018-03-06] MEDS: LORazepam 2 MG TABLET PO PRN ×3 (04:10→20:42)
[2018-03-06 04:13] VITALS: BP 153/96
[2018-03-06] MEDS ORDERED: PNEUMOCOCCAL VACCINE POLYVALENT 0.5 ML VIAL [PPSV23] IM ONE (04:30)
[2018-03-06 06:34] LABS: GLUCOMETER DEV NAME(LOC) BV3S 2; GLUCOSE,POINT OF CARE 149 MG/DL (70-110)
[2018-03-06] MEDS: CITALOPRAM HYDROBROMIDE 20 MG TABLET PO SCH (10:49)
[2018-03-06] MEDS: DIVALPROEX SODIUM 500 MG DR TABLET PO SCH (10:49)
[2018-03-06 16:03] VITALS: BP 115/65
[2018-03-06] MEDS ORDERED: BACITRACIN 28.4 GM OINTMENT TP PRN (20:15)
[2018-03-06] MEDS ORDERED: ONDANSETRON HCL 4 MG TABLET PO PRN (20:15)
[2018-03-06] MEDS ORDERED: LOPERAMIDE HCL 2 MG CAPSULE PO PRN (20:15)
[2018-03-06] MEDS ORDERED: BENZOCAINE/MENTHOL LOZENGE MM PRN (20:15)
[2018-03-06] MEDS ORDERED: ACETAMINOPHEN 325 MG TABLET PO PRN (20:15)
[2018-03-06] MEDS ORDERED: PETROLATUM,WHITE 71 GM JELLY TP PRN (20:15)
[2018-03-06] MEDS ORDERED: CloNIDine HCL 0.1 MG TABLET PO PRN (20:15)
[2018-03-06] MEDS ORDERED: ALBUTEROL SULFATE HFA 90 MCG/PUFF 8 GM INHALER IH PRN (20:15)
[2018-03-06] MEDS ORDERED: MAGNESIUM HYDROXIDE SUSPENSION 30 ML UDCUP PO PRN (20:15)
[2018-03-06] MEDS: QUEtiapine FUMARATE 200 MG TABLET PO SCH (20:42)
[2018-03-06] MEDS: DIVALPROEX SODIUM 500 MG ER TABLET PO SCH (20:42)
[2018-03-06] MEDS ORDERED: INSULIN LISPRO 100 UNITS/ML SQ PRN (23:00)
[2018-03-06] MEDS ORDERED: GLUCAGON,HUMAN RECOMBINANT 1 MG VIAL IM PRN (23:00)
[2018-03-07] MEDS: MetFORMIN HCL 500 MG TABLET PO SCH ×2 (06:32→16:33)
[2018-03-07 08:31] VITALS: BP 140/86
[2018-03-07] MEDS: LORazepam 1 MG TABLET PO PRN ×2 (09:13→16:33)
[2018-03-07] MEDS: DOCUSATE SODIUM 100 MG CAPSULE PO SCH (09:13)
[2018-03-07] MEDS: CARISOPRODOL 350 MG TABLET PO SCH ×2 (09:13→16:33)
[2018-03-07] MEDS: DIVALPROEX SODIUM 500 MG DR TABLET PO SCH (09:13)
[2018-03-07] MEDS: OMEPRAZOLE 20 MG CAPSULE PO SCH (09:13)
[2018-03-07] MEDS: KETOROLAC TROMETHAMINE 30 MG/ML VIAL IM SCH (09:13)
[2018-03-07] MEDS: CITALOPRAM HYDROBROMIDE 20 MG TABLET PO SCH (09:13)
[2018-03-07 16:02] VITALS: BP 111/68
[2018-03-07] MEDS: DIVALPROEX SODIUM 500 MG ER TABLET PO SCH (20:23)
[2018-03-07] MEDS: QUEtiapine FUMARATE 200 MG TABLET PO SCH (20:23)
[2018-03-08 06:05] VITALS: BP 110/65
[2018-03-08] MEDS: LORazepam 1 MG TABLET PO PRN ×2 (06:37→18:26)
[2018-03-08] MEDS: MetFORMIN HCL 500 MG TABLET PO SCH ×2 (06:37→16:39)
[2018-03-08 08:14] VITALS: BP 124/74
[2018-03-08 08:17] VITALS: BP 124/74
[2018-03-08] MEDS: OMEPRAZOLE 20 MG CAPSULE PO SCH (09:35)
[2018-03-08] MEDS: CITALOPRAM HYDROBROMIDE 20 MG TABLET PO SCH (09:35)
[2018-03-08] MEDS: DOCUSATE SODIUM 100 MG CAPSULE PO SCH (09:35)
[2018-03-08] MEDS: DIVALPROEX SODIUM 500 MG DR TABLET PO SCH (09:35)
[2018-03-08] MEDS: CARISOPRODOL 350 MG TABLET PO SCH ×2 (09:36→16:40)
[2018-03-08] MEDS: KETOROLAC TROMETHAMINE 30 MG/ML VIAL IM SCH (09:36)
[2018-03-08 16:01] VITALS: BP 109/68
[2018-03-08] MEDS: NICOTINE POLACRILEX 4 MG LOZENGE PO PRN (18:25)
[2018-03-08] MEDS: QUEtiapine FUMARATE 200 MG TABLET PO SCH (20:35)
[2018-03-08] MEDS: DIVALPROEX SODIUM 500 MG ER TABLET PO SCH (20:35)
[2018-03-08] MEDS ORDERED: POTASSIUM CHLORIDE 20 MEQ ER TABLET PO ONE (20:45)
[2018-03-09 05:14] VITALS: BP 113/72
[2018-03-09] MEDS: LORazepam 1 MG TABLET PO PRN ×2 (06:28→17:39)
[2018-03-09] MEDS: MetFORMIN HCL 500 MG TABLET PO SCH ×2 (07:11→16:36)
[2018-03-09 07:14] LABS: GLUCOMETER DEV NAME(LOC) BV3S 2; GLUCOSE,POINT OF CARE 95 MG/DL (70-110)
[2018-03-09 08:07] VITALS: BP 127/77
[2018-03-09] MEDS: OMEPRAZOLE 20 MG CAPSULE PO SCH (09:05)
[2018-03-09] MEDS: DIVALPROEX SODIUM 500 MG DR TABLET PO SCH (09:06)
[2018-03-09] MEDS: CITALOPRAM HYDROBROMIDE 20 MG TABLET PO SCH (09:06)
[2018-03-09] MEDS: CARISOPRODOL 350 MG TABLET PO SCH ×2 (09:06→16:37)
[2018-03-09] MEDS: KETOROLAC TROMETHAMINE 30 MG/ML VIAL IM SCH (09:07)
[2018-03-09] MEDS: DOCUSATE SODIUM 100 MG CAPSULE PO SCH (09:09)
[2018-03-09 16:06] VITALS: BP 122/70
[2018-03-09] MEDS: NICOTINE POLACRILEX 4 MG LOZENGE PO PRN (17:39)
[2018-03-09] MEDS: QUEtiapine FUMARATE 200 MG TABLET PO SCH (20:05)
[2018-03-09] MEDS: DIVALPROEX SODIUM 500 MG ER TABLET PO SCH (20:05)
[2018-03-10] MEDS ORDERED: SODIUM CHLORIDE 0.9% 1,000 ML IV ONE (06:10)
[2018-03-10 06:23] LABS: GLUCOMETER DEV NAME(LOC) BV3S 2; GLUCOSE,POINT OF CARE 129 MG/DL (70-110)
[2018-03-10] MEDS: MetFORMIN HCL 500 MG TABLET PO SCH ×2 (06:26→17:09)
[2018-03-10 07:21] VITALS: BP 121/70
[2018-03-10] MEDS: OMEPRAZOLE 20 MG CAPSULE PO SCH (09:08)
[2018-03-10] MEDS: DOCUSATE SODIUM 100 MG CAPSULE PO SCH (09:08)
[2018-03-10] MEDS: CITALOPRAM HYDROBROMIDE 20 MG TABLET PO SCH (09:08)
[2018-03-10] MEDS: DIVALPROEX SODIUM 500 MG DR TABLET PO SCH (09:08)
[2018-03-10] MEDS: CARISOPRODOL 350 MG TABLET PO SCH ×2 (09:08→17:09)
[2018-03-10] MEDS: KETOROLAC TROMETHAMINE 30 MG/ML VIAL IM SCH (09:09)
[2018-03-10] MEDS: NICOTINE POLACRILEX 4 MG LOZENGE PO PRN ×2 (09:43→19:46)
[2018-03-10] MEDS: LORazepam 1 MG TABLET PO PRN ×2 (10:37→17:09)
[2018-03-10] MEDS: MAG HYDROX/AL HYDROX/SIMETH ES 30 ML SUSPENSION UDCUP PO PRN (10:39)
[2018-03-10 16:00] VITALS: BP 118/75
[2018-03-10] MEDS: QUEtiapine FUMARATE 200 MG TABLET PO SCH (20:38)
[2018-03-10] MEDS: DIVALPROEX SODIUM 500 MG ER TABLET PO SCH (20:38)
[2018-03-10 20:54] LABS: GLUCOMETER DEV NAME(LOC) BV3S 2; GLUCOSE,POINT OF CARE 130 MG/DL (70-110)
[2018-03-11 06:30] VITALS: BP 107/65
[2018-03-11] MEDS: MetFORMIN HCL 500 MG TABLET PO SCH (06:34)
[2018-03-11 08:01] VITALS: BP 102/59
[2018-03-11 09:01] LABS: ANION GAP 3 mmol/L (8-16); CALCIUM, TOTAL 8.6 mg/dL (8.8-10.5); CARBON DIOXIDE 30 mmol/L (22-29); CHLORIDE 102 mmol/L (98-107); CREATININE 0.73 mg/dL (0.60-1.30); GLOMERULAR FILTR. RATE CALC > 60 mL/min (>60); GLUCOSE,RANDOM 105 mg/dL (70-110); POTASSIUM 4.5 mmol/L (3.5-5.1); SODIUM SERUM 135 mmol/L (136-145); UREA NITROGEN, BLOOD 30 mg/dL (7-18)
[2018-03-11] MEDS: DIVALPROEX SODIUM 500 MG DR TABLET PO SCH (09:28)
[2018-03-11] MEDS: CARISOPRODOL 350 MG TABLET PO SCH (09:28)
[2018-03-11] MEDS: CITALOPRAM HYDROBROMIDE 20 MG TABLET PO SCH (09:29)
[2018-03-11] MEDS: DOCUSATE SODIUM 100 MG CAPSULE PO SCH (09:29)
[2018-03-11] MEDS: LORazepam 1 MG TABLET PO PRN (09:29)
[2018-03-11] MEDS: OMEPRAZOLE 20 MG CAPSULE PO SCH (09:29)
[2018-03-11] MEDS: NICOTINE POLACRILEX 4 MG LOZENGE PO PRN (09:53)
[2018-03-11] MEDS: MAG HYDROX/AL HYDROX/SIMETH ES 30 ML SUSPENSION UDCUP PO PRN (10:31)
== END 2018-03-11 13:15 | disposition home or self-care (01) | DRG 885 ==
LOC: EMS 20:39 → B3A 03-06 00:46
DX: F25.0 Schizoaffective disorder, bipolar type (principal); R45.851 Suicidal ideations; D64.9 Anemia, unspecified; E11.65 Type 2 diabetes mellitus with hyperglycemia; F14.90 Cocaine use, unspecified, uncomplicated; F15.10 Other stimulant abuse, uncomplicated; F17.200 Nicotine dependence, unspecified, uncomplicated; F41.9 Anxiety disorder, unspecified; G89.29 Other chronic pain; I10 Essential (primary) hypertension; J44.9 Chronic obstructive pulmonary disease, unspecified; K21.9 Gastro-esophageal reflux disease without esophagitis; M79.7 Fibromyalgia; Z59.0 Homelessness; Z71.6 Tobacco abuse counseling; Z71.51 Drug abuse counseling and surveillance of drug abuser; Z79.899 Other long term (current) drug therapy; Z91.14 Patient's other noncompliance with medication regimen; Z88.2 Allergy status to sulfonamides
CPT/HCPCS: 87081; 96372; 99285; G0480; J1200; J1630; J1885; J2060; J7030

== ENCOUNTER 2018-03-28 16:44 | Emergency (ER) | payer MEDICARE, MEDICAID ==
[~2018-03-28] VITALS: Ht 165.1 cm; Wt 72.5 kg
[~2018-03-28 16:44] MED LIST changes: -CARI350 PO; -OMEP20 PO
[2018-03-28 17:33] LABS: GLUCOSE,POINT OF CARE 120 MG/DL (70-110)
[2018-03-28] MEDS ORDERED: HYDR-305 PO (17:41)
[2018-03-28] MEDS ORDERED: TRAM50TA4 PO (17:41)
[2018-03-28] MEDS ORDERED: CARI350 PO (17:41)
[2018-03-28] MEDS ORDERED: CLON-570 PO (17:41)
[2018-03-28] MEDS ORDERED: CEPHALEXIN MONOHYDRATE 500 MG CAPSULE PO ONE (18:15)
[2018-03-28] MEDS ORDERED: BACITRACIN 0.9 GM PACKET OINTMENT TP ONE (18:15)
[2018-03-28] MEDS ORDERED: LORazepam 2 MG TABLET PO ONE (18:15)
[2018-03-28 18:44] LABS: BASOPHILS % (AUTO) 0.8 % (0.0-2.0); EOSINOPHILS % (AUTO) 1.7 % (1.0-6.0); HEMATOCRIT 34.2 % (36-46); HEMOGLOBIN 11.6 g/dL (12.0-16.0); LYMPHOCYTES # (AUTO) 3.3 K/uL (1.0-4.8); LYMPHOCYTES % (AUTO) 46.1 % (22.0-44.0); MEAN CORPUSCULAR HEMOGLOBIN 29.4 pg (26.0-34.0); MEAN CORPUSCULAR HGB CONC 33.9 G/dL (31.0-37.0); MEAN CORPUSCULAR VOLUME 87 fL (80-100); MONOCYTES # (AUTO) 0.6 K/uL (0.1-1.0); NEUTROPHILS # (AUTO) 3.1 K/uL (1.8-7.7); NEUTROPHILS % (AUTO) 43.4 % (40.0-70.0); PLATELET COUNT (AUTO) 257 K/uL (150-450); RED BLOOD CELL COUNT(AUTO) 3.94 MIL/uL (4.00-5.20); RED CELL DISTRIBUTION WIDTH 14.3 % (11.5-14.5)
[2018-03-28 18:53] LABS: ANION GAP 8 mmol/L (8-16); CALCIUM, TOTAL 8.7 mg/dL (8.8-10.5); CARBON DIOXIDE 25 mmol/L (22-29); CHLORIDE 104 mmol/L (98-107); CREATININE 0.82 mg/dL (0.60-1.30); GLOMERULAR FILTR. RATE CALC > 60 mL/min (>60); GLUCOSE,RANDOM 124 mg/dL (70-110); POTASSIUM 3.1 mmol/L (3.5-5.1); SODIUM SERUM 137 mmol/L (136-145); UREA NITROGEN, BLOOD 14 mg/dL (7-18)
[2018-03-28 18:58] LABS: ALANINE AMINOTRANSFERASE 35 U/L (12-78); ALBUMIN 3.6 g/dL (3.4-5.0); ALKALINE PHOSPHATASE 84 U/L (46-116); ASPARTATE AMINOTRANSFERASE 20 U/L (15-37); BILIRUBIN,TOTAL 0.5 mg/dL (0.1-1.0); TOTAL PROTEIN, SERUM 7.3 g/dL (6.4-8.2)
[2018-03-28] MEDS ORDERED: KETOROLAC TROMETHAMINE 60 MG/2 ML VIAL IM ONE (19:15)
[2018-03-28 19:30] LABS: AMPHET/METH SCREEN,URINE POSITIVE (NEGATIVE); BARBITURATE SCREEN, URINE NEGATIVE (NEGATIVE); BENZODIAZEPINES SCREEN,URINE POSITIVE (NEGATIVE); CANNABINOID SCREEN,URINE NEGATIVE (NEGATIVE); COCAINE SCREEN,URINE POSITIVE (NEGATIVE); METHADONE SCREEN, URINE NEGATIVE (NEGATIVE); OPIATE SCREEN,URINE NEGATIVE (NEGATIVE); PHENCYCLIDINE SCREEN,URINE NEGATIVE (NEGATIVE)
[2018-03-28] MEDS ORDERED: POTASSIUM CHLORIDE 10% 40 MEQ/30 ML LIQUID UDCUP PO ONE (20:00)
[2018-03-28 20:45] VITALS: BP 134/86
[2018-03-28] MEDS ORDERED: HALOPERIDOL 5 MG TABLET PO ONE (21:00)
== END 2018-03-28 21:27 | disposition home or self-care (01) ==
LOC: EMS 16:45
DX: F25.9 Schizoaffective disorder, unspecified (principal); F15.10 Other stimulant abuse, uncomplicated; F14.20 Cocaine dependence, uncomplicated; E87.6 Hypokalemia; L03.032 Cellulitis of left toe; F31.9 Bipolar disorder, unspecified; F41.9 Anxiety disorder, unspecified; E11.9 Type 2 diabetes mellitus without complications; K21.9 Gastro-esophageal reflux disease without esophagitis; M79.7 Fibromyalgia; Z88.2 Allergy status to sulfonamides; Z79.4 Long term (current) use of insulin; Z79.899 Other long term (current) drug therapy; Z90.721 Acquired absence of ovaries, unilateral; Z59.0 Homelessness
CPT/HCPCS: 36415; 80053; 80307; 82962; 85025; 96372; 99284; G0480; J1885

== ENCOUNTER 2018-03-29 07:43 | Inpatient (IN) | payer MEDICARE, MEDICAID ==
[~2018-03-29] VITALS: Ht 166.4 cm; Wt 74.8 kg
[~2018-03-29 07:43] MED LIST changes: +CARI350 PO; -CITA20TA17 PO; +CLON-570 PO; -DIVA-78 PO; +HYDR-305 PO; +TRAM50TA4 PO
[2018-03-29 08:07] LABS: BASOPHILS % (AUTO) 0.9 % (0.0-2.0); EOSINOPHILS % (AUTO) 4.2 % (1.0-6.0); HEMATOCRIT 34.2 % (36-46); HEMOGLOBIN 11.6 g/dL (12.0-16.0); LYMPHOCYTES # (AUTO) 2.4 K/uL (1.0-4.8); LYMPHOCYTES % (AUTO) 47.2 % (22.0-44.0); MEAN CORPUSCULAR HEMOGLOBIN 29.2 pg (26.0-34.0); MEAN CORPUSCULAR HGB CONC 33.9 G/dL (31.0-37.0); MEAN CORPUSCULAR VOLUME 86 fL (80-100); MONOCYTES # (AUTO) 0.4 K/uL (0.1-1.0); MONOCYTES % (AUTO) 8.6 % (2.0-9.0); NEUTROPHILS % (AUTO) 39.1 % (40.0-70.0); PLATELET COUNT (AUTO) 266 K/uL (150-450); RED BLOOD CELL COUNT(AUTO) 3.97 MIL/uL (4.00-5.20); RED CELL DISTRIBUTION WIDTH 14.2 % (11.5-14.5)
[2018-03-29 08:22] LABS: ANION GAP 10 mmol/L (8-16); CALCIUM, TOTAL 8.3 mg/dL (8.8-10.5); CARBON DIOXIDE 22 mmol/L (22-29); CHLORIDE 105 mmol/L (98-107); CREATININE 0.91 mg/dL (0.60-1.30); GLOMERULAR FILTR. RATE CALC > 60 mL/min (>60); GLUCOSE,RANDOM 153 mg/dL (70-110); POTASSIUM 3.6 mmol/L (3.5-5.1); SODIUM SERUM 137 mmol/L (136-145); UREA NITROGEN, BLOOD 14 mg/dL (7-18)
[2018-03-29 08:28] LABS: ALANINE AMINOTRANSFERASE 32 U/L (12-78); ALBUMIN 3.3 g/dL (3.4-5.0); ALKALINE PHOSPHATASE 86 U/L (46-116); ASPARTATE AMINOTRANSFERASE 19 U/L (15-37); BILIRUBIN,TOTAL 0.5 mg/dL (0.1-1.0)
[2018-03-29] MEDS ORDERED: HALOPERIDOL 5 MG TABLET PO ONE (09:15)
[2018-03-29] MEDS ORDERED: LORazepam 2 MG TABLET PO ONE (09:15)
[2018-03-29] MEDS ORDERED: KETOROLAC TROMETHAMINE 30 MG/ML VIAL IM ONE (10:00)
[2018-03-29] MEDS ORDERED: HALOPERIDOL 5 MG TABLET PO PRN (10:00)
[2018-03-29] MEDS ORDERED: LORazepam 2 MG TABLET PO PRN (10:00)
[2018-03-29] MEDS ORDERED: ZOLPIDEM TARTRATE 10 MG TABLET PO PRN (10:00)
[2018-03-29 10:13] LABS: AMPHET/METH SCREEN,URINE POSITIVE (NEGATIVE); BARBITURATE SCREEN, URINE NEGATIVE (NEGATIVE); BENZODIAZEPINES SCREEN,URINE POSITIVE (NEGATIVE); CANNABINOID SCREEN,URINE NEGATIVE (NEGATIVE); COCAINE SCREEN,URINE POSITIVE (NEGATIVE); METHADONE SCREEN, URINE NEGATIVE (NEGATIVE); OPIATE SCREEN,URINE NEGATIVE (NEGATIVE); PHENCYCLIDINE SCREEN,URINE NEGATIVE (NEGATIVE)
[2018-03-29 13:28] LABS: GLUCOMETER DEV NAME(LOC) BV2N3; GLUCOSE,POINT OF CARE 158 MG/DL (70-110)
[2018-03-29] MEDS ORDERED: PETROLATUM,WHITE 71 GM JELLY TP PRN ×2 (14:30)
[2018-03-29] MEDS ORDERED: ONDANSETRON HCL 4 MG TABLET PO PRN ×2 (14:30)
[2018-03-29] MEDS ORDERED: MAGNESIUM HYDROXIDE SUSPENSION 30 ML UDCUP PO PRN ×2 (14:30)
[2018-03-29] MEDS ORDERED: GuaiFENesin/D-METHORPHAN [SUGAR-FREE] 200-20MG/10 ML SYRUP UDCUP PO PRN ×2 (14:30)
[2018-03-29] MEDS ORDERED: CloNIDine HCL 0.1 MG TABLET PO PRN ×2 (14:30)
[2018-03-29] MEDS ORDERED: MAG HYDROX/AL HYDROX/SIMETH ES 30 ML SUSPENSION UDCUP PO PRN (14:30)
[2018-03-29] MEDS ORDERED: DOCUSATE SODIUM 100 MG CAPSULE PO PRN ×2 (14:30)
[2018-03-29] MEDS ORDERED: LOPERAMIDE HCL 2 MG CAPSULE PO PRN ×2 (14:30)
[2018-03-29] MEDS ORDERED: ALBUTEROL SULFATE HFA 90 MCG/PUFF 8 GM INHALER IH PRN ×2 (14:30)
[2018-03-29] MEDS ORDERED: NICOTINE 14 MG/24 HOUR PATCH TD PRN ×2 (14:30)
[2018-03-29] MEDS ORDERED: ACETAMINOPHEN 325 MG TABLET PO PRN (14:30)
[2018-03-29] MEDS ORDERED: IBUPROFEN 400 MG TABLET PO PRN ×2 (14:30)
[2018-03-29] MEDS ORDERED: INSULIN LISPRO 100 UNITS/ML SQ PRN (15:00)
[2018-03-29] MEDS ORDERED: GLUCAGON,HUMAN RECOMBINANT 1 MG VIAL IM PRN (15:00)
[2018-03-29 16:30] VITALS: BP 126/86
[2018-03-29 16:44] LABS: GLUCOMETER DEV NAME(LOC) BV2N3; GLUCOSE,POINT OF CARE 106 MG/DL (70-110)
[2018-03-29] MEDS: QUEtiapine FUMARATE 200 MG TABLET PO SCH (20:24)
[2018-03-29] MEDS: DIVALPROEX SODIUM 500 MG ER TABLET PO SCH (20:24)
[2018-03-29 20:54] LABS: GLUCOMETER DEV NAME(LOC) BV2N3; GLUCOSE,POINT OF CARE 131 MG/DL (70-110)
[2018-03-30] MEDS ORDERED: PNEUMOCOCCAL VACCINE POLYVALENT 0.5 ML VIAL [PPSV23] IM ONE (01:00)
[2018-03-30 06:13] LABS: GLUCOMETER DEV NAME(LOC) BV2N3; GLUCOSE,POINT OF CARE 108 MG/DL (70-110)
[2018-03-30] MEDS ORDERED: ZOLPIDEM TARTRATE 5 MG TABLET PO PRN (07:00)
[2018-03-30 07:17] VITALS: BP 118/74
[2018-03-30] MEDS: LORazepam 2 MG TABLET PO PRN ×2 (07:18→16:12)
[2018-03-30 08:21] VITALS: BP 106/60
[2018-03-30] MEDS: DIVALPROEX SODIUM 500 MG DR TABLET PO SCH (08:59)
[2018-03-30] MEDS: CARISOPRODOL 350 MG TABLET PO SCH ×2 (08:59→16:12)
[2018-03-30] MEDS: CITALOPRAM HYDROBROMIDE 20 MG TABLET PO SCH (09:00)
[2018-03-30 11:08] LABS: GLUCOMETER DEV NAME(LOC) BV2N3; GLUCOSE,POINT OF CARE 127 MG/DL (70-110)
[2018-03-30] MEDS ORDERED: OxyCODONE HCL/ACETAMINOPHEN 5-325 MG TABLET PO PRN (15:30)
[2018-03-30 16:00] VITALS: BP 112/78
[2018-03-30 16:49] LABS: GLUCOMETER DEV NAME(LOC) BV2N3; GLUCOSE,POINT OF CARE 123 MG/DL (70-110)
[2018-03-30] MEDS: DIVALPROEX SODIUM 500 MG ER TABLET PO SCH (20:12)
[2018-03-30] MEDS: QUEtiapine FUMARATE 200 MG TABLET PO SCH (20:13)
[2018-03-30 20:53] LABS: GLUCOMETER DEV NAME(LOC) BV2N3; GLUCOSE,POINT OF CARE 125 MG/DL (70-110)
[2018-03-31 02:17] VITALS: BP 136/73
[2018-03-31] MEDS: LORazepam 2 MG TABLET PO PRN ×3 (02:19→15:46)
[2018-03-31 06:48] LABS: GLUCOMETER DEV NAME(LOC) BV2N3; GLUCOSE,POINT OF CARE 109 MG/DL (70-110)
[2018-03-31 06:55] VITALS: BP_SYST 120; BP_SYST 130; BP_DIAS 66; BP_DIAS 78
[2018-03-31] MEDS: MetFORMIN HCL 500 MG TABLET PO SCH (07:07)
[2018-03-31 08:12] LABS: BASOPHILS % (AUTO) 0.7 % (0.0-2.0); EOSINOPHILS % (AUTO) 4.1 % (1.0-6.0); HEMATOCRIT 34.6 % (36-46); HEMOGLOBIN 11.7 g/dL (12.0-16.0); LYMPHOCYTES # (AUTO) 2.6 K/uL (1.0-4.8); LYMPHOCYTES % (AUTO) 47.2 % (22.0-44.0); MEAN CORPUSCULAR HEMOGLOBIN 29.5 pg (26.0-34.0); MEAN CORPUSCULAR VOLUME 87 fL (80-100); MONOCYTES # (AUTO) 0.4 K/uL (0.1-1.0); MONOCYTES % (AUTO) 7.2 % (2.0-9.0); NEUTROPHILS # (AUTO) 2.2 K/uL (1.8-7.7); NEUTROPHILS % (AUTO) 40.8 % (40.0-70.0); PLATELET COUNT (AUTO) 266 K/uL (150-450); RED BLOOD CELL COUNT(AUTO) 3.97 MIL/uL (4.00-5.20); RED CELL DISTRIBUTION WIDTH 14.3 % (11.5-14.5)
[2018-03-31 08:47] LABS: HEMOGLOBIN A1C 6.5 % (4.5-6.2)
[2018-03-31] MEDS: DIVALPROEX SODIUM 500 MG DR TABLET PO SCH (08:47)
[2018-03-31] MEDS: OMEPRAZOLE 20 MG CAPSULE PO SCH (08:47)
[2018-03-31] MEDS: CARISOPRODOL 350 MG TABLET PO SCH ×2 (08:49→17:07)
[2018-03-31] MEDS: CITALOPRAM HYDROBROMIDE 20 MG TABLET PO SCH (08:50)
[2018-03-31 08:55] LABS: ALANINE AMINOTRANSFERASE 22 U/L (12-78); ALBUMIN 2.9 g/dL (3.4-5.0); ALKALINE PHOSPHATASE 85 U/L (46-116); ANION GAP 8 mmol/L (8-16); ASPARTATE AMINOTRANSFERASE 11 U/L (15-37); BILIRUBIN,TOTAL 0.2 mg/dL (0.1-1.0); CALCIUM, TOTAL 8.8 mg/dL (8.8-10.5); CARBON DIOXIDE 27 mmol/L (22-29); CHLORIDE 106 mmol/L (98-107); CHOLESTEROL 172 mg/dL (131-200); CREATININE 0.83 mg/dL (0.60-1.30); GLOMERULAR FILTR. RATE CALC > 60 mL/min (>60); GLUCOSE,RANDOM 131 mg/dL (70-110); HDL CHOLESTEROL 57 mg/dL (40-60); LDL CHOL (CALC.) 100 mg/dL (0-130); POTASSIUM 4.6 mmol/L (3.5-5.1); SODIUM SERUM 141 mmol/L (136-145); THYROID STIMULATING HORMONE 0.66 uIU/mL (0.36-3.74); TOTAL PROTEIN, SERUM 6.2 g/dL (6.4-8.2); TRIGLYCERIDES 74 mg/dL (15-150); UREA NITROGEN, BLOOD 23 mg/dL (7-18)
[2018-03-31] MEDS: MAG HYDROX/AL HYDROX/SIMETH ES 30 ML SUSPENSION UDCUP PO PRN (10:20)
[2018-03-31 11:38] LABS: GLUCOMETER DEV NAME(LOC) BV2N3; GLUCOSE,POINT OF CARE 111 MG/DL (70-110)
[2018-03-31 14:51] VITALS: BP 124/87
[2018-03-31] MEDS: TraMADol HCL 50 MG TABLET PO PRN (14:51)
[2018-03-31 16:07] VITALS: BP 123/73
[2018-03-31 16:28] LABS: GLUCOMETER DEV NAME(LOC) BV2N3; GLUCOSE,POINT OF CARE 131 MG/DL (70-110)
[2018-03-31] MEDS: DIVALPROEX SODIUM 500 MG ER TABLET PO SCH (20:27)
[2018-03-31] MEDS: QUEtiapine FUMARATE 200 MG TABLET PO SCH (20:27)
[2018-03-31 20:28] LABS: GLUCOMETER DEV NAME(LOC) BV2N3; GLUCOSE,POINT OF CARE 113 MG/DL (70-110)
[2018-04-01 01:37] VITALS: BP 118/62
[2018-04-01] MEDS: TraMADol HCL 50 MG TABLET PO PRN (01:42)
[2018-04-01] MEDS: LORazepam 2 MG TABLET PO PRN ×2 (01:42→13:25)
[2018-04-01] MEDS: MetFORMIN HCL 500 MG TABLET PO SCH (06:20)
[2018-04-01 07:04] LABS: GLUCOMETER DEV NAME(LOC) BV2N3; GLUCOSE,POINT OF CARE 125 MG/DL (70-110)
[2018-04-01 08:42] VITALS: BP 122/80
[2018-04-01] MEDS ORDERED: KETOROLAC TROMETHAMINE 30 MG/ML VIAL IM SCH (09:00)
[2018-04-01] MEDS: CITALOPRAM HYDROBROMIDE 20 MG TABLET PO SCH ×2 (09:00→09:46)
[2018-04-01 09:40] VITALS: BP 126/82
[2018-04-01] MEDS: DIVALPROEX SODIUM 500 MG DR TABLET PO SCH (09:45)
[2018-04-01] MEDS: OMEPRAZOLE 20 MG CAPSULE PO SCH (09:46)
[2018-04-01] MEDS: CARISOPRODOL 350 MG TABLET PO SCH ×2 (09:47→17:03)
[2018-04-01 11:58] LABS: GLUCOMETER DEV NAME(LOC) BV2N3; GLUCOSE,POINT OF CARE 119 MG/DL (70-110)
[2018-04-01] MEDS: NICOTINE POLACRILEX 4 MG LOZENGE PO PRN (13:46)
[2018-04-01 16:29] LABS: GLUCOMETER DEV NAME(LOC) BV2N3; GLUCOSE,POINT OF CARE 157 MG/DL (70-110)
[2018-04-01 16:42] VITALS: BP 127/66
[2018-04-01] MEDS: QUEtiapine FUMARATE 200 MG TABLET PO SCH (20:32)
[2018-04-01] MEDS: DIVALPROEX SODIUM 500 MG ER TABLET PO SCH (20:32)
[2018-04-02 04:15] VITALS: BP 120/78
[2018-04-02] MEDS: LORazepam 2 MG TABLET PO PRN ×3 (04:30→18:16)
[2018-04-02] MEDS: MetFORMIN HCL 500 MG TABLET PO SCH (06:25)
[2018-04-02 06:53] LABS: GLUCOMETER DEV NAME(LOC) BV2N3; GLUCOSE,POINT OF CARE 114 MG/DL (70-110)
[2018-04-02] MEDS: OMEPRAZOLE 20 MG CAPSULE PO SCH (08:20)
[2018-04-02] MEDS: DIVALPROEX SODIUM 500 MG DR TABLET PO SCH (08:20)
[2018-04-02] MEDS: CARISOPRODOL 350 MG TABLET PO SCH ×2 (08:20→16:36)
[2018-04-02] MEDS: MAG HYDROX/AL HYDROX/SIMETH ES 30 ML SUSPENSION UDCUP PO PRN (08:23)
[2018-04-02] MEDS: CITALOPRAM HYDROBROMIDE 20 MG TABLET PO SCH (08:24)
[2018-04-02 08:33] VITALS: BP 101/63
[2018-04-02] MEDS: KETOROLAC TROMETHAMINE 30 MG/ML VIAL IM SCH (09:16)
[2018-04-02] MEDS: HALOPERIDOL 5 MG TABLET PO PRN ×2 (10:21→18:55)
[2018-04-02 11:14] LABS: GLUCOMETER DEV NAME(LOC) BV2N3; GLUCOSE,POINT OF CARE 131 MG/DL (70-110)
[2018-04-02 13:49] VITALS: BP 121/74
[2018-04-02] MEDS: ACETAMINOPHEN 325 MG TABLET PO PRN (14:44)
[2018-04-02 16:06] VITALS: BP 123/76
[2018-04-02 16:19] LABS: GLUCOMETER DEV NAME(LOC) BV2N3; GLUCOSE,POINT OF CARE 100 MG/DL (70-110)
[2018-04-02 20:23] LABS: GLUCOMETER DEV NAME(LOC) BV2N3; GLUCOSE,POINT OF CARE 117 MG/DL (70-110)
[2018-04-02] MEDS: QUEtiapine FUMARATE 200 MG TABLET PO SCH (21:12)
[2018-04-02] MEDS: DIVALPROEX SODIUM 500 MG ER TABLET PO SCH (21:13)
[2018-04-03 01:00] VITALS: BP 135/65
[2018-04-03] MEDS: MetFORMIN HCL 500 MG TABLET PO SCH (06:44)
[2018-04-03 06:49] LABS: GLUCOMETER DEV NAME(LOC) BV2N3; GLUCOSE,POINT OF CARE 130 MG/DL (70-110)
[2018-04-03 08:11] VITALS: BP 113/61
[2018-04-03] MEDS: DIVALPROEX SODIUM 500 MG DR TABLET PO SCH (08:20)
[2018-04-03] MEDS: OMEPRAZOLE 20 MG CAPSULE PO SCH (08:20)
[2018-04-03] MEDS: CARISOPRODOL 350 MG TABLET PO SCH ×2 (08:20→16:33)
[2018-04-03] MEDS: CITALOPRAM HYDROBROMIDE 20 MG TABLET PO SCH (08:33)
[2018-04-03] MEDS: KETOROLAC TROMETHAMINE 30 MG/ML VIAL IM SCH (09:25)
[2018-04-03] MEDS: LORazepam 2 MG TABLET PO PRN ×2 (10:56→15:59)
[2018-04-03 11:04] LABS: GLUCOMETER DEV NAME(LOC) BV2N3; GLUCOSE,POINT OF CARE 127 MG/DL (70-110)
[2018-04-03] MEDS: MAG HYDROX/AL HYDROX/SIMETH ES 30 ML SUSPENSION UDCUP PO PRN (11:05)
[2018-04-03] MEDS ORDERED: DIVA-78 PO ×2 (11:12→12:20)
[2018-04-03] MEDS ORDERED: QUET200T29 PO (11:12)
[2018-04-03] MEDS ORDERED: CITA20TA17 PO (11:12)
[2018-04-03] MEDS ORDERED: DIVA500T52 PO ×2 (11:12→12:20)
[2018-04-03] MEDS ORDERED: METF500T6 PO (12:20)
[2018-04-03] MEDS ORDERED: QUET200T PO (12:20)
[2018-04-03] MEDS ORDERED: CITA-106 PO (12:20)
[2018-04-03] MEDS: NICOTINE POLACRILEX 4 MG LOZENGE PO PRN (14:44)
[2018-04-03 16:05] VITALS: BP 130/78
[2018-04-03 16:18] LABS: GLUCOMETER DEV NAME(LOC) BV2N3; GLUCOSE,POINT OF CARE 173 MG/DL (70-110)
[2018-04-03 20:23] LABS: GLUCOMETER DEV NAME(LOC) BV2N3; GLUCOSE,POINT OF CARE 93 MG/DL (70-110)
[2018-04-03] MEDS: QUEtiapine FUMARATE 200 MG TABLET PO SCH (20:38)
[2018-04-03] MEDS: DIVALPROEX SODIUM 500 MG ER TABLET PO SCH (20:39)
[2018-04-04 01:26] VITALS: BP 118/67
[2018-04-04] MEDS ORDERED: MetFORMIN HCL 500 MG TABLET PO SCH (06:30)
[2018-04-04] MEDS: LORazepam 2 MG TABLET PO PRN ×3 (06:31→16:34)
[2018-04-04 06:34] LABS: GLUCOMETER DEV NAME(LOC) BV2N3; GLUCOSE,POINT OF CARE 107 MG/DL (70-110)
[2018-04-04 08:30] VITALS: BP 137/87
[2018-04-04] MEDS: CARISOPRODOL 350 MG TABLET PO SCH ×2 (08:34→16:58)
[2018-04-04] MEDS: DIVALPROEX SODIUM 500 MG DR TABLET PO SCH (08:34)
[2018-04-04] MEDS: OMEPRAZOLE 20 MG CAPSULE PO SCH (08:34)
[2018-04-04] MEDS: CITALOPRAM HYDROBROMIDE 20 MG TABLET PO SCH (08:41)
[2018-04-04] MEDS: KETOROLAC TROMETHAMINE 30 MG/ML VIAL IM SCH (09:34)
[2018-04-04] MEDS: NICOTINE POLACRILEX 4 MG LOZENGE PO PRN ×2 (10:24→15:28)
[2018-04-04 10:58] LABS: GLUCOMETER DEV NAME(LOC) BV2N3; GLUCOSE,POINT OF CARE 142 MG/DL (70-110)
[2018-04-04] MEDS: ACETAMINOPHEN 325 MG TABLET PO PRN (12:50)
[2018-04-04 16:08] VITALS: BP 124/82
[2018-04-04 16:09] LABS: GLUCOMETER DEV NAME(LOC) BV2N3; GLUCOSE,POINT OF CARE 119 MG/DL (70-110)
[2018-04-04] MEDS: MetFORMIN HCL 500 MG TABLET PO SCH (16:34)
[2018-04-04 20:23] LABS: GLUCOMETER DEV NAME(LOC) BV2N3; GLUCOSE,POINT OF CARE 118 MG/DL (70-110)
[2018-04-04] MEDS: DIVALPROEX SODIUM 500 MG ER TABLET PO SCH (20:35)
[2018-04-04] MEDS: QUEtiapine FUMARATE 200 MG TABLET PO SCH (20:36)
[2018-04-05 01:13] VITALS: BP 126/76
[2018-04-05] MEDS: MetFORMIN HCL 500 MG TABLET PO SCH ×2 (06:41→16:28)
[2018-04-05 06:43] LABS: GLUCOMETER DEV NAME(LOC) BV2N3; GLUCOSE,POINT OF CARE 118 MG/DL (70-110)
[2018-04-05] MEDS: NICOTINE POLACRILEX 4 MG LOZENGE PO PRN ×2 (06:58→15:49)
[2018-04-05 08:27] VITALS: BP 116/73
[2018-04-05] MEDS: CITALOPRAM HYDROBROMIDE 20 MG TABLET PO SCH (08:28)
[2018-04-05] MEDS: DIVALPROEX SODIUM 500 MG DR TABLET PO SCH (08:28)
[2018-04-05] MEDS: OMEPRAZOLE 20 MG CAPSULE PO SCH (08:28)
[2018-04-05] MEDS: CARISOPRODOL 350 MG TABLET PO SCH ×2 (08:28→16:28)
[2018-04-05] MEDS: KETOROLAC TROMETHAMINE 30 MG/ML VIAL IM SCH (09:21)
[2018-04-05] MEDS: LORazepam 2 MG TABLET PO PRN (10:42)
[2018-04-05 11:08] LABS: GLUCOMETER DEV NAME(LOC) BV2N3; GLUCOSE,POINT OF CARE 125 MG/DL (70-110)
[2018-04-05] MEDS ORDERED: DiphenhydrAMINE HCL 50 MG/ML VIAL IM PRN (12:30)
[2018-04-05] MEDS: DiphenhydrAMINE HCL 25 MG CAPSULE PO PRN (14:38)
[2018-04-05] MEDS: HALOPERIDOL 5 MG TABLET PO PRN (14:38)
[2018-04-05 16:14] LABS: GLUCOMETER DEV NAME(LOC) BV2N3; GLUCOSE,POINT OF CARE 134 MG/DL (70-110)
[2018-04-05 16:16] VITALS: BP 137/69
[2018-04-05 20:14] LABS: GLUCOMETER DEV NAME(LOC) BV2N3; GLUCOSE,POINT OF CARE 108 MG/DL (70-110)
[2018-04-05] MEDS: QUEtiapine FUMARATE 200 MG TABLET PO SCH (20:39)
[2018-04-05] MEDS: DIVALPROEX SODIUM 500 MG ER TABLET PO SCH (20:39)
[2018-04-06 01:25] VITALS: BP 120/71
[2018-04-06 06:14] LABS: GLUCOMETER DEV NAME(LOC) BV2N3; GLUCOSE,POINT OF CARE 108 MG/DL (70-110)
[2018-04-06] MEDS: MetFORMIN HCL 500 MG TABLET PO SCH ×2 (06:40→16:35)
[2018-04-06] MEDS: DIVALPROEX SODIUM 500 MG DR TABLET PO SCH (08:19)
[2018-04-06] MEDS: LORazepam 2 MG TABLET PO PRN ×2 (08:19→16:03)
[2018-04-06] MEDS: OMEPRAZOLE 20 MG CAPSULE PO SCH (08:19)
[2018-04-06] MEDS: CARISOPRODOL 350 MG TABLET PO SCH ×2 (08:19→16:03)
[2018-04-06] MEDS: CITALOPRAM HYDROBROMIDE 20 MG TABLET PO SCH (08:21)
[2018-04-06 08:25] VITALS: BP 125/82
[2018-04-06] MEDS: HALOPERIDOL 5 MG TABLET PO PRN ×2 (09:06→18:48)
[2018-04-06] MEDS: DiphenhydrAMINE HCL 25 MG CAPSULE PO PRN (10:09)
[2018-04-06 11:08] LABS: GLUCOMETER DEV NAME(LOC) BV2N3; GLUCOSE,POINT OF CARE 110 MG/DL (70-110)
[2018-04-06] MEDS: NICOTINE POLACRILEX 4 MG LOZENGE PO PRN (13:37)
[2018-04-06 16:06] VITALS: BP 115/75
[2018-04-06] MEDS ORDERED: TraMADol HCL 50 MG TABLET PO PRN (16:15)
[2018-04-06 16:39] LABS: GLUCOMETER DEV NAME(LOC) BV2N3; GLUCOSE,POINT OF CARE 110 MG/DL (70-110)
[2018-04-06] MEDS: DIVALPROEX SODIUM 500 MG ER TABLET PO SCH (20:36)
[2018-04-06] MEDS: QUEtiapine FUMARATE 200 MG TABLET PO SCH (20:36)
[2018-04-06 20:58] LABS: GLUCOMETER DEV NAME(LOC) BV2N3; GLUCOSE,POINT OF CARE 109 MG/DL (70-110)
[2018-04-07] MEDS: MetFORMIN HCL 500 MG TABLET PO SCH (06:25)
[2018-04-07 06:28] LABS: GLUCOMETER DEV NAME(LOC) BV2N3; GLUCOSE,POINT OF CARE 116 MG/DL (70-110)
[2018-04-07 06:50] VITALS: BP 106/67
[2018-04-07 08:13] VITALS: BP 113/76
[2018-04-07] MEDS: DIVALPROEX SODIUM 500 MG DR TABLET PO SCH (10:08)
[2018-04-07] MEDS: CITALOPRAM HYDROBROMIDE 20 MG TABLET PO SCH (10:08)
[2018-04-07] MEDS: CARISOPRODOL 350 MG TABLET PO SCH (10:08)
[2018-04-07] MEDS: OMEPRAZOLE 20 MG CAPSULE PO SCH (10:08)
[2018-04-07 11:12] LABS: GLUCOMETER DEV NAME(LOC) BV2N3; GLUCOSE,POINT OF CARE 113 MG/DL (70-110)
[2018-04-07] MEDS ORDERED: METF-444 PO (11:28)
== END 2018-04-07 13:25 | disposition home or self-care (01) | DRG 885 ==
LOC: EMS 07:46 → B2X 10:27
DX: F25.0 Schizoaffective disorder, bipolar type (principal); F15.20 Other stimulant dependence, uncomplicated; F14.20 Cocaine dependence, uncomplicated; R45.851 Suicidal ideations; I10 Essential (primary) hypertension; K21.9 Gastro-esophageal reflux disease without esophagitis; F41.9 Anxiety disorder, unspecified; F17.200 Nicotine dependence, unspecified, uncomplicated; M79.7 Fibromyalgia; E11.65 Type 2 diabetes mellitus with hyperglycemia; D64.9 Anemia, unspecified; J44.9 Chronic obstructive pulmonary disease, unspecified; G89.29 Other chronic pain; M54.9 Dorsalgia, unspecified; Z91.5 Personal history of self-harm; Z59.0 Homelessness; Z88.2 Allergy status to sulfonamides; Z71.6 Tobacco abuse counseling; Z79.899 Other long term (current) drug therapy; Z28.21 Immunization not carried out because of patient refusal
CPT/HCPCS: 83036; 84443; 87081; 96372; 99285; G0480; J1885; Q0162

== ENCOUNTER 2018-04-09 17:47 | Emergency (ER) | payer MEDICARE, MEDICAID ==
[~2018-04-09] VITALS: Ht 165.1 cm; Wt 72.7 kg
[~2018-04-09 17:47] MED LIST changes: -CARI350 PO; +CITA-106 PO; +CITA20TA17 PO; -CLON-570 PO; +DIVA-78 PO; -HYDR-305 PO; +METF-444 PO; -METF500T6 PO; +QUET200T PO; -TRAM50TA4 PO
[2018-04-09 18:14] LABS: GLUCOSE,POINT OF CARE 168 MG/DL (70-110)
[2018-04-09] MEDS ORDERED: ClonazePAM 1 MG TABLET PO ONE (20:45)
[2018-04-09] MEDS ORDERED: KETOROLAC TROMETHAMINE 60 MG/2 ML VIAL IM ONE (20:45)
[2018-04-09 21:27] VITALS: BP 135/71
== END 2018-04-09 21:31 | disposition home or self-care (01) ==
LOC: EMS 17:49
DX: F41.9 Anxiety disorder, unspecified (principal); M79.671 Pain in right foot; M79.672 Pain in left foot; F31.9 Bipolar disorder, unspecified; E11.40 Type 2 diabetes mellitus with diabetic neuropathy, unspecified; K21.9 Gastro-esophageal reflux disease without esophagitis; I10 Essential (primary) hypertension; F20.9 Schizophrenia, unspecified; F14.90 Cocaine use, unspecified, uncomplicated; F15.90 Other stimulant use, unspecified, uncomplicated; Z59.0 Homelessness; Z88.2 Allergy status to sulfonamides; Z79.84 Long term (current) use of oral hypoglycemic drugs
CPT/HCPCS: 82962; 96372; 99283; J1885

== ENCOUNTER 2018-04-12 09:57 | Inpatient (IN) | payer MEDICARE, MEDICAID ==
[~2018-04-12] VITALS: Ht 165.1 cm; Wt 77.1 kg
[~2018-04-12 09:57] MED LIST changes: -CITA20TA17 PO
[2018-04-12] MEDS ORDERED: ONDA4 PO (10:25)
[2018-04-12] MEDS ORDERED: CLON1 PO (10:27)
[2018-04-12 10:32] LABS: AMPHET/METH SCREEN,URINE NEGATIVE (NEGATIVE); BARBITURATE SCREEN, URINE NEGATIVE (NEGATIVE); BENZODIAZEPINES SCREEN,URINE POSITIVE (NEGATIVE); CANNABINOID SCREEN,URINE NEGATIVE (NEGATIVE); COCAINE SCREEN,URINE POSITIVE (NEGATIVE); METHADONE SCREEN, URINE NEGATIVE (NEGATIVE); OPIATE SCREEN,URINE NEGATIVE (NEGATIVE)
[2018-04-12 10:34] LABS: PHENCYCLIDINE SCREEN,URINE NEGATIVE (NEGATIVE)
[2018-04-12 10:35] LABS: EOSINOPHILS % (AUTO) 2.1 % (1.0-6.0); HEMATOCRIT 35.4 % (36-46); HEMOGLOBIN 11.9 g/dL (12.0-16.0); LYMPHOCYTES # (AUTO) 2.2 K/uL (1.0-4.8); LYMPHOCYTES % (AUTO) 38.7 % (22.0-44.0); MEAN CORPUSCULAR HEMOGLOBIN 29.6 pg (26.0-34.0); MEAN CORPUSCULAR HGB CONC 33.7 G/dL (31.0-37.0); MEAN CORPUSCULAR VOLUME 88 fL (80-100); MONOCYTES # (AUTO) 0.4 K/uL (0.1-1.0); MONOCYTES % (AUTO) 7.5 % (2.0-9.0); NEUTROPHILS # (AUTO) 2.9 K/uL (1.8-7.7); NEUTROPHILS % (AUTO) 50.7 % (40.0-70.0); PLATELET COUNT (AUTO) 228 K/uL (150-450); RED BLOOD CELL COUNT(AUTO) 4.03 MIL/uL (4.00-5.20); RED CELL DISTRIBUTION WIDTH 14.2 % (11.5-14.5)
[2018-04-12 10:38] LABS: ANION GAP 9 mmol/L (8-16); CALCIUM, TOTAL 8.6 mg/dL (8.8-10.5); CARBON DIOXIDE 26 mmol/L (22-29); CHLORIDE 104 mmol/L (98-107); CREATININE 0.86 mg/dL (0.60-1.30); GLOMERULAR FILTR. RATE CALC > 60 mL/min (>60); GLUCOSE,RANDOM 137 mg/dL (70-110); POTASSIUM 4.3 mmol/L (3.5-5.1); SODIUM SERUM 139 mmol/L (136-145); UREA NITROGEN, BLOOD 14 mg/dL (7-18)
[2018-04-12 10:43] LABS: ALANINE AMINOTRANSFERASE 18 U/L (12-78); ALBUMIN 3.1 g/dL (3.4-5.0); ALKALINE PHOSPHATASE 90 U/L (46-116); ASPARTATE AMINOTRANSFERASE 10 U/L (15-37); BILIRUBIN,TOTAL 0.3 mg/dL (0.1-1.0); TOTAL PROTEIN, SERUM 6.9 g/dL (6.4-8.2)
[2018-04-12 10:56] LABS: VALPROIC ACID 24 mcg/mL (50-100)
[2018-04-12] MEDS ORDERED: HALOPERIDOL 5 MG TABLET PO ONE (11:00)
[2018-04-12] MEDS ORDERED: KETOROLAC TROMETHAMINE 60 MG/2 ML VIAL IM ONE (11:00)
[2018-04-12] MEDS ORDERED: LORazepam 2 MG TABLET PO ONE (11:00)
[2018-04-12] MEDS ORDERED: ZOLPIDEM TARTRATE 10 MG TABLET PO PRN (11:15)
[2018-04-12] MEDS ORDERED: HALOPERIDOL 5 MG TABLET PO PRN (11:15)
[2018-04-12 13:20] VITALS: BP 135/74
[2018-04-12 13:29] LABS: GLUCOMETER DEV NAME(LOC) BV2N3; GLUCOSE,POINT OF CARE 128 MG/DL (70-110)
[2018-04-12] MEDS ORDERED: PETROLATUM,WHITE 71 GM JELLY TP PRN (13:45)
[2018-04-12] MEDS ORDERED: CloNIDine HCL 0.1 MG TABLET PO PRN (13:45)
[2018-04-12] MEDS ORDERED: LOPERAMIDE HCL 2 MG CAPSULE PO PRN (13:45)
[2018-04-12] MEDS ORDERED: BACITRACIN 28.4 GM OINTMENT TP PRN (13:45)
[2018-04-12] MEDS ORDERED: GLUCAGON,HUMAN RECOMBINANT 1 MG VIAL IM PRN (13:45)
[2018-04-12] MEDS ORDERED: BENZOCAINE/MENTHOL LOZENGE MM PRN (13:45)
[2018-04-12] MEDS ORDERED: INSULIN LISPRO 100 UNITS/ML SQ PRN (13:45)
[2018-04-12] MEDS ORDERED: ALBUTEROL SULFATE HFA 90 MCG/PUFF 8 GM INHALER IH PRN (13:45)
[2018-04-12] MEDS ORDERED: ONDANSETRON HCL 4 MG TABLET PO PRN (13:45)
[2018-04-12] MEDS ORDERED: ACETAMINOPHEN 325 MG TABLET PO PRN (13:45)
[2018-04-12] MEDS: MetFORMIN HCL 500 MG TABLET PO SCH (16:31)
[2018-04-12] MEDS: CARISOPRODOL 350 MG TABLET PO SCH (16:32)
[2018-04-12 16:44] LABS: GLUCOMETER DEV NAME(LOC) BV2N3; GLUCOSE,POINT OF CARE 126 MG/DL (70-110)
[2018-04-12] MEDS: MAG HYDROX/AL HYDROX/SIMETH ES 30 ML SUSPENSION UDCUP PO PRN (17:04)
[2018-04-12] MEDS: DIVALPROEX SODIUM 500 MG DR TABLET PO SCH (20:22)
[2018-04-12] MEDS: QUEtiapine FUMARATE 200 MG TABLET PO SCH (20:22)
[2018-04-13] MEDS ORDERED: PNEUMOCOCCAL VACCINE POLYVALENT 0.5 ML VIAL [PPSV23] IM ONE (02:00)
[2018-04-13 06:27] VITALS: BP 130/86
[2018-04-13] MEDS: MetFORMIN HCL 500 MG TABLET PO SCH ×2 (07:01→16:38)
[2018-04-13] MEDS: IBUPROFEN 600 MG TABLET PO PRN (07:30)
[2018-04-13] MEDS: LORazepam 2 MG TABLET PO PRN ×2 (07:30→16:38)
[2018-04-13 07:59] VITALS: BP 114/69
[2018-04-13] MEDS: CITALOPRAM HYDROBROMIDE 20 MG TABLET PO SCH (08:22)
[2018-04-13] MEDS: DOCUSATE SODIUM 100 MG CAPSULE PO SCH (08:22)
[2018-04-13] MEDS: OMEPRAZOLE 20 MG CAPSULE PO SCH (08:23)
[2018-04-13] MEDS: CARISOPRODOL 350 MG TABLET PO SCH ×2 (08:23→16:01)
[2018-04-13] MEDS: DIVALPROEX SODIUM 500 MG DR TABLET PO SCH ×2 (08:23→20:04)
[2018-04-13 11:14] LABS: GLUCOMETER DEV NAME(LOC) BV2N3; GLUCOSE,POINT OF CARE 99 MG/DL (70-110)
[2018-04-13 11:19] VITALS: BP 114/69
[2018-04-13 16:02] VITALS: BP 113/63
[2018-04-13 16:53] LABS: GLUCOMETER DEV NAME(LOC) BV2N3; GLUCOSE,POINT OF CARE 118 MG/DL (70-110)
[2018-04-13] MEDS: QUEtiapine FUMARATE 200 MG TABLET PO SCH (20:04)
[2018-04-14 04:36] VITALS: BP 110/68
[2018-04-14 06:14] LABS: GLUCOMETER DEV NAME(LOC) BV2N3; GLUCOSE,POINT OF CARE 105 MG/DL (70-110)
[2018-04-14] MEDS: MetFORMIN HCL 500 MG TABLET PO SCH ×2 (06:46→16:30)
[2018-04-14] MEDS: LORazepam 2 MG TABLET PO PRN ×2 (07:16→18:06)
[2018-04-14 08:10] VITALS: BP 115/62
[2018-04-14] MEDS: OMEPRAZOLE 20 MG CAPSULE PO SCH (08:24)
[2018-04-14] MEDS: DOCUSATE SODIUM 100 MG CAPSULE PO SCH (08:25)
[2018-04-14] MEDS: CITALOPRAM HYDROBROMIDE 20 MG TABLET PO SCH (08:25)
[2018-04-14] MEDS: DIVALPROEX SODIUM 500 MG DR TABLET PO SCH ×2 (08:25→20:32)
[2018-04-14] MEDS: CARISOPRODOL 350 MG TABLET PO SCH ×2 (08:25→16:30)
[2018-04-14 11:09] LABS: GLUCOMETER DEV NAME(LOC) BV2N3; GLUCOSE,POINT OF CARE 90 MG/DL (70-110)
[2018-04-14 16:03] VITALS: BP 122/69
[2018-04-14] MEDS: NICOTINE POLACRILEX 2 MG LOZENGE PO PRN (16:06)
[2018-04-14 16:24] LABS: GLUCOMETER DEV NAME(LOC) BV2N3; GLUCOSE,POINT OF CARE 162 MG/DL (70-110)
[2018-04-14 18:21] VITALS: BP 117/76
[2018-04-14] MEDS: IBUPROFEN 600 MG TABLET PO PRN (18:21)
[2018-04-14] MEDS: QUEtiapine FUMARATE 200 MG TABLET PO SCH (20:32)
[2018-04-14 20:34] LABS: GLUCOMETER DEV NAME(LOC) BV2N3; GLUCOSE,POINT OF CARE 145 MG/DL (70-110)
[2018-04-15 00:07] VITALS: BP 120/81
[2018-04-15 06:14] LABS: GLUCOMETER DEV NAME(LOC) BV2N3; GLUCOSE,POINT OF CARE 122 MG/DL (70-110)
[2018-04-15] MEDS: MetFORMIN HCL 500 MG TABLET PO SCH ×2 (06:35→16:33)
[2018-04-15] MEDS: CITALOPRAM HYDROBROMIDE 20 MG TABLET PO SCH (08:16)
[2018-04-15] MEDS: DIVALPROEX SODIUM 500 MG DR TABLET PO SCH ×2 (08:16→20:32)
[2018-04-15] MEDS: CARISOPRODOL 350 MG TABLET PO SCH ×2 (08:17→16:33)
[2018-04-15] MEDS: DOCUSATE SODIUM 100 MG CAPSULE PO SCH (08:17)
[2018-04-15] MEDS: OMEPRAZOLE 20 MG CAPSULE PO SCH (08:17)
[2018-04-15] MEDS: NICOTINE POLACRILEX 2 MG LOZENGE PO PRN (08:20)
[2018-04-15 08:35] VITALS: BP 111/76
[2018-04-15 08:54] LABS: CHOL/HDL RATIO 2.6 (3.9-5.7)
[2018-04-15 10:34] VITALS: BP 114/74
[2018-04-15] MEDS: IBUPROFEN 600 MG TABLET PO PRN (10:34)
[2018-04-15] MEDS: LORazepam 2 MG TABLET PO PRN ×2 (10:37→17:18)
[2018-04-15 11:04] LABS: GLUCOMETER DEV NAME(LOC) BV2N3; GLUCOSE,POINT OF CARE 102 MG/DL (70-110)
[2018-04-15 16:04] VITALS: BP 134/77
[2018-04-15 16:23] LABS: GLUCOMETER DEV NAME(LOC) BV2N3; GLUCOSE,POINT OF CARE 122 MG/DL (70-110)
[2018-04-15] MEDS: MAGNESIUM HYDROXIDE SUSPENSION 30 ML UDCUP PO PRN (17:27)
[2018-04-15 20:28] LABS: GLUCOMETER DEV NAME(LOC) BV2N3; GLUCOSE,POINT OF CARE 143 MG/DL (70-110)
[2018-04-15] MEDS: QUEtiapine FUMARATE 200 MG TABLET PO SCH (20:33)
[2018-04-16] MEDS: LORazepam 2 MG TABLET PO PRN ×3 (01:32→17:24)
[2018-04-16 05:38] VITALS: BP 122/71
[2018-04-16] MEDS: MetFORMIN HCL 500 MG TABLET PO SCH ×2 (06:18→16:34)
[2018-04-16 06:28] LABS: GLUCOMETER DEV NAME(LOC) BV2N3; GLUCOSE,POINT OF CARE 118 MG/DL (70-110)
[2018-04-16] MEDS: DOCUSATE SODIUM 100 MG CAPSULE PO SCH (08:24)
[2018-04-16] MEDS: CARISOPRODOL 350 MG TABLET PO SCH ×2 (08:24→16:34)
[2018-04-16] MEDS: DIVALPROEX SODIUM 500 MG DR TABLET PO SCH ×2 (08:24→20:36)
[2018-04-16] MEDS: OMEPRAZOLE 20 MG CAPSULE PO SCH (08:25)
[2018-04-16] MEDS: CITALOPRAM HYDROBROMIDE 20 MG TABLET PO SCH (08:25)
[2018-04-16 08:30] VITALS: BP 107/61
[2018-04-16 10:23] VITALS: BP 125/70
[2018-04-16] MEDS: IBUPROFEN 600 MG TABLET PO PRN (10:23)
[2018-04-16 11:04] LABS: GLUCOMETER DEV NAME(LOC) BV2N3; GLUCOSE,POINT OF CARE 133 MG/DL (70-110)
[2018-04-16 16:02] VITALS: BP 137/73
[2018-04-16 16:18] LABS: GLUCOMETER DEV NAME(LOC) BV2N3; GLUCOSE,POINT OF CARE 123 MG/DL (70-110)
[2018-04-16] MEDS: NICOTINE POLACRILEX 2 MG LOZENGE PO PRN (16:24)
[2018-04-16] MEDS: MAGNESIUM HYDROXIDE SUSPENSION 30 ML UDCUP PO PRN (16:54)
[2018-04-16 20:28] LABS: GLUCOMETER DEV NAME(LOC) BV2N3; GLUCOSE,POINT OF CARE 114 MG/DL (70-110)
[2018-04-16] MEDS: QUEtiapine FUMARATE 200 MG TABLET PO SCH (20:36)
[2018-04-17 04:38] VITALS: BP 100/63
[2018-04-17 06:18] LABS: GLUCOMETER DEV NAME(LOC) BV2N3; GLUCOSE,POINT OF CARE 129 MG/DL (70-110)
[2018-04-17] MEDS: MetFORMIN HCL 500 MG TABLET PO SCH ×2 (06:26→16:33)
[2018-04-17] MEDS: OMEPRAZOLE 20 MG CAPSULE PO SCH (08:26)
[2018-04-17] MEDS: DIVALPROEX SODIUM 500 MG DR TABLET PO SCH ×2 (08:27→20:33)
[2018-04-17] MEDS: CARISOPRODOL 350 MG TABLET PO SCH ×2 (08:27→16:34)
[2018-04-17] MEDS: DOCUSATE SODIUM 100 MG CAPSULE PO SCH (08:29)
[2018-04-17 08:31] VITALS: BP 101/60
[2018-04-17] MEDS: CITALOPRAM HYDROBROMIDE 20 MG TABLET PO SCH (08:34)
[2018-04-17] MEDS ORDERED: KETOROLAC TROMETHAMINE 30 MG/ML VIAL IM ONE (09:00)
[2018-04-17 09:30] VITALS: BP 119/76
[2018-04-17] MEDS: LORazepam 2 MG TABLET PO PRN ×2 (09:30→15:42)
[2018-04-17 11:03] LABS: GLUCOMETER DEV NAME(LOC) BV2N3; GLUCOSE,POINT OF CARE 124 MG/DL (70-110)
[2018-04-17] MEDS: MAGNESIUM HYDROXIDE SUSPENSION 30 ML UDCUP PO PRN (15:42)
[2018-04-17] MEDS: NICOTINE POLACRILEX 2 MG LOZENGE PO PRN (15:44)
[2018-04-17 16:07] VITALS: BP 125/67
[2018-04-17 16:23] LABS: GLUCOMETER DEV NAME(LOC) BV2N3; GLUCOSE,POINT OF CARE 134 MG/DL (70-110)
[2018-04-17 20:28] LABS: GLUCOMETER DEV NAME(LOC) BV2N3; GLUCOSE,POINT OF CARE 129 MG/DL (70-110)
[2018-04-17] MEDS: QUEtiapine FUMARATE 200 MG TABLET PO SCH (20:33)
[2018-04-17] MEDS: MAG HYDROX/AL HYDROX/SIMETH ES 30 ML SUSPENSION UDCUP PO PRN (20:36)
[2018-04-18 05:59] LABS: GLUCOMETER DEV NAME(LOC) BV2N3; GLUCOSE,POINT OF CARE 105 MG/DL (70-110)
[2018-04-18] MEDS: MetFORMIN HCL 500 MG TABLET PO SCH ×2 (06:47→16:35)
[2018-04-18 06:59] VITALS: BP 118/70
[2018-04-18 08:42] VITALS: BP 110/66
[2018-04-18] MEDS: OMEPRAZOLE 20 MG CAPSULE PO SCH (08:43)
[2018-04-18] MEDS: DIVALPROEX SODIUM 500 MG DR TABLET PO SCH ×2 (08:43→20:38)
[2018-04-18] MEDS: DOCUSATE SODIUM 100 MG CAPSULE PO SCH (08:43)
[2018-04-18] MEDS: CARISOPRODOL 350 MG TABLET PO SCH ×2 (08:44→16:35)
[2018-04-18] MEDS: CITALOPRAM HYDROBROMIDE 20 MG TABLET PO SCH (08:47)
[2018-04-18] MEDS: LORazepam 2 MG TABLET PO PRN ×2 (10:45→15:42)
[2018-04-18 11:03] LABS: GLUCOMETER DEV NAME(LOC) BV2N3; GLUCOSE,POINT OF CARE 181 MG/DL (70-110)
[2018-04-18] MEDS: NICOTINE POLACRILEX 2 MG LOZENGE PO PRN ×2 (12:01→16:10)
[2018-04-18 16:28] LABS: GLUCOMETER DEV NAME(LOC) BV2N3; GLUCOSE,POINT OF CARE 141 MG/DL (70-110)
[2018-04-18] MEDS: MAG HYDROX/AL HYDROX/SIMETH ES 30 ML SUSPENSION UDCUP PO PRN (16:44)
[2018-04-18 16:59] VITALS: BP 115/79
[2018-04-18 17:40] VITALS: BP 112/67
[2018-04-18] MEDS: IBUPROFEN 600 MG TABLET PO PRN (17:45)
[2018-04-18 20:28] LABS: GLUCOMETER DEV NAME(LOC) BV2N3; GLUCOSE,POINT OF CARE 104 MG/DL (70-110)
[2018-04-18] MEDS: QUEtiapine FUMARATE 200 MG TABLET PO SCH (20:38)
[2018-04-19 02:57] VITALS: BP_SYST 104; BP_SYST 142; BP_DIAS 85
[2018-04-19] MEDS: MetFORMIN HCL 500 MG TABLET PO SCH ×2 (06:52→16:28)
[2018-04-19 08:30] VITALS: BP 117/81
[2018-04-19] MEDS: OMEPRAZOLE 20 MG CAPSULE PO SCH (09:37)
[2018-04-19] MEDS: DIVALPROEX SODIUM 500 MG DR TABLET PO SCH ×2 (09:37→20:54)
[2018-04-19] MEDS: CARISOPRODOL 350 MG TABLET PO SCH ×2 (09:38→16:28)
[2018-04-19] MEDS: CITALOPRAM HYDROBROMIDE 20 MG TABLET PO SCH (09:38)
[2018-04-19] MEDS: DOCUSATE SODIUM 100 MG CAPSULE PO SCH (09:38)
[2018-04-19] MEDS: LORazepam 2 MG TABLET PO PRN ×2 (09:39→13:59)
[2018-04-19 11:34] LABS: GLUCOMETER DEV NAME(LOC) BV2N3; GLUCOSE,POINT OF CARE 116 MG/DL (70-110)
[2018-04-19 13:54] VITALS: BP 108/66
[2018-04-19] MEDS: IBUPROFEN 600 MG TABLET PO PRN (13:59)
[2018-04-19] MEDS: NICOTINE POLACRILEX 2 MG LOZENGE PO PRN (14:35)
[2018-04-19 16:03] VITALS: BP 125/81
[2018-04-19 16:19] LABS: GLUCOMETER DEV NAME(LOC) BV2N3; GLUCOSE,POINT OF CARE 121 MG/DL (70-110)
[2018-04-19 20:19] LABS: GLUCOMETER DEV NAME(LOC) BV2N3; GLUCOSE,POINT OF CARE 102 MG/DL (70-110)
[2018-04-19] MEDS: QUEtiapine FUMARATE 200 MG TABLET PO SCH (20:54)
[2018-04-20 00:08] VITALS: BP 132/76
[2018-04-20] MEDS: MetFORMIN HCL 500 MG TABLET PO SCH ×2 (06:41→16:30)
[2018-04-20 06:54] LABS: GLUCOMETER DEV NAME(LOC) BV2N3; GLUCOSE,POINT OF CARE 121 MG/DL (70-110)
[2018-04-20 08:00] VITALS: BP 119/69
[2018-04-20] MEDS: OMEPRAZOLE 20 MG CAPSULE PO SCH (08:12)
[2018-04-20] MEDS: CITALOPRAM HYDROBROMIDE 20 MG TABLET PO SCH ×2 (08:12→08:21)
[2018-04-20] MEDS: DIVALPROEX SODIUM 500 MG DR TABLET PO SCH ×2 (08:12→20:32)
[2018-04-20] MEDS: CARISOPRODOL 350 MG TABLET PO SCH ×2 (08:12→16:30)
[2018-04-20] MEDS: DOCUSATE SODIUM 100 MG CAPSULE PO SCH (08:13)
[2018-04-20] MEDS: IBUPROFEN 600 MG TABLET PO PRN (09:44)
[2018-04-20] MEDS: LORazepam 2 MG TABLET PO PRN ×3 (09:44→18:41)
[2018-04-20] MEDS ORDERED: KETOROLAC TROMETHAMINE 30 MG/ML VIAL IM SCH ×2 (10:00→21:00)
[2018-04-20] MEDS: KETOROLAC TROMETHAMINE 30 MG/ML VIAL IM SCH (10:35)
[2018-04-20 11:03] LABS: GLUCOMETER DEV NAME(LOC) BV2N3; GLUCOSE,POINT OF CARE 139 MG/DL (70-110)
[2018-04-20] MEDS: NICOTINE POLACRILEX 2 MG LOZENGE PO PRN (11:40)
[2018-04-20 16:13] VITALS: BP 111/73
[2018-04-20 16:14] LABS: GLUCOMETER DEV NAME(LOC) BV2N3; GLUCOSE,POINT OF CARE 151 MG/DL (70-110)
[2018-04-20 20:28] LABS: GLUCOMETER DEV NAME(LOC) BV2N3; GLUCOSE,POINT OF CARE 112 MG/DL (70-110)
[2018-04-20] MEDS: QUEtiapine FUMARATE 200 MG TABLET PO SCH (20:32)
[2018-04-21] MEDS: LORazepam 2 MG TABLET PO PRN ×4 (02:11→17:53)
[2018-04-21 06:02] VITALS: BP 116/66
[2018-04-21] MEDS: MetFORMIN HCL 500 MG TABLET PO SCH ×2 (06:35→16:40)
[2018-04-21 06:54] LABS: GLUCOMETER DEV NAME(LOC) BV2N3; GLUCOSE,POINT OF CARE 111 MG/DL (70-110)
[2018-04-21 08:00] VITALS: BP 108/65
[2018-04-21] MEDS: DOCUSATE SODIUM 100 MG CAPSULE PO SCH (08:14)
[2018-04-21] MEDS: CARISOPRODOL 350 MG TABLET PO SCH ×2 (08:14→16:34)
[2018-04-21] MEDS: DIVALPROEX SODIUM 500 MG DR TABLET PO SCH ×2 (08:14→20:37)
[2018-04-21] MEDS: OMEPRAZOLE 20 MG CAPSULE PO SCH (08:14)
[2018-04-21] MEDS: CITALOPRAM HYDROBROMIDE 20 MG TABLET PO SCH (08:22)
[2018-04-21] MEDS: NICOTINE POLACRILEX 2 MG LOZENGE PO PRN ×3 (08:49→17:54)
[2018-04-21] MEDS: KETOROLAC TROMETHAMINE 30 MG/ML VIAL IM SCH (09:22)
[2018-04-21 11:04] LABS: GLUCOMETER DEV NAME(LOC) BV2N3; GLUCOSE,POINT OF CARE 136 MG/DL (70-110)
[2018-04-21 16:19] LABS: GLUCOMETER DEV NAME(LOC) BV2N3; GLUCOSE,POINT OF CARE 133 MG/DL (70-110)
[2018-04-21 16:37] VITALS: BP 138/82
[2018-04-21 20:19] LABS: GLUCOMETER DEV NAME(LOC) BV2N3; GLUCOSE,POINT OF CARE 117 MG/DL (70-110)
[2018-04-21] MEDS: QUEtiapine FUMARATE 200 MG TABLET PO SCH (20:37)
[2018-04-22 00:25] VITALS: BP_SYST 133; BP_SYST 136; BP_DIAS 74; BP_DIAS 83
[2018-04-22] MEDS: LORazepam 2 MG TABLET PO PRN (02:47)
[2018-04-22] MEDS: MetFORMIN HCL 500 MG TABLET PO SCH (06:55)
[2018-04-22] MEDS ORDERED: METF-960 PO (06:58)
[2018-04-22] MEDS ORDERED: DSS100 PO (06:58)
[2018-04-22] MEDS ORDERED: CARI350 PO (06:58)
[2018-04-22] MEDS ORDERED: OMEP20 PO (06:58)
[2018-04-22] MEDS ORDERED: DIVA-78 PO ×2 (07:14)
[2018-04-22] MEDS ORDERED: CITA-106 PO (07:14)
[2018-04-22] MEDS ORDERED: QUET200T PO (07:15)
[2018-04-22] MEDS: DOCUSATE SODIUM 100 MG CAPSULE PO SCH (08:18)
[2018-04-22] MEDS: DIVALPROEX SODIUM 500 MG DR TABLET PO SCH (08:18)
[2018-04-22] MEDS: OMEPRAZOLE 20 MG CAPSULE PO SCH (08:18)
[2018-04-22] MEDS: CARISOPRODOL 350 MG TABLET PO SCH (08:19)
[2018-04-22] MEDS: CITALOPRAM HYDROBROMIDE 20 MG TABLET PO SCH (08:21)
[2018-04-22] MEDS: KETOROLAC TROMETHAMINE 30 MG/ML VIAL IM SCH (09:12)
== END 2018-04-22 10:15 | disposition home or self-care (01) | DRG 885 ==
LOC: EMS 10:02 → B2X 11:37
DX: F25.0 Schizoaffective disorder, bipolar type (principal); R45.851 Suicidal ideations; F19.20 Other psychoactive substance dependence, uncomplicated; E03.9 Hypothyroidism, unspecified; E11.65 Type 2 diabetes mellitus with hyperglycemia; F14.90 Cocaine use, unspecified, uncomplicated; F25.1 Schizoaffective disorder, depressive type; G47.00 Insomnia, unspecified; M54.5 Low back pain; F41.9 Anxiety disorder, unspecified; I10 Essential (primary) hypertension; J44.9 Chronic obstructive pulmonary disease, unspecified; K21.9 Gastro-esophageal reflux disease without esophagitis; K59.00 Constipation, unspecified; M79.7 Fibromyalgia; Z88.2 Allergy status to sulfonamides; Z79.899 Other long term (current) drug therapy; Z79.84 Long term (current) use of oral hypoglycemic drugs; Z79.51 Long term (current) use of inhaled steroids; Z95.0 Presence of cardiac pacemaker; Z71.51 Drug abuse counseling and surveillance of drug abuser
CPT/HCPCS: 87081; 96372; 99285; G0480; J1885

== ENCOUNTER 2018-06-05 18:53 | Inpatient (IN) | payer MEDICARE, MEDICAID ==
[~2018-06-05] VITALS: Ht 167.6 cm; Wt 78.9 kg
[~2018-06-05 18:53] MED LIST changes: -CITA-106 PO; +CITA20TA17 PO; -DIVA500T52 PO; -METF-444 PO; +METF-960 PO; -QUET200T PO
[2018-06-05] MEDS ORDERED: METF-960 PO (20:35)
[2018-06-05] MEDS ORDERED: DIVA-78 PO (20:36)
[2018-06-05] MEDS ORDERED: CLON1 PO (20:39)
[2018-06-05 21:21] LABS: BASOPHILS % (AUTO) 0.9 % (0.0-2.0); EOSINOPHILS % (AUTO) 1.8 % (1.0-6.0); HEMATOCRIT 34.6 % (36-46); HEMOGLOBIN 11.7 g/dL (12.0-16.0); LYMPHOCYTES # (AUTO) 2.8 K/uL (1.0-4.8); LYMPHOCYTES % (AUTO) 43.7 % (22.0-44.0); MEAN CORPUSCULAR HEMOGLOBIN 29.4 pg (26.0-34.0); MEAN CORPUSCULAR HGB CONC 33.7 G/dL (31.0-37.0); MEAN CORPUSCULAR VOLUME 87 fL (80-100); MONOCYTES # (AUTO) 0.5 K/uL (0.1-1.0); MONOCYTES % (AUTO) 7.4 % (2.0-9.0); NEUTROPHILS % (AUTO) 46.2 % (40.0-70.0); PLATELET COUNT (AUTO) 288 K/uL (150-450); RED BLOOD CELL COUNT(AUTO) 3.97 MIL/uL (4.00-5.20); RED CELL DISTRIBUTION WIDTH 14.6 % (11.5-14.5)
[2018-06-05 21:44] LABS: GLUCOSE,POINT OF CARE 120 MG/DL (70-110)
[2018-06-05 22:04] LABS: ALANINE AMINOTRANSFERASE 16 U/L (12-78); ALBUMIN 3.2 g/dL (3.4-5.0); ALKALINE PHOSPHATASE 105 U/L (46-116); ANION GAP 7 mmol/L (8-16); ASPARTATE AMINOTRANSFERASE 14 U/L (15-37); BILIRUBIN,TOTAL 0.2 mg/dL (0.1-1.0); CARBON DIOXIDE 33 mmol/L (22-29); CHLORIDE 102 mmol/L (98-107); CREATININE 0.94 mg/dL (0.60-1.30); GLOMERULAR FILTR. RATE CALC > 60 mL/min (>60); GLUCOSE,RANDOM 109 mg/dL (70-110); POTASSIUM 4.1 mmol/L (3.5-5.1); SODIUM SERUM 142 mmol/L (136-145); UREA NITROGEN, BLOOD 14 mg/dL (7-18)
[2018-06-05] MEDS ORDERED: ZOLPIDEM TARTRATE 10 MG TABLET PO PRN (22:15)
[2018-06-05] MEDS ORDERED: LORazepam 2 MG TABLET PO ONE (22:15)
[2018-06-05] MEDS ORDERED: LORazepam 2 MG TABLET PO PRN (22:15)
[2018-06-05] MEDS ORDERED: KETOROLAC TROMETHAMINE 60 MG/2 ML VIAL IM ONE (22:15)
[2018-06-05] MEDS ORDERED: DiphenhydrAMINE HCL 25 MG CAPSULE PO ONE (22:15)
[2018-06-05] MEDS ORDERED: HALOPERIDOL 5 MG TABLET PO ONE (22:15)
[2018-06-05 23:41] LABS: AMPHET/METH SCREEN,URINE NEGATIVE (NEGATIVE); BARBITURATE SCREEN, URINE NEGATIVE (NEGATIVE); BENZODIAZEPINES SCREEN,URINE NEGATIVE (NEGATIVE); CANNABINOID SCREEN,URINE NEGATIVE (NEGATIVE); COCAINE SCREEN,URINE POSITIVE (NEGATIVE); METHADONE SCREEN, URINE NEGATIVE (NEGATIVE); OPIATE SCREEN,URINE NEGATIVE (NEGATIVE); PHENCYCLIDINE SCREEN,URINE NEGATIVE (NEGATIVE)
[2018-06-06] VITALS (8 sets, daily range): BP systolic 120–144; BP diastolic 73–99
[2018-06-06] MEDS ORDERED: PNEUMOCOCCAL VACCINE POLYVALENT 0.5 ML VIAL [PPSV23] IM ONE (01:15)
[2018-06-06] MEDS ORDERED: LORazepam 1 MG TABLET PO PRN (10:15)
[2018-06-06] MEDS ORDERED: LORazepam 2 MG TABLET PO PRN (10:30)
[2018-06-06] MEDS: CITALOPRAM HYDROBROMIDE 20 MG TABLET PO SCH (10:30)
[2018-06-06] MEDS ORDERED: DIVALPROEX SODIUM 500 MG DR TABLET PO SCH (10:30)
[2018-06-06] MEDS: TraMADol HCL 50 MG TABLET PO PRN (17:12)
[2018-06-06] MEDS ORDERED: LOPERAMIDE HCL 2 MG CAPSULE PO PRN (17:15)
[2018-06-06] MEDS ORDERED: INSULIN LISPRO 100 UNITS/ML SQ PRN (17:15)
[2018-06-06] MEDS ORDERED: GLUCAGON,HUMAN RECOMBINANT 1 MG VIAL IM PRN (17:15)
[2018-06-06] MEDS ORDERED: ALBUTEROL SULFATE HFA 90 MCG/PUFF 8 GM INHALER IH PRN (17:15)
[2018-06-06] MEDS ORDERED: CloNIDine HCL 0.1 MG TABLET PO PRN (17:15)
[2018-06-06] MEDS ORDERED: BACITRACIN 28.4 GM OINTMENT TP PRN (17:15)
[2018-06-06] MEDS ORDERED: PETROLATUM,WHITE 71 GM JELLY TP PRN (17:15)
[2018-06-06] MEDS ORDERED: BENZOCAINE/MENTHOL LOZENGE MM PRN (17:15)
[2018-06-06] MEDS ORDERED: MAGNESIUM HYDROXIDE SUSPENSION 30 ML UDCUP PO PRN (17:15)
[2018-06-06 20:24] LABS: GLUCOMETER DEV NAME(LOC) BV2N3; GLUCOSE,POINT OF CARE 105 MG/DL (70-110)
[2018-06-06] MEDS: DIVALPROEX SODIUM 500 MG DR TABLET PO SCH (20:31)
[2018-06-06] MEDS: QUEtiapine FUMARATE 200 MG TABLET PO SCH (20:31)
[2018-06-07] MEDS: MetFORMIN HCL 500 MG TABLET PO SCH ×2 (06:35→17:02)
[2018-06-07] MEDS ORDERED: LORazepam 2 MG TABLET PO PRN (07:00)
[2018-06-07 08:31] VITALS: BP 108/63
[2018-06-07] MEDS: DOCUSATE SODIUM 100 MG CAPSULE PO SCH (08:36)
[2018-06-07] MEDS: DIVALPROEX SODIUM 500 MG DR TABLET PO SCH ×2 (08:36→20:23)
[2018-06-07] MEDS: OMEPRAZOLE 20 MG CAPSULE PO SCH (08:36)
[2018-06-07] MEDS: CITALOPRAM HYDROBROMIDE 20 MG TABLET PO SCH (08:37)
[2018-06-07] MEDS: CARISOPRODOL 350 MG TABLET PO SCH ×2 (08:37→17:02)
[2018-06-07] MEDS: LORazepam 2 MG TABLET PO SCH ×4 (08:37→20:23)
[2018-06-07 09:36] VITALS: BP 108/63
[2018-06-07 11:03] LABS: GLUCOMETER DEV NAME(LOC) BV2N3; GLUCOSE,POINT OF CARE 112 MG/DL (70-110)
[2018-06-07 14:03] VITALS: BP 109/64
[2018-06-07 16:05] VITALS: BP 118/60
[2018-06-07 16:49] LABS: GLUCOMETER DEV NAME(LOC) BV2N3; GLUCOSE,POINT OF CARE 138 MG/DL (70-110)
[2018-06-07] MEDS: QUEtiapine FUMARATE 200 MG TABLET PO SCH (20:23)
[2018-06-07 20:44] LABS: GLUCOMETER DEV NAME(LOC) BV2N3; GLUCOSE,POINT OF CARE 99 MG/DL (70-110)
[2018-06-08 06:15] VITALS: BP 110/68
[2018-06-08] MEDS: MetFORMIN HCL 500 MG TABLET PO SCH ×2 (07:01→16:52)
[2018-06-08] MEDS: DIVALPROEX SODIUM 500 MG DR TABLET PO SCH ×2 (08:24→20:31)
[2018-06-08] MEDS: DOCUSATE SODIUM 100 MG CAPSULE PO SCH (08:24)
[2018-06-08] MEDS: CARISOPRODOL 350 MG TABLET PO SCH ×2 (08:24→16:51)
[2018-06-08] MEDS: LORazepam 2 MG TABLET PO SCH ×4 (08:24→20:31)
[2018-06-08] MEDS: OMEPRAZOLE 20 MG CAPSULE PO SCH (08:24)
[2018-06-08 08:25] VITALS: BP 120/85
[2018-06-08] MEDS: CITALOPRAM HYDROBROMIDE 20 MG TABLET PO SCH (08:25)
[2018-06-08 08:26] VITALS: BP 107/76
[2018-06-08] MEDS: MAG HYDROX/AL HYDROX/SIMETH ES 30 ML SUSPENSION UDCUP PO PRN ×2 (08:57→18:24)
[2018-06-08 10:33] VITALS: BP 118/82
[2018-06-08] MEDS: TraMADol HCL 50 MG TABLET PO PRN (10:33)
[2018-06-08 10:58] LABS: GLUCOMETER DEV NAME(LOC) BV2N3; GLUCOSE,POINT OF CARE 125 MG/DL (70-110)
[2018-06-08 16:22] VITALS: BP 114/70
[2018-06-08 16:23] VITALS: BP 114/70
[2018-06-08 16:45] LABS: GLUCOMETER DEV NAME(LOC) BV2N3; GLUCOSE,POINT OF CARE 102 MG/DL (70-110)
[2018-06-08] MEDS: QUEtiapine FUMARATE 200 MG TABLET PO SCH (20:31)
[2018-06-08 20:40] LABS: GLUCOMETER DEV NAME(LOC) BV2N3; GLUCOSE,POINT OF CARE 112 MG/DL (70-110)
[2018-06-09 03:11] VITALS: BP_SYST 104; BP_DIAS 65; BP_DIAS 66
[2018-06-09 06:04] LABS: GLUCOMETER DEV NAME(LOC) BV2N3; GLUCOSE,POINT OF CARE 142 MG/DL (70-110)
[2018-06-09] MEDS ORDERED: LORazepam 1 MG TABLET PO PRN (07:00)
[2018-06-09] MEDS: MetFORMIN HCL 500 MG TABLET PO SCH ×2 (07:02→16:42)
[2018-06-09 08:17] VITALS: BP 128/72
[2018-06-09] MEDS: LORazepam 1 MG TABLET PO SCH ×4 (08:26→20:32)
[2018-06-09] MEDS: DIVALPROEX SODIUM 500 MG DR TABLET PO SCH ×2 (08:26→20:33)
[2018-06-09] MEDS: OMEPRAZOLE 20 MG CAPSULE PO SCH (08:26)
[2018-06-09] MEDS: CARISOPRODOL 350 MG TABLET PO SCH ×2 (08:26→16:42)
[2018-06-09] MEDS: DOCUSATE SODIUM 100 MG CAPSULE PO SCH (08:26)
[2018-06-09] MEDS: CITALOPRAM HYDROBROMIDE 20 MG TABLET PO SCH (08:30)
[2018-06-09] MEDS: MAG HYDROX/AL HYDROX/SIMETH ES 30 ML SUSPENSION UDCUP PO PRN (09:44)
[2018-06-09 16:11] VITALS: BP 123/75
[2018-06-09 16:20] LABS: GLUCOMETER DEV NAME(LOC) BV2N3; GLUCOSE,POINT OF CARE 108 MG/DL (70-110)
[2018-06-09 17:59] VITALS: BP 116/67
[2018-06-09] MEDS: IBUPROFEN 600 MG TABLET PO PRN (17:59)
[2018-06-09 20:24] LABS: GLUCOMETER DEV NAME(LOC) BV2N3; GLUCOSE,POINT OF CARE 103 MG/DL (70-110)
[2018-06-09] MEDS: QUEtiapine FUMARATE 200 MG TABLET PO SCH (20:33)
[2018-06-10 00:02] VITALS: BP 120/81
[2018-06-10 03:39] VITALS: BP 110/75
[2018-06-10] MEDS: ACETAMINOPHEN 325 MG TABLET PO PRN (03:41)
[2018-06-10] MEDS: MetFORMIN HCL 500 MG TABLET PO SCH ×2 (07:03→16:36)
[2018-06-10 07:19] LABS: GLUCOMETER DEV NAME(LOC) BV2N3; GLUCOSE,POINT OF CARE 104 MG/DL (70-110)
[2018-06-10] MEDS: CARISOPRODOL 350 MG TABLET PO SCH ×2 (08:29→16:36)
[2018-06-10] MEDS: DOCUSATE SODIUM 100 MG CAPSULE PO SCH (08:29)
[2018-06-10] MEDS: OMEPRAZOLE 20 MG CAPSULE PO SCH (08:29)
[2018-06-10] MEDS: DIVALPROEX SODIUM 500 MG DR TABLET PO SCH ×2 (08:30→20:40)
[2018-06-10 08:31] VITALS: BP 143/80
[2018-06-10] MEDS: LORazepam 1 MG TABLET PO PRN (08:47)
[2018-06-10] MEDS: MAG HYDROX/AL HYDROX/SIMETH ES 30 ML SUSPENSION UDCUP PO PRN (08:47)
[2018-06-10] MEDS: CITALOPRAM HYDROBROMIDE 20 MG TABLET PO SCH (08:48)
[2018-06-10 09:11] VITALS: BP 143/80
[2018-06-10 11:04] LABS: GLUCOMETER DEV NAME(LOC) BV2N3; GLUCOSE,POINT OF CARE 96 MG/DL (70-110)
[2018-06-10 16:27] VITALS: BP 115/79
[2018-06-10 16:34] LABS: GLUCOMETER DEV NAME(LOC) BV2N3; GLUCOSE,POINT OF CARE 118 MG/DL (70-110)
[2018-06-10 17:00] VITALS: BP 115/79
[2018-06-10 20:38] LABS: GLUCOMETER DEV NAME(LOC) BV2N3; GLUCOSE,POINT OF CARE 123 MG/DL (70-110)
[2018-06-10] MEDS: QUEtiapine FUMARATE 200 MG TABLET PO SCH (20:40)
[2018-06-11 00:30] VITALS: BP 130/71
[2018-06-11 00:53] VITALS: BP 130/71
[2018-06-11] MEDS: LORazepam 1 MG TABLET PO PRN (02:34)
[2018-06-11] MEDS: MetFORMIN HCL 500 MG TABLET PO SCH ×2 (06:35→16:31)
[2018-06-11 08:22] VITALS: BP 116/77
[2018-06-11] MEDS: DOCUSATE SODIUM 100 MG CAPSULE PO SCH (08:28)
[2018-06-11] MEDS: DIVALPROEX SODIUM 500 MG DR TABLET PO SCH ×2 (08:29→20:40)
[2018-06-11] MEDS: CARISOPRODOL 350 MG TABLET PO SCH ×2 (08:29→16:31)
[2018-06-11] MEDS: OMEPRAZOLE 20 MG CAPSULE PO SCH (08:29)
[2018-06-11] MEDS: CITALOPRAM HYDROBROMIDE 20 MG TABLET PO SCH (08:29)
[2018-06-11 08:45] VITALS: BP 116/77
[2018-06-11 11:04] LABS: GLUCOMETER DEV NAME(LOC) BV2N3; GLUCOSE,POINT OF CARE 157 MG/DL (70-110)
[2018-06-11 16:34] LABS: GLUCOMETER DEV NAME(LOC) BV2N3; GLUCOSE,POINT OF CARE 94 MG/DL (70-110)
[2018-06-11 17:46] VITALS: BP 113/67
[2018-06-11] MEDS: DiphenhydrAMINE HCL 50 MG CAPSULE PO PRN (18:59)
[2018-06-11 20:19] LABS: GLUCOMETER DEV NAME(LOC) BV2N3; GLUCOSE,POINT OF CARE 99 MG/DL (70-110)
[2018-06-11] MEDS: QUEtiapine FUMARATE 200 MG TABLET PO SCH (20:41)
[2018-06-12 00:44] VITALS: BP 123/76
[2018-06-12] MEDS: ACETAMINOPHEN 325 MG TABLET PO PRN ×2 (00:47→19:46)
[2018-06-12] MEDS: DiphenhydrAMINE HCL 50 MG CAPSULE PO PRN ×2 (00:48→18:03)
[2018-06-12 06:14] LABS: GLUCOMETER DEV NAME(LOC) BV2N3; GLUCOSE,POINT OF CARE 98 MG/DL (70-110)
[2018-06-12] MEDS: MetFORMIN HCL 500 MG TABLET PO SCH ×2 (06:43→16:15)
[2018-06-12] MEDS: CITALOPRAM HYDROBROMIDE 20 MG TABLET PO SCH (09:00)
[2018-06-12] MEDS: DIVALPROEX SODIUM 500 MG DR TABLET PO SCH ×2 (09:12→20:17)
[2018-06-12] MEDS: DOCUSATE SODIUM 100 MG CAPSULE PO SCH (09:12)
[2018-06-12] MEDS: OMEPRAZOLE 20 MG CAPSULE PO SCH (09:12)
[2018-06-12] MEDS: CARISOPRODOL 350 MG TABLET PO SCH ×2 (09:13→16:15)
[2018-06-12 09:16] VITALS: BP 106/74
[2018-06-12 11:14] LABS: GLUCOMETER DEV NAME(LOC) BV2N3; GLUCOSE,POINT OF CARE 124 MG/DL (70-110)
[2018-06-12 16:17] VITALS: BP 118/68
[2018-06-12 16:24] LABS: GLUCOMETER DEV NAME(LOC) BV2N3; GLUCOSE,POINT OF CARE 101 MG/DL (70-110)
[2018-06-12] MEDS: QUEtiapine FUMARATE 200 MG TABLET PO SCH (20:17)
[2018-06-12 20:28] LABS: GLUCOMETER DEV NAME(LOC) BV2N3; GLUCOSE,POINT OF CARE 158 MG/DL (70-110)
[2018-06-13 00:03] VITALS: BP 128/72
[2018-06-13] MEDS: IBUPROFEN 600 MG TABLET PO PRN ×2 (00:09→17:44)
[2018-06-13] MEDS: MetFORMIN HCL 500 MG TABLET PO SCH ×2 (06:28→16:29)
[2018-06-13 06:35] LABS: GLUCOMETER DEV NAME(LOC) BV2N3; GLUCOSE,POINT OF CARE 92 MG/DL (70-110)
[2018-06-13] MEDS: DIVALPROEX SODIUM 500 MG DR TABLET PO SCH ×2 (08:11→20:32)
[2018-06-13] MEDS: CARISOPRODOL 350 MG TABLET PO SCH ×2 (08:11→16:29)
[2018-06-13] MEDS: DOCUSATE SODIUM 100 MG CAPSULE PO SCH (08:11)
[2018-06-13] MEDS: OMEPRAZOLE 20 MG CAPSULE PO SCH (08:12)
[2018-06-13] MEDS: CITALOPRAM HYDROBROMIDE 20 MG TABLET PO SCH (08:12)
[2018-06-13] MEDS: DiphenhydrAMINE HCL 50 MG CAPSULE PO PRN ×2 (08:13→18:43)
[2018-06-13 08:44] VITALS: BP 101/67
[2018-06-13 09:03] LABS: HEMOGLOBIN A1C 6.2 % (4.5-6.2)
[2018-06-13 09:12] LABS: FREE T4 (FREE THYROXINE) 0.65 ng/dL (0.76-1.46); THYROID STIMULATING HORMONE 3.74 uIU/mL (0.36-3.74)
[2018-06-13 09:22] LABS: CHOL/HDL RATIO 3.1 (3.9-5.7)
[2018-06-13 10:57] VITALS: BP 122/74
[2018-06-13] MEDS: TraMADol HCL 50 MG TABLET PO PRN (10:57)
[2018-06-13] MEDS: MAG HYDROX/AL HYDROX/SIMETH ES 30 ML SUSPENSION UDCUP PO PRN ×2 (10:57→18:33)
[2018-06-13 11:09] LABS: GLUCOMETER DEV NAME(LOC) BV2N3; GLUCOSE,POINT OF CARE 130 MG/DL (70-110)
[2018-06-13 16:12] VITALS: BP 116/71
[2018-06-13 16:47] LABS: GLUCOMETER DEV NAME(LOC) BV2N3; GLUCOSE,POINT OF CARE 102 MG/DL (70-110)
[2018-06-13] MEDS: QUEtiapine FUMARATE 200 MG TABLET PO SCH (20:31)
[2018-06-13 21:23] LABS: GLUCOMETER DEV NAME(LOC) BV2N3; GLUCOSE,POINT OF CARE 105 MG/DL (70-110)
[2018-06-14 00:59] VITALS: BP 123/71
[2018-06-14 06:33] LABS: GLUCOMETER DEV NAME(LOC) BV2N3; GLUCOSE,POINT OF CARE 82 MG/DL (70-110)
[2018-06-14] MEDS: MetFORMIN HCL 500 MG TABLET PO SCH ×2 (07:00→16:49)
[2018-06-14 08:37] VITALS: BP 122/65
[2018-06-14] MEDS: CITALOPRAM HYDROBROMIDE 20 MG TABLET PO SCH (09:00)
[2018-06-14] MEDS: CARISOPRODOL 350 MG TABLET PO SCH ×2 (09:34→16:49)
[2018-06-14] MEDS: DOCUSATE SODIUM 100 MG CAPSULE PO SCH (09:34)
[2018-06-14] MEDS: DIVALPROEX SODIUM 500 MG DR TABLET PO SCH ×2 (09:34→20:26)
[2018-06-14] MEDS: OMEPRAZOLE 20 MG CAPSULE PO SCH (09:34)
[2018-06-14 10:17] VITALS: BP 112/82
[2018-06-14] MEDS: TraMADol HCL 50 MG TABLET PO PRN (10:17)
[2018-06-14 11:03] LABS: GLUCOMETER DEV NAME(LOC) BV2N3; GLUCOSE,POINT OF CARE 123 MG/DL (70-110)
[2018-06-14] MEDS: IBUPROFEN 600 MG TABLET PO PRN (13:23)
[2018-06-14 16:13] VITALS: BP 116/72
[2018-06-14] MEDS: DiphenhydrAMINE HCL 50 MG CAPSULE PO PRN (16:33)
[2018-06-14 16:53] LABS: GLUCOMETER DEV NAME(LOC) BV2N3; GLUCOSE,POINT OF CARE 150 MG/DL (70-110)
[2018-06-14] MEDS: QUEtiapine FUMARATE 200 MG TABLET PO SCH (20:26)
[2018-06-14 20:38] LABS: GLUCOMETER DEV NAME(LOC) BV2N3; GLUCOSE,POINT OF CARE 108 MG/DL (70-110)
[2018-06-15] MEDS: MetFORMIN HCL 500 MG TABLET PO SCH ×2 (07:03→17:22)
[2018-06-15 07:08] LABS: GLUCOMETER DEV NAME(LOC) BV2N3; GLUCOSE,POINT OF CARE 110 MG/DL (70-110)
[2018-06-15 08:10] VITALS: BP 124/67
[2018-06-15] MEDS: OMEPRAZOLE 20 MG CAPSULE PO SCH (08:38)
[2018-06-15] MEDS: CARISOPRODOL 350 MG TABLET PO SCH ×2 (08:38→17:22)
[2018-06-15] MEDS: DIVALPROEX SODIUM 500 MG DR TABLET PO SCH ×2 (08:38→20:12)
[2018-06-15] MEDS: DOCUSATE SODIUM 100 MG CAPSULE PO SCH (08:38)
[2018-06-15] MEDS: CITALOPRAM HYDROBROMIDE 20 MG TABLET PO SCH (08:39)
[2018-06-15 11:02] LABS: GLUCOMETER DEV NAME(LOC) BV2N3; GLUCOSE,POINT OF CARE 107 MG/DL (70-110)
[2018-06-15] MEDS: ONDANSETRON HCL 4 MG TABLET PO PRN (11:45)
[2018-06-15 12:02] VITALS: BP 118/70
[2018-06-15] MEDS: TraMADol HCL 50 MG TABLET PO PRN (12:02)
[2018-06-15 16:08] VITALS: BP 135/75
[2018-06-15 16:32] LABS: GLUCOMETER DEV NAME(LOC) BV2N3; GLUCOSE,POINT OF CARE 120 MG/DL (70-110)
[2018-06-15] MEDS: DiphenhydrAMINE HCL 50 MG CAPSULE PO PRN (16:48)
[2018-06-15 18:54] VITALS: BP 130/75
[2018-06-15] MEDS: IBUPROFEN 600 MG TABLET PO PRN (18:54)
[2018-06-15] MEDS: QUEtiapine FUMARATE 200 MG TABLET PO SCH (20:12)
[2018-06-15 20:23] LABS: GLUCOMETER DEV NAME(LOC) BV2N3; GLUCOSE,POINT OF CARE 89 MG/DL (70-110)
[2018-06-16] MEDS: TraMADol HCL 50 MG TABLET PO PRN ×3 (00:19→21:28)
[2018-06-16 00:22] VITALS: BP 121/68
[2018-06-16] MEDS: MetFORMIN HCL 500 MG TABLET PO SCH ×2 (06:40→16:55)
[2018-06-16 06:53] LABS: GLUCOMETER DEV NAME(LOC) BV2N3; GLUCOSE,POINT OF CARE 95 MG/DL (70-110)
[2018-06-16] MEDS: DOCUSATE SODIUM 100 MG CAPSULE PO SCH (08:32)
[2018-06-16] MEDS: DIVALPROEX SODIUM 500 MG DR TABLET PO SCH ×2 (08:32→20:20)
[2018-06-16] MEDS: CARISOPRODOL 350 MG TABLET PO SCH ×2 (08:33→16:55)
[2018-06-16] MEDS: OMEPRAZOLE 20 MG CAPSULE PO SCH (08:33)
[2018-06-16] MEDS: CITALOPRAM HYDROBROMIDE 20 MG TABLET PO SCH (08:33)
[2018-06-16 08:55] VITALS: BP 131/76
[2018-06-16] MEDS: MAG HYDROX/AL HYDROX/SIMETH ES 30 ML SUSPENSION UDCUP PO PRN ×2 (10:12→16:21)
[2018-06-16 10:58] LABS: GLUCOMETER DEV NAME(LOC) BV2N3; GLUCOSE,POINT OF CARE 106 MG/DL (70-110)
[2018-06-16] MEDS: DiphenhydrAMINE HCL 50 MG CAPSULE PO PRN (14:28)
[2018-06-16 16:39] LABS: GLUCOMETER DEV NAME(LOC) BV2N3; GLUCOSE,POINT OF CARE 135 MG/DL (70-110)
[2018-06-16 16:40] VITALS: BP 123/73
[2018-06-16] MEDS: ONDANSETRON HCL 4 MG TABLET PO PRN (19:16)
[2018-06-16] MEDS: QUEtiapine FUMARATE 200 MG TABLET PO SCH (20:21)
[2018-06-16 20:43] LABS: GLUCOMETER DEV NAME(LOC) BV2N3; GLUCOSE,POINT OF CARE 122 MG/DL (70-110)
[2018-06-16 21:28] VITALS: BP 128/74
[2018-06-17 04:44] VITALS: BP 121/68
[2018-06-17] MEDS: MetFORMIN HCL 500 MG TABLET PO SCH ×2 (06:43→16:48)
[2018-06-17 08:31] VITALS: BP 116/70
[2018-06-17] MEDS: CARISOPRODOL 350 MG TABLET PO SCH ×2 (08:33→16:49)
[2018-06-17] MEDS: DOCUSATE SODIUM 100 MG CAPSULE PO SCH (08:33)
[2018-06-17] MEDS: OMEPRAZOLE 20 MG CAPSULE PO SCH (08:33)
[2018-06-17] MEDS: CITALOPRAM HYDROBROMIDE 20 MG TABLET PO SCH (08:33)
[2018-06-17] MEDS: DIVALPROEX SODIUM 500 MG DR TABLET PO SCH ×2 (08:33→20:09)
[2018-06-17 11:08] LABS: GLUCOMETER DEV NAME(LOC) BV2N3; GLUCOSE,POINT OF CARE 95 MG/DL (70-110)
[2018-06-17 16:03] VITALS: BP 122/74
[2018-06-17 16:38] LABS: GLUCOMETER DEV NAME(LOC) BV2N3; GLUCOSE,POINT OF CARE 141 MG/DL (70-110)
[2018-06-17] MEDS: IBUPROFEN 600 MG TABLET PO PRN (16:49)
[2018-06-17] MEDS: DiphenhydrAMINE HCL 50 MG CAPSULE PO PRN (16:49)
[2018-06-17] MEDS: TraMADol HCL 50 MG TABLET PO PRN (17:24)
[2018-06-17] MEDS: ONDANSETRON HCL 4 MG TABLET PO PRN (18:06)
[2018-06-17] MEDS: ACETAMINOPHEN 325 MG TABLET PO PRN (20:10)
[2018-06-17] MEDS: QUEtiapine FUMARATE 200 MG TABLET PO SCH (20:10)
[2018-06-17 20:13] LABS: GLUCOMETER DEV NAME(LOC) BV2N3; GLUCOSE,POINT OF CARE 101 MG/DL (70-110)
[2018-06-18 00:30] VITALS: BP 120/81
[2018-06-18] MEDS: MetFORMIN HCL 500 MG TABLET PO SCH ×2 (07:01→17:05)
[2018-06-18 08:19] VITALS: BP 120/69
[2018-06-18] MEDS: DOCUSATE SODIUM 100 MG CAPSULE PO SCH (08:22)
[2018-06-18] MEDS: CITALOPRAM HYDROBROMIDE 20 MG TABLET PO SCH (08:22)
[2018-06-18] MEDS: OMEPRAZOLE 20 MG CAPSULE PO SCH (08:22)
[2018-06-18] MEDS: DIVALPROEX SODIUM 500 MG DR TABLET PO SCH ×2 (08:22→20:22)
[2018-06-18] MEDS: CARISOPRODOL 350 MG TABLET PO SCH ×2 (08:22→16:20)
[2018-06-18] MEDS: ONDANSETRON HCL 4 MG TABLET PO PRN (08:53)
[2018-06-18 11:13] LABS: GLUCOMETER DEV NAME(LOC) BV2N3; GLUCOSE,POINT OF CARE 125 MG/DL (70-110)
[2018-06-18 13:06] VITALS: BP 118/78
[2018-06-18] MEDS: TraMADol HCL 50 MG TABLET PO PRN (13:06)
[2018-06-18 16:48] LABS: GLUCOMETER DEV NAME(LOC) BV2N3; GLUCOSE,POINT OF CARE 94 MG/DL (70-110)
[2018-06-18 19:11] VITALS: BP 123/78
[2018-06-18] MEDS: QUEtiapine FUMARATE 200 MG TABLET PO SCH (20:21)
[2018-06-18 21:03] LABS: GLUCOMETER DEV NAME(LOC) BV2N3; GLUCOSE,POINT OF CARE 95 MG/DL (70-110)
[2018-06-19 05:29] VITALS: BP 120/81
[2018-06-19] MEDS: MetFORMIN HCL 500 MG TABLET PO SCH ×2 (07:37→16:44)
[2018-06-19 08:00] VITALS: BP 123/65
[2018-06-19] MEDS: DOCUSATE SODIUM 100 MG CAPSULE PO SCH (08:23)
[2018-06-19] MEDS: DIVALPROEX SODIUM 500 MG DR TABLET PO SCH ×2 (08:24→20:53)
[2018-06-19] MEDS: MAG HYDROX/AL HYDROX/SIMETH ES 30 ML SUSPENSION UDCUP PO PRN ×2 (08:24→16:50)
[2018-06-19] MEDS: OMEPRAZOLE 20 MG CAPSULE PO SCH (08:24)
[2018-06-19] MEDS: CARISOPRODOL 350 MG TABLET PO SCH ×2 (08:24→16:44)
[2018-06-19] MEDS: CITALOPRAM HYDROBROMIDE 20 MG TABLET PO SCH (08:24)
[2018-06-19] MEDS: ONDANSETRON HCL 4 MG TABLET PO PRN (10:29)
[2018-06-19 10:58] LABS: GLUCOMETER DEV NAME(LOC) BV2N3; GLUCOSE,POINT OF CARE 119 MG/DL (70-110)
[2018-06-19] MEDS: DiphenhydrAMINE HCL 50 MG CAPSULE PO PRN (15:40)
[2018-06-19 16:15] VITALS: BP 126/82
[2018-06-19 16:33] LABS: GLUCOMETER DEV NAME(LOC) BV2N3; GLUCOSE,POINT OF CARE 155 MG/DL (70-110)
[2018-06-19] MEDS ORDERED: DiphenhydrAMINE HCL 50 MG/ML VIAL IM ONE (16:45)
[2018-06-19] MEDS ORDERED: LORazepam 2 MG/ML VIAL IM ONE (16:45)
[2018-06-19] MEDS: QUEtiapine FUMARATE 200 MG TABLET PO SCH (20:53)
[2018-06-19 20:57] LABS: GLUCOMETER DEV NAME(LOC) BV2N3; GLUCOSE,POINT OF CARE 96 MG/DL (70-110)
[2018-06-20 04:15] VITALS: BP 120/82
[2018-06-20] MEDS: ONDANSETRON HCL 4 MG TABLET PO PRN ×2 (04:21→19:17)
[2018-06-20] MEDS: MetFORMIN HCL 500 MG TABLET PO SCH ×2 (07:14→16:44)
[2018-06-20] MEDS: CITALOPRAM HYDROBROMIDE 20 MG TABLET PO SCH (09:00)
[2018-06-20] MEDS: OMEPRAZOLE 20 MG CAPSULE PO SCH (09:19)
[2018-06-20] MEDS: CARISOPRODOL 350 MG TABLET PO SCH ×2 (09:20→16:44)
[2018-06-20] MEDS: DIVALPROEX SODIUM 500 MG DR TABLET PO SCH ×2 (09:20→20:33)
[2018-06-20] MEDS: DOCUSATE SODIUM 100 MG CAPSULE PO SCH (09:20)
[2018-06-20 11:12] LABS: GLUCOMETER DEV NAME(LOC) BV2N3; GLUCOSE,POINT OF CARE 109 MG/DL (70-110)
[2018-06-20 16:17] LABS: GLUCOMETER DEV NAME(LOC) BV2N3; GLUCOSE,POINT OF CARE 109 MG/DL (70-110)
[2018-06-20] MEDS: DiphenhydrAMINE HCL 50 MG CAPSULE PO PRN (16:27)
[2018-06-20 16:52] VITALS: BP 112/71
[2018-06-20] MEDS: MAG HYDROX/AL HYDROX/SIMETH ES 30 ML SUSPENSION UDCUP PO PRN (17:29)
[2018-06-20 20:18] LABS: GLUCOMETER DEV NAME(LOC) BV2N3; GLUCOSE,POINT OF CARE 112 MG/DL (70-110)
[2018-06-20] MEDS: QUEtiapine FUMARATE 200 MG TABLET PO SCH (20:33)
[2018-06-21 04:37] VITALS: BP 122/75
[2018-06-21] MEDS: MetFORMIN HCL 500 MG TABLET PO SCH ×2 (07:05→16:59)
[2018-06-21 08:00] VITALS: BP 126/84
[2018-06-21] MEDS: DIVALPROEX SODIUM 500 MG DR TABLET PO SCH ×2 (08:08→20:05)
[2018-06-21] MEDS: CARISOPRODOL 350 MG TABLET PO SCH ×2 (08:08→16:03)
[2018-06-21] MEDS: OMEPRAZOLE 20 MG CAPSULE PO SCH (08:08)
[2018-06-21] MEDS: CITALOPRAM HYDROBROMIDE 20 MG TABLET PO SCH (08:08)
[2018-06-21] MEDS: DOCUSATE SODIUM 100 MG CAPSULE PO SCH (08:08)
[2018-06-21] MEDS ORDERED: TUBERCULIN, PURIFIED PROTEIN DERIVATIVE 5 TU/0.1 ML SYG ID ONE (10:30)
[2018-06-21 11:08] LABS: GLUCOMETER DEV NAME(LOC) BV2N3; GLUCOSE,POINT OF CARE 93 MG/DL (70-110)
[2018-06-21] MEDS: DiphenhydrAMINE HCL 50 MG CAPSULE PO PRN (15:59)
[2018-06-21] MEDS: ONDANSETRON HCL 4 MG TABLET PO PRN ×2 (15:59→23:42)
[2018-06-21 16:02] VITALS: BP 118/68
[2018-06-21 16:49] LABS: GLUCOMETER DEV NAME(LOC) BV2N3; GLUCOSE,POINT OF CARE 142 MG/DL (70-110)
[2018-06-21] MEDS: MAG HYDROX/AL HYDROX/SIMETH ES 30 ML SUSPENSION UDCUP PO PRN (18:38)
[2018-06-21 19:47] VITALS: BP 118/83
[2018-06-21] MEDS: TraMADol HCL 50 MG TABLET PO PRN (19:47)
[2018-06-21] MEDS: QUEtiapine FUMARATE 200 MG TABLET PO SCH (20:06)
[2018-06-22] MEDS: MetFORMIN HCL 500 MG TABLET PO SCH ×2 (06:36→17:14)
[2018-06-22] MEDS: CARISOPRODOL 350 MG TABLET PO SCH ×2 (08:06→16:18)
[2018-06-22] MEDS: DOCUSATE SODIUM 100 MG CAPSULE PO SCH (08:06)
[2018-06-22] MEDS: OMEPRAZOLE 20 MG CAPSULE PO SCH (08:06)
[2018-06-22] MEDS: CITALOPRAM HYDROBROMIDE 20 MG TABLET PO SCH (08:06)
[2018-06-22] MEDS: DIVALPROEX SODIUM 500 MG DR TABLET PO SCH ×2 (08:06→20:38)
[2018-06-22 11:18] LABS: GLUCOMETER DEV NAME(LOC) BV2N3; GLUCOSE,POINT OF CARE 86 MG/DL (70-110)
[2018-06-22 12:27] VITALS: BP 105/69
[2018-06-22 16:03] VITALS: BP 117/69
[2018-06-22 16:47] LABS: GLUCOMETER DEV NAME(LOC) BV2N3; GLUCOSE,POINT OF CARE 110 MG/DL (70-110)
[2018-06-22] MEDS: ONDANSETRON HCL 4 MG TABLET PO PRN (16:53)
[2018-06-22] MEDS: MAG HYDROX/AL HYDROX/SIMETH ES 30 ML SUSPENSION UDCUP PO PRN (18:48)
[2018-06-22] MEDS: DiphenhydrAMINE HCL 50 MG CAPSULE PO PRN (20:01)
[2018-06-22 20:38] LABS: GLUCOMETER DEV NAME(LOC) BV2N3; GLUCOSE,POINT OF CARE 124 MG/DL (70-110)
[2018-06-22] MEDS: QUEtiapine FUMARATE 200 MG TABLET PO SCH (20:38)
[2018-06-23] MEDS: MetFORMIN HCL 500 MG TABLET PO SCH ×2 (07:00→16:36)
[2018-06-23] MEDS: OMEPRAZOLE 20 MG CAPSULE PO SCH (08:37)
[2018-06-23] MEDS: DIVALPROEX SODIUM 500 MG DR TABLET PO SCH ×2 (08:37→20:32)
[2018-06-23] MEDS: DOCUSATE SODIUM 100 MG CAPSULE PO SCH (08:37)
[2018-06-23] MEDS: CARISOPRODOL 350 MG TABLET PO SCH ×2 (08:37→16:36)
[2018-06-23] MEDS: CITALOPRAM HYDROBROMIDE 20 MG TABLET PO SCH (08:38)
[2018-06-23 08:41] VITALS: BP 123/86
[2018-06-23] MEDS: KETOROLAC TROMETHAMINE 30 MG/ML VIAL IM SCH (10:37)
[2018-06-23 11:08] LABS: GLUCOMETER DEV NAME(LOC) BV2N3; GLUCOSE,POINT OF CARE 114 MG/DL (70-110)
[2018-06-23] MEDS: HALOPERIDOL 5 MG TABLET PO PRN (15:51)
[2018-06-23] MEDS: DiphenhydrAMINE HCL 50 MG CAPSULE PO PRN (15:51)
[2018-06-23 16:07] VITALS: BP 108/72
[2018-06-23 16:23] LABS: GLUCOMETER DEV NAME(LOC) BV2N3; GLUCOSE,POINT OF CARE 147 MG/DL (70-110)
[2018-06-23 20:14] LABS: GLUCOMETER DEV NAME(LOC) BV2N3; GLUCOSE,POINT OF CARE 122 MG/DL (70-110)
[2018-06-23] MEDS: QUEtiapine FUMARATE 200 MG TABLET PO SCH (20:33)
[2018-06-23 21:25] VITALS: BP 111/74
[2018-06-23] MEDS: TraMADol HCL 50 MG TABLET PO PRN (21:29)
[2018-06-24 04:00] VITALS: BP 112/78
[2018-06-24] MEDS: MetFORMIN HCL 500 MG TABLET PO SCH ×2 (07:03→16:32)
[2018-06-24 08:29] VITALS: BP 134/79
[2018-06-24] MEDS: CARISOPRODOL 350 MG TABLET PO SCH ×2 (08:40→16:32)
[2018-06-24] MEDS: DOCUSATE SODIUM 100 MG CAPSULE PO SCH (08:40)
[2018-06-24] MEDS: DIVALPROEX SODIUM 500 MG DR TABLET PO SCH ×2 (08:40→20:39)
[2018-06-24] MEDS: OMEPRAZOLE 20 MG CAPSULE PO SCH (08:40)
[2018-06-24] MEDS: CITALOPRAM HYDROBROMIDE 20 MG TABLET PO SCH (08:41)
[2018-06-24] MEDS: KETOROLAC TROMETHAMINE 30 MG/ML VIAL IM SCH (09:24)
[2018-06-24] MEDS: DiphenhydrAMINE HCL 50 MG CAPSULE PO PRN ×3 (10:37→22:06)
[2018-06-24 11:03] LABS: GLUCOMETER DEV NAME(LOC) BV2N3; GLUCOSE,POINT OF CARE 97 MG/DL (70-110)
[2018-06-24 16:03] VITALS: BP 120/76
[2018-06-24 16:07] LABS: GLUCOMETER DEV NAME(LOC) BV2N3; GLUCOSE,POINT OF CARE 107 MG/DL (70-110)
[2018-06-24] MEDS: HALOPERIDOL 5 MG TABLET PO PRN ×2 (17:13→22:07)
[2018-06-24 20:23] LABS: GLUCOMETER DEV NAME(LOC) BV2N3; GLUCOSE,POINT OF CARE 84 MG/DL (70-110)
[2018-06-24] MEDS: QUEtiapine FUMARATE 200 MG TABLET PO SCH (20:39)
[2018-06-24] MEDS ORDERED: DIVA250T4 PO (22:58)
[2018-06-24] MEDS ORDERED: DIVA-54 PO (23:05)
[2018-06-24] MEDS ORDERED: CITA20TA17 PO (23:05)
[2018-06-25] MEDS ORDERED: CARI350 PO (03:55)
[2018-06-25] MEDS: ONDANSETRON HCL 4 MG TABLET PO PRN (06:13)
[2018-06-25] MEDS: MetFORMIN HCL 500 MG TABLET PO SCH (07:00)
[2018-06-25] MEDS: CARISOPRODOL 350 MG TABLET PO SCH (08:44)
[2018-06-25] MEDS: DIVALPROEX SODIUM 500 MG DR TABLET PO SCH (08:44)
[2018-06-25] MEDS: OMEPRAZOLE 20 MG CAPSULE PO SCH (08:44)
[2018-06-25] MEDS: DOCUSATE SODIUM 100 MG CAPSULE PO SCH (08:44)
[2018-06-25] MEDS: CITALOPRAM HYDROBROMIDE 20 MG TABLET PO SCH (08:44)
== END 2018-06-25 09:55 | disposition home or self-care (01) | DRG 885 ==
LOC: EMS 18:56 → B2X 22:46 → EMS 23:24 → B2X 06-20 21:56
DX: F25.0 Schizoaffective disorder, bipolar type (principal); E11.65 Type 2 diabetes mellitus with hyperglycemia; R45.851 Suicidal ideations; F14.20 Cocaine dependence, uncomplicated; F19.20 Other psychoactive substance dependence, uncomplicated; E03.9 Hypothyroidism, unspecified; F17.200 Nicotine dependence, unspecified, uncomplicated; F41.9 Anxiety disorder, unspecified; F15.90 Other stimulant use, unspecified, uncomplicated; F32.9 Major depressive disorder, single episode, unspecified; M54.5 Low back pain; D64.9 Anemia, unspecified; I10 Essential (primary) hypertension; J44.9 Chronic obstructive pulmonary disease, unspecified; K21.9 Gastro-esophageal reflux disease without esophagitis; M79.7 Fibromyalgia; Z59.0 Homelessness; Z79.899 Other long term (current) drug therapy; Z91.5 Personal history of self-harm; Z88.2 Allergy status to sulfonamides; Z56.0 Unemployment, unspecified
CPT/HCPCS: 83036; 84439; 84443; 87081; 96372; G0480; J1200; J1885; J2060; J3230; Q0162

== ENCOUNTER → 2018-06-27 | Emergency (ER) | payer MEDICARE, MEDICAID ==
[~2018-06-27] VITALS: Ht 167.6 cm; Wt 74.1 kg
[~2018-06-27] MED LIST changes: +CARI350 PO; +DIVA-54 PO
[2018-06-27 11:05] VITALS: BP 165/83
== END | disposition home or self-care (01) ==
LOC: EMS 11:04
DX: F25.0 Schizoaffective disorder, bipolar type (principal); F41.9 Anxiety disorder, unspecified; F32.9 Major depressive disorder, single episode, unspecified; E11.9 Type 2 diabetes mellitus without complications; I10 Essential (primary) hypertension; F15.90 Other stimulant use, unspecified, uncomplicated; F14.90 Cocaine use, unspecified, uncomplicated; Z59.0 Homelessness; Z88.2 Allergy status to sulfonamides; Z79.84 Long term (current) use of oral hypoglycemic drugs; Z79.899 Other long term (current) drug therapy

== ENCOUNTER 2018-08-09 07:46 | Emergency (ER) | payer MEDICAID, MEDICARE ==
[~2018-08-09] VITALS: Ht 165.1 cm; Wt 74.5 kg
[2018-08-09 07:58] LABS: GLUCOSE,POINT OF CARE 146 MG/DL (70-110)
[2018-08-09] MEDS ORDERED: PB/HYOSCY/ATR/SCOP/LIDO/MAALOX 55 ML BOTTLE PO ONE (09:00)
[2018-08-09 10:20] VITALS: BP 141/67
== END 2018-08-09 10:23 | disposition home or self-care (01) ==
LOC: EMS 07:47
DX: F29 Unspecified psychosis not due to a substance or known physiological condition (principal); F41.9 Anxiety disorder, unspecified; F31.9 Bipolar disorder, unspecified; E11.9 Type 2 diabetes mellitus without complications; K21.9 Gastro-esophageal reflux disease without esophagitis; I10 Essential (primary) hypertension; F20.9 Schizophrenia, unspecified; F14.90 Cocaine use, unspecified, uncomplicated; F15.90 Other stimulant use, unspecified, uncomplicated; Z59.0 Homelessness; Z88.2 Allergy status to sulfonamides; Z79.84 Long term (current) use of oral hypoglycemic drugs

== ENCOUNTER 2018-08-13 03:04 | Inpatient (IN) | payer MEDICARE ==
[~2018-08-13] VITALS: Ht 166.4 cm; Wt 72.2 kg
[~2018-08-13 03:04] MED LIST changes: -CITA20TA17 PO
[2018-08-13] MEDS ORDERED: CLON1 PO (03:51)
[2018-08-13 04:26] LABS: BASOPHILS % (AUTO) 1.1 % (0.0-2.0); EOSINOPHILS % (AUTO) 4.9 % (1.0-6.0); HEMATOCRIT 37.6 % (36-46); HEMOGLOBIN 12.6 g/dL (12.0-16.0); LYMPHOCYTES # (AUTO) 2.5 K/uL (1.0-4.8); LYMPHOCYTES % (AUTO) 45.7 % (22.0-44.0); MEAN CORPUSCULAR HEMOGLOBIN 29.1 pg (26.0-34.0); MEAN CORPUSCULAR HGB CONC 33.6 G/dL (31.0-37.0); MEAN CORPUSCULAR VOLUME 87 fL (80-100); MONOCYTES # (AUTO) 0.5 K/uL (0.1-1.0); MONOCYTES % (AUTO) 8.3 % (2.0-9.0); NEUTROPHILS # (AUTO) 2.2 K/uL (1.8-7.7); PLATELET COUNT (AUTO) 257 K/uL (150-450); RED BLOOD CELL COUNT(AUTO) 4.33 MIL/uL (4.00-5.20); RED CELL DISTRIBUTION WIDTH 14.6 % (11.5-14.5)
[2018-08-13 04:31] LABS: ANION GAP 6 mmol/L (8-16); CALCIUM, TOTAL 8.9 mg/dL (8.8-10.5); CARBON DIOXIDE 35 mmol/L (22-29); CHLORIDE 102 mmol/L (98-107); CREATININE 1.02 mg/dL (0.60-1.30); GLOMERULAR FILTR. RATE CALC 55 mL/min (>60); GLUCOSE,RANDOM 105 mg/dL (70-110); POTASSIUM 3.5 mmol/L (3.5-5.1); SODIUM SERUM 143 mmol/L (136-145); UREA NITROGEN, BLOOD 14 mg/dL (7-18)
[2018-08-13 04:37] LABS: ALANINE AMINOTRANSFERASE 25 U/L (12-78); ALBUMIN 3.5 g/dL (3.4-5.0); ALKALINE PHOSPHATASE 97 U/L (46-116); ASPARTATE AMINOTRANSFERASE 13 U/L (15-37); BILIRUBIN,TOTAL 0.2 mg/dL (0.1-1.0); TOTAL PROTEIN, SERUM 7.1 g/dL (6.4-8.2)
[2018-08-13] MEDS ORDERED: HALOPERIDOL 5 MG TABLET PO PRN (04:45)
[2018-08-13] MEDS ORDERED: ZOLPIDEM TARTRATE 10 MG TABLET PO PRN (04:45)
[2018-08-13 04:51] LABS: VALPROIC ACID 23 mcg/mL (50-100)
[2018-08-13] MEDS ORDERED: LORazepam 2 MG TABLET PO ONE (05:00)
[2018-08-13] MEDS ORDERED: HALOPERIDOL 5 MG TABLET PO ONE (05:00)
[2018-08-13] MEDS ORDERED: DiphenhydrAMINE HCL 25 MG CAPSULE PO ONE (05:00)
[2018-08-13 05:05] LABS: AMPHET/METH SCREEN,URINE NEGATIVE (NEGATIVE); BARBITURATE SCREEN, URINE POSITIVE (NEGATIVE); BENZODIAZEPINES SCREEN,URINE POSITIVE (NEGATIVE); CANNABINOID SCREEN,URINE NEGATIVE (NEGATIVE); COCAINE SCREEN,URINE NEGATIVE (NEGATIVE); METHADONE SCREEN, URINE NEGATIVE (NEGATIVE); OPIATE SCREEN,URINE NEGATIVE (NEGATIVE)
[2018-08-13 05:06] LABS: PHENCYCLIDINE SCREEN,URINE NEGATIVE (NEGATIVE)
[2018-08-13 08:19] LABS: GLUCOSE,POINT OF CARE 92 MG/DL (70-110)
[2018-08-13 10:28] VITALS: BP 142/84
[2018-08-13 11:11] VITALS: BP 142/84
[2018-08-13] MEDS: DIVALPROEX SODIUM 500 MG DR TABLET PO SCH (11:22)
[2018-08-13] MEDS: CITALOPRAM HYDROBROMIDE 20 MG TABLET PO SCH (13:13)
[2018-08-13] MEDS: LORazepam 2 MG TABLET PO PRN (18:25)
[2018-08-13] MEDS ORDERED: ACETAMINOPHEN 325 MG TABLET PO PRN (19:45)
[2018-08-13] MEDS ORDERED: LOPERAMIDE HCL 2 MG CAPSULE PO PRN (19:45)
[2018-08-13] MEDS ORDERED: PETROLATUM,WHITE 71 GM JELLY TP PRN (19:45)
[2018-08-13] MEDS ORDERED: BENZOCAINE/MENTHOL LOZENGE MM PRN (19:45)
[2018-08-13] MEDS ORDERED: BACITRACIN 28.4 GM OINTMENT TP PRN (19:45)
[2018-08-13] MEDS ORDERED: GLUCAGON,HUMAN RECOMBINANT 1 MG VIAL IM PRN (19:45)
[2018-08-13] MEDS ORDERED: ALBUTEROL SULFATE HFA 90 MCG/PUFF 8 GM INHALER IH PRN (19:45)
[2018-08-13] MEDS ORDERED: CloNIDine HCL 0.1 MG TABLET PO PRN (19:45)
[2018-08-13] MEDS ORDERED: MAGNESIUM HYDROXIDE SUSPENSION 30 ML UDCUP PO PRN (19:45)
[2018-08-13] MEDS ORDERED: DEXTROSE 50%-WATER 25 GM/50 ML SYRINGE IVP PRN (20:00)
[2018-08-13] MEDS: QUEtiapine FUMARATE 200 MG TABLET PO SCH (20:25)
[2018-08-13] MEDS: INSULIN LISPRO 100 UNITS/ML SQ PRN (20:59)
[2018-08-13 21:09] LABS: GLUCOMETER DEV NAME(LOC) 3E.I; GLUCOSE,POINT OF CARE 144 MG/DL (70-110)
[2018-08-14] MEDS: MetFORMIN HCL 500 MG TABLET PO SCH ×2 (06:45→17:01)
[2018-08-14] MEDS: CITALOPRAM HYDROBROMIDE 20 MG TABLET PO SCH (08:03)
[2018-08-14] MEDS: DOCUSATE SODIUM 100 MG CAPSULE PO SCH (08:03)
[2018-08-14] MEDS: OMEPRAZOLE 20 MG CAPSULE PO SCH (08:03)
[2018-08-14] MEDS: DIVALPROEX SODIUM 500 MG DR TABLET PO SCH (08:03)
[2018-08-14] MEDS: LORazepam 2 MG TABLET PO PRN ×2 (08:05→19:21)
[2018-08-14] MEDS: CARISOPRODOL 350 MG TABLET PO SCH ×3 (08:05→17:23)
[2018-08-14 10:14] VITALS: BP 98/72
[2018-08-14 11:29] LABS: GLUCOMETER DEV NAME(LOC) 3E.I; GLUCOSE,POINT OF CARE 124 MG/DL (70-110)
[2018-08-14 17:49] LABS: GLUCOMETER DEV NAME(LOC) 3EX.; GLUCOSE,POINT OF CARE 151 MG/DL (70-110)
[2018-08-14 18:08] VITALS: BP 149/77
[2018-08-14] MEDS: QUEtiapine FUMARATE 200 MG TABLET PO SCH (21:17)
[2018-08-15] MEDS: MetFORMIN HCL 500 MG TABLET PO SCH ×2 (07:17→16:46)
[2018-08-15] MEDS: DOCUSATE SODIUM 100 MG CAPSULE PO SCH (08:35)
[2018-08-15] MEDS: ONDANSETRON HCL 4 MG TABLET PO PRN (08:35)
[2018-08-15] MEDS: CARISOPRODOL 350 MG TABLET PO SCH ×3 (08:35→17:11)
[2018-08-15] MEDS: CITALOPRAM HYDROBROMIDE 20 MG TABLET PO SCH (08:36)
[2018-08-15] MEDS: DIVALPROEX SODIUM 500 MG DR TABLET PO SCH (08:36)
[2018-08-15] MEDS: OMEPRAZOLE 20 MG CAPSULE PO SCH (08:36)
[2018-08-15] MEDS: LORazepam 2 MG TABLET PO PRN ×3 (09:27→18:00)
[2018-08-15 10:00] VITALS: BP 100/69
[2018-08-15 16:00] VITALS: BP 139/76
[2018-08-15 18:54] LABS: GLUCOMETER DEV NAME(LOC) 3E.I; GLUCOSE,POINT OF CARE 116 MG/DL (70-110)
[2018-08-15] MEDS: QUEtiapine FUMARATE 200 MG TABLET PO SCH (21:16)
[2018-08-16 05:39] LABS: GLUCOMETER DEV NAME(LOC) 3EX.; GLUCOSE,POINT OF CARE 111 MG/DL (70-110)
[2018-08-16 05:45] VITALS: BP 130/81
[2018-08-16] MEDS: MAG HYDROX/AL HYDROX/SIMETH ES 30 ML SUSPENSION UDCUP PO PRN ×2 (05:59→20:45)
[2018-08-16] MEDS: ONDANSETRON HCL 4 MG TABLET PO PRN ×2 (05:59→21:08)
[2018-08-16] MEDS: MetFORMIN HCL 500 MG TABLET PO SCH ×2 (07:01→17:22)
[2018-08-16] MEDS: DOCUSATE SODIUM 100 MG CAPSULE PO SCH (07:54)
[2018-08-16] MEDS: LORazepam 2 MG TABLET PO PRN ×3 (07:54→16:49)
[2018-08-16] MEDS: CARISOPRODOL 350 MG TABLET PO SCH ×3 (07:54→17:21)
[2018-08-16] MEDS: DIVALPROEX SODIUM 500 MG DR TABLET PO SCH (07:55)
[2018-08-16] MEDS: OMEPRAZOLE 20 MG CAPSULE PO SCH (07:55)
[2018-08-16] MEDS: CITALOPRAM HYDROBROMIDE 20 MG TABLET PO SCH (08:00)
[2018-08-16 11:50] LABS: GLUCOMETER DEV NAME(LOC) 3E.I; GLUCOSE,POINT OF CARE 125 MG/DL (70-110)
[2018-08-16 17:00] LABS: GLUCOMETER DEV NAME(LOC) 3E.C; GLUCOSE,POINT OF CARE 106 MG/DL (70-110)
[2018-08-16 18:55] VITALS: BP 129/69
[2018-08-16] MEDS: QUEtiapine FUMARATE 200 MG TABLET PO SCH (20:41)
[2018-08-16 20:50] LABS: GLUCOMETER DEV NAME(LOC) 3E.I; GLUCOSE,POINT OF CARE 94 MG/DL (70-110)
[2018-08-17 06:00] VITALS: BP 98/62
[2018-08-17 06:00] LABS: GLUCOMETER DEV NAME(LOC) 3EX.; GLUCOSE,POINT OF CARE 142 MG/DL (70-110)
[2018-08-17] MEDS: ONDANSETRON HCL 4 MG TABLET PO PRN ×2 (06:08→14:00)
[2018-08-17] MEDS: MAG HYDROX/AL HYDROX/SIMETH ES 30 ML SUSPENSION UDCUP PO PRN ×2 (06:08→12:03)
[2018-08-17 06:40] VITALS: BP 108/81
[2018-08-17] MEDS: LORazepam 2 MG TABLET PO PRN ×2 (06:46→12:04)
[2018-08-17] MEDS: INSULIN LISPRO 100 UNITS/ML SQ PRN ×2 (07:04→07:08)
[2018-08-17] MEDS: MetFORMIN HCL 500 MG TABLET PO SCH ×2 (07:14→16:50)
[2018-08-17] MEDS: CARISOPRODOL 350 MG TABLET PO SCH ×3 (07:49→17:01)
[2018-08-17] MEDS: DOCUSATE SODIUM 100 MG CAPSULE PO SCH (07:49)
[2018-08-17] MEDS: DIVALPROEX SODIUM 500 MG DR TABLET PO SCH (07:50)
[2018-08-17] MEDS: OMEPRAZOLE 20 MG CAPSULE PO SCH (07:50)
[2018-08-17] MEDS: CITALOPRAM HYDROBROMIDE 20 MG TABLET PO SCH (09:00)
[2018-08-17 09:15] VITALS: BP 117/77
[2018-08-17 11:40] LABS: GLUCOMETER DEV NAME(LOC) 3E.I; GLUCOSE,POINT OF CARE 126 MG/DL (70-110)
[2018-08-17 16:11] VITALS: BP 124/72
[2018-08-17 16:49] LABS: GLUCOMETER DEV NAME(LOC) 3EX.; GLUCOSE,POINT OF CARE 108 MG/DL (70-110)
[2018-08-17] MEDS: QUEtiapine FUMARATE 200 MG TABLET PO SCH (23:10)
[2018-08-17 23:57] VITALS: BP 109/76
[2018-08-18] MEDS: MAG HYDROX/AL HYDROX/SIMETH ES 30 ML SUSPENSION UDCUP PO PRN ×2 (00:04→09:57)
[2018-08-18] MEDS: ONDANSETRON HCL 4 MG TABLET PO PRN ×2 (03:14→14:31)
[2018-08-18 03:15] VITALS: BP 102/64
[2018-08-18 05:44] LABS: GLUCOMETER DEV NAME(LOC) 3EX.; GLUCOSE,POINT OF CARE 128 MG/DL (70-110)
[2018-08-18] MEDS: MetFORMIN HCL 500 MG TABLET PO SCH ×2 (07:10→17:27)
[2018-08-18] MEDS: DOCUSATE SODIUM 100 MG CAPSULE PO SCH (08:10)
[2018-08-18] MEDS: DIVALPROEX SODIUM 500 MG DR TABLET PO SCH (08:10)
[2018-08-18] MEDS: CARISOPRODOL 350 MG TABLET PO SCH ×3 (08:10→16:36)
[2018-08-18] MEDS: OMEPRAZOLE 20 MG CAPSULE PO SCH (08:10)
[2018-08-18] MEDS: LORazepam 2 MG TABLET PO PRN ×3 (08:13→17:27)
[2018-08-18] MEDS: CITALOPRAM HYDROBROMIDE 20 MG TABLET PO SCH (08:54)
[2018-08-18] MEDS: IBUPROFEN 600 MG TABLET PO PRN (10:57)
[2018-08-18 11:34] LABS: GLUCOMETER DEV NAME(LOC) 3E.I; GLUCOSE,POINT OF CARE 96 MG/DL (70-110)
[2018-08-18 16:39] LABS: GLUCOMETER DEV NAME(LOC) 3E.I; GLUCOSE,POINT OF CARE 133 MG/DL (70-110)
[2018-08-18 17:48] VITALS: BP 124/73
[2018-08-18] MEDS: QUEtiapine FUMARATE 200 MG TABLET PO SCH (20:34)
[2018-08-18 20:44] LABS: GLUCOMETER DEV NAME(LOC) 3E.I; GLUCOSE,POINT OF CARE 160 MG/DL (70-110)
[2018-08-18] MEDS: INSULIN LISPRO 100 UNITS/ML SQ PRN (22:28)
[2018-08-19] MEDS: MAG HYDROX/AL HYDROX/SIMETH ES 30 ML SUSPENSION UDCUP PO PRN (00:47)
[2018-08-19] MEDS: ONDANSETRON HCL 4 MG TABLET PO PRN ×3 (00:47→20:24)
[2018-08-19 00:48] VITALS: BP 103/66
[2018-08-19] MEDS: MetFORMIN HCL 500 MG TABLET PO SCH ×2 (07:07→17:30)
[2018-08-19 07:10] VITALS: BP 120/74
[2018-08-19 07:18] VITALS: BP 120/74
[2018-08-19] MEDS: IBUPROFEN 600 MG TABLET PO PRN ×2 (07:18→16:03)
[2018-08-19] MEDS: LORazepam 2 MG TABLET PO PRN ×3 (08:34→17:35)
[2018-08-19] MEDS: DOCUSATE SODIUM 100 MG CAPSULE PO SCH (08:34)
[2018-08-19] MEDS: CARISOPRODOL 350 MG TABLET PO SCH ×3 (08:34→17:34)
[2018-08-19] MEDS: OMEPRAZOLE 20 MG CAPSULE PO SCH (08:35)
[2018-08-19] MEDS: DIVALPROEX SODIUM 500 MG DR TABLET PO SCH (08:36)
[2018-08-19] MEDS: CITALOPRAM HYDROBROMIDE 20 MG TABLET PO SCH (09:00)
[2018-08-19 10:12] VITALS: BP 124/76
[2018-08-19] MEDS ORDERED: MAG HYDROX/AL HYDROX/SIMETH ES 30 ML SUSPENSION UDCUP PO ONE (11:00)
[2018-08-19] MEDS ORDERED: PHENOBARB/HYOSCY/ATROPINE/SCOP 5 ML UDCUP ELIXIR PO ONE (11:00)
[2018-08-19] MEDS ORDERED: LIDOCAINE 2% VISCOUS 15 ML SOLUTION UDCUP PO ONE (11:00)
[2018-08-19 11:34] LABS: GLUCOMETER DEV NAME(LOC) 3EX.; GLUCOSE,POINT OF CARE 132 MG/DL (70-110)
[2018-08-19 16:00] VITALS: BP 90/57
[2018-08-19 17:30] VITALS: BP 128/77
[2018-08-19] MEDS: QUEtiapine FUMARATE 200 MG TABLET PO SCH (20:24)
[2018-08-20 06:25] VITALS: BP 118/71
[2018-08-20] MEDS: IBUPROFEN 600 MG TABLET PO PRN (06:28)
[2018-08-20] MEDS: MetFORMIN HCL 500 MG TABLET PO SCH ×2 (07:12→17:12)
[2018-08-20] MEDS: LORazepam 2 MG TABLET PO PRN ×3 (07:13→17:11)
[2018-08-20] MEDS: OMEPRAZOLE 20 MG CAPSULE PO SCH (08:18)
[2018-08-20] MEDS: DOCUSATE SODIUM 100 MG CAPSULE PO SCH (08:18)
[2018-08-20] MEDS: DIVALPROEX SODIUM 500 MG DR TABLET PO SCH (08:18)
[2018-08-20] MEDS: CARISOPRODOL 350 MG TABLET PO SCH ×4 (08:18→17:38)
[2018-08-20] MEDS: CITALOPRAM HYDROBROMIDE 20 MG TABLET PO SCH (08:27)
[2018-08-20] MEDS: MAG HYDROX/AL HYDROX/SIMETH ES 30 ML SUSPENSION UDCUP PO PRN ×2 (09:10→17:50)
[2018-08-20] MEDS: ONDANSETRON HCL 4 MG TABLET PO PRN (11:13)
[2018-08-20 11:24] LABS: GLUCOMETER DEV NAME(LOC) 3E.I; GLUCOSE,POINT OF CARE 100 MG/DL (70-110)
[2018-08-20] MEDS ORDERED: CITA-106 PO (13:15)
[2018-08-20] MEDS ORDERED: DSS100 PO (13:15)
[2018-08-20] MEDS ORDERED: OMEP20 PO (13:15)
[2018-08-20 13:31] VITALS: BP 125/72
[2018-08-20] MEDS ORDERED: NICOTINE POLACRILEX 4 MG LOZENGE PO PRN (14:00)
[2018-08-20 17:20] VITALS: BP 118/58
[2018-08-20] MEDS: QUEtiapine FUMARATE 200 MG TABLET PO SCH (20:15)
[2018-08-21] MEDS ORDERED: PNEUMOCOCCAL VACCINE POLYVALENT 0.5 ML VIAL [PPSV23] IM ONE (05:00)
== END 2018-08-21 06:10 | disposition home or self-care (01) | DRG 885 ==
LOC: EMS 03:06 → 3EX 05:59
PROVIDERS: ADMIT Internal Medicine
DX: F25.0 Schizoaffective disorder, bipolar type (principal); E11.65 Type 2 diabetes mellitus with hyperglycemia; F11.20 Opioid dependence, uncomplicated; R45.851 Suicidal ideations; F15.20 Other stimulant dependence, uncomplicated; F41.9 Anxiety disorder, unspecified; G47.00 Insomnia, unspecified; G89.29 Other chronic pain; I10 Essential (primary) hypertension; J44.9 Chronic obstructive pulmonary disease, unspecified; K21.9 Gastro-esophageal reflux disease without esophagitis; M79.7 Fibromyalgia; F17.200 Nicotine dependence, unspecified, uncomplicated; F10.20 Alcohol dependence, uncomplicated; E03.9 Hypothyroidism, unspecified; Z59.0 Homelessness; Z79.899 Other long term (current) drug therapy; Z91.5 Personal history of self-harm; Z88.2 Allergy status to sulfonamides; Z79.890 Hormone replacement therapy
CPT/HCPCS: G0378; G0480; Q0162

== ENCOUNTER 2018-08-26 17:03 | Inpatient (IN) | payer MEDICARE ==
[~2018-08-26] VITALS: Ht 166.4 cm; Wt 73.3 kg
[~2018-08-26 17:03] MED LIST changes: +CITA-106 PO; -DIVA-54 PO; +DSS100 PO; +OMEP20 PO
[2018-08-26] MEDS ORDERED: QUET25TA PO (17:15)
[2018-08-26] MEDS ORDERED: HYDR-4106 PO (17:15)
[2018-08-26] MEDS ORDERED: ZOLPIDEM TARTRATE 10 MG TABLET PO PRN (17:45)
[2018-08-26] MEDS: LORazepam 2 MG TABLET PO PRN ×2 (18:08→22:15)
[2018-08-26] MEDS: HALOPERIDOL 5 MG TABLET PO PRN ×2 (18:08→20:01)
[2018-08-26 18:47] LABS: BASOPHILS % (AUTO) 0.8 % (0.0-2.0); EOSINOPHILS % (AUTO) 2.7 % (1.0-6.0); HEMATOCRIT 35.5 % (36-46); HEMOGLOBIN 11.9 g/dL (12.0-16.0); LYMPHOCYTES # (AUTO) 3.1 K/uL (1.0-4.8); LYMPHOCYTES % (AUTO) 49.4 % (22.0-44.0); MEAN CORPUSCULAR HEMOGLOBIN 28.7 pg (26.0-34.0); MEAN CORPUSCULAR HGB CONC 33.4 G/dL (31.0-37.0); MEAN CORPUSCULAR VOLUME 86 fL (80-100); MONOCYTES # (AUTO) 0.4 K/uL (0.1-1.0); MONOCYTES % (AUTO) 6.7 % (2.0-9.0); NEUTROPHILS # (AUTO) 2.5 K/uL (1.8-7.7); NEUTROPHILS % (AUTO) 40.4 % (40.0-70.0); PLATELET COUNT (AUTO) 256 K/uL (150-450); RED BLOOD CELL COUNT(AUTO) 4.14 MIL/uL (4.00-5.20); RED CELL DISTRIBUTION WIDTH 14.3 % (11.5-14.5)
[2018-08-26 19:02] LABS: ANION GAP 7 mmol/L (8-16); CALCIUM, TOTAL 8.9 mg/dL (8.8-10.5); CARBON DIOXIDE 33 mmol/L (22-29); CHLORIDE 103 mmol/L (98-107); CREATININE 0.97 mg/dL (0.60-1.30); GLOMERULAR FILTR. RATE CALC 59 mL/min (>60); GLUCOSE,RANDOM 144 mg/dL (70-110); POTASSIUM 3.5 mmol/L (3.5-5.1); SODIUM SERUM 143 mmol/L (136-145); UREA NITROGEN, BLOOD 21 mg/dL (7-18)
[2018-08-26 19:08] LABS: ALANINE AMINOTRANSFERASE 23 U/L (12-78); ALBUMIN 3.3 g/dL (3.4-5.0); ALKALINE PHOSPHATASE 91 U/L (46-116); ASPARTATE AMINOTRANSFERASE 13 U/L (15-37); BILIRUBIN,TOTAL 0.2 mg/dL (0.1-1.0); TOTAL PROTEIN, SERUM 6.8 g/dL (6.4-8.2)
[2018-08-26 19:15] LABS: AMPHET/METH SCREEN,URINE NEGATIVE (NEGATIVE); BARBITURATE SCREEN, URINE POSITIVE (NEGATIVE); BENZODIAZEPINES SCREEN,URINE NEGATIVE (NEGATIVE); CANNABINOID SCREEN,URINE NEGATIVE (NEGATIVE); COCAINE SCREEN,URINE NEGATIVE (NEGATIVE); METHADONE SCREEN, URINE NEGATIVE (NEGATIVE); OPIATE SCREEN,URINE POSITIVE (NEGATIVE)
[2018-08-26 19:36] LABS: PHENCYCLIDINE SCREEN,URINE NEGATIVE (NEGATIVE)
[2018-08-26] MEDS ORDERED: DiphenhydrAMINE HCL 25 MG CAPSULE PO ONE (20:00)
[2018-08-26 20:48] VITALS: BP 141/86
[2018-08-26] MEDS ORDERED: DEXTROSE 50%-WATER 25 GM/50 ML SYRINGE IVP PRN (21:00)
[2018-08-26] MEDS: INSULIN LISPRO 100 UNITS/ML SQ PRN (21:41)
[2018-08-26 21:49] LABS: GLUCOMETER DEV NAME(LOC) 3E.I; GLUCOSE,POINT OF CARE 194 MG/DL (70-110)
[2018-08-26] MEDS ORDERED: MAG HYDROX/AL HYDROX/SIMETH ES 30 ML SUSPENSION UDCUP PO PRN (22:30)
[2018-08-26] MEDS ORDERED: IBUPROFEN 600 MG TABLET PO PRN (22:30)
[2018-08-26] MEDS ORDERED: MAGNESIUM HYDROXIDE SUSPENSION 30 ML UDCUP PO PRN (22:30)
[2018-08-26] MEDS ORDERED: ACETAMINOPHEN 325 MG TABLET PO PRN (22:30)
[2018-08-27] MEDS: MetFORMIN HCL 500 MG TABLET PO SCH ×2 (06:03→16:31)
[2018-08-27 07:58] VITALS: BP 117/65
[2018-08-27] MEDS: OMEPRAZOLE 20 MG CAPSULE PO SCH (07:58)
[2018-08-27] MEDS: DOCUSATE SODIUM 100 MG CAPSULE PO SCH (07:58)
[2018-08-27] MEDS: LORazepam 2 MG TABLET PO PRN ×3 (07:58→17:41)
[2018-08-27 08:58] VITALS: BP 118/72
[2018-08-27] MEDS: CARISOPRODOL 350 MG TABLET PO SCH ×3 (09:57→16:30)
[2018-08-27] MEDS: LISINOPRIL 10 MG TABLET PO SCH (09:57)
[2018-08-27 11:39] LABS: GLUCOMETER DEV NAME(LOC) 3E.I; GLUCOSE,POINT OF CARE 105 MG/DL (70-110)
[2018-08-27 16:45] LABS: GLUCOMETER DEV NAME(LOC) 3EX.; GLUCOSE,POINT OF CARE 136 MG/DL (70-110)
[2018-08-27 17:53] VITALS: BP 100/66
[2018-08-27] MEDS: QUEtiapine FUMARATE 200 MG TABLET PO SCH (20:21)
[2018-08-27] MEDS: DIVALPROEX SODIUM 500 MG DR TABLET PO SCH (20:22)
[2018-08-28 05:40] LABS: GLUCOMETER DEV NAME(LOC) 3EX.; GLUCOSE,POINT OF CARE 108 MG/DL (70-110)
[2018-08-28] MEDS: MetFORMIN HCL 500 MG TABLET PO SCH ×2 (06:59→16:23)
[2018-08-28] MEDS: LORazepam 2 MG TABLET PO PRN ×3 (07:11→17:41)
[2018-08-28] MEDS: LISINOPRIL 10 MG TABLET PO SCH ×2 (09:00→09:03)
[2018-08-28] MEDS: DOCUSATE SODIUM 100 MG CAPSULE PO SCH (09:02)
[2018-08-28] MEDS: DIVALPROEX SODIUM 500 MG DR TABLET PO SCH ×2 (09:02→21:30)
[2018-08-28] MEDS: CARISOPRODOL 350 MG TABLET PO SCH ×3 (09:02→16:23)
[2018-08-28] MEDS: OMEPRAZOLE 20 MG CAPSULE PO SCH (09:02)
[2018-08-28 10:13] VITALS: BP 100/54
[2018-08-28 11:44] LABS: GLUCOMETER DEV NAME(LOC) 3EX.; GLUCOSE,POINT OF CARE 118 MG/DL (70-110)
[2018-08-28] MEDS: INSULIN LISPRO 100 UNITS/ML SQ PRN (12:47)
[2018-08-28] MEDS: HALOPERIDOL 5 MG TABLET PO PRN (16:23)
[2018-08-28] MEDS: DiphenhydrAMINE HCL 25 MG CAPSULE PO PRN (16:24)
[2018-08-28 17:20] LABS: GLUCOMETER DEV NAME(LOC) 3E.I; GLUCOSE,POINT OF CARE 159 MG/DL (70-110)
[2018-08-28 19:19] VITALS: BP 129/75
[2018-08-28] MEDS: QUEtiapine FUMARATE 200 MG TABLET PO SCH (21:30)
[2018-08-29 02:25] VITALS: BP 145/87
[2018-08-29] MEDS: LORazepam 2 MG TABLET PO PRN ×4 (02:26→17:09)
[2018-08-29 06:24] LABS: GLUCOMETER DEV NAME(LOC) 3EX.; GLUCOSE,POINT OF CARE 115 MG/DL (70-110)
[2018-08-29] MEDS: INSULIN LISPRO 100 UNITS/ML SQ PRN (06:47)
[2018-08-29] MEDS: MetFORMIN HCL 500 MG TABLET PO SCH ×2 (07:02→17:09)
[2018-08-29] MEDS: ONDANSETRON HCL 4 MG TABLET PO PRN (07:11)
[2018-08-29 08:22] VITALS: BP 123/87
[2018-08-29] MEDS: DOCUSATE SODIUM 100 MG CAPSULE PO SCH (08:30)
[2018-08-29] MEDS: LISINOPRIL 10 MG TABLET PO SCH (08:30)
[2018-08-29] MEDS: DIVALPROEX SODIUM 500 MG DR TABLET PO SCH ×2 (08:31→19:56)
[2018-08-29] MEDS: CARISOPRODOL 350 MG TABLET PO SCH ×3 (08:31→17:09)
[2018-08-29] MEDS: OMEPRAZOLE 20 MG CAPSULE PO SCH (08:31)
[2018-08-29] MEDS: DiphenhydrAMINE HCL 25 MG CAPSULE PO PRN (17:18)
[2018-08-29 17:24] LABS: GLUCOMETER DEV NAME(LOC) 3E.I; GLUCOSE,POINT OF CARE 107 MG/DL (70-110)
[2018-08-29 17:36] VITALS: BP 145/87
[2018-08-29] MEDS: QUEtiapine FUMARATE 200 MG TABLET PO SCH (19:56)
[2018-08-30] MEDS: MetFORMIN HCL 500 MG TABLET PO SCH ×2 (06:56→16:08)
[2018-08-30] MEDS: ONDANSETRON HCL 4 MG TABLET PO PRN (07:01)
[2018-08-30 07:19] LABS: GLUCOMETER DEV NAME(LOC) 3E.I; GLUCOSE,POINT OF CARE 101 MG/DL (70-110)
[2018-08-30 08:00] VITALS: BP 126/77
[2018-08-30] MEDS: DIVALPROEX SODIUM 500 MG DR TABLET PO SCH ×2 (08:04→20:38)
[2018-08-30] MEDS: CARISOPRODOL 350 MG TABLET PO SCH ×3 (08:04→16:07)
[2018-08-30] MEDS: LORazepam 2 MG TABLET PO PRN ×3 (08:04→16:12)
[2018-08-30] MEDS: OMEPRAZOLE 20 MG CAPSULE PO SCH (08:04)
[2018-08-30] MEDS: DOCUSATE SODIUM 100 MG CAPSULE PO SCH (08:04)
[2018-08-30] MEDS: LISINOPRIL 10 MG TABLET PO SCH ×2 (08:06→09:00)
[2018-08-30 11:24] LABS: GLUCOMETER DEV NAME(LOC) 3E.I; GLUCOSE,POINT OF CARE 118 MG/DL (70-110)
[2018-08-30] MEDS: INSULIN LISPRO 100 UNITS/ML SQ PRN (12:12)
[2018-08-30] MEDS: DiphenhydrAMINE HCL 25 MG CAPSULE PO PRN ×2 (12:47→16:50)
[2018-08-30] MEDS: HALOPERIDOL 5 MG TABLET PO PRN (12:47)
[2018-08-30 16:19] LABS: GLUCOMETER DEV NAME(LOC) 3E.I; GLUCOSE,POINT OF CARE 163 MG/DL (70-110)
[2018-08-30 17:54] VITALS: BP 114/73
[2018-08-30] MEDS: QUEtiapine FUMARATE 200 MG TABLET PO SCH (20:38)
[2018-08-31] MEDS: ONDANSETRON HCL 4 MG TABLET PO PRN (04:19)
[2018-08-31 04:20] VITALS: BP 116/73
[2018-08-31] MEDS: MetFORMIN HCL 500 MG TABLET PO SCH (07:01)
[2018-08-31] MEDS: LORazepam 2 MG TABLET PO PRN ×3 (08:00→12:25)
[2018-08-31] MEDS: LISINOPRIL 10 MG TABLET PO SCH (09:00)
[2018-08-31] MEDS: DOCUSATE SODIUM 100 MG CAPSULE PO SCH (09:16)
[2018-08-31] MEDS: CARISOPRODOL 350 MG TABLET PO SCH ×2 (09:16→12:10)
[2018-08-31] MEDS: DIVALPROEX SODIUM 500 MG DR TABLET PO SCH (09:16)
[2018-08-31] MEDS: OMEPRAZOLE 20 MG CAPSULE PO SCH (09:16)
[2018-08-31] MEDS: DiphenhydrAMINE HCL 25 MG CAPSULE PO PRN (09:49)
[2018-08-31] MEDS: HALOPERIDOL 5 MG TABLET PO PRN (09:49)
[2018-08-31 09:54] VITALS: BP 113/78
[2018-08-31] MEDS ORDERED: DIVA-78 PO ×2 (13:01)
[2018-08-31] MEDS ORDERED: QUET200T29 PO (13:01)
[2018-08-31] MEDS ORDERED: LISI-661 PO (13:36)
[2018-08-31] MEDS ORDERED: DSS100 PO (13:36)
[2018-08-31] MEDS ORDERED: OMEP20 PO (13:36)
== END 2018-08-31 14:30 | disposition home or self-care (01) | DRG 885 ==
LOC: EMS 17:05 → 3EX 19:27
PROVIDERS: ADMIT Psychiatry & Neurology Child & Adolescent Psychiatry
DX: F25.0 Schizoaffective disorder, bipolar type (principal); E11.65 Type 2 diabetes mellitus with hyperglycemia; R45.851 Suicidal ideations; E03.9 Hypothyroidism, unspecified; F41.9 Anxiety disorder, unspecified; G47.00 Insomnia, unspecified; I10 Essential (primary) hypertension; F19.10 Other psychoactive substance abuse, uncomplicated; F15.90 Other stimulant use, unspecified, uncomplicated; J44.9 Chronic obstructive pulmonary disease, unspecified; K21.9 Gastro-esophageal reflux disease without esophagitis; M19.90 Unspecified osteoarthritis, unspecified site; M79.7 Fibromyalgia; F17.200 Nicotine dependence, unspecified, uncomplicated; Z59.0 Homelessness; Z71.6 Tobacco abuse counseling; Z79.899 Other long term (current) drug therapy; Z91.5 Personal history of self-harm; Z56.0 Unemployment, unspecified
CPT/HCPCS: 87081; G0378; G0480; Q0162